=== PATIENT | female | born 1965 | race Two or more races ===

== ENCOUNTER 2020-02-12 08:39 | Outpatient (REF) | payer MEDICAID, SELFPAY ==
[2020-02-12 09:34] LABS: MANUAL DIFF FLAG NO
[2020-02-12 09:42] LABS: Basophils Percent Auto 0.5 % (0-2); Eosinophils Absolute Auto 0.1 X10*3/uL (0.0-0.4); Eosinophils Percent Auto 0.9 % (0-4); Hematocrit 39.1 % (37-47); Hemoglobin 12.6 g/dl (12.0-16.0); Imm Gran Abs Auto 0.02 X10*3/uL (0.00-0.03); Imm Gran Pct Auto 0.3 % (0.0-0.4); Lymphocytes Absolute Auto 0.9 X10*3/uL (1.2-4.9); Lymphocytes Percent Auto 13.5 % (20-40); Mean Corpuscular HGB Conc 32.2 g/dl (31.0-35.0); Mean Corpuscular Volume 86.9 fL (80-98); Mean Platelet Volume 11.1 fL (9.4-12.3); Monocytes Absolute Auto 0.5 X10*3/uL (0.1-1.2); Monocytes Percent Auto 7.1 % (2-11); Neutrophils Absolute Auto 4.9 X10*3/uL (2.0-8.3); Neutrophils Percent Auto 77.7 % (45-73); Platelet Count 311 X10*3/uL (160-400); Red Cell Distribution Width 14.4 % (11.0-16.0); White Blood Count 6.4 X10*3/uL (4.8-10.8)
[2020-02-12 10:43] LABS: Estimated Average Glucose 111 mg/dL; Hemoglobin A1C 122.4538 umol/L; Hemoglobin A1c % 5.5 %
[2020-02-12 11:01] LABS: Alanine Aminotransferase 18 U/L (0-31); Albumin Level 4.2 g/dL (3.5-5.0); Alkaline Phosphatase 139 U/L (39-117); Anion Gap 11 (12-20); Aspartate Amino Transferase 23 U/L (5-31); Bilirubin Total 0.6 mg/dL (0.0-1.0); Blood Urea Nitrogen 24 mg/dL (9-16); C Reactive Protein 1.72 mg/dL (< or = 0.50); Calcium 9.9 mg/dL (8.4-10.2); Carbon Dioxide 29 mmol/L (22-29); Chloride 103 mmol/L (96-108); Cholesterol 189 mg/dL; Estimated Glomerular Filt Rate > 60; Glucose Random 93 mg/dL (60-115); HDL Cholesterol 77 mg/dL; Iron 101 mcg/dL (30-160); LDL Cholesterol Calculated 99 mg/dl; Percent Iron Saturation 24 % (15-50); Potassium 4.3 mmol/l (3.3-5.1); Sodium 139 mmol/L (135-145); Total Iron Binding Capacity 413 mcg/dL (228-428); Total Protein 7.2 g/dL (6.5-8.0); Triglycerides 65 mg/dL; Unsaturated Iron Binding 312 ug/dL
[2020-02-12 11:25] LABS: Ferritin 12 ng/mL (10-250); TSH reflex Free T4 0.93 mIU/mL (0.32-4.0); Vitamin D 25-OH Total 41.1 ng/mL (>30)
[2020-02-12 11:33] LABS: Folate > 20.0 ng/mL (> or = 4.0); Vitamin B12 1078 pg/mL (200-900)
[2020-02-15 14:37] LABS: Insulin Level Total 5.9 uIU/mL
[2020-02-17 00:12] LABS: Zinc 79 mcg/dL (60-130)
[2020-02-18 12:36] LABS: Vitamin B1 14 nmol/L (8-30)
[2020-02-18 17:17] LABS: Vitamin A 46 mcg/dL (38-98)
== END 2020-02-12 08:40 | disposition home or self-care (01) ==
LOC: HO.LAB 08:39
PROVIDERS: Visit Provider Surgery
DX: K91.2 Postsurgical malabsorption, not elsewhere classified (principal)
CPT/HCPCS: 36415; 80053; 80061; 82306; 82607; 82728; 82746; 83036; 83525; 83540; 84425; 84443; 84590; 84630; 85025; 86140

== ENCOUNTER 2020-02-12 17:29 | Emergency (ER) | payer MEDICAID, SELFPAY ==
[2020-02-12 20:15] VITALS: BP 133/70; PULSE 73; RESP 16; TEMP 36.9; O2SAT 98; BMI 32.8
--- NOTE | 2020-02-12 20:17 | PC.NURSE ---
PATIENT CALLED FOR ROOM ASSISGNMENT NO RESPONSE
--- NOTE | 2020-02-12 20:56 | ED_ITS ---
HPI - Extremity Problem General Chief complaint: Extremity Injury, Upper <Patricia Nielsen NP - Last Filed: 02/12/20 22:06> Stated complaint: ?infection <Patricia Nielsen NP - Last Filed: 02/12/20 22:06> Time Seen by Provider: 02/12/20 20:56 <Patricia Nielsen NP - Last Filed: 02/12/20 22:06> Source: patient <Patricia Nielsen NP - Last Filed: 02/12/20 22:06> Mode of arrival: ambulatory <Patricia Nielsen NP - Last Filed: 02/12/20 22:06> Limitations: no limitations <Patricia Nielsen NP - Last Filed: 02/12/20 22:06> History of Present Illness HPI Narrative: 54-year-old female presents with pain, swelling, itching and tenderness to an injection site to the left deltoid. She received the shingles vaccine 2 days ago. She has been taking Tylenol for pain management, but is concerned that the site may be infected. She also reports muscle aches and headache. She does not describe fever, chills, nausea, vomiting, diarrhea, chest pain or pressure, palpitations, or shortness of breath. <Patricia Nielsen NP - Last Filed: 02/12/20 22:06> MD Complaint: extremity pain and extremity swelling <Patricia Nielsen NP - Last Filed: 02/12/20 22:06> Onset (ago): day(s) (1) <Patricia Nielsen NP - Last Filed: 02/12/20 22:06> Pain Consistency: constant <Patricia Nielsen NP - Last Filed: 02/12/20 22:06> Location: left and upper extremity ( deltoid) <Patricia Nielsen NP - Last Filed: 02/12/20 22:06> Severity scale (1-10): 8 <Patricia Nielsen NP - Last Filed: 02/12/20 22:06> Quality: burning and constant <Patricia Nielsen NP - Last Filed: 02/12/20 22:06> Radiation: none <Patricia Nielsen NP - Last Filed: 02/12/20 22:06> Relieving factors: nothing <Patricia Nielsen NP - Last Filed: 02/12/20 22:06> Associated symptoms: denies other symptoms <Patricia Nielsen PAYROLL ADMINISTRATIVE ASSISTANT - Last Filed: 02/12/20 22:06> Related Data Allergies/Adverse reactions: Allergies Allergy/AdvReac Type Severity Reaction Status Date / Time pineapple [PINEAPPLE] Allergy Severe ANAPHYLAXIS Unverified 01/28/20 14:49 shellfish derived Allergy Severe ANAPHYLAXIS Unverified 01/28/20 14:49 [SHELLFISH DERIVED] pineapple Allergy Unknown Unverified 04/07/19 00:00 metronidazole [From Flagyl] AdvReac Mild YEAST Unverified 01/28/20 14:49 INFECTION shellfish Allergy Unknown Uncoded 04/07/19 00:00 <Patricia Nielsen PAYROLL ADMINISTRATIVE ASSISTANT - Last Filed: 02/12/20 22:06> Review of Systems Review of Systems: Yes all other systems are reviewed and are negative <Patricia Nielsen PAYROLL ADMINISTRATIVE ASSISTANT - Last Filed: 02/12/20 22:06> Constitutional: Constitutional: Reports body ache(s) and Reports headache(s) <Patricia Nielsen PAYROLL ADMINISTRATIVE ASSISTANT - Last Filed: 02/12/20 22:06> Eyes: Eyes: Reports no additional eye complaints <Patricia Nielsen PAYROLL ADMINISTRATIVE ASSISTANT - Last Filed: 02/12/20 22:06> ENT: Reports system reviewed and no additional complaints, except as documented and Reports headache(s) <Patricia Nielsen PAYROLL ADMINISTRATIVE ASSISTANT - Last Filed: 02/12/20 22:06> Cardiovascular: Cardiovascular: Reports no additional cardiovascular complaints <Patricia Nielsen PAYROLL ADMINISTRATIVE ASSISTANT - Last Filed: 02/12/20 22:06> Respiratory: Respiratory: Reports no additional respiratory complaints <Patricia Nielsen PAYROLL ADMINISTRATIVE ASSISTANT - Last Filed: 02/12/20 22:06> Gastrointestinal: Gastrointestinal: Reports no additional gastrointestinal complaints <Patricia Nielsen PAYROLL ADMINISTRATIVE ASSISTANT - Last Filed: 02/12/20 22:06> Genitourinary: Genitourinary: Reports no additional female genitourinary complaints <Patricia Nielsen PAYROLL ADMINISTRATIVE ASSISTANT - Last Filed: 02/12/20 22:06> Musculoskeletal: Musculoskeletal: Reports myalgias <Patricia Nielsen PAYROLL ADMINISTRATIVE ASSISTANT - Last Filed: 02/12/20 22:06> Integumentary/Breasts: Skin/Breast: Reports erythema and Reports skin swelling ( left deltoid) <Patricia MoralesFELY ayers - Last Filed: 02/12/20 22:06> Neurologic: Reports system reviewed and no additional complaints, except as documented and Reports headache(s) <Patricia MoralesFELY ayers - Last Filed: 02/12/20 22:06> Endocrine: Endocrine: Reports no additional endocrine complaints <Patricia Nielsen NP - Last Filed: 02/12/20 22:06> Hematologic/Lymphatic: Hematologic/Lymphatic: Reports no additional hematologic/lymphatic complaints <Patricia Nielsen NP - Last Filed: 02/12/20 22:06> Allergic/Immunologic: Allergic/Immunologic: Reports no additional allergic/immunologic complaints <Patricia Nielsen NP - Last Filed: 02/12/20 2 2:06> [facility] Past Medical History Attestation statement: The following information was validated with the patient. <Patricia Nielsen NP - Last Filed: 02/12/20 22:06> Medical History: Medical History (Updated 02/13/20 @ 00:01 by Nik Dupont) Hypertension <Patricia Nielsen NP - Last Filed: 02/12/20 22:06> Social History Social History: Social History Advance Directives: No Advance Directives Information Provided: Yes <Patricia Nielsen NP - Last Filed: 02/12/20 22:06> Physical Exam Vital Signs and I&O and Narrative: Vital Signs and I&O: Vital Signs Temp 98.6 F 02/12/20 21:02 Pulse 71 02/12/20 21:02 Resp 18 02/12/20 21:02 BP 106/60 02/12/20 21:02 Pulse Ox 98 02/12/20 21:02 Intake & Output 02/12/20 02/12/20 02/13/20 06:59 18:59 06:59 Weight 78.925 kg Body Mass Index 32.8 <Patricia Nielsen NP - Last Filed: 02/12/20 22:06> Vital Signs and I&O: Vital Signs Temp 98.6 F 02/12/20 21:02 Pulse 71 02/12/20 21:02 Resp 18 02/12/20 21:02 BP 106/60 02/12/20 21:02 Pulse Ox 98 02/12/20 21:02 Intake & Output 02/12/20 02/12/20 02/13/20 06:59 18:59 06:59 Weight 78.925 kg Body Mass Index 32.8 <Van Mcgill DO - Last Filed: 02/13/20 02:25> Const: General: cooperative, healthy appearing, comfortable and well developed <Patricia Nielsen NP - Last Filed: 02/12/20 22:06> Nutritional Appearance: average body habitus <Patricia Nielsen NP - Last Filed: 02/12/20 22:06> Orientation/consciousness: patient oriented x3 <Patricia Nielsen NP - Last Filed: 02/12/20 22:06> Limitations: no limitations <Patricia Nielsen NP - Last Filed: 02/12/20 22:06> HENMT: Head: Yes normal to inspection <Patricia Nielsen NP - Last Filed: 02/12/20 22:06> Neck: Neck: Yes normal visual inspection, Yes full ROM and Yes no lymphadenopathy <Patricia Nielsen NP - Last Filed: 02/12/20 22:06> Chest: Chest palpation & inspection: normal inspection of the chest <Patricia Nielsen NP - Last Filed: 02/12/20 22:06> Resp: Effort & Inspection: normal respiratory effort and able to speak in complete sentences <Patricia Nielsen NP - Last Filed: 02/12/20 22:06> Auscultation: clear to auscultation bilaterally <Patricia Nielsen NP - Last Filed: 02/12/20 22:06> Cardio: Rate: regular rate <Patricia Nielsen NP - Last Filed: 02/12/20 22:06> Rhythm: regular rhythm <Patricia Nielsen NP - Last Filed: 02/12/20 22:06> Skin: General skin exam: erythema ( left deltoid) and induration ( left deltoid) <Patricia Nielsen NP - Last Filed: 02/12/20 22:06> Neuro: General: patient oriented x3 <Patricia Nielsen NP - Last Filed: 02/12/20 22:06> Cranial nerves: Yes CN's II-XII intact bilaterally, Yes Equal, round and reactive pupils present and Yes Bilaterally intact EOM present <Patricia Nielsen NP - Last Filed: 02/12/20 22:06> Cognition (Neuro): normal cognition <Patricia Nielsen NP - Last Filed: 02/12/20 22:06> Motor exam (neuro): 5/5 motor strength present throughout <Patricia Nielsen NP - Last Filed: 02/12/20 22:06> Psych: Appearance: grossly normal <Patricia Nielsen NP - Last Filed: 02/12/20 22:06> Course Course Hospital Course: patient has a 3 cm tender, erythematous area lateral on the left deltoid consistent with patient's report of vaccine injection. She does have full range of motion, strength 5/5 to all extremities, and is having normal symptoms status post vaccine administration. We will give Motrin for pain and Benadryl for the itching. [facility] not have adverse reactions to shingles vaccine. Patient will follow-up with primary care provider as needed. She does understand that if symptoms persist or get worse that she should return sooner for evaluation. Patient verbalized understanding of and agrees to plan of care discharge home <Patricia Nielsen NP - Last Filed: 02/12/20 22:06> MDM - Extremity (Nontraumatic) MDM Narrative Medical decision making narrative: normal injection site reaction verses adverse reaction to vaccine injection <Patricia Nielsen NP - Last Filed: 02/12/20 22:06> Discharge Plan Discharge Clinical Impression: Injection site reaction <Patricia Nielsen NP - Last Filed: 02/12/20 22:06> Patient Disposition: Home, Self-Care <Patricia Nielsen NP - Last Filed: 02/12/20 22:06> Instructions: Zoster Vaccine, Live (By injection) <Patricia Nielsen NP - Last Filed: 02/12/20 22:06> Additional Instructions: please follow the instructions that were printed out for injection site reactions for shingles vaccine. Please use ice and elevation to help reduce swelling. Alternate Tylenol and Motrin to help with body aches and pain. You may use Benadryl as needed for itching. Follow-up with primary care physician in 3 days. Return to the emergency department for any new, concerning, worsening symptoms. <Patricia Nielsen NP - Last Filed: 02/12/20 22:06> Stand Alone Forms: Work/School Release <Patricia Nielsen NP - Last Filed: 02/12/20 22:06> Interventions: ED Discharge Assessment Last Done: 02/12/20 21:19 <Patricia Nielsen NP - Last Filed: 02/12/20 22:06> Discharge Date/Time: 02/12/20 21:20 <Patricia Nielsen NP - Last Filed: 02/12/20 22:06>
[2020-02-12 21:02] VITALS: BP 106/60; PULSE 71; RESP 18; TEMP 37; O2SAT 98
--- NOTE | 2020-02-12 21:04 | PC.NURSE ---
PT PRESENTS WITH LARGE RED CIRCULAR LUMP TO LEFT DELTOID WHERE SHE RECEIVED SHINGLES VACCINE 2 DAYS PRIOR. REPORTS 6/10 PAIN. EVAL BY CHRISTOPHER GEIGER. AWAITING BAGGING SALVAGER AND DC HOME. AWARE OF PLAN OF CARE.
[2020-02-12] MEDS: diphenhydrAMINE HCL 25 MG TABLET PO (21:07)
[2020-02-12] MEDS: Ibuprofen 600 MG TABLET PO (21:07)
--- NOTE | 2020-02-12 21:10 | PC.NURSE ---
PT MEDICATED PER MD ORDER, AWAITING DC HOME.
== END 2020-02-12 21:20 | disposition home or self-care (01) ==
PROVIDERS: Emergency Provider Emergency Medicine; PCP Internal Medicine
DX: M79.622 Pain in left upper arm (principal); T50.Z95A Adverse effect of other vaccines and biological substances, initial encounter; Y92.9 Unspecified place or not applicable; I10 Essential (primary) hypertension
CPT/HCPCS: 99283; Q0163

== ENCOUNTER → 2020-02-26 08:16 | Outpatient (BNVA) | payer MEDICAID, SELFPAY | PROVIDERS: PCP Internal Medicine; Referring Provider Internal Medicine; Visit Provider Dietitian, Registered | DX: Z76.89 Persons encountering health services in other specified circumstances (principal) ==

== ENCOUNTER 2020-05-11 17:26 | Outpatient (REF) | payer MEDICAID, SELFPAY ==
--- NOTE | 2020-05-11 | XR_ITS ---
EXAMINATION: XR LUMBOSACRAL SPINE WITH OBLIQUES CLINICAL INFORMATION: Lumbar radiculopathy. COMPARISON: None TECHNIQUE: AP, both oblique, and lateral views of the lumbar spine. Lateral view of the lumbosacral junction. FINDINGS: There is normal lumbar lordosis. The vertebral heights and alignment is normal. There is loss of L5-S1 disc height. Rest of the disc heights are normal. No visible acute fracture, dislocation or subluxation seen. No lytic or sclerotic process. XR/XR lumbar spine 4V min IMPRESSION: Mild degenerative disc changes at L5-S1 disc level. Otherwise unremarkable lumbar spine exam.
== END 2020-05-11 17:27 | disposition home or self-care (01) ==
LOC: HO.XRAY 17:26
PROVIDERS: Visit Provider Emergency Medicine
DX: M54.18 Radiculopathy, sacral and sacrococcygeal region (principal); M54.41 Lumbago with sciatica, right side
CPT/HCPCS: 72110

== ENCOUNTER 2020-05-19 16:56 | Outpatient (REF) | payer MEDICAID, SELFPAY ==
[2020-05-19 18:21] LABS: Glucose Urine UA NEG (NEG); Leukocyte Esterase Urine TRACE (NEG); Nitrite Urine NEG (NEG); Specific Gravity - Urine 1.015 (1.005-1.025); Urine Blood NEG (NEG); Urine Ketones NEG (NEG); Urine Protein NEG (NEG-TRACE)
[2020-05-19 18:22] LABS: Appearance Urine CLEAR; Color Urine YELLOW
[2020-05-19 18:34] LABS: RBC Urine 0 /HPF (0); Squamous Epithelial Cell Urine 2+ /LPF
== END 2020-05-19 16:57 | disposition home or self-care (01) ==
LOC: HO.LAB 16:56
PROVIDERS: PCP Internal Medicine; Visit Provider Registered Nurse
DX: N89.8 Other specified noninflammatory disorders of vagina (principal); R82.90 Unspecified abnormal findings in urine
CPT/HCPCS: 81001; 87086

== ENCOUNTER 2020-06-16 07:00 | Outpatient (RCR) | payer MEDICAID, SELFPAY | END 2020-07-11 11:00 | disposition home or self-care (01) | LOC: HO.PT 07:00 | PROVIDERS: PCP Internal Medicine; Visit Provider Emergency Medicine | DX: M54.18 Radiculopathy, sacral and sacrococcygeal region (principal) | CPT/HCPCS: 97110; 97112; 97140; 97162 ==

== ENCOUNTER 2020-06-17 16:57 | Outpatient (REF) | payer MEDICAID, SELFPAY ==
--- NOTE | ~2020-06-17 | XR_ITS ---
EXAMINATION: XR KNEE, LEFT CLINICAL INFORMATION: Medial left knee pain for one week. COMPARISON: None. TECHNIQUE: 4 views of the left knee. FINDINGS: Bones and soft tissues are normal. No fracture or joint effusion. Alignment is anatomic. Joint spaces are well maintained. There is a small superior patellar spur. No abnormal soft tissue calcification. XR/XR knee LT 4V IMPRESSION: No visible acute fracture, dislocation or subluxation seen. Small superior patellar spur.
== END 2020-06-17 16:58 | disposition home or self-care (01) ==
LOC: HO.XRAY 16:57
PROVIDERS: PCP Internal Medicine; Visit Provider Emergency Medicine
DX: M23.92 Unspecified internal derangement of left knee (principal)
CPT/HCPCS: 73564

== ENCOUNTER → 2020-07-04 12:58 | Outpatient (BNVA) | payer MEDICAID, SELFPAY | PROVIDERS: Visit Provider Orthopaedic Surgery | DX: M23.92 Unspecified internal derangement of left knee (principal) | CPT/HCPCS: 20610; 99202; J1100 ==

== ENCOUNTER 2020-07-07 07:32 | Outpatient (REF) | payer MEDICAID, SELFPAY ==
[2020-07-08 08:57] LABS: BV Int Neg Control Negative (Negative)
[2020-07-08 08:58] LABS: BV Int Pos Control Positive (Positive)
== END 2020-07-07 07:33 | disposition home or self-care (01) ==
LOC: HO.LAB 07:32
PROVIDERS: Visit Provider Advanced Practice Midwife
DX: Z01.419 Encounter for gynecological examination (general) (routine) without abnormal findings (principal); N89.8 Other specified noninflammatory disorders of vagina; R23.2 Flushing; M54.9 Dorsalgia, unspecified; M25.569 Pain in unspecified knee
CPT/HCPCS: 87480; 87510; 87660

== ENCOUNTER 2020-10-22 09:18 | Outpatient (REF) | payer MEDICAID, SELFPAY ==
--- NOTE | ~2020-10-22 | MM_ITS ---
EXAMINATION: MM SCREENING DIGITAL BREAST TOMOSYNTHESIS, BILATERAL CLINICAL INFORMATION: Screening. Asymptomatic. The lifetime risk of breast cancer based on the Tyrer-Cuzick Model is 11%. COMPARISON: Mammography: 12/11/2017, 12/26/2015, 02/16/2014 TECHNIQUE: Digital breast tomosynthesis is performed in both the craniocaudal and mediolateral oblique views along with computer-aided detection (CAD). Synthesized 2D images are generated from the tomosynthesis. FINDINGS: There are scattered areas of fibroglandular density (ACR BI-RADS breast composition Category b). There are no significant masses, abnormal calcifications, or other abnormalities. Parenchymal pattern is similar to prior studies. No significant changes. No developing density. MM/MM tomosynthesis screening BI IMPRESSION: No mammographic evidence of malignancy. ASSESSMENT: BI-RADS 1: Negative RECOMMENDATION: Routine annual mammography screening. This patient's information was entered into a reminder system with a target due date for their next mammogram.
== END 2020-10-22 09:19 | disposition home or self-care (01) ==
LOC: HO.MAMMO 09:18
PROVIDERS: Visit Provider Advanced Practice Midwife
DX: Z12.31 Encounter for screening mammogram for malignant neoplasm of breast (principal)
CPT/HCPCS: 77063; 77067

== ENCOUNTER 2020-12-01 12:18 | Emergency (ER) | payer MEDICAID, SELFPAY ==
--- NOTE | ~2020-12-01 | XR_ITS ---
EXAMINATION: XR HIP, RIGHT CLINICAL INFORMATION: Right hip pain COMPARISON: None TECHNIQUE: AP pelvis and 2 views of the right hip. of the right hip. FINDINGS: There is no evidence of acute fracture or diastases of the pelvis. Hip joint spaces appear maintained. There appears be osteitis pubis. There is some sclerosis about the iliac sides of the sacroiliac joints bilaterally without evidence of widening or fusion of the sacroiliac joints. There is degenerative disc disease present at the L5-S1 level. 2 views of the right hip do not demonstrate any evidence of acute fracture or dislocation. Hip joint spaces maintained. No abnormal lytic or sclerotic lesions identified. No evidence of femoral head collapse. XR/XR hip RT w PEL1V IMPRESSION: No significant abnormality of the right hip identified. No evidence of acute fracture or diastases the pelvis. Degenerative disc disease L5-S1. Sacroiliac joint sclerosis.
[2020-12-01 13:03] VITALS: BP 123/80; PULSE 92; RESP 17; TEMP 36.6; O2SAT 96; BMI 35.3
--- NOTE | 2020-12-01 13:10 | PC.NURSE ---
verbal order for xray from [facility] provider
--- NOTE | 2020-12-01 13:55 | ED.GENADULT ---
HPI - General Adult General Chief complaint: General Medical Stated complaint: hip pain Time Seen by Provider: 12/01/20 13:55 Source: patient Mode of arrival: ambulatory Limitations: no limitations History of Present Illness HPI narrative: 55-year-old female with nonsignificant past medical history presents to the emergency department today with reports of right-sided atraumatic hip pain. Patient states last evening while walking she developed pain that radiated from the right low back to the right hip and into the right groin. Denies recent injury or trauma. States she had similar discomfort in the past for which she was seen by Physical therapy. States she know she has degenerative discs in the lumbar spine. Denies fevers or chills. Denies abdominal pain nausea vomiting or changes in bowel or bladder habits. Denies dysuria. Denies numbness or tingling in the legs or genitals. Took Tylenol today with minimal relief. Related Data Home Medications Medication Instructions Recorded Confirmed acetaminophen 325 mg-codeine 15 mg tab PO 07/04/20 tablet albuterol sulfate 90 mcg/actuation 1 inh INHALATION QID 07/04/20 aerosol inhaler capsaicin 0.025 % topical cream 1 appl TOPICAL BID 07/04/20 cholecalciferol (vitamin D3) 25 25 mcg PO DAILY 07/04/20 mcg (1,000 unit) capsule epinephrine 0.3 mg/0.3 mL 0.3 mg IM Q10M PRN 07/04/20 injection syringe lisinopril 10 mg tablet 10 mg PO DAILY 07/04/20 loratadine 10 mg tablet 10 mg PO DAILY 07/04/20 metronidazole 500 mg tablet 500 mg PO BID 07/04/20 valacyclovir 500 mg tablet 500 mg PO BID 07/04/20 Previous Rx's Medication Instructions Recorded metronidazole 500 mg tablet 500 mg PO BID 7 Days #14 tab 07/19/20 acetaminophen-codeine 1 tab PO Q8H PRN #6 tab 12/01/20 cyclobenzaprine 10 mg PO TID PRN #15 tab 12/01/20 Allergies Allergy/AdvReac Type Severity Reaction Status Date / Time pineapple [PINEAPPLE] Allergy Severe ANAPHYLAXIS Verified 12/01/20 13:02 shellfish derived Allergy Severe ANAPHYLAXIS Verified 12/01/20 13:02 [SHELLFISH DERIVED] pineapple Allergy Unknown Unknown Verified 12/01/20 13:02 tramadol Allergy Itching Verified 12/01/20 13:02 metronidazole [From Flagyl] AdvReac Mild YEAST Verified 12/01/20 13:02 INFECTION shellfish Allergy Unknown Unknown Uncoded 07/04/20 13:07 Review of Systems Review of Systems: Constitutional : No Weight loss, No Fever, No Chills, No Night Sweats, No Fatigue, No Malaise ENT/Mouth : No Hearing loss, No Ear Pain, No Nasal Congestion, No Sinus Pain, No Hoarseness, No sore throat, No Rhinorrhea, No Swallowing Difficulty Eyes: No Eye Pain, No Swelling, No Redness, No Foreign Body, No Discharge, No Vision Changes Cardiovascular : No Chest Pain, No SOB, No Dyspnea on Exertion, No Orthopnea, No Edema, No Palpitations Respiratory : No Cough, No Sputum, No Wheezing, No Smoke Exposure, No Dyspnea Gastrointestinal : No Nausea, No Vomiting, No Diarrhea, No Constipation, No abdominal Pain, No Hematochezia, No Melena Genitourinary : no irregular bleeding, No Dysuria, No Urinary Frequency, No Hematuria, No Urinary Incontinence, No Urgency, No Flank Pain, No Urinary Flow Changes, No Hesitancy Musculoskeletal : + joint pain, No Myalgias, No Joint Swelling Skin : No Skin Lesions, No rash Neuro : No Weakness, No Numbness, No Paresthesias, No Loss of Consciousness, No Dizziness, No Headache Psych : No Anxiety/Panic, No Depression, No SI/HI/AH/VH, No Social Issues, Heme/Lymph: No Bruising, No Bleeding,No Lymphadenopathy Endocrine : No Polyuria, No Polydipsia, No Temperature Intolerance [facility] Past Medical History Attestation statement: The following information was validated with the patient. Source: old records reviewed and obtained from family Medical History Asthma HSV-1 infection Hypertension Kidney stone Vitamin D deficiency Surgical History H/O abdominoplasty H/O lithotripsy Family History Family History Mother No problems noted. Father No problems noted. Sister Breast cancer Social History Social History Alcohol intake: never Advance Directives: Yes Advance Directives Information Provided: Yes Advance Directives on File: No Patient : No Gender identity: female Physical Exam Vital Signs: Vital Signs: Last Vital Signs Temp 97.8 F 12/01/20 13:03 Pulse 92 12/01/20 13:03 Resp 17 12/01/20 13:03 BP 123/80 12/01/20 13:03 Pulse Ox 96 12/01/20 13:03 Body Mass Index 35.3 vital signs have been reviewed as normal and appeared to be correct. Blood pressure normal. Heart rate normal. Respiration rate normal. Temperature normal. Oxygen saturation normal. Appearance: Alert. Oriented X3. No acute distress. Head: Normal external exam. Normocephalic. Atraumatic. No [place] signs noted. No raccoon eyes noted Eyes: Conjunctiva and sclera normal. ENT: EAC normal. Moist mucous membranes. No drooling noted. No muffled voice noted. Neck: Normal inspection. Neck supple. FROM. No meningeal signs. CVS: Pulses normal throughout. Respiratory: No respiratory distress. Painless inspiration. No accessory muscle usage noted Abdomen: No visible injury noted. Soft nondistended nontender Back: Full range of motion noted. No midline cervical thoracic or lumbar tenderness no CVA tenderness. Patient does have tenderness to the right-sided paraspinal lumbar region with radiation into the right hip Skin: Skin warm and dry. Normal skin color. Normal skin turgor. Extremities: No lower extremity edema. Extremities exhibit normal range of motion. Pain to palpation of the right hip and inguinal region good distal pulses Neuro: Oriented X 3. No motor deficit. No sensory deficit. Course Course Course Narrative: Patient's x-rays returned without evidence of fracture dislocation degenerative changes in the lower L-spine seen likely causing some sciatic discomfort will prescribe pain medication and muscle relaxer for home and advise close outpatient PT and PCP follow-up patient is comfortable with this plan and asking for a work note Medical Decision Making MDM Narrative Medical decision making narrative: Patient's vital signs are stable and she is afebrile. Patient presenting to the ED with atraumatic right hip pain given the absence of trauma low suspicion for fracture however will obtain an x-ray of the right hip and pelvis. Description of symptoms with radiation may be secondary to sciatica patient with known degenerative lumbar disc disease. No urinary symptoms no CVA tenderness no acute concern for UTI pyelonephritis or renal stone. No evidence inguinal hernia on exam patient without abdominal pain no acute concern for intra-abdominal pathology such as appendicitis or ovarian pathology. Patient does have full range of motion of the right hip no acute concern for septic arthritis. Patient drove here will continue to monitor pending the above Discharge Plan Discharge Clinical Impression: Acute hip pain Qualifiers: Laterality: right Qualified Code(s): M25.551 - Pain in right hip Sciatica Qualifiers: Laterality: right Qualified Code(s): M54.31 - Sciatica, right side Patient Disposition: Home, Self-Care Instructions: Sciatica (ED), Lumbar Radiculopathy (ED), Lower Back Exercises (ED) Prescriptions: New acetaminophen-codeine 300-15 mg tablet 1 tab PO Q8H PRN (Reason: pain) Qty: 6 RF: 0 cyclobenzaprine 10 mg tablet 10 mg PO TID PRN (Reason: muscle spasm) Qty: 15 RF: 0 No Action metronidazole [Flagyl] 500 mg tablet 500 mg PO BID 7 Days Qty: 14 RF: 0 loratadine [Allergy Relief (loratadine)] 10 mg tablet 10 mg PO DAILY RF: 0 albuterol sulfate [Proventil HFA] 90 mcg/actuation HFA aerosol inhaler 1 inh inhalation QID RF: 0 cholecalciferol (vitamin D3) 25 mcg (1,000 unit) capsule 25 mcg PO DAILY RF: 0 valacyclovir [Valtrex] 500 mg tablet 500 mg PO BID RF: 0 lisinopril 10 mg tablet 10 mg PO DAILY RF: 0 metronidazole 500 mg tablet 500 mg PO BID RF: 0 capsaicin 0.025 % cream 1 appl topical BID RF: 0 acetaminophen-codeine 325-15 mg tablet PO RF: 0 epinephrine 0.3 mg/0.3 mL syringe 0.3 mg IM Q10M PRNRF: 0 Stand Alone Forms: Work/School Release Interventions: ED Discharge Assessment Last Done: 12/01/20 14:12 Discharge Date/Time: 12/01/20 14:12 Print Language: [place]
== END 2020-12-01 14:12 | disposition home or self-care (01) ==
PROVIDERS: Emergency Provider Emergency Medicine Emergency Medical Services; PCP Internal Medicine
DX: M25.551 Pain in right hip (principal); M54.41 Lumbago with sciatica, right side; I10 Essential (primary) hypertension
CPT/HCPCS: 73502; 99283

== ENCOUNTER 2020-12-13 08:16 | Emergency (ER) | payer MEDICAID, SELFPAY ==
[2020-12-13 08:40] VITALS: BP 116/81; PULSE 88; RESP 16; TEMP 36.1; O2SAT 97; BMI 35.9
--- NOTE | 2020-12-13 09:25 | ED.BACK ---
HPI - Back Pain/Injury General Chief Complaint: Back Pain/Injury Stated Complaint: low back pain Time Seen by Provider: 12/13/20 09:15 Source: patient Mode of arrival: ambulatory Limitations: no limitations History of Present Illness HPI Narrative: 55-year-old female with a past medical history of degenerative disc disease L5-S1 level, kidney stones, hypertension, obesity status post gastric sleeve presenting to the ED with complaints of right lower back pain/hip pain for the past month worse in the past 2 weeks. She reports it is worse when she looks down she gets a sharp pain on the right lower back. She reports she has had this pain in the past approximately 4 months ago and had physical therapy and her symptoms resolved although returned in the past month. She denies any injuries or falls. She denies any fevers, chills, neck pain/stiffness, paresthesias, chest pain, shortness of breath, abdominal pain, dysuria, hematuria, IV drug usage, history of cancer, incontinence or retention of urine or bowels or any other symptoms complaints or concerns at this time. MD elicited complaint: back pain Pertinent past history: prior back pain Onset (ago): week(s) Timing: intermittent and progressively worsening Severity: moderate Similar Symptoms Previously: Yes Quality: sharp Location: right lower back Radiation: other (Right hip/buttocks) Exacerbating factors: movement and walking Relieving factors: immobilization Associated symptoms: denies other symptoms Work related injury: No Related Data Home Medications Medication Instructions Recorded Confirmed acetaminophen 325 mg-codeine 15 mg tab PO 07/04/20 tablet albuterol sulfate 90 mcg/actuation 1 inh INHALATION QID 07/04/20 aerosol inhaler (Proventil HFA) capsaicin 0.025 % topical cream 1 appl TOPICAL BID 07/04/20 cholecalciferol (vitamin D3) 25 25 mcg PO DAILY 07/04/20 mcg (1,000 unit) capsule epinephrine 0.3 mg/0.3 mL 0.3 mg IM Q10M PRN 07/04/20 injection syringe lisinopril 10 mg tablet 10 mg PO DAILY 07/04/20 loratadine 10 mg tablet (Allergy 10 mg PO DAILY 07/04/20 Relief (loratadine)) metronidazole 500 mg tablet 500 mg PO BID 07/04/20 valacyclovir 500 mg tablet 500 mg PO BID 07/04/20 (Valtrex) Previous Rx's Medication Instructions Recorded metronidazole 500 mg tablet 500 mg PO BID 7 Days #14 tab 07/19/20 (Flagyl) acetaminophen 300 mg-codeine 15 mg 1 tab PO Q8H PRN #6 tab 12/01/20 tablet cyclobenzaprine 10 mg tablet 10 mg PO TID PRN #15 tab 12/01/20 acetaminophen 500 mg tablet 1,000 mg PO QID PRN #14 tab 12/13/20 (Tylenol Extra Strength) cyclobenzaprine 10 mg tablet 10 mg PO Q8H #10 tab 12/13/20 lidocaine HCl 4 % topical cream 1 appl TOPICAL BID PRN #120 g 12/13/20 (Aspercreme (lidocaine HCl)) oxycodone 5 mg tablet 5 mg PO BID PRN #10 tab 12/13/20 prednisone 20 mg tablet 40 mg PO DAILY 5 Days #10 tab 12/13/20 Allergies Allergy/AdvReac Type Severity Reaction Status Date / Time pineapple [PINEAPPLE] Allergy Severe ANAPHYLAXIS Verified 12/01/20 13:02 shellfish derived Allergy Severe ANAPHYLAXIS Verified 12/01/20 13:02 [SHELLFISH DERIVED] pineapple Allergy Unknown Unknown Verified 12/01/20 13:02 tramadol Allergy Itching Verified 12/01/20 13:02 metronidazole [From Flagyl] AdvReac Mild YEAST Verified 12/01/20 13:02 INFECTION shellfish Allergy Unknown Unknown Uncoded 07/04/20 13:07 Review of Systems Review of Systems: Constitutional : No trauma, No Weight loss, No Fever, No Chills, ENT/Mouth : No Hearing loss, No Ear Pain, No Nasal Congestion, No Sinus Pain, No Hoarseness, No sore throat, No Rhinorrhea, No Swallowing Difficulty Cardiovascular : No Chest Pain, No SOB Respiratory : No Cough, No Dyspnea Gastrointestinal : No Nausea, No Vomiting, No Diarrhea, No abdominal Pain, No Hematochezia, No Melena Genitourinary : No Dysuria, No Urinary Frequency, No Hematuria, No Urinary or Bowel Incontinence/retention Musculoskeletal : + Back pain, No neck pain, No joint stiffness, No joint swelling Skin : No Skin Lesions, No rash or signs of infection Neuro : No Weakness, No radiation, No Numbness, No Paresthesias, No headache, no loss of bowel or bladder incontinence, no saddle anesthesia, Focal weakness, No radiation Denies history of IV drug usage. Yes all other systems are reviewed and are negative [facility] Past Medical History Attestation statement: The following information was validated with the patient. Medical History Asthma HSV-1 infection Hypertension Kidney stone Vitamin D deficiency Surgical History H/O abdominoplasty H/O lithotripsy Family History Family History Mother No problems noted. Father No problems noted. Sister Breast cancer Social History Social History Alcohol intake: never Advance Directives: No Advance Directives Information Provided: No Gender identity: female Physical Exam Vital Signs: Vital Signs: Last Vital Signs Temp 96.9 F 12/13/20 08:40 Pulse 88 12/13/20 08:40 Resp 16 12/13/20 08:40 BP 116/81 12/13/20 08:40 Pulse Ox 97 12/13/20 08:40 Body Mass Index 35.9 vital signs have been reviewed as normal and appeared to be correct. Blood pressure normal. Heart rate normal. Respiration rate normal. Temperature normal. Oxygen saturation normal. Appearance: Alert. Oriented X3. No acute distress. Head: Normal external exam. Normocephalic. Atraumatic. No [place] signs noted. No raccoon eyes noted Eyes: PERRLA. EOMI. Conjunctiva and sclera normal. Eyelids normal. ENT: EAC normal. TM's Normal. Pharynx normal. Uvula midline. Moist mucous membranes. No trismus noted. No drooling noted. No muffled voice noted. Neck: Normal inspection. Neck supple. FROM. No adenopathy. Thyroid Normal. No meningeal signs. No neck mass noted. CVS: Normal heart rate and rhythm. Heart sound normal. No murmurs noted. Pulses normal throughout. Respiratory: No respiratory distress. Painless inspiration. Breath sounds normal. No wheezes/rales/rhonchi noted. Chest nontender. No accessory muscle usage noted or decreased air movement noted. Abdomen: Soft and nontender. Bowel sounds normal in all 4 quadrants. No distention noted. No organomegaly noted. No visible injury noted. Back: No CVA tenderness. Full range of motion noted. No obvious deformities, or edema. Mild para-spinal muscular tenderness from lumbar region to coccyx. Full ROM in back and lower extremities. 5/5 strength hip extension/flexion, abduction, adduction. Mild Lumbar pain with hip flexion against resistance. Straight leg raise test negative on right; Straight leg raise test negative on left; Reflexes normal ankle and knee bilaterally; EHL motor strength normal bilaterally. No rashes/lesion/induration/fluctuance or signs infection noted. Skin: Skin warm and dry. Normal skin color. Normal skin turgor. No rashes/lesions/lacerations noted. Extremities: No lower extremity edema. Extremities exhibit normal range of motion. Extremities nontender. Neuro: Oriented X 3. No motor deficit. No sensory deficit. Reflexes normal. Patient has a normal steady gait. Course Course Course Narrative: Pt c likely muscular pain, but could be herniated disc. Neuro exam shows no deficits. Not c/w AAA/epidural abscess/dissection.No high risk Hx (Incont, fever, immunosupp, recent surgery/LP, coag, signif trauma, wt loss, puls mass, hx/o Ca, TB, or IVDU) to warrant MRI/CT today. Not c/w Pyelo/UTI/kidney stone/spinal fx. Not cauda equina syndrome. Imaging not currently indicated. DC c meds and f/u. MDM - Back Pain/Injury Medical Records Attestation: I reviewed the patient's medical records. Imaging Data Lumbar spine x-ray and hip/pelvis x-ray done outpatient: Attestation: I personally reviewed and interpreted this imaging study as follows: Radiologist's impression: FINDINGS: There is no evidence of acute fracture or diastases of the pelvis. Hip joint spaces appear maintained. There appears be osteitis pubis. There is some sclerosis about the iliac sides of the sacroiliac joints bilaterally without evidence of widening or fusion of the sacroiliac joints. There is degenerative disc disease present at the L5-S1 level. 2 views of the right hip do not demonstrate any evidence of acute fracture or dislocation. Hip joint spaces maintained. No abnormal lytic or sclerotic lesions identified. No evidence of femoral head collapse. XR/XR hip RT w PEL1V IMPRESSION: No significant abnormality of the right hip identified. ? No evidence of acute fracture or diastases the pelvis. ? Degenerative disc disease L5-S1. Sacroiliac joint sclerosis. FINDINGS: There is normal lumbar lordosis. The vertebral heights and alignment is normal. There is loss of L5-S1 disc height. Rest of the disc heights are normal. No visible acute fracture, dislocation or subluxation seen. No lytic or sclerotic process.? XR/XR lumbar spine 4V min IMPRESSION: Mild degenerative disc changes at L5-S1 disc level. Otherwise unremarkable lumbar spine exam. Discharge Plan Discharge Clinical Impression: Lumbar radiculopathy, Strain of lumbar region, Degenerative disc disease at L5-S1 level Patient Disposition: Home, Self-Care Instructions: Lumbar Radiculopathy (ED), Back Pain (ED), Lower Back Exercises (ED) Additional Instructions: [email or web address] [address] [place] [phone] Prescriptions: New cyclobenzaprine 10 mg tablet 10 mg PO Q8H Qty: 10 RF: 0 prednisone 20 mg tablet 40 mg PO DAILY 5 Days Qty: 10 RF: 0 acetaminophen [Tylenol Extra Strength] 500 mg tablet 1,000 mg PO QID PRN (Reason: fever or pain) Qty: 14 RF: 0 oxycodone 5 mg tablet 5 mg PO BID PRN (Reason: pain) Qty: 10 RF: 0 lidocaine HCl [Aspercreme (lidocaine HCl)] 4 % cream 1 appl topical BID PRN (Reason: pain) Qty: 120 RF: 0 No Action metronidazole [Flagyl] 500 mg tablet 500 mg PO BID 7 Days Qty: 14 RF: 0 acetaminophen-codeine 300-15 mg tablet 1 tab PO Q8H PRN (Reason: pain) Qty: 6 RF: 0 cyclobenzaprine 10 mg tablet 10 mg PO TID PRN (Reason: muscle spasm) Qty: 15 RF: 0 loratadine [Allergy Relief (loratadine)] 10 mg tablet 10 mg PO DAILY RF: 0 albuterol sulfate [Proventil HFA] 90 mcg/actuation HFA aerosol inhaler 1 inh inhalation QID RF: 0 cholecalciferol (vitamin D3) 25 mcg (1,000 unit) capsule 25 mcg PO DAILY RF: 0 valacyclovir [Valtrex] 500 mg tablet 500 mg PO BID RF: 0 lisinopril 10 mg tablet 10 mg PO DAILY RF: 0 metronidazole 500 mg tablet 500 mg PO BID RF: 0 capsaicin 0.025 % cream 1 appl topical BID RF: 0 acetaminophen-codeine 325-15 mg tablet PO RF: 0 epinephrine 0.3 mg/0.3 mL syringe 0.3 mg IM Q10M PRNRF: 0 Referrals: Inderjit Lozano MD [Primary Care Provider] - 2 days Print Language: Macedonian
== END 2020-12-13 09:46 | disposition home or self-care (01) ==
PROVIDERS: Emergency Provider Emergency Medicine; PCP Internal Medicine
DX: M54.16 Radiculopathy, lumbar region (principal); M51.37 Other intervertebral disc degeneration, lumbosacral region; M54.5 Low back pain; I10 Essential (primary) hypertension; Z79.899 Other long term (current) drug therapy
CPT/HCPCS: 99284

== ENCOUNTER 2021-02-10 07:00 | Outpatient (RCR) | payer MEDICAID, SELFPAY | END 2021-02-24 10:49 | disposition home or self-care (01) | LOC: HO.PT 07:00 | PROVIDERS: PCP Internal Medicine; Visit Provider Internal Medicine | DX: M54.41 Lumbago with sciatica, right side (principal) | CPT/HCPCS: 97110; 97140; 97150; 97162 ==

== ENCOUNTER 2021-02-14 14:12 | Emergency (ER) | payer MEDICAID, SELFPAY ==
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
[2021-02-14 14:40] VITALS: BP 145/77; BP 158/98; PULSE 74; PULSE 88; RESP 20; TEMP 36.8; O2SAT 100; O2SAT 97; BMI 35.6
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
[2021-02-14] MEDS: oxyCODONE HCl Immed Release 5 MG TABLET PO (15:25)
== END 2021-02-14 17:03 | disposition home or self-care (01) ==
PROVIDERS: Emergency Provider Emergency Medicine
DX: M25.551 Pain in right hip (principal); M62.838 Other muscle spasm; Z79.899 Other long term (current) drug therapy
CPT/HCPCS: 73502; 99283; 99284

== ENCOUNTER → 2021-03-15 15:11 | Outpatient (BNVA) | payer MEDICAID, SELFPAY | PROVIDERS: PCP Internal Medicine; Visit Provider Nurse Practitioner Family | DX: M51.36 Other intervertebral disc degeneration, lumbar region (principal); M53.3 Sacrococcygeal disorders, not elsewhere classified; M47.816 Spondylosis without myelopathy or radiculopathy, lumbar region | CPT/HCPCS: 99202 ==

== ENCOUNTER → 2021-04-03 07:51 | Outpatient (BNVA) | payer MEDICAID, SELFPAY | PROVIDERS: Visit Provider Physician Assistant Surgical | DX: E66.9 Obesity, unspecified (principal); Z68.34 Body mass index [BMI] 34.0-34.9, adult | CPT/HCPCS: 99212 ==

== ENCOUNTER → 2021-04-26 08:54 | Outpatient (BNVA) | payer MEDICAID, SELFPAY | PROVIDERS: PCP Internal Medicine; Referring Provider Internal Medicine; Visit Provider Dietitian, Registered | DX: E66.9 Obesity, unspecified (principal); Z68.33 Body mass index [BMI] 33.0-33.9, adult | CPT/HCPCS: 97803 ==

== ENCOUNTER → 2021-05-08 08:20 | Outpatient (BNVA) | payer MEDICAID, SELFPAY | PROVIDERS: PCP Internal Medicine; Visit Provider Physician Assistant Surgical | DX: E66.9 Obesity, unspecified (principal) ==

== ENCOUNTER → 2021-05-26 08:16 | Outpatient (BNVA) | payer MEDICAID, SELFPAY | PROVIDERS: PCP Internal Medicine; Visit Provider Nurse Practitioner Family | DX: M53.3 Sacrococcygeal disorders, not elsewhere classified (principal); M47.816 Spondylosis without myelopathy or radiculopathy, lumbar region; M51.36 Other intervertebral disc degeneration, lumbar region | CPT/HCPCS: 99212 ==

== ENCOUNTER → 2021-05-31 15:11 | Outpatient (BNVA) | payer MEDICAID, SELFPAY | PROVIDERS: PCP Internal Medicine; Referring Provider Surgery; Visit Provider Dietitian, Registered | DX: E66.9 Obesity, unspecified (principal); Z68.33 Body mass index [BMI] 33.0-33.9, adult | CPT/HCPCS: 97803 ==

== ENCOUNTER 2021-07-06 07:00 | Outpatient (RCR) | payer MEDICAID, SELFPAY ==
--- NOTE | 2021-06-13 18:21 | MHC.PT.EP ---
[facility] [place] Office [place] Office [place] Office [address] [phone] F: [phone] F: [phone] F: [phone] F: [phone] Physical Therapy Plan of Care Date of Evaluation: Date of Surgery: N/A Diagnosis: Sacrococcygeal disorders Assessment: Pt is a 56yo F who presents to PT with R low back and sacral pain that occasional radiates into her R posterior thigh. She presents today with current impairments in pain, increased lumbar lordosis, decreased core stab, decreased hip strength, soft tissue restrictions, impaired posture, and impaired body mechanics. She is limited functionally by prolonged sitting, standing, sleeping, and transitional movements. She is a good candidate for skilled PT services in order to address current impairments to facilitate return to PLOF. Frequency and Duration: The patient will be seen 2x/week for 4 weeks Short Term Goals: Pt will be I with HEP to promote self management of symptoms Pt will demonstrate improvements in postural awareness and body mechanics throughout the day Long-Term Goals: Pt will tolerate standing > 45 min with pain to assist with ADLs and functional tasks Pt will demonstrate improvements in function as evidenced by statistically significant improvement in Modified Oswestry Low Back Pain Questionnaire Treatment Plan: Modalities to reduce pain, spasms and effusion. Manual therapy to restore motion and function. Therapeutic exercise to improve strength and flexibility. Neuromuscular re-education for posture and balance. Therapeutic activities to return to functional activities of daily living. Electronically signed by: Екатерина Laneg, PT, DPT Please sign and return to therapist. Thank you for your referral.
--- NOTE | 2021-07-17 14:23 | MHC.PT.DC ---
[facility] [place] Office [place] Office [place] Office [address] Wei Holloway [address] [phone] F: [phone] F: [phone] F: [phone] F: [phone] Physical Therapy Discharge Report Diagnosis: Sacrococcygeal disorders Date of Surgery: N/A Date of Evaluation: 06/13/21 Date of Discharge: 07/17/21 Treatments to Date: 5 Cancellations to Date: 1 No Shows to Date: 3 Discharge Status: Visit Non-compliance Discharge Summary: Pt was seen for PT from 06/13/21-07/06/21. Her last attended appointment was 07/06/21. She has had 3 no-show appointments including 2 no-shows for her last 2 scheduled visits. Pt is being D/C from skilled PT per [facility] attendance policy and visit non-compliance. Pt current level of function unknown at this time. Electronically signed by: Екатерина Lange, PT, DPT Please sign and return to therapist. Thank you for your referral.
== END 2021-08-04 11:47 | disposition home or self-care (01) ==
LOC: HO.PT 07:00
PROVIDERS: PCP Internal Medicine; Visit Provider Nurse Practitioner Family
DX: M53.3 Sacrococcygeal disorders, not elsewhere classified (principal)
CPT/HCPCS: 97110; 97140; 97162

== ENCOUNTER 2021-07-28 08:09 | Outpatient (REF) | payer MEDICAID, SELFPAY ==
[2021-07-28 16:36] LABS: CT PCR NOT DETECTED (Not Detect.); NG PCR NOT DETECTED (Not Detect.)
[2021-08-02 16:42] LABS: HPV mRNA E6/E7 rflx Not Detected (Not Detected)
== END 2021-07-28 08:10 | disposition home or self-care (01) ==
LOC: HO.LAB 08:09
PROVIDERS: PCP Internal Medicine; Visit Provider Advanced Practice Midwife
DX: Z01.419 Encounter for gynecological examination (general) (routine) without abnormal findings (principal); Z20.2 Contact with and (suspected) exposure to infections with a predominantly sexual mode of transmission
CPT/HCPCS: 87491; 87591; 87624; 88142

== ENCOUNTER → 2021-07-31 08:16 | Outpatient (BNVA) | payer MEDICAID, SELFPAY | PROVIDERS: PCP Internal Medicine; Referring Provider Surgery; Visit Provider Dietitian, Registered | DX: E66.9 Obesity, unspecified (principal); Z68.33 Body mass index [BMI] 33.0-33.9, adult | CPT/HCPCS: 97803 ==

== ENCOUNTER 2021-08-07 08:09 | Outpatient (REF) | payer MEDICAID, SELFPAY ==
[2021-08-07 09:50] LABS: MANUAL DIFF FLAG NO
[2021-08-07 10:48] LABS: Basophils Percent Auto 0.6 % (0-2); Eosinophils Absolute Auto 0.1 X10*3/uL (0.0-0.4); Eosinophils Percent Auto 1.6 % (0-4); Hematocrit 38.6 % (37.0-47.0); Hemoglobin 12.1 g/dl (12.0-16.0); Imm Gran Abs Auto 0.02 X10*3/uL (0.00-0.03); Imm Gran Pct Auto 0.3 % (0.0-0.4); Lymphocytes Absolute Auto 1.9 X10*3/uL (1.2-4.9); Lymphocytes Percent Auto 30.9 % (20-40); Mean Corpuscular HGB Conc 31.3 g/dl (31.0-35.0); Mean Corpuscular Hemoglobin 28.6 pg (27.0-33.0); Mean Corpuscular Volume 91.3 fL (80.0-98.0); Monocytes Absolute Auto 0.4 X10*3/uL (0.1-1.2); Neutrophils Absolute Auto 3.7 x10*3/uL (2.0-8.3); Neutrophils Percent Auto 59.6 % (45-73); Platelet Count 315 X10*3/uL (160-400); Red Blood Count 4.23 X10*6/uL (4.20-5.50); Red Cell Distribution Width 13.5 % (11.0-16.0); White Blood Count 6.3 X10*3/uL (4.8-10.8)
[2021-08-07 10:53] LABS: Estimated Average Glucose 111 mg/dL; Hemoglobin A1c % 5.5 %
[2021-08-07 11:23] LABS: Anion Gap 12 (12-20); Blood Urea Nitrogen 19 mg/dL (9-16); C Reactive Protein 0.73 mg/dL (< or = 0.50); Calcium 10.2 mg/dL (8.4-10.2); Carbon Dioxide 29 mmol/L (22-29); Chloride 107 mmol/L (96-108); Cholesterol 187 mg/dL; Estimated Glomerular Filt Rate > 60; Glucose Random 99 mg/dL (60-115); HDL Cholesterol 64 mg/dL; Iron 84 mcg/dL (30-160); LDL Cholesterol Calculated 106 mg/dl; Percent Iron Saturation 23 % (15-50); Potassium 4.7 mmol/L (3.3-5.1); Sodium 143 mmol/L (135-145); Total Iron Binding Capacity 368 mcg/dL (228-428); Triglycerides 85 mg/dL; Unsaturated Iron Binding 284 ug/dL
[2021-08-07 11:34] LABS: Ferritin 28 ng/mL (10-250); TSH reflex Free T4 2.04 uIU/mL (0.32-4.0); Vitamin D 25-OH Total 44.2 ng/mL (>30)
[2021-08-07 11:49] LABS: Folate 15.6 ng/mL (> or = 4.0); Vitamin B12 716 pg/mL (200-900)
[2021-08-10 06:27] LABS: Zinc 91 mcg/dL (60-130)
[2021-08-12 17:10] LABS: Vitamin A 49 mcg/dL (38-98); Vitamin B1 19 nmol/L (8-30)
== END 2021-08-07 08:10 | disposition home or self-care (01) ==
LOC: HO.LAB 08:09
PROVIDERS: PCP Internal Medicine; Visit Provider Physician Assistant Surgical
DX: E66.9 Obesity, unspecified (principal); Z79.899 Other long term (current) drug therapy; Z71.3 Dietary counseling and surveillance
CPT/HCPCS: 36415; 80048; 80061; 82306; 82607; 82728; 82746; 83036; 83540; 84425; 84443; 84590; 84630; 85025; 86140

== ENCOUNTER 2021-08-31 08:24 | Outpatient (REF) | payer MEDICAID, SELFPAY ==
--- NOTE | ~2021-08-31 | XR_ITS ---
EXAMINATION: XR CHEST CLINICAL INFORMATION: Essential hypertension. Family history of malignancy, neoplasm of trachea COMPARISON: Chest radiographs 05/02/2015, CT abdomen 12/30/2017 TECHNIQUE: 2 views of the chest were obtained. FINDINGS: The lungs are clear. The vascularity is normal. There is no vascular congestion, airspace consolidation, or effusion. The costophrenic sulci are clear. Heart size normal. Hilar and mediastinal contours normal. No acute bony abnormality. XR/XR chest 2V IMPRESSION: Unremarkable examination.
== END 2021-08-31 08:25 | disposition home or self-care (01) ==
LOC: HO.XRAY 08:24
PROVIDERS: Absent Provider Internal Medicine; PCP Internal Medicine; Visit Provider Dietitian, Registered
DX: I10 Essential (primary) hypertension (principal); E66.9 Obesity, unspecified; Z68.33 Body mass index [BMI] 33.0-33.9, adult; Z71.3 Dietary counseling and surveillance; Z80.1 Family history of malignant neoplasm of trachea, bronchus and lung
CPT/HCPCS: 71046; 97803

== ENCOUNTER → 2021-09-13 08:15 | Outpatient (BNVA) | payer MEDICAID, SELFPAY | PROVIDERS: PCP Internal Medicine; Referring Provider Internal Medicine; Visit Provider Physician Assistant Surgical | DX: E66.9 Obesity, unspecified (principal); Z68.33 Body mass index [BMI] 33.0-33.9, adult | CPT/HCPCS: 99212 ==

== ENCOUNTER 2021-09-13 09:04 | Outpatient (REF) | payer MEDICAID, SELFPAY ==
--- NOTE | 2021-09-13 10:30 | MHC.AU.MED ---
Medical Clearance for Hearing Instrumentation Date: 09/13/21 Patient Name: Mary Young Date of : 1965 Referring Provider: Inderjit Lozano MD We have seen your patient on 09/13/21 and have determined that they are a candidate for amplification (See accompanying report). Specifically, they would benefit from: Hearing aid use in both ears There is a statute that addresses Medical Evaluation Requirements prior to fitting a patient with a hearing aid. According to [place] statute [facility] CMR:6.03(1), (a) General. Except as provided in 265 CMR 6.03(1)(b), a registrar nurses' registry shall not sell a hearing aid unless the prospective user has presented to the registrar nurses' registry a written statement signed by a licensed physician that states that the patient's hearing loss has been medically evaluated and the patient may be considered a candidate for a hearing aid. The medical evaluation must have taken place within the preceding six months. Please note: Due to the [place] Statute referenced above, we cannot accept a signature other than that of a licensed physician. NEEDLE GRADER and PA signatures cannot be accepted. I am in agreement with the above recommendation. There is no medical contraindication for hearing instrumentation. Physician Signature Date Physician Name (Printed)
--- NOTE | 2021-09-13 10:31 | MHC.AU.AEV ---
Adult Audiological Evaluation Date of Visit: 09/13/21 Reason for Appointment: Patient has been experiencing increasing hearing difficulty at work and home. She feels her right ear is worse. She has been told that she has scarring in her right ear after a trauma to the right side of her head. She had a sinus infection several weeks ago which further decreased hearing in the right ear, and was prescribed decongestants and Flonase. She does not feel that the medication has improved her hearing. Does patient feel they have a hearing loss?: Yes If Yes, Which Ear?: Right Ear Hearing Handicap Inventory Does a hearing problem cause you to feel embarrassed when meeting new people?: Sometimes Does a hearing problem cause you to feel frustrated when talking to members of your family?: Yes Do you have difficulty when someone speaks in a whisper?: Yes Do you feel handicapped by a hearing problem?: No Does a hearing problem cause you difficulty when visiting friends, relatives, or neighbors?: Sometimes Does a hearing problem cause you to attend judaism service services less often than you would like?: No Does a hearing problem cause you to have arguments with family members?: No Does a hearing problem cause you difficulty when listening to TV or radio?: Sometimes Do you feel that any difficult with your hearing limits or hampers your personal or social life?: No Does a hearing problem cause you difficulty when in a restaurants with relatives or friends?: Sometimes HHIE SCORE: 16 Based on HHIE score, patient has: Mild to moderate perceived hearing handicap Ear History: Ear Deformity: None Reported Recent Ear Drainage: None Reported Recent Ear Pain: None Reported Recent Ear Infections: None Reported Ear Infections in Childhood: None Reported History of Ear Wax Buildup: None Reported Previous Ear Surgery: None Reported Bothersome Tinnitus/Ringing/Noises in Ears: None Reported Ear used on the phone: Left Ear Blocked/Full Sensation in Ear(s): None Reported History of occupational noise exposure?: No History: No Medical History: Medical History: High Blood Pressure Allergies: Pineapple Medication List: Lisinopril, Flonase, Sudafed, Loratadine, Pain Medication Cream Otoscopy: Right Ear: Bubble noted behind tympanic membrane Left Ear: Unremarkable Tympanometry: Tympanometry performed due to: To assess integrity of the middle ear system Right Ear: Negative Middle Ear Pressure (Type C) Left Ear: Normal Middle Ear System (Type A) Hearing Evaluation: Transducer(s) Used: Insert Earphones Method: Conventional Audiometry Stimuli Used: Pure Tones Right Ear: Description of Hearing: Moderate to moderately-severe mixed hearing loss Left Ear: Description of Hearing: Normal sloping to moderate sensorineural hearing loss and rising to normal Speech Recognition Threshold (SRT): Method Used: Recorded Lists Stimuli Used: Spondee Words Right Ear: 45 dBHL Left Ear: 25 dBHL Word Discrimination: Method: Recorded Lists Word Lists Used:: W-22 Right Ear: 92% at 80 dBHL Left Ear: 92% at 65 dBHL Most Comfortable Level (MCL): Right Ear: 80 dBHL Left Ear: 65 dBHL Recommendations: Audiological re-evaluation in one year. Trial with amplification is recommended. See Hearing Aid Evaluation report for more information. Referral to Ear, Nose, and Throat is highly recommended to address asymmetrical mixed hearing loss Diagnosis: Primary Diagnosis: H90.A31 Mixed HL, Unilateral Right Ear, W/Restricted Contralateral Signature: Provider: Hermes Baeza, CCC-A
--- NOTE | 2021-09-13 10:32 | MHC.AU.HAS ---
Hearing Aid Evaluation Date of Visit: 09/13/21 Historical Information: Description of Hearing: Right: Moderate to moderately-severe mixed hearing loss Left: Normal sloping to moderate sensorineural hearing loss rising back to normal Summary: Patient was seen for audiological evaluation (see separate report for details). She has been experiencing increasing hearing difficulty at work and home. Hearing aid options were discussed. Hearing Aid Prescription: Based on the individual?s shared listening needs, communication environments, dexterity, desire for connectivity, and personal preferences, the following prescription for amplification has been made: Right ear: Newspaper Press Operator Apprentice: Phonak Model: Audeo P70-R Battery Size: Rechargeable Color: [employer] Reading Teacher: 1M Left ear: Newspaper Press Operator Apprentice: Phonak Model: Audeo P70-R Battery Size: Rechargeable Color: [employer] Reading Teacher: 1M Action Taken/Action Needed: Medical Clearance to be requested from PCP/ENT Hearing Instrument Fitting to be scheduled when materials arrive Primary Diagnosis: H90.A31 Mixed HL, Unilateral Right Ear, W/Restricted Contralateral Signature: Provider: Hermes Baeza, EYAD-A
== END 2021-09-13 09:05 | disposition home or self-care (01) ==
LOC: HO.SH 09:04
PROVIDERS: Visit Provider Internal Medicine
DX: H90.A31 Mixed conductive and sensorineural hearing loss, unilateral, right ear with restricted hearing on the contralateral side (principal)
CPT/HCPCS: 92557; 92567; 92591

== ENCOUNTER 2021-09-28 12:33 | Outpatient (REF) | payer MEDICAID, SELFPAY ==
--- NOTE | 2021-09-29 12:37 | MHC.AU.HFA ---
Hearing Instrument Fitting- Adult- Binaural Date of Visit: 09/28/21 Hearing Instruments Dispensed: Right Ear: Server Assistant: Phonak Model: Audeo P70-R Serial Number: [id number] Repair Warranty: 12/16/2024 Loss and Damage Warranty: 12/16/2024 Battery Size: Rechargeable Color: Silver-Olsen Global Director Air And Climate Change: 1M Type of Dome: Small Power Type of Wax Guard: CeruShield Left Ear: Server Assistant: Phonak Model: Audeo P70-R Serial Number: [id number] Repair Warranty: 12/16/2024 Loss and Damage Warranty: 12/16/2024 Battery Size: Rechargeable Color: Silver-Olsen Global Director Air And Climate Change: 1M Type of Dome: Small Open Type of Wax Guard: CeruShield Summary of Fitting: Feedback health and wellness manager run. Patient intially felt the instruments were too loud and her voice was echoing. Lowered target gain to 85%, which patient felt was comfortable. Gain raised by 2 steps in the right instrument at patient's request. Patient was pleased with the sound of the instruments. The hearing aids were paired to her phone and to the tg. Though the tg was downloaded successfully on her phone, the icon was not displaying on her screen. The tg could still be accessed and used from the tg store. Could not find a reason why the icon was not displaying- suggested she go to the [employer] for further assistance. Hearing aid care and maintenance were discussed and practiced. Recommendations: Patient was unsure of her work schedule for the next few weeks. She will call to schedule a follow-up once she has received her work schedule. Diagnosis Code(s): Primary Diagnosis: H90.A31 Mixed HL, Unilateral Right Ear, W/Restricted Contralateral Signature: Provider: Hermes Baeza, [facility]
== END 2021-09-28 12:34 | disposition home or self-care (01) ==
LOC: HO.HAP 12:33
PROVIDERS: Visit Provider Internal Medicine
DX: Z46.1 Encounter for fitting and adjustment of hearing aid (principal); H90.A31 Mixed conductive and sensorineural hearing loss, unilateral, right ear with restricted hearing on the contralateral side
CPT/HCPCS: V5011; V5020; V5160; V5261

== ENCOUNTER 2021-10-06 13:20 | Outpatient (REF) | payer MEDICAID, SELFPAY ==
--- NOTE | ~2021-10-06 | MM_ITS ---
EXAMINATION: MM DIAGNOSTIC DIGITAL BREAST TOMOSYNTHESIS, BILATERAL US TARGETED RIGHT BREAST ULTRASOUND CLINICAL INFORMATION: Right breast pain. The lifetime risk of breast cancer based on the Tyrer-Cuzick Model is 14.0%. COMPARISON: Mammography: 10/22/2020 and studies dating back to 08/11/2011. TECHNIQUE: Digital breast tomosynthesis is performed in both the craniocaudal and mediolateral oblique views along with computer-aided detection (CAD). Synthesized 2D images are generated from the tomosynthesis. Spot magnification view in craniocaudal projection right breast. Targeted right breast ultrasound. FINDINGS: There are scattered areas of fibroglandular density (ACR BI-RADS breast composition Category b). There is a stable parenchymal pattern of the left breast without new abnormal mass or suspicious calcifications. There is question of an irregular density retroareolar region of the right breast with possible calcifications for which a spot magnification view was performed which efface this density and without calcifications identified. Targeted right breast ultrasound did not demonstrate any abnormal cystic or solid mass. No region of abnormal distal-sound shadowing identified. Results are discussed with the patient at time of visit. MM/MM tomosynthesis diagnostic BI IMPRESSION: There are no significant changes from prior study. ASSESSMENT: BI-RADS 1: Negative. RECOMMENDATION: Routine annual screening. Clinical follow-up. This patient's information was entered into a reminder system with a target due date for their next mammogram.
--- NOTE | ~2021-10-06 | US_ITS ---
EXAMINATION: US DIAGNOSTIC ULTRASOUND BREAST, RIGHT CLINICAL INFORMATION: Right breast pain. COMPARISON: Mammography of same day and studies dating back to August 11, 2011. TECHNIQUE: Ultrasound of the breast is performed with real-time shook scale imaging and color Doppler. FINDINGS: There is no focal suspicious finding. There is no solid mass, architectural abnormality, duct ectasia, or edema in the soft tissue planes. Results are discussed with the patient at time of visit. US/US breast RT limited IMPRESSION: No right breast ultrasound abnormality appreciated. ASSESSMENT: BI-RADS 1: Negative RECOMMENDATION: Routine annual screening. Clinical follow-up. This patient's information was entered into a reminder system with a target due date for their next mammogram.
== END 2021-10-06 13:21 | disposition home or self-care (01) ==
LOC: HO.MAMMO 13:20
PROVIDERS: PCP Internal Medicine; Visit Provider Internal Medicine
DX: N64.4 Mastodynia (principal)
CPT/HCPCS: 76642; 77062; 77066

== ENCOUNTER → 2021-10-11 14:05 | Outpatient (BNVA) | payer MEDICAID, SELFPAY | PROVIDERS: PCP Internal Medicine; Referring Provider Physician Assistant Surgical; Visit Provider Dietitian, Registered | DX: E66.9 Obesity, unspecified (principal); Z68.34 Body mass index [BMI] 34.0-34.9, adult; Z98.84 Bariatric surgery status; Z71.3 Dietary counseling and surveillance | CPT/HCPCS: 97803 ==

== ENCOUNTER → 2022-01-25 13:37 | Outpatient (BNVA) | payer MEDICAID, SELFPAY | PROVIDERS: PCP Internal Medicine; Visit Provider Nurse Practitioner | DX: Z01.818 Encounter for other preprocedural examination (principal); K57.92 Diverticulitis of intestine, part unspecified, without perforation or abscess without bleeding; K59.04 Chronic idiopathic constipation; K21.9 Gastro-esophageal reflux disease without esophagitis | CPT/HCPCS: 99202; 99212 ==

== ENCOUNTER → 2022-01-26 08:42 | Outpatient (BNVA) | payer MEDICAID, SELFPAY | PROVIDERS: PCP Internal Medicine; Referring Provider Physician Assistant Surgical; Visit Provider Dietitian, Registered | DX: E66.9 Obesity, unspecified (principal); Z68.34 Body mass index [BMI] 34.0-34.9, adult; Z98.84 Bariatric surgery status; Z71.3 Dietary counseling and surveillance | CPT/HCPCS: 97803 ==

== ENCOUNTER 2022-01-27 07:28 | Emergency (ER) | payer MEDICAID, SELFPAY ==
--- NOTE | ~2022-01-27 | CT_ITS ---
EXAMINATION: CT ABDOMEN AND PELVIS WITH CONTRAST CLINICAL INFORMATION: Left lower quadrant and right flank pain COMPARISON: 12/30/2017 TECHNIQUE: Multidetector volumetric images were obtained from the superior aspect of the liver through the pubic symphysis following administration 85 mL of Omnipaque 350 intravenous contrast. Sagittal and coronal reformatted images were obtained on the technologist's workstation. Oral contrast: No This CT examination was performed using dose optimization techniques as appropriate, variously including the following: *Automated exposure control *Adjustment of mA and/or kV according to patient size (this includes techniques or standardized protocols for targeted exams where dose is matched to indication/reason for exam; i.e. extremities or head) *Use of iterative reconstruction technique DLP: 700 mGy-cm FINDINGS: LUNG BASES: Mild bibasilar atelectasis. Normal heart size. LIVER, GALLBLADDER, AND BILIARY TREE: No suspicious or concerning focal liver lesion seen. The liver is diffusely hypoenhancing; some degree of hepatic steatosis may be present. 8mm likely cyst at the dome of the liver; no imaging follow-up recommended. Status post cholecystectomy. No biliary ductal dilatation. PANCREAS: Unremarkable. SPLEEN: Unremarkable. ADRENAL GLANDS: Unremarkable. KIDNEYS AND URETERS: Left greater than right bilateral renal parapelvic cysts requiring no imaging follow-up. No hydronephrosis or hydroureter. No solid renal mass or calculi. BLADDER: Unremarkable. GASTROINTESTINAL TRACT: Previously seen laparoscopic gastric band is been removed. There are findings consistent with the sleeve gastrectomy. Small hiatal hernia present. Small bowel nondilated. The appendix is well-seen and normal. There is diffuse diverticulosis. No evidence of colitis or diverticulitis. ABDOMINAL WALL: No significant hernia is appreciated. LYMPH NODES: Tiny fat-containing umbilical hernia. VASCULAR: Unremarkable. PELVIC VISCERA: Normal CT appearance of the uterus and adnexa. OSSEOUS STRUCTURES: Degenerative disc disease at L5-S1 with adjacent sclerotic discogenic endplate changes. No acute or suspicious osseous abnormality. CT/CT abdomen pelvis w IV con IMPRESSION: No acute CT findings. Diverticulosis without evidence of diverticulitis. No evidence of obstructive uropathy or pyelonephritis. Fleischner guidelines were followed.
[2022-01-27 07:42] VITALS: BP 136/68; PULSE 67; RESP 18; TEMP 36; O2SAT 97; BMI 35.9
[2022-01-27 08:01] LABS: Appearance Urine Clear; Color Urine Yellow; Glucose Urine UA Negative (Negative); Leukocyte Esterase Urine Moderate (2+) (Negative); Nitrite Urine Negative (Negative); PH 5.5 (5.0-9.0); UMIC TRIGGER UACC YES; Urine Blood Negative (Negative); Urine Ketones Negative (Negative); Urine Protein Negative (Neg-Trace)
[2022-01-27 08:09] LABS: Bacteria Urine None Seen (None Seen); Hyaline Casts Urine 0-2 /LPF (0-2); RBC Urine 0-2 /HPF (0-2); Squamous Epithelial Cell Urine 0-2 /HPF (0-2); UACC Culture Trigger YES
--- NOTE | 2022-01-27 08:47 | ED_ITS ---
HPI - Abdominal Pain General Chief Complaint: Abdominal Pain Stated Complaint: kidney stone Time Seen by Provider: 01/27/22 08:46 Source: patient Mode of arrival: ambulatory Limitations: no limitations History of Present Illness HPI narrative: This is a 56-year-old female past medical history significant for GERD, diverticulitis, sacroiliac joint pain, chronic constipation, asthma, kidney stones presenting to the emergency department complaints of right-sided flank pain and left lower quadrant pain for the past 2 days. Patient reports that right flank pain is constant in nature and precipitated by movement and palpation. Describes her left lower quadrant pain is constant, intermittent, stabbing and severe in nature. Patient also has vague complaints of urinary frequency, tells me about a month ago she was treated with Bactrim for UTI. She tells me she feels better however she is still having the urinary frequency. Tells me it feels like her past diverticulitis flares. Patient denies chest pain, shortness of breath, fevers, chills,, urgency, dysuria, recent sick contacts, changes in bowel habits, midline back pain, pelvic pain, pain with intercourse, vaginal bleeding or vaginal discharge, history of back surgeries. MD elicited complaint: abdominal pain (LLQ) and flank pain (R.) Related Data Home Medications Medication Instructions Recorded Confirmed albuterol sulfate 90 mcg/actuation 1 inh inhalation QID 07/04/20 09/13/21 aerosol inhaler (Proventil HFA) cholecalciferol (vitamin D3) 25 25 mcg PO DAILY 07/04/20 09/13/21 mcg (1,000 unit) capsule epinephrine 0.3 mg/0.3 mL 0.3 mg IM Q10M PRN 07/04/20 09/13/21 injection syringe loratadine 10 mg tablet (Allergy 10 mg PO DAILY 07/04/20 09/13/21 Relief (loratadine)) valacyclovir 500 mg tablet 500 mg PO BID PRN 03/15/21 09/13/21 (Valtrex) cyclobenzaprine 5 mg tablet 5 mg PO TID PRN 05/26/21 09/13/21 celebrate MVI PO DAILY 08/07/21 09/13/21 fluticasone propionate 50 0 mcg intranasal DAILY PRN 09/13/21 09/13/21 mcg/actuation nasal spray,suspension azelastine-fluticasone 137 mcg-50 1 spray intranasal BID 01/25/22 mcg/spray nasal spray (Dymista) lisinopril 10 mg tablet 10 mg PO DAILY 01/25/22 paroxetine HCl 10 mg tablet 10 mg PO BEDTIME 01/25/22 psyllium husk 3.4 gram/5.4 gram 1 tbsp PO DAILY 01/25/22 oral powder (Metamucil) trazodone 50 mg tablet 50 mg PO BEDTIME 01/25/22 triamcinolone acetonide 0.025 % appl topical BID 01/25/22 topical cream Previous Rx's Medication Instructions Recorded lidocaine HCl 4 % topical cream 1 appl topical BID PRN pain #120 12/13/20 (Aspercreme (lidocaine HCl)) grams famotidine 40 mg tablet (Pepcid) 40 mg PO BEDTIME #30 tabs 01/25/22 ondansetron HCl 4 mg tablet 4 mg PO BID-TID nausea and 01/25/22 vomiting 1 day #3 tabs sennosides 8.6 mg capsule (senna) 17.2 mg PO BEDTIME constipation 30 01/25/22 days #60 caps sodium,potassium,mag sulfates 17.5 480 ml PO .COMPLEX #354 mL 01/25/22 gram-3.13 gram-1.6 gram oral soln (Suprep Bowel Prep Kit) cyclobenzaprine 10 mg tablet 10 mg PO BEDTIME PRN muscle spasm 01/27/22 #7 tabs lidocaine 5 % topical patch 1 patch topical DAILY PRN pain #15 01/27/22 ea Allergies Allergy/AdvReac Type Severity Reaction Status Date / Time pineapple [PINEAPPLE] Allergy Severe ANAPHYLAXIS Verified 01/25/22 13:45 shellfish derived Allergy Severe ANAPHYLAXIS Verified 01/25/22 13:45 [SHELLFISH DERIVED] tramadol Allergy Itching Verified 01/25/22 13:45 metronidazole [From Flagyl] AdvReac Mild YEAST Verified 01/25/22 13:45 INFECTION Review of Systems Review of Systems Constitutional : No Weight loss, No Fever, No Chills, No Fatigue, No Malaise ENT/Mouth : No sore throat, No Rhinorrhea Eyes: No Eye Pain, No Swelling, No Redness Cardiovascular : No Chest Pain, No SOB, No Dyspnea on Exertion, No Orthopnea, No Edema, No Palpitations Respiratory : No Cough, No Sputum, No Wheezing Gastrointestinal : No Nausea, No Vomiting, No Diarrhea, No Constipation, + abdominal Pain, No Hematochezia, No Melena Genitourinary : No Dysuria, No Urinary Frequency, No Hematuria, Musculoskeletal : No joint pain, No Myalgias, No Joint Swelling,+ flank pain Skin : No Skin Lesions, No rash Neuro : No Weakness, No Numbness, No Dizziness, No Headache Psych : No Anxiety/Panic, No Depression All other systems reviewed and are negative Yes all other systems are reviewed and are negative [facility] Past Medical History Attestation statement: The following information was validated with the patient. Source: old records reviewed and nursing notes reviewed Medical History Asthma HSV-1 infection Hypertension Kidney stone Vitamin D deficiency Surgical History H/O abdominoplasty H/O bariatric surgery H/O colonoscopy H/O esophagogastroduodenoscopy H/O lithotripsy Family History Family History Mother No problems noted. Father No problems noted. Sister Breast cancer Lung cancer Social History Social History Alcohol intake: never Patient Tobacco Use Status: Never used Tobacco Use of substances other than those prescribed or required for medical reasons: No Advance Directives: No Advance Directives Information Provided: No Gender identity: Female Physical Exam ED Vital Signs: Vital Signs - 24 hr 01/27/22 07:42 01/27/22 09:38 Temperature 96.8 F 97.6 F Pulse Rate 67 66 Respiratory Rate 18 18 Blood Pressure 136/68 132/86 Pulse Oximetry 97 98 Oxygen Delivery Method Room Air Room Air BMI result Body Mass Index 35.9 Vital signs stable Appearance: Alert.? Oriented X3.? No acute distress.? Head: Normocephalic, atraumatic, no step-offs or deformities Eyes: Pupils equal, round and reactive to light.? ENT: Pharynx normal.? Neck: Normal inspection.? Neck supple.? CVS: Normal heart rate and rhythm.? Pulses normal.? Respiratory: No respiratory distress.? Breath sounds normal.? Abdomen: Soft and + left lower quadrant tenderness.? Skin: Skin warm and dry.? Normal skin color.? Normal skin turgor.? Extremities: No lower extremity edema.? No calf ttp. 5/5 strength to bilateral upper and lower extremities Back: No midline tenderness, no C-spine tenderness, full range of motion, mild right-sided CVA tenderness, negative on the right Neuro: Oriented X 3.? No motor deficit.? No sensory deficit. CN 2-12 intact . Patient ambulating with steady gait normal coordination. No saddle paresthesias. Course Reevaluation(s) Reevaluation #1: Laboratory studies unremarkable. UA without infection. Time: 09:54 Reevaluation #2: CT of the abdomen and pelvis with no acute findings. It does show diverticulosis however no signs of acute diverticulitis. This is all likely musculoskeletal pain in origin. There is a possibility that patient has cystitis. Advised her to follow-up with her PCP and with Urology if necessary. Educated on worrisome signs and symptoms and when to return. At this time I feel comfortable discharge Patient feeling better, tollerating PO, no longer tending and no CVA tenderness. Time: 11:08 MDM - Abdominal Pain MDM Narrative Medical decision making narrative: [id number] 56-year-old female presents with right-sided flank pain and left lower quadrant pain x2 days. Physical examination with mild CVA tenderness on the right and some tenderness to palpation to left lower quadrant. Regular rate and rhythm, lungs clear. Abdomen is soft, nondistended. With normoactive bowel sounds. Patient appears comfortable, ambulating with steady gait and no acute distress. Concerns for UTI versus cystitis. Also will rule out diverticulitis as patient is having left lower quadrant pain. Low suspicion for pyelonephritis, obstruction, obstructive uropathy, pancreatitis, cholecystitis, appendicitis. No signs of acute abdomen on my examination. Low suspicion for kidney stones, right flank pain likely musculoskeletal in nature. History and physical exam not consistent with cauda equina or epidural abscess. A Plan at this time is urine, basic labs, hCG, CT of the abdomen pelvis. Medical Records Attestation: I reviewed the patient's medical records. Lab Data Attestation: I reviewed the patient's lab results. Result diagrams: 01/27/22 09:04 01/27/22 09:04 Labs: Lab Results 01/27/22 01/27/22 01/27/22 Range/Units 07:48 09:04 09:04 WBC 5.8 (4.8-10.8) X10*3/uL RBC 4.31 (4.20-5.50) X10*6/uL Hgb 12.5 (12.0-16.0) g/dl Hct 38.6 (37.0-47.0) % MCV 89.6 (80.0-98.0) fL MCH 29.0 (27.0-33.0) pg MCHC 32.4 (31.0-35.0) g/dl RDW 13.6 (11.0-16.0) % Plt Count 323 (160-400) X10*3/uL MPV 10.8 (9.4-12.3) fL Immature Gran % (Auto) 0.3 (0.0-0.4) % Neut % (Auto) 60.8 (45-73) % Lymph % (Auto) 27.4 (20-40) % Rolette % (Auto) 8.5 (2-11) % Eos % (Auto) 2.1 (0-4) % Baso % (Auto) 0.9 (0-2) % Lymph # (Auto) 1.6 (1.2-4.9) X10*3/uL Rolette # (Auto) 0.5 (0.1-1.2) X10*3/uL Eos # (Auto) 0.1 (0.0-0.4) X10*3/uL Baso # (Auto) 0.1 (0.0-0.2) X10*3/uL Abs Immat Gran (auto) 0.02 (0.00-0.03) X10*3/uL Absolute Neuts (auto) 3.5 (2.0-8.3) x10*3/uL Absolute Nucleated RBC 0.000 (0.0-0.012) X10*3/uL Nucleated RBC % (auto) 0.0 (0.0-0.2) /100WBC Sodium 142 (135-145) mmol/L Potassium 3.7 D (3.3-5.1) mmol/L Chloride 104 (96-108) mmol/L Carbon Dioxide 26 (22-29) mmol/L Anion Gap 16 (12-20) BUN 16 (9-16) mg/dL Creatinine 0.82 (0.5-1.4) mg/dL Estim Creat Clear Calc 77.3 Estimated GFR > 60 Random Glucose 92 (60-115) mg/dL Calcium 9.7 (8.4-10.2) mg/dL Magnesium 1.6 (1.6-2.6) mg/dL Total Bilirubin 0.4 (0.0-1.0) mg/dL AST 21 (5-31) U/L ALT 21 (0-31) U/L Alkaline Phosphatase 112 (39-117) U/L Total Protein 7.2 (6.5-8.0) g/dL Albumin 4.2 (3.5-5.0) g/dL Beta HCG, Quant < 2 mIU/mL Urine Color Yellow Urine Appearance Clear Urine pH 5.5 (5.0-9.0) Ur Specific [place] 1.020 (1.005-1.025) Urine Protein Negative (Neg-Trace) mg/dL Urine Glucose (UA) Negative (Negative) mg/dL Urine Ketones Negative (Negative) mg/dL Urine Blood Negative (Negative) Urine Nitrite Negative (Negative) Ur Leukocyte Esterase Moderate (2+) H (Negative) Urine RBC 0-2 (0-2) /HPF Urine WBC 6-10 H (0-5) /HPF Ur Squamous Epith Cells 0-2 (0-2) /HPF Urine Bacteria None Seen (None Seen) Hyaline Casts 0-2 (0-2) /LPF Critical Care Time Critical Care Time Critical Care Time: No Discharge Plan Discharge Clinical Impression: Flank pain, Abdominal pain, LLQ, Cystitis Patient Disposition: Home, Self-Care Instructions: Acute Abdominal Pain (ED), Flank Pain (ED) Additional Instructions: Take your medications as prescribed. If you were prescribed antibiotics today, it is important that you take your medication to their entirety, do not skip any doses, do not finish them early. Follow-up with your primary care provider this week. Follow up with urology as you continue to have urinary frequency. Return to the emergency department with new or worsening symptoms. Such as fevers, chills, chest pain, shortness of breath, nausea, vomiting, dizziness, headache, vision changes, lethargy In case of emergency call 911 Your laboratory studies, imaging and urine were reassuring. Likely musculoskeletal pain. CT/CT abdomen pelvis w IV con IMPRESSION: No acute CT findings. Diverticulosis without evidence of diverticulitis. No evidence of obstructive uropathy or pyelonephritis. ? ? Fleischner guidelines were followed. Prescriptions: New cyclobenzaprine 10 mg tablet 10 mg PO BEDTIME PRN (Reason: muscle spasm) Qty: 7 0RF lidocaine 5 % adhesive patch,medicated 1 patch topical DAILY PRN (Reason: pain) Qty: 15 0RF Rx Instructions: leave on most painful area for up to 12 hrs No Action lidocaine HCl [Aspercreme (lidocaine HCl)] 4 % cream 1 appl topical BID PRN (Reason: pain) Qty: 120 0RF loratadine [Allergy Relief (loratadine)] 10 mg tablet 10 mg PO DAILY albuterol sulfate [Proventil HFA] 90 mcg/actuation HFA aerosol inhaler 1 inh inhalation QID cholecalciferol (vitamin D3) 25 mcg (1,000 unit) capsule 25 mcg PO DAILY epinephrine 0.3 mg/0.3 mL syringe 0.3 mg IM Q10M PRN Rx Instructions: for 2 doses valacyclovir [Valtrex] 500 mg tablet 500 mg PO BID PRN celebrate MVI PO DAILY cyclobenzaprine 5 mg tablet 5 mg PO TID PRN fluticasone propionate 50 mcg/actuation spray,suspension 0 mcg intranasal DAILY PRN lisinopril 10 mg tablet 10 mg PO DAILY trazodone 50 mg tablet 50 mg PO BEDTIME paroxetine HCl 10 mg tablet 10 mg PO BEDTIME azelastine-fluticasone [Dymista] 137-50 mcg/spray spray,non-aerosol 1 spray intranasal BID triamcinolone acetonide 0.025 % cream topical BID Metamucil 3.4 gram/5.4 gram powder 1 tbsp PO DAILY Rx Instructions: mix into at least 8 oz of water or juice before administering senna 8.6 mg capsule 17.2 mg PO BEDTIME 30 Days Qty: 60 3RF famotidine [Pepcid] 40 mg tablet 40 mg PO BEDTIME Qty: 30 6RF sodium,potassium,mag sulfates [Suprep Bowel Prep Kit] 17.5-3.13-1.6 gram recon soln 480 ml PO .COMPLEX Qty: 354 0RF Rx Instructions: 480 mL orally; ondansetron HCl 4 mg tablet 4 mg PO BID-TID 1 Days Qty: 3 0RF Referrals: Inderjit Lozano MD [Primary Care Provider] - 2 days Yobani Machado MD [Physician] - 2 weeks Stand Alone Forms: Work/School Release
[2022-01-27 09:08] LABS: MANUAL DIFF FLAG NO
[2022-01-27 09:11] LABS: Basophils Absolute Auto 0.1 X10*3/uL (0.0-0.2); Basophils Percent Auto 0.9 % (0-2); Eosinophils Absolute Auto 0.1 X10*3/uL (0.0-0.4); Eosinophils Percent Auto 2.1 % (0-4); Hematocrit 38.6 % (37.0-47.0); Hemoglobin 12.5 g/dl (12.0-16.0); Imm Gran Abs Auto 0.02 X10*3/uL (0.00-0.03); Imm Gran Pct Auto 0.3 % (0.0-0.4); Lymphocytes Absolute Auto 1.6 X10*3/uL (1.2-4.9); Lymphocytes Percent Auto 27.4 % (20-40); Mean Corpuscular HGB Conc 32.4 g/dl (31.0-35.0); Mean Corpuscular Volume 89.6 fL (80.0-98.0); Mean Platelet Volume 10.8 fL (9.4-12.3); Monocytes Absolute Auto 0.5 X10*3/uL (0.1-1.2); Monocytes Percent Auto 8.5 % (2-11); Neutrophils Absolute Auto 3.5 x10*3/uL (2.0-8.3); Neutrophils Percent Auto 60.8 % (45-73); Platelet Count 323 X10*3/uL (160-400); Red Blood Count 4.31 X10*6/uL (4.20-5.50); Red Cell Distribution Width 13.6 % (11.0-16.0); White Blood Count 5.8 X10*3/uL (4.8-10.8)
[2022-01-27 09:31] LABS: Alanine Aminotransferase 21 U/L (0-31); Albumin Level 4.2 g/dL (3.5-5.0); Alkaline Phosphatase 112 U/L (39-117); Anion Gap 16 (12-20); Aspartate Amino Transferase 21 U/L (5-31); Bilirubin Total 0.4 mg/dL (0.0-1.0); Blood Urea Nitrogen 16 mg/dL (9-16); Calcium 9.7 mg/dL (8.4-10.2); Carbon Dioxide 26 mmol/L (22-29); Chloride 104 mmol/L (96-108); Creatinine Clr Calc Pharmacy 77.3; Estimated Glomerular Filt Rate > 60; Glucose Random 92 mg/dL (60-115); Magnesium 1.6 mg/dL (1.6-2.6); Potassium 3.7 mmol/L (3.3-5.1); Sodium 142 mmol/L (135-145); Total Protein 7.2 g/dL (6.5-8.0)
[2022-01-27] MEDS: Lidocaine 4 % Patch ADH..PATCH 1 PATCH TRANSDERMA (09:35)
[2022-01-27] MEDS: Acetaminophen 325 MG TABLET 650 MG PO (09:35)
[2022-01-27 09:38] VITALS: BP 132/86; PULSE 66; RESP 18; TEMP 36.4; O2SAT 98
[2022-01-27 09:57] LABS: HCG Quantitative < 2 mIU/mL
[2022-01-27] MEDS: iohexoL 350 MG/ML 75 ML INFUS..BTL 85 ML IV (10:23)
== END 2022-01-27 11:18 | disposition home or self-care (01) ==
PROVIDERS: Physician Assistant; Emergency Provider Internal Medicine; PCP Internal Medicine
DX: N30.90 Cystitis, unspecified without hematuria (principal); R10.9 Unspecified abdominal pain; R10.32 Left lower quadrant pain; I10 Essential (primary) hypertension; Z87.442 Personal history of urinary calculi
CPT/HCPCS: 36415; 74177; 80053; 81001; 81003; 83735; 84702; 85025; 87086; 99284; Q9967

== ENCOUNTER → 2022-02-06 14:00 | Outpatient (BNVA) | payer OTHER, MEDICAID, SELFPAY | PROVIDERS: PCP Internal Medicine; Visit Provider Counselor Mental Health | DX: F32.A Depression, unspecified (principal); E66.9 Obesity, unspecified | CPT/HCPCS: 90791 ==

== ENCOUNTER → 2022-02-14 17:00 | Outpatient (BNVA) | payer OTHER, MEDICAID, SELFPAY | PROVIDERS: PCP Internal Medicine; Visit Provider Counselor Mental Health | DX: F32.A Depression, unspecified (principal); E66.9 Obesity, unspecified | CPT/HCPCS: 90853 ==

== ENCOUNTER → 2022-02-16 09:34 | Outpatient (BNVA) | payer MEDICAID, SELFPAY | PROVIDERS: PCP Internal Medicine; Visit Provider Physician Assistant Surgical | DX: E66.9 Obesity, unspecified (principal); Z90.3 Acquired absence of stomach [part of] | CPT/HCPCS: 99212 ==

== ENCOUNTER → 2022-02-21 17:00 | Outpatient (BNVA) | payer OTHER, SELFPAY | PROVIDERS: PCP Internal Medicine; Visit Provider Counselor Mental Health | DX: F32.A Depression, unspecified (principal); E66.9 Obesity, unspecified | CPT/HCPCS: 90853 ==

== ENCOUNTER → 2022-03-07 17:00 | Outpatient (BNVA) | payer OTHER, MEDICAID, SELFPAY | PROVIDERS: PCP Internal Medicine; Visit Provider Counselor Mental Health | DX: F32.A Depression, unspecified (principal); E66.9 Obesity, unspecified | CPT/HCPCS: 90853 ==

== ENCOUNTER → 2022-04-16 08:40 | Outpatient (BNVA) | payer MEDICAID, SELFPAY | PROVIDERS: PCP Internal Medicine; Visit Provider Dietitian, Registered | DX: E66.9 Obesity, unspecified (principal); Z68.33 Body mass index [BMI] 33.0-33.9, adult | CPT/HCPCS: 97803 ==

== ENCOUNTER → 2022-04-18 17:00 | Outpatient (BNVA) | payer OTHER, MEDICAID, SELFPAY | PROVIDERS: PCP Internal Medicine; Visit Provider Counselor Mental Health | DX: F32.A Depression, unspecified (principal); E66.9 Obesity, unspecified | CPT/HCPCS: 90853 ==

== ENCOUNTER → 2022-05-30 17:00 | Outpatient (BNVA) | payer OTHER, MEDICAID, SELFPAY | PROVIDERS: PCP Internal Medicine; Visit Provider Counselor Mental Health | DX: F32.A Depression, unspecified (principal); E66.9 Obesity, unspecified | CPT/HCPCS: 90853 ==

== ENCOUNTER → 2022-06-12 08:39 | Outpatient (BNVA) | payer MEDICAID, SELFPAY | PROVIDERS: PCP Internal Medicine; Visit Provider Dietitian, Registered | DX: E66.9 Obesity, unspecified (principal) | CPT/HCPCS: 97803 ==

== ENCOUNTER → 2022-06-20 16:52 | Outpatient (BNVA) | payer MEDICAID, SELFPAY | PROVIDERS: PCP Internal Medicine; Visit Provider Counselor Mental Health | DX: F32.A Depression, unspecified (principal); E66.9 Obesity, unspecified | CPT/HCPCS: 90853 ==

== ENCOUNTER 2022-07-08 15:52 | Emergency (ER) | payer MEDICAID, SELFPAY ==
[2022-07-08 15:57] VITALS: BP 128/69; PULSE 72; RESP 18; TEMP 36.5; O2SAT 97; BMI 35.9
--- NOTE | 2022-07-08 17:14 | ED.DENTAL ---
HPI - Dental/Oral General Chief complaint: Dental/Oral Stated complaint: Dental pain Time Seen by Provider: 07/08/22 17:00 Source: patient Limitations: no limitations History of Present Illness HPI Narrative: 57-year-old female who presents emergency department for evaluation of pain in her right lower jaw. The patient states that the pain started on Saturday and she saw her PCP who told her that she had inflammation of her tooth and advised to take ibuprofen. Patient states she has been taking these medications with no relief for pain. She states that on Saturday (3 days prior to evaluation) the pain became worse. She states the pain is a constant, throbbing sensation which is 10 of 10. She states that her face feels swollen and hot. The patient that she was taking ibuprofen and also take Tylenol with no relief for discomfort. She denied systemic symptoms such as fever, chills, fatigue. She denied headache, nausea or vomiting. Related Data Home Medications Medication Instructions Recorded Confirmed albuterol sulfate 90 mcg/actuation 1 inh inhalation QID 07/04/20 02/16/22 aerosol inhaler (Proventil HFA) cholecalciferol (vitamin D3) 25 25 mcg PO DAILY 07/04/20 02/16/22 mcg (1,000 unit) capsule epinephrine 0.3 mg/0.3 mL 0.3 mg IM Q10M PRN 07/04/20 02/16/22 injection syringe loratadine 10 mg tablet (Allergy 10 mg PO DAILY 07/04/20 02/16/22 Relief (loratadine)) valacyclovir 500 mg tablet 500 mg PO BID PRN 03/15/21 02/16/22 (Valtrex) cyclobenzaprine 5 mg tablet 5 mg PO TID PRN 05/26/21 02/16/22 celebrate MVI PO DAILY 08/07/21 02/16/22 fluticasone propionate 50 0 mcg intranasal DAILY PRN 09/13/21 02/16/22 mcg/actuation nasal spray,suspension azelastine-fluticasone 137 mcg-50 1 spray intranasal BID 01/25/22 02/16/22 mcg/spray nasal spray (Dymista) lisinopril 10 mg tablet 10 mg PO DAILY 01/25/22 02/16/22 paroxetine HCl 10 mg tablet 10 mg PO BEDTIME 01/25/22 02/16/22 psyllium husk 3.4 gram/5.4 gram 1 tbsp PO DAILY 01/25/22 02/16/22 oral powder (Metamucil) trazodone 50 mg tablet 50 mg PO BEDTIME 01/25/22 02/16/22 triamcinolone acetonide 0.025 % appl topical BID 01/25/22 02/16/22 topical cream Previous Rx's Medication Instructions Recorded lidocaine HCl 4 % topical cream 1 appl topical BID PRN pain #120 12/13/20 (Aspercreme (lidocaine HCl)) grams famotidine 40 mg tablet (Pepcid) 40 mg PO BEDTIME #30 tabs 01/25/22 ondansetron HCl 4 mg tablet 4 mg PO BID-TID nausea and 01/25/22 vomiting 1 day #3 tabs sennosides 8.6 mg capsule (senna) 17.2 mg PO BEDTIME constipation 30 01/25/22 days #60 caps cyclobenzaprine 10 mg tablet 10 mg PO BEDTIME PRN muscle spasm 01/27/22 #7 tabs lidocaine 5 % topical patch 1 patch topical DAILY PRN pain #15 01/27/22 ea sodium,potassium,mag sulfates 17.5 480 ml PO .COMPLEX #354 mL 06/20/22 gram-3.13 gram-1.6 gram oral soln (Suprep Bowel Prep Kit) amoxicillin 500 mg capsule 1,000 mg PO BID 5 days #20 caps 07/08/22 oxycodone 5 mg tablet 5 mg PO Q4H PRN pain #10 tabs 07/08/22 Allergies Allergy/AdvReac Type Severity Reaction Status Date / Time pineapple [PINEAPPLE] Allergy Severe ANAPHYLAXIS Verified 02/16/22 10:08 shellfish derived Allergy Severe ANAPHYLAXIS Verified 02/16/22 10:08 [SHELLFISH DERIVED] tramadol Allergy Itching Verified 02/16/22 10:08 metronidazole [From Flagyl] AdvReac Mild YEAST Verified 02/16/22 10:08 INFECTION Review of Systems Review of Systems: Yes all other systems are reviewed and are negative [facility] Past Medical History [facility] Narrative: Social history: She denies tobacco, alcohol and drug use. Medical History Asthma HSV-1 infection Hypertension Kidney stone Vitamin D deficiency Surgical History H/O abdominoplasty H/O bariatric surgery H/O colonoscopy H/O esophagogastroduodenoscopy H/O lithotripsy Family History Family History Mother No problems noted. Father No problems noted. Sister Breast cancer Lung cancer Social History Social History Alcohol intake: never Patient Tobacco Use Status: Never used Tobacco Advance Directives: No Advance Directives Information Provided: Yes Gender identity: Female Physical Exam Vital Signs: Vital Signs: Last Vital Signs Temp 97.7 F 07/08/22 15:57 Pulse 72 07/08/22 15:57 Resp 18 07/08/22 15:57 BP 128/69 07/08/22 15:57 Pulse Ox 97 07/08/22 15:57 O2 Del Method 07/08/22 15:57 BMI result Body Mass Index 35.9 Vital signs were normal General: Awake, alert, female patient, very pleasant and cooperative in no distress HEENT: Head is normocephalic atraumatic, pupils were equal round reactive light, sclera contact however normal, nares normal, mouth moist membranes with no erythema, dental exam tooth number 30 extracted, tooth number 29 very tender with minimal palpation, she also has tenderness with palpation of the gingivae surrounding tooth 29 with no obvious abscess or lesions. Neck: Supple, no adenopathy Medical Decision Making Medical Decision Making MDM Narrative: 57-year-old female who presents emergency department for evaluation right lower jaw pain times 5 days, worse the past 3 days. Examination did reveal significant tenderness palpation of tooth number 29 as well as palpation of the gingiva surrounding tooth 29. Patient's presentation is consistent with either inflammation secondary to dental caries or infection. I did discuss this with her. Patient was started on amoxicillin 1000 mg twice a day for 5 days. She was advised to take Tylenol and ibuprofen for pain and for pain not relieved by these medications she was prescribed oxycodone. She was given printed and verbal instructions and discharged home. Differential Diagnosis The differential diagnosis includes was not limited to dental caries, dental infection, dental inflammation, dental abscess Discharge Plan Discharge Clinical Impression: Dental infection, Pain, dental Patient Disposition: Home, Self-Care Instructions: Dental Abscess (ED) Additional Instructions: Tooth number 29 is very tender when I push on it. Also, the gum around tooth 29 is very tender as well. Your symptoms are consistent with either dental decay for a dental infection. I am starting you on amoxicillin 1000 mg twice a day for 5 days. Take ibuprofen 200 mg pills, 2 pills every 6 hours as needed for pain. Take Tylenol (acetaminophen) 500 mg pills, 2 pills every 4-6 hours as needed for pain. For pain not relieved by ibuprofen or Tylenol take oxycodone 5 mg pills, 1 pill every 4 hours as needed for pain. Do not drive or work while taking this medication since they can cause sleepiness. Oxycodone is a narcotic medication that can be addicting. If you are concerned about addiction you can ask the pharmacist for less pills or do not get this prescription filled. Follow-up with your dentist in 2-5 days. Please return to the emergency department if your symptoms get worse or if you develop any symptoms that are concerning to you. Prescriptions: New amoxicillin 500 mg capsule 1,000 mg PO BID 5 Days Qty: 20 0RF oxycodone 5 mg tablet 5 mg PO Q4H PRN (Reason: pain) Qty: 10 0RF Rx Instructions: Patient may request partial fill; Partial Fill upon patient request. No Action sodium,potassium,mag sulfates [Suprep Bowel Prep Kit] 17.5-3.13-1.6 gram recon soln 480 ml PO .COMPLEX Qty: 354 0RF Rx Instructions: 480 mL orally; lidocaine HCl [Aspercreme (lidocaine HCl)] 4 % cream 1 appl topical BID PRN (Reason: pain) Qty: 120 0RF cyclobenzaprine 10 mg tablet 10 mg PO BEDTIME PRN (Reason: muscle spasm) Qty: 7 0RF lidocaine 5 % adhesive patch,medicated 1 patch topical DAILY PRN (Reason: pain) Qty: 15 0RF Rx Instructions: leave on most painful area for up to 12 hrs loratadine [Allergy Relief (loratadine)] 10 mg tablet 10 mg PO DAILY albuterol sulfate [Proventil HFA] 90 mcg/actuation HFA aerosol inhaler 1 inh inhalation QID cholecalciferol (vitamin D3) 25 mcg (1,000 unit) capsule 25 mcg PO DAILY epinephrine 0.3 mg/0.3 mL syringe 0.3 mg IM Q10M PRN Rx Instructions: for 2 doses valacyclovir [Valtrex] 500 mg tablet 500 mg PO BID PRN celebrate MVI PO DAILY cyclobenzaprine 5 mg tablet 5 mg PO TID PRN fluticasone propionate 50 mcg/actuation spray,suspension 0 mcg intranasal DAILY PRN lisinopril 10 mg tablet 10 mg PO DAILY trazodone 50 mg tablet 50 mg PO BEDTIME paroxetine HCl 10 mg tablet 10 mg PO BEDTIME azelastine-fluticasone [Dymista] 137-50 mcg/spray spray,non-aerosol 1 spray intranasal BID triamcinolone acetonide 0.025 % cream topical BID Metamucil 3.4 gram/5.4 gram powder 1 tbsp PO DAILY Rx Instructions: mix into at least 8 oz of water or juice before administering senna 8.6 mg capsule 17.2 mg PO BEDTIME 30 Days Qty: 60 3RF famotidine [Pepcid] 40 mg tablet 40 mg PO BEDTIME Qty: 30 6RF ondansetron HCl 4 mg tablet 4 mg PO BID-TID 1 Days Qty: 3 0RF
== END 2022-07-08 17:40 | disposition home or self-care (01) ==
PROVIDERS: Emergency Provider Emergency Medicine Emergency Medical Services; PCP Internal Medicine
DX: K04.7 Periapical abscess without sinus (principal)
CPT/HCPCS: 99283

== ENCOUNTER 2022-07-20 07:17 | Day surgery (SDC) | payer MEDICAID, SELFPAY ==
--- NOTE | 2022-07-19 13:30 | HO.ANESPROP2 ---
HPI - Anesthesia Eval Consult details Narrative: 57yo F for Colonoscopy PMF Active Problems Active Problems: All Active Problems (Updated 07/09/22 @ 00:00 by Nik Daricky) Status post sleeve gastrectomy (Acute) Depressive disorder (Acute) Diverticulitis (Acute) Pre-op examination (Acute) GERD (gastroesophageal reflux disease) (Acute) Chronic idiopathic constipation (Acute) Sacroiliac joint pain (Acute) Spondylosis of lumbar region without myelopathy or radiculopathy (Acute) Degenerative disc disease at L5-S1 level (Acute) Hiatal hernia (Acute) Obesity (Acute) Vitamin D deficiency (Acute) Kidney stone (Acute) Hypertension (Acute) HSV-1 infection (Acute) Asthma (Acute) Hot flashes (Acute) Vaginal discharge (Acute) Well woman exam with routine gynecological exam (Acute) Past Medical History Medical History Asthma HSV-1 infection Hypertension Kidney stone Vitamin D deficiency Family History Family History Mother No problems noted. Father No problems noted. Sister Breast cancer Lung cancer Surgical History Surgical History H/O abdominoplasty H/O bariatric surgery H/O colonoscopy H/O esophagogastroduodenoscopy H/O lithotripsy Social History Social History Alcohol intake: never Patient Tobacco Use Status: Never used Tobacco Gender identity: Female Meds Allergies Allergy/AdvReac Type Severity Reaction Status Date / Time pineapple [PINEAPPLE] Allergy Severe ANAPHYLAXIS Verified 07/17/22 14:45 shellfish derived Allergy Severe ANAPHYLAXIS Verified 07/17/22 14:45 [SHELLFISH DERIVED] tramadol Allergy Itching Verified 07/17/22 14:45 metronidazole [From Flagyl] AdvReac Mild YEAST Verified 07/17/22 14:45 INFECTION Home Medications Medication Instructions Recorded Confirmed Last Taken Type albuterol sulfate 90 mcg/actuation 1 inh inhalation QID 07/04/20 07/17/22 Unknown History aerosol inhaler (Proventil HFA) cholecalciferol (vitamin D3) 25 25 mcg PO DAILY 07/04/20 07/17/22 Unknown History mcg (1,000 unit) capsule epinephrine 0.3 mg/0.3 mL 0.3 mg IM Q10M PRN Anaphylaxis 07/04/20 02/16/22 Unknown History injection syringe loratadine 10 mg tablet (Allergy 10 mg PO DAILY 07/04/20 07/17/22 Unknown History Relief (loratadine)) valacyclovir 500 mg tablet 500 mg PO BID PRN Cold Sores 03/15/21 02/16/22 Unknown History (Valtrex) cyclobenzaprine 5 mg tablet 5 mg PO TID PRN Muscle Pain 05/26/21 07/17/22 Unknown History celebrate MVI PO DAILY 08/07/21 02/16/22 Unknown History fluticasone propionate 50 0 mcg intranasal DAILY 09/13/21 07/17/22 Unknown History mcg/actuation nasal spray,suspension azelastine-fluticasone 137 mcg-50 1 spray intranasal BID 01/25/22 07/17/22 Unknown History mcg/spray nasal spray (Dymista) lisinopril 10 mg tablet 10 mg PO DAILY 01/25/22 07/17/22 Unknown History paroxetine HCl 10 mg tablet 10 mg PO BEDTIME 01/25/22 07/17/22 Unknown History psyllium husk 3.4 gram/5.4 gram 1 tbsp PO DAILY 01/25/22 07/17/22 Unknown History oral powder (Metamucil) trazodone 50 mg tablet 50 mg PO BEDTIME 01/25/22 07/17/22 Unknown History triamcinolone acetonide 0.025 % appl topical BID 01/25/22 02/16/22 Unknown History topical cream Exam Exam Date and Time: July 19, 2022 1330 Pertinent Lab Results Pertinent Lab Results: Laboratory Tests 01/27/22 01/27/22 09:04 09:04 WBC 5.8 Hgb 12.5 Hct 38.6 Plt Count 323 Sodium 142 Potassium 3.7 D Chloride 104 Carbon Dioxide 26 BUN 16 Creatinine 0.82 Assessment and Plan Assessment Anesthesia Assessment: Chart Reviewed
[2022-07-20 08:41] VITALS: BMI 33.8
[2022-07-20 08:45] VITALS: BP 116/77; PULSE 74; RESP 16; TEMP 36.4; O2SAT 98
[2022-07-20] MEDS: Lactated Ringers 1,000 ML 100 ML IVCONT (08:51)
--- NOTE | 2022-07-20 09:37 | MHC.SHP ---
Pre-Procedural Eval Section A Date of Service: 07/20/22 The patient is an INPATIENT: No The History & Physical has been completed within 30 days and I have reviewed it.: No Section B Chief Complaint: Colon cancer screening, chronic constipation Relevant Family History (Specify if Yes): No Relevant Social History: None Present Medications: see Short Stay Collaborative assessment Medical History: Significant History (Asthma HSV-1 infection Hypertension Kidney stone Vitamin D deficiency) History of Previous Operations: Relevant previous surgery/procedure and date(s) (H/O abdominoplasty H/O bariatric surgery H/O colonoscopy H/O esophagogastroduodenoscopy H/O lithotripsy) Allergies: Allergies Allergy/AdvReac Type Severity Reaction Status Date / Time pineapple [PINEAPPLE] Allergy Severe ANAPHYLAXIS Verified 07/17/22 14:45 shellfish derived Allergy Severe ANAPHYLAXIS Verified 07/17/22 14:45 [SHELLFISH DERIVED] tramadol Allergy Itching Verified 07/17/22 14:45 metronidazole [From Flagyl] AdvReac Mild YEAST Verified 07/17/22 14:45 INFECTION Review of Systems Sugical H&P ROS: Negative: Constitution, Cardiovascular and Respiratory and Yes, Specify: Gastrointestinal (constipation) Exam Surgical H&P Exam: Normal: Heart, Normal: Lungs, Normal: Extremities and Normal: Abdomen Plan Diagnosis/Plan: Unchanged I have reviewed the history and physical and performed a pertinent physical examination on my patient. No changes have occurred unless specified. Time Spent With Patient Time: Total time managing care of this patient today ____ minutes.
--- NOTE | 2022-07-20 09:46 | P.BOP_ITS ---
Brief Operative Note Date of Service: 07/20/22 Pre-op diagnosis: Colon cancer screening chronic constipation Post-op diagnosis: other (Colon polyps, diverticulosis, hemorrhoids) Procedure: COLONOSCOPY TILL CECUM WITH BIOPSIES, SNARE POLYPECTOMY, SUBMUCOSAL INJECTION AND HEMOCLIP PLACEMENT Surgeon: Patrick Sam MD Anesthesia: MAC Was an Bilingual Patient Support Caseworker used for this Procedure?: Yes Bilingual Patient Support Caseworker: Gretchen Deleon Estimated blood loss (mL): 0 Pathology: other (a. ascending colon polyp @ 85 cm b. cecal polyp) Condition: stable Disposition: PACU
--- NOTE | 2022-07-20 09:47 | W.PM.OPN ---
Operative Note Operative Note Date of Service: 07/20/22 Narrative: COLONOSCOPY TILL CECUM WITH BIOPSIES, SNARE POLYPECTOMY, SUBMUCOSAL INJECTION AND HEMOCLIP PLACEMENT Indication:? Colon cancer screening, chronic constipation Endoscopist:? Patrick Sam MD Anesthesia Provider:?Dr Khan Anesthesia type:?MAC Consent: Indications for the procedure and potential complications of bleeding, perforation, reaction to medications and missed diagnosis were discussed with the patient and informed consent was obtained. Instrument: Olympus CF H 190 L variable stiffness adult colonoscope Monitoring: Vital signs and clinical assessment, intermittent blood pressure monitoring, continuous EKG monitoring, Pulse oximetry and Carbon Dioxide monitoring were done throughout the procedure. Please see anesthesia flowsheet. Colon withdrawl time was 15 minutes. Procedure: The patient was placed in the left lateral decubitis position and pre-procedure medications were administered. After a digital rectal examination of the ano-rectum, the video colonoscope was inserted into the rectum and advanced through the colon to the cecum. The colonoscope was slowly withdrawn in a retrograde panoramic fashion and the colon mucosa was carefully examined including a retroflexed view of the rectum. Findings and interventions are described below. Procedure Difficulty: Without difficulty Findings: Terminal Ileum: Not evaluated Cecum: A 2-3 mm sessile polyp - removed with a cold biopsy Ascending Colon: A 1.8 to 2 cms flat polyp at 85 cms - just proximal to the ICV. Polyp was raised with 5 cc of normal saline and removed with a stiff snare. Polypectomy site was closed with 1 hemoclip and marked with Татьяна ink Transverse Colon: Normal Descending Colon: Moderate diverticulosis Sigmoid Colon: Moderate diverticulosis Rectum: Normal Ano-rectum: Small internal hemorrhoids Colon preparation: Good after some irrigation Impression and Post Procedure Diagnosis: Colonoscopy Findings: One small and one medium sized polyps removed Moderate diverticulosis seen in the left colon Small hemorrhoids on retroflexed exam. Plan: Await pathology results Patient to schedule a FU appointment in the GI Clinic with Humaira Ferrer NP. Repeat Colonoscopy interval based on path results - in 2-3 years if polyps are adenomatous (to check polypectomy site in the AC) and 10 years if polyps are hyperplastic. Above findings were reviewed with the patient and colon polyps and diverticulosis handouts were given in the discharge area
[2022-07-20 10:28] VITALS: BP 123/78; PULSE 89; RESP 16; TEMP 35.7; O2SAT 97
[2022-07-20 10:43] VITALS: BP 129/88; PULSE 89; RESP 17; TEMP 36.2; O2SAT 97
[2022-07-20 10:58] VITALS: BP 120/86; PULSE 58; RESP 16; TEMP 36.4; O2SAT 98
== END 2022-07-20 11:25 | disposition home or self-care (01) ==
PROVIDERS: PCP General Practice; Visit Provider Internal Medicine Gastroenterology
PROC: 0DJD8ZZ Inspection of Lower Intestinal Tract, Via Natural or Artificial Opening Endoscopic (ICD-10-PCS; CPT 45378; principal; 2022-07-20 09:20)
DX: Z12.11 Encounter for screening for malignant neoplasm of colon (principal); D12.0 Benign neoplasm of cecum; D12.2 Benign neoplasm of ascending colon; K59.09 Other constipation; K57.30 Diverticulosis of large intestine without perforation or abscess without bleeding; K64.8 Other hemorrhoids; I10 Essential (primary) hypertension; N20.0 Calculus of kidney; E55.9 Vitamin D deficiency, unspecified; J45.909 Unspecified asthma, uncomplicated; B00.9 Herpesviral infection, unspecified; Z79.51 Long term (current) use of inhaled steroids; Z79.899 Other long term (current) drug therapy; Z88.8 Allergy status to other drugs, medicaments and biological substances; Z98.84 Bariatric surgery status
CPT/HCPCS: 45385; 45380; 45381; 88305

== ENCOUNTER → 2022-08-03 15:41 | Outpatient (BNVA) | payer MEDICAID, SELFPAY | PROVIDERS: PCP General Practice; Visit Provider Physician Assistant Surgical | DX: E66.9 Obesity, unspecified (principal); Z90.3 Acquired absence of stomach [part of]; Z68.33 Body mass index [BMI] 33.0-33.9, adult | CPT/HCPCS: 99212 ==

== ENCOUNTER → 2022-08-10 08:32 | Outpatient (BNVA) | payer MEDICAID, SELFPAY | PROVIDERS: PCP General Practice; Referring Provider General Practice; Visit Provider Dietitian, Registered | DX: E66.9 Obesity, unspecified (principal) | CPT/HCPCS: 97803 ==

== ENCOUNTER → 2022-08-16 12:12 | Outpatient (BNVA) | payer MEDICAID, SELFPAY | PROVIDERS: PCP General Practice; Visit Provider Nurse Practitioner | DX: D12.6 Benign neoplasm of colon, unspecified (principal); K21.9 Gastro-esophageal reflux disease without esophagitis; K59.04 Chronic idiopathic constipation | CPT/HCPCS: 99212 ==

== ENCOUNTER 2022-09-02 08:32 | Emergency (ER) | payer MEDICAID, SELFPAY ==
[2022-09-02 08:37] VITALS: BP 143/73; PULSE 60; RESP 19; TEMP 36.6; O2SAT 98; BMI 37.5
--- NOTE | 2022-09-02 09:37 | ED_ITS ---
HPI - Dental/Oral General Chief complaint: Dental/Oral Stated complaint: Facial swelling/dental pain Time Seen by Provider: 09/02/22 08:54 History of Present Illness HPI Narrative: Patient complains of dental pain and swelling around a right lower molar which is been bothering her for 2-3 days, she has no difficulty breathing or swallowing she has no swelling under the tongue no drooling no fever no other facial swelling Related Data Home Medications Medication Instructions Recorded Confirmed albuterol sulfate 90 mcg/actuation 1 inh inhalation QID 07/04/20 08/03/22 aerosol inhaler (Proventil HFA) cholecalciferol (vitamin D3) 25 25 mcg PO DAILY 07/04/20 08/03/22 mcg (1,000 unit) capsule epinephrine 0.3 mg/0.3 mL 0.3 mg IM Q10M PRN Anaphylaxis 07/04/20 02/16/22 injection syringe loratadine 10 mg tablet (Allergy 10 mg PO DAILY 07/04/20 08/03/22 Relief (loratadine)) valacyclovir 500 mg tablet 500 mg PO BID PRN Cold Sores 03/15/21 08/03/22 (Valtrex) celebrate MVI PO DAILY 08/07/21 08/03/22 fluticasone propionate 50 0 mcg intranasal DAILY 09/13/21 08/03/22 mcg/actuation nasal spray,suspension azelastine-fluticasone 137 mcg-50 1 spray intranasal BID 01/25/22 08/03/22 mcg/spray nasal spray (Dymista) lisinopril 10 mg tablet 10 mg PO DAILY 01/25/22 08/03/22 trazodone 50 mg tablet 50 mg PO BEDTIME 01/25/22 08/03/22 triamcinolone acetonide 0.025 % appl topical BID 01/25/22 02/16/22 topical cream celecoxib 100 mg capsule 100 mg PO 08/03/22 08/03/22 paroxetine HCl 10 mg tablet 10 mg PO BEDTIME PRN 08/03/22 08/03/22 Previous Rx's Medication Instructions Recorded sennosides 8.6 mg capsule (senna) 17.2 mg PO BEDTIME constipation 30 01/25/22 days #60 caps cyclobenzaprine 10 mg tablet 10 mg PO BEDTIME PRN muscle spasm 01/27/22 #7 tabs famotidine 40 mg tablet (Pepcid) 40 mg PO BEDTIME #30 tabs 07/30/22 acetaminophen 300 mg-codeine 30 mg 1 tab PO Q4-6H PRN pain #14 tabs 09/02/22 tablet amoxicillin 875 mg-potassium 1 tab PO BID 7 days #14 tabs 09/02/22 clavulanate 125 mg tablet Allergies Allergy/AdvReac Type Severity Reaction Status Date / Time pineapple [PINEAPPLE] Allergy Severe ANAPHYLAXIS Verified 09/02/22 08:37 shellfish derived Allergy Severe ANAPHYLAXIS Verified 09/02/22 08:37 [SHELLFISH DERIVED] tramadol Allergy Itching Verified 09/02/22 08:37 metronidazole [From Flagyl] AdvReac Mild YEAST Verified 09/02/22 08:37 INFECTION [facility] Past Medical History Source: nursing notes reviewed Medical History Asthma HSV-1 infection Hypertension Kidney stone Vitamin D deficiency Surgical History H/O abdominoplasty H/O bariatric surgery H/O colonoscopy H/O esophagogastroduodenoscopy H/O lithotripsy Family History Family History Mother No problems noted. Father No problems noted. Sister Breast cancer Lung cancer Social History Social History Alcohol intake: never Patient Tobacco Use Status: Never used Tobacco Advance Directives: No Advance Directives Information Provided: No Gender identity: Female Physical Exam Vital Signs: Vital Signs: Last Vital Signs Temp 98 F 09/02/22 08:37 Pulse 60 09/02/22 08:37 Resp 19 09/02/22 08:37 BP 143/73 H 09/02/22 08:37 Pulse Ox 98 09/02/22 08:37 O2 Del Method Room Air 09/02/22 08:37 BMI result Body Mass Index 37.5 General appearance comfortable no distress The sinuses are not tender The pharynx is clear without redness swelling or exudate Dental exam there is a right lower molar that is tender to the touch and there is some redness and mild swelling to the gum but no fluctuant abscess on the gum there is no swelling under the tongue no trismus no impairment of breathing or swallowing, there is no facial swelling or redness Skin no rash Neck is supple Respiratory no distress Course Course Course Narrative: Patient with likely dental infection is treated with Augmentin and is well- appearing and is discharged Discharge Plan Discharge Clinical Impression: Dental caries Patient Disposition: Home, Self-Care Additional Instructions: Follow with dentist Return any time if worse Use antibiotic as prescribed Prescriptions: New acetaminophen-codeine 300-30 mg tablet 1 tab PO Q4-6H PRN (Reason: pain) Qty: 14 0RF amoxicillin-pot clavulanate 875-125 mg tablet 1 tab PO BID 7 Days Qty: 14 0RF No Action famotidine [Pepcid] 40 mg tablet 40 mg PO BEDTIME Qty: 30 6RF cyclobenzaprine 10 mg tablet 10 mg PO BEDTIME PRN (Reason: muscle spasm) Qty: 7 0RF loratadine [Allergy Relief (loratadine)] 10 mg tablet 10 mg PO DAILY albuterol sulfate [Proventil HFA] 90 mcg/actuation HFA aerosol inhaler 1 inh inhalation QID cholecalciferol (vitamin D3) 25 mcg (1,000 unit) capsule 25 mcg PO DAILY epinephrine 0.3 mg/0.3 mL syringe 0.3 mg IM Q10M PRN (Reason: Anaphylaxis) Rx Instructions: for 2 doses valacyclovir [Valtrex] 500 mg tablet 500 mg PO BID PRN (Reason: Cold Sores) celebrate MVI PO DAILY fluticasone propionate 50 mcg/actuation spray,suspension 0 mcg intranasal DAILY celecoxib 100 mg capsule 100 mg PO lisinopril 10 mg tablet 10 mg PO DAILY trazodone 50 mg tablet 50 mg PO BEDTIME azelastine-fluticasone [Dymista] 137-50 mcg/spray spray,non-aerosol 1 spray intranasal BID triamcinolone acetonide 0.025 % cream topical BID senna 8.6 mg capsule 17.2 mg PO BEDTIME 30 Days Qty: 60 3RF paroxetine HCl 10 mg tablet 10 mg PO BEDTIME PRN
[2022-09-02] MEDS: Amoxicillin/Potassium Clav 875 MG TABLET PO (09:55)
== END 2022-09-02 10:00 | disposition home or self-care (01) ==
PROVIDERS: Emergency Provider Emergency Medicine Emergency Medical Services; PCP General Practice
DX: K02.9 Dental caries, unspecified (principal)
CPT/HCPCS: 99283

== ENCOUNTER 2022-09-24 08:04 | Outpatient (REF) | payer MEDICAID, SELFPAY ==
--- NOTE | ~2022-09-24 | FL_ITS ---
PROCEDURE: XR FLUOROSCOPY UPPER GI WITH AIR CLINICAL INFORMATION: Increased appetite after gastric sleeve surgery. Gaining weight. COMPARISON: None available. TECHNIQUE: Routine upper GI air-contrast study was performed. FINDINGS: Following oral administration of thick barium and effervescent granules there is normal propagation of bolus from the oral cavity through the pharynx, esophagus into stomach without any evidence of obstruction, narrowing or stricture. On placing patient supine and prone lying the stomach is small status post gastric sleeve surgery. The mucosal pattern of the visualized stomach, duodenal bulb and the sweep is normal. The course of the stomach and the duodenum is normal. There is moderate gastroesophageal reflux without hiatal hernia. No mucosal erosions or ulceration seen. Incidental finding of cholecystectomy. FLUOROSCOPY TIME: 1.4 minutes DOSE AREA PRODUCT: 25.415 uGy-m2 (microgray-meter squared) FL/FL upper GI w air IMPRESSION: Gastric sleeve surgical changes with moderate gastroesophageal reflux but no hiatal hernia. Otherwise unremarkable upper GI exam.
== END 2022-09-24 08:05 | disposition home or self-care (01) ==
LOC: HO.XRAY 08:04
PROVIDERS: PCP General Practice; Visit Provider Physician Assistant Surgical
DX: Z90.3 Acquired absence of stomach [part of] (principal)
CPT/HCPCS: 74246

== ENCOUNTER 2023-01-15 10:16 | Outpatient (REF) | payer MEDICAID, SELFPAY ==
[2023-01-15 11:26] LABS: MANUAL DIFF FLAG NO
[2023-01-15 11:34] LABS: Basophils Absolute Auto 0.1 X10*3/uL (0.0-0.2); Eosinophils Absolute Auto 0.1 X10*3/uL (0.0-0.4); Eosinophils Percent Auto 1.4 % (0-4); Hemoglobin 13.5 g/dl (12.0-16.0); Imm Gran Abs Auto 0.01 X10*3/uL (0.00-0.03); Imm Gran Pct Auto 0.2 % (0.0-0.4); Lymphocytes Absolute Auto 1.3 X10*3/uL (1.2-4.9); Lymphocytes Percent Auto 21.1 % (20-40); Mean Corpuscular HGB Conc 32.9 g/dl (31.0-35.0); Mean Corpuscular Volume 88.2 fL (80.0-98.0); Mean Platelet Volume 11.1 fL (9.4-12.3); Monocytes Absolute Auto 0.5 X10*3/uL (0.1-1.2); Monocytes Percent Auto 7.5 % (2-11); Neutrophils Absolute Auto 4.3 x10*3/uL (2.0-8.3); Neutrophils Percent Auto 68.8 % (45-73); Platelet Count 330 X10*3/uL (160-400); Red Blood Count 4.65 X10*6/uL (4.20-5.50); Red Cell Distribution Width 13.3 % (11.0-16.0); White Blood Count 6.3 X10*3/uL (4.8-10.8)
[2023-01-15 12:50] LABS: Alanine Aminotransferase 20 U/L (0-31); Albumin Level 4.1 g/dL (3.5-5.0); Alkaline Phosphatase 85 U/L (39-117); Aspartate Amino Transferase 24 U/L (5-31); Bilirubin Direct 0.2 mg/dL (0.0-0.5); Bilirubin Total 0.5 mg/dL (0.0-1.0); Total Protein 7.2 g/dL (6.5-8.0)
== END 2023-01-15 10:17 | disposition home or self-care (01) ==
LOC: HO.HHCL 10:16
PROVIDERS: Visit Provider Nurse Practitioner Family
DX: R10.30 Lower abdominal pain, unspecified (principal)
CPT/HCPCS: 36415; 80076; 85025; 87086

== ENCOUNTER 2023-03-01 07:41 | Outpatient (AMB) | payer OTHER, SELFPAY ==
--- NOTE | 2023-03-01 07:58 | A.OFFVIS_ITS ---
Intake Vital Signs 03/01/23 08:10 Height 5 ft 1 in Weight 165 lb BMI 31.2 BP 88/62 L Blood Pressure Location Lt brachial Position Sitting Pulse 66 Intake Visit Reasons: 6 month f/u GERD, CIC Intake Note: Patient follow up for GERD,CIC. Patient cc: constipation, abdominal bloating, diverticulitis pain on her left side of abdomen, nauseas on and off, and some GERD come ond go. 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 Accompanied by: Self / Same As Patient Allergies pineapple [PINEAPPLE] Allergy (Severe, Verified 03/01/23 07:58) ANAPHYLAXIS shellfish derived [SHELLFISH DERIVED] Allergy (Severe, Verified 03/01/23 07:58) ANAPHYLAXIS tramadol Allergy (Verified 03/01/23 07:58) Itching metronidazole [From Flagyl] Adverse Reaction (Mild, Verified 03/01/23 07:58) YEAST INFECTION HPI 6 month f/u GERD, CIC HPI Details Assessment & Plan (1) Tubular adenoma of colon: Comment: 2022= 2 large TA is repeat in 2 years Code(s): D12.6 - Benign neoplasm of colon, unspecified Plan: The procedure needs to be repeated in 2 years r/t the size of polyps. She had a very sore butt with the prep, so we will remind her of using a barrier cream prior to prepping. SHe also used zofran for n/v for prep. The procedure was well tolerated. The results were explained and the patient is agreeable to the follow-up interval as stated. The bowel pattern has returned to normal. Education was provided to tell any 1st degree relatives about their findings to be sure that they are screened by age 45. Educated that they will be put on a recall list when it is time for their repeat scope but should they move out of state or away from the hospital they will need to remember along with their primary to repeat the procedure in a timely fashion to avoid any adverse complications. She continues to do well on her famotidine for her GERD and the senna was very helpful for her CIC - but she does not need to take it every day. This is fine. She will be having an EGD soon with her bariatric surgeon, because she is s/p gastric bypass and is not losing weight despite eating correctly and exercising. ROV 6 mos. (2) GERD (gastroesophageal reflux diseas e): Code(s): K21.9 - Gastro-esophageal reflux disease without esophagitis (3) Chronic idiopathic constipation: Code(s): K59.04 - Chronic idiopathic constipation TODAY'S VISIT She has changed her bariatric provider because they never called me back but she says she had an EGD with them...but I can not find the procedure report. She is having LLQ pain and she feels her diverticulitis is returning. She also ran out of her senna and is constipated. She continues on her famotidine for GERD. I will treat her for presumed diverticulitis with Augmentin and hopefully will get her bowels moving to prevent any future attacks. ROV 4 weeks. PFSH Medical History Asthma HSV-1 infection Hypertension Kidney stone Vitamin D deficiency Surgical History H/O esophagogastroduodenoscopy H/O colonoscopy H/O bariatric surgery H/O abdominoplasty H/O lithotripsy Family History Mother No problems noted. Father No problems noted. Sister Breast cancer Lung cancer Social History Alcohol intake: never Patient Tobacco Use Status: Never used Tobacco Gender identity: Female Female Reproductive History Menstrual Age of Menarche: 11 Review of Systems Const Denies fatigue, Denies fever(s), Denies night sweats, Denies poor appetite and Denies weight loss Eyes Details: glasses Reports requires corrective lenses ENT Reports Normal hearing present, Denies dental pain, Denies dysphagia, Denies hearing loss, Denies mouth pain, Denies odynophagia, Denies throat swelling, Denies tongue swelling and Reports other (Dentition adequate) Card Reports no additional complaints Resp Reports no additional complaints GI Reports abdominal pain, Denies melena, Denies bloating, Denies hematochezia, Reports constipation, Denies GI cramping, Denies dysphagia, Denies excessive flatus, Denies early satiety, Reports heartburn, Denies diarrhea, Denies nausea, Denies odynophagia, Denies vomiting and Denies hematemesis Skin/Breast Denies pruritus, Denies lesions, Denies rash and Denies jaundice Neuro Reports Normal hearing present and Denies Abnormal speech present Endo Denies fatigue Aller/Immun Denies throat swelling and Denies tongue swelling Physical Exam Vital Signs: Last Vital Signs Pulse 66 03/01/23 08:10 BP 88/62 L 03/01/23 08:10 BMI result Body Mass Index 31.2 Const General: cooperative, no acute distress, well developed and well groomed Nutritional Appearance: well nourished and obese Orientation/consciousness: oriented to person, oriented to place and oriented to time Limitations: No language barrier HEENT Head: Yes normocephalic and Yes atraumatic Eyes General: appearance normal, both eyes and all related structures Pupils: Equal, round and reactive pupils present Neck Neck: Yes normal visual inspection and Yes no lymphadenopathy Thyroid: Thyroid normal Resp Effort & Inspection: normal respiratory effort and able to speak in complete sentences Auscultation: clear to auscultation bilaterally Cardio Rate: regular rate Rhythm: regular rhythm Heart sounds: Normal, physiologic split S2 sound present Peripheral pulses: radial pulses present and posterior tibial pulses present GI Inspection: No distended, No Abdominal panniculus present and Yes obesity Palpation (GI): Soft to palpation, Tenderness to palpation present (GI) in the LLQ, no guarding, not rigid and No hepatosplenomegaly present Percussion: Yes normal to percussion Auscultation: normal bowel sounds Rectal Exam - Female: deferred Skin General skin exam: no rashes or lesions noted, turgor normal, skin not dry, no jaundice, No spider nevi and no striae Rashes: no rashes Nails: normal Neuro General: oriented to person, oriented to place and oriented to time Cranial nerves: Yes Equal, round and reactive pupils present and Yes Normal hearing present Speech: No Abnormal speech present Extrem General: Yes normal to inspection, No clubbing, No cyanosis and No edema Psych Appearance: grossly normal and well kempt Mental Status: mental status grossly normal Speech and movement: Normal speech and movement present Affect: normal affect Attitude: cooperative Thought process: Normal thought process present and not confabulating Thought content: Normal thought content present Insight: Limited insight present (Psych) Judgement: Limited judgement present (Psych) Assessment & Plan Assessment & Plan (1) Diverticulitis: Code(s): K57.92 - Diverticulitis of intestine, part unspecified, without perforation or abscess without bleeding Plan: She has changed her bariatric provider because they never called me back but she says she had an EGD with them...but I can not find the procedure report. She is having LLQ pain and she feels her diverticulitis is returning. She also ran out of her senna and is constipated. She continues on her famotidine for GERD. I will treat her for presumed diverticulitis with Augmentin and hopefully will get her bowels moving to prevent any future attacks. ROV 4 weeks. Medications: New amoxicillin-pot clavulanate 875-125 mg 1 tab PO BID 20 tabs 0RF 10 days K57.92 - Diverticulitis of intestine, part unspecified, without perforation or abscess without bleeding Refilled sennosides (senna) 17.2 mg (2 x 8.6 mg) PO BEDTIME 60 caps 6RF constipation 30 days K59.04 - Chronic idiopathic constipation famotidine (Pepcid) 40 mg PO BEDTIME 30 tabs 6RF K21.9 - Gastro-esophageal reflux disease without esophagitis Coding Level of Care Code Est Pt Level 3 (06307) Diagnoses Diverticulitis K57.92
[2023-03-01 08:10] VITALS: BP 88/62; PULSE 66; BMI 31.2
== END 2023-03-01 08:32 | disposition home or self-care (01) ==
PROVIDERS: Visit Provider Nurse Practitioner
DX: K57.92 Diverticulitis of intestine, part unspecified, without perforation or abscess without bleeding (principal)
CPT/HCPCS: 99213

== ENCOUNTER → 2023-03-01 07:41 | Outpatient (BNVA) | payer MEDICAID, SELFPAY | PROVIDERS: Visit Provider Nurse Practitioner ==

== ENCOUNTER 2023-03-28 09:44 | Outpatient (REF) | payer OTHER, SELFPAY ==
--- NOTE | ~2023-03-28 | XR_ITS ---
EXAMINATION: XR ANKLE, RIGHT CLINICAL INFORMATION: Right ankle COMPARISON: None available. TECHNIQUE: AP, lateral, and mortise views of the right ankle. FINDINGS: There is mild medial soft tissue swelling but no fracture, dislocation or destructive process. No joint effusion. XR/XR ankle RT min 3V IMPRESSION: No underlying osseous abnormality.
== END 2023-03-28 09:45 | disposition home or self-care (01) ==
LOC: HO.HHCX 09:44
PROVIDERS: Visit Provider Family Medicine
DX: M25.571 Pain in right ankle and joints of right foot (principal)
CPT/HCPCS: 73610

== ENCOUNTER 2023-05-21 | Outpatient (REF) | payer OTHER, SELFPAY ==
[2023-05-23 09:21] LABS: BV Int Neg Control Negative (Negative); BV Int Pos Control Positive (Positive)
== END 2023-05-21 00:01 | disposition home or self-care (01) ==
LOC: HO.HHCL
PROVIDERS: Visit Provider Nurse Practitioner Family
DX: N89.8 Other specified noninflammatory disorders of vagina (principal)
CPT/HCPCS: 87480; 87510; 87660

== ENCOUNTER 2023-07-01 07:58 | Outpatient (REF) | payer OTHER, SELFPAY ==
[2023-07-01 08:07] LABS: MANUAL DIFF FLAG NO
[2023-07-01 08:22] LABS: Basophils Percent Auto 0.8 % (0-2); Eosinophils Absolute Auto 0.1 X10*3/uL (0.0-0.4); Eosinophils Percent Auto 1.9 % (0-4); Hematocrit 38.9 % (37.0-47.0); Hemoglobin 12.9 g/dl (12.0-16.0); Imm Gran Abs Auto 0.02 X10*3/uL (0.00-0.03); Imm Gran Pct Auto 0.4 % (0.0-0.4); Lymphocytes Absolute Auto 1.4 X10*3/uL (1.2-4.9); Lymphocytes Percent Auto 26.7 % (20-40); Mean Corpuscular HGB Conc 33.2 g/dl (31.0-35.0); Mean Corpuscular Hemoglobin 28.9 pg (27.0-33.0); Mean Platelet Volume 10.4 fL (9.4-12.3); Monocytes Absolute Auto 0.4 X10*3/uL (0.1-1.2); Neutrophils Absolute Auto 3.3 x10*3/uL (2.0-8.3); Neutrophils Percent Auto 63.2 % (45-73); Platelet Count 322 X10*3/uL (160-400); Red Blood Count 4.47 X10*6/uL (4.20-5.50); Red Cell Distribution Width 12.9 % (11.0-16.0); White Blood Count 5.3 X10*3/uL (4.8-10.8)
[2023-07-01 08:58] LABS: Alanine Aminotransferase 14 U/L (0-31); Alkaline Phosphatase 87 U/L (39-117); Anion Gap 13 (12-20); Aspartate Amino Transferase 19 U/L (5-31); Bilirubin Total 0.4 mg/dL (0.0-1.0); Blood Urea Nitrogen 16 mg/dL (9-16); Calcium 10.2 mg/dL (8.4-10.2); Carbon Dioxide 27 mmol/L (22-29); Chloride 105 mmol/L (96-108); Cholesterol 175 mg/dL (<200); Estimated Glomerular Filt Rate > 60; Glucose Random 94 mg/dL (60-115); HDL Cholesterol 63 mg/dL (>40); LDL Cholesterol Calculated 97 mg/dL (<100); Potassium 3.9 mmol/L (3.3-5.1); Sodium 141 mmol/L (135-145); Total Protein 7.1 g/dL (6.5-8.0); Triglycerides 78 mg/dL (<150)
== END 2023-07-01 07:59 | disposition home or self-care (01) ==
LOC: HO.LAB 07:58
PROVIDERS: PCP General Practice; Visit Provider Physician Assistant
DX: Z00.00 Encounter for general adult medical examination without abnormal findings (principal); E78.5 Hyperlipidemia, unspecified
CPT/HCPCS: 36415; 80053; 80061; 85025

== ENCOUNTER 2023-11-19 08:29 | Outpatient (REF) | payer BC, SELFPAY ==
--- NOTE | ~2023-11-19 | XR_ITS ---
EXAMINATION: XR CHEST CLINICAL INFORMATION: Cough COMPARISON: Chest radiograph from 08/31/2021 TECHNIQUE: 2 views of the chest were obtained. FINDINGS: No focal consolidation. No pneumothorax. Trachea is midline. Cardiac mediastinal silhouette is not enlarged. No large pleural effusion. Osseous structures are intact. Surgical anchors right humeral head. Soft tissues are unremarkable. XR/XR chest 2V IMPRESSION: No acute cardiopulmonary process.
[2023-11-19 12:29] LABS: Carcinoembryonic Antigen < 1.73 ng/mL
[2023-11-21 10:14] LABS: CA-125 11 U/mL (<35)
== END 2023-11-19 08:30 | disposition home or self-care (01) ==
LOC: HO.HHCL 08:29
PROVIDERS: Visit Provider General Practice
DX: R05.1 Acute cough (principal); Z80.1 Family history of malignant neoplasm of trachea, bronchus and lung
CPT/HCPCS: 36415; 71046; 82378; 86304

== ENCOUNTER 2023-11-22 13:40 | Outpatient (REF) | payer SELFPAY | END 2023-11-22 13:41 | disposition home or self-care (01) | LOC: HO.HAP 13:40 | PROVIDERS: Visit Provider General Practice | DX: Z13.89 Encounter for screening for other disorder (principal) ==

== ENCOUNTER 2023-12-04 07:05 | Outpatient (REF) | payer BC, SELFPAY ==
--- NOTE | ~2023-12-04 | MM_ITS ---
EXAMINATION: MM SCREENING DIGITAL BREAST TOMOSYNTHESIS, BILATERAL CLINICAL INFORMATION: Screening. Asymptomatic. COMPARISON: Mammography: This study is compared with prior exams dating back to 2016. TECHNIQUE: Digital breast tomosynthesis is performed in both the craniocaudal and mediolateral oblique views along with computer-aided detection (CAD). Synthesized 2D images are generated from the tomosynthesis. FINDINGS: There are scattered areas of fibroglandular density (ACR BI-RADS breast composition Category b). There are no significant masses, abnormal calcifications, or other abnormalities. MM/MM tomosynthesis screening BI IMPRESSION: No mammographic evidence of malignancy. ASSESSMENT: BI-RADS BI-RADS 1 - Negative RECOMMENDATION: Routine annual mammography screening. 1 year F/U This examination should not preclude the clinical evaluation of a suspicious palpable abnormality. This patient's information was entered into a reminder system with a target due date for their next mammogram.
== END 2023-12-04 07:06 | disposition home or self-care (01) ==
LOC: HO.MAMMO 07:05
PROVIDERS: PCP General Practice; Visit Provider General Practice
DX: Z12.31 Encounter for screening mammogram for malignant neoplasm of breast (principal)
CPT/HCPCS: 77063; 77067

== ENCOUNTER → 2023-12-04 07:30 | Outpatient (BNV) | payer BC, SELFPAY | PROVIDERS: PCP General Practice; Visit Provider Radiology Diagnostic Radiology | DX: Z12.31 Encounter for screening mammogram for malignant neoplasm of breast (principal) | CPT/HCPCS: 77063; 77067 ==

== ENCOUNTER 2023-12-18 18:22 | Outpatient (REF) | payer BC, SELFPAY ==
[2023-12-19 02:25] LABS: CT PCR NOT DETECTED (Not Detect.); NG PCR NOT DETECTED (Not Detect.)
[2023-12-19 08:50] LABS: Bacterial Vaginosis PCR NEGATIVE (Negative); Candida Group PCR NOT DETECTED (Not Detect); Candida glab krusei PCR NOT DETECTED (Not Detect); Trichomonas vaginalis PCR NOT DETECTED (Not Detect)
== END 2023-12-18 18:23 | disposition home or self-care (01) ==
LOC: HO.HHCLNP 18:22
PROVIDERS: Visit Provider Emergency Medicine
DX: N89.8 Other specified noninflammatory disorders of vagina (principal)
CPT/HCPCS: 0352U; 87491; 87591

== ENCOUNTER 2024-02-05 07:32 | Outpatient (AMB) | payer BC, SELFPAY ==
--- NOTE | 2024-02-05 07:42 | MHC.OFFVIS ---
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 She is doing well with no concerns. Attempting to eat a healthy diet with calcium and vitamin D and stays active with exercise. Currently not sexually active, partner has medical conditions. Denies any vaginal dryness or irritation. Last pap smear; 2021. Last mammogram; 2023. Colonoscopy is UTD. Denies any family history of breast, ovarian or colon cancer. [facility] Medical History Kidney stone Asthma HSV-1 infection Vitamin D deficiency Hypertension Surgical History H/O esophagogastroduodenoscopy H/O colonoscopy H/O bariatric surgery H/O abdominoplasty H/O lithotripsy Family History (Updated 02/05/24 @ 07:52 by HOLLY Yusuf) Mother No problems noted. Father No problems noted. Sister Breast cancer Lung cancer Brother Lung cancer Colon cancer Social History Alcohol intake: never Patient Tobacco Use Status: Never used Tobacco Gender identity: Female Female Reproductive History Menstrual Age of Menarche: 11 control method: permanent sterilization Permanent Sterilization: BTL Menopause type: natural Total pregnancies: 3 Full term: 3 Number of Living Children: 3 Date of last pap smear: 07/28/21 (neg pap and hpv) History of abnormal pap smear: Yes (see intake note) History of STI: Yes (hx HSV, Trich) Date of Mammogram: 12/04/23 (Birad 1) Other: Colonoscopy 07/20/2022 Review of Systems Const All systems reviewed & are unremarkable except as noted in HPI and below Reports as per HPI Eyes Reports no additional complaints ENT Reports no additional complaints Card Reports no additional complaints Resp Reports no additional complaints GI Reports as per HPI and Reports no additional complaints Reports as per HPI Musc Reports no additional complaints Skin/Breast Reports as per HPI Neuro Reports no additional complaints Psych Reports no additional complaints Endo Reports no additional complaints Xu/Lymph Reports no additional complaints Aller/Immun Reports no additional complaints Physical Exam Vital Signs: Last Vital Signs BP 96/60 02/05/24 07:44 BMI result Body Mass Index 27.2 Const General: cooperative, healthy appearing, no acute distress, well developed and alert Orientation/consciousness: patient oriented x3 HEENT Head: Yes normal to inspection Eyes General: appearance normal, both eyes and all related structures Neck Neck: Yes normal visual inspection Thyroid: Thyroid normal Chest Chest palpation & inspection: normal inspection of the chest and other (no puckering, dimpling, peau de orange, retraction, discharge, masses) Breast/axilla inspection: normal inspection of the breasts Breast/axilla palpation: normal palpation of the breasts Resp Effort & Inspection: normal respiratory effort GI Inspection: Yes normal to inspection Palpation (GI): Soft to palpation Rectal Exam - Female: deferred General: Yes bladder normal to palpation External Female Exam: normal external appearance and normal appearance of the urethra Speculum Exam - Vagina: normal appearance of the vagina, normal palpation, normal vaginal discharge and vagina atrophic Speculum Exam - Cervix: normal appearance of the cervix and normal palpation Bimanual exam- vagina & uterus: normal bimanual exam, normal palpation, uterine size normal, bladder normal to palpation, normal palpation and non-tender Bimanual Exam- Adnexa, other: no masses Skin General skin exam: no rashes or lesions noted Rashes: no rashes Neuro General: patient oriented x3 Cognition (Neuro): normal cognition Extrem General: Yes normal to inspection Psych Attitude: cooperative Thought process: Normal thought process present Assessment & Plan Assessment & Plan (1) Well woman exam with routine gynecological exam: Code(s): Z01.419 - Encounter for gynecological examination (general) (routine) without abnormal findings Category: Medical Plan Discussed: Current recommendations for pap smears per ASCCP guidelines. Breast awareness, periodic self breast exams and yearly mammogram. Maintain a healthy lifestyle, well balanced diet including Calcium 1,200 mg and Vitamin D 600 IU daily, and routine exercise. Contact the office with any postmenopausal bleeding. Patient verbalizes understanding and agrees to the plan of care. She was given opportunity to ask questions and all questions were answered to the best of my ability. 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 This note is constructed using voice recognition software. While every effort has been made to ensure accuracy, neurourologist errors may have been included. Coding Level of Care Code Est Pt Prev Care 40-64y(77603) Diagnoses Well woman exam with routine gynecological exam Z01.419
[2024-02-05 07:44] VITALS: BP 96/60; BMI 27.2
== END 2024-02-05 08:13 | disposition home or self-care (01) ==
PROVIDERS: PCP General Practice; Visit Provider Advanced Practice Midwife
DX: Z01.419 Encounter for gynecological examination (general) (routine) without abnormal findings (principal)
CPT/HCPCS: 99396

== ENCOUNTER → 2024-02-05 07:32 | Outpatient (BNVA) | payer BC, SELFPAY | PROVIDERS: PCP General Practice; Visit Provider Advanced Practice Midwife ==

== ENCOUNTER 2024-03-20 10:34 | Outpatient (REF) | payer BC, SELFPAY ==
--- NOTE | ~2024-03-20 | XR_ITS ---
EXAMINATION: XR KNEE, RIGHT CLINICAL INFORMATION: Pain, known osteoarthritis COMPARISON: None available. TECHNIQUE: Three views of the right knee. FINDINGS: Marginal osteoarthritis of the lateral patellofemoral compartment. No acute fractures or dislocations. No joint effusion. Soft tissue structures within normal limits. XR/XR knee RT 3V IMPRESSION: Marginal osteoarthritis. No acute fractures or dislocations. Electronically signed by: Jamie Croft DO 03/20/2024 02:35 PM [facility]
--- NOTE | ~2024-03-20 | XR_ITS ---
EXAMINATION: XR KNEE, LEFT CLINICAL INFORMATION: Known osteoarthritis COMPARISON: Left knee radiograph June 17, 2020 TECHNIQUE: Four views of the left knee. FINDINGS: Mild tricompartmental osteoarthritis. No acute fractures or dislocations. No joint effusion. Vascular calcifications of the superficial femoral and popliteal arteries. XR/XR knee LT 3V IMPRESSION: Mild tricompartmental osteoarthritis. This has progressed since prior study in 2020. Electronically signed by: Jamie Croft DO 03/20/2024 02:37 PM EST
--- NOTE | ~2024-03-20 | XR_ITS ---
EXAMINATION: XR HIP, RIGHT CLINICAL INFORMATION: Right greater trochanteric pain. COMPARISON: Right hip radiographs dated 02/14/2021. TECHNIQUE: Two views of the right hip. FINDINGS: No acute fracture or dislocation. Mild lateral acetabular subchondral cystic change and tiny marginal osteophytes, slightly progressed. No concerning lytic or blastic osseous lesion. No evidence of femoral head avascular necrosis. Pelvic phleboliths. XR/XR hip RT min 2V IMPRESSION: Mild right hip osteoarthritis, slightly progressed. Electronically signed by: Rosas Alexander MD 03/20/2024 12:55 PM [facility]
== END 2024-03-20 10:35 | disposition home or self-care (01) ==
LOC: HO.HHCX 10:34
PROVIDERS: Visit Provider General Practice
DX: M25.551 Pain in right hip (principal); M17.0 Bilateral primary osteoarthritis of knee
CPT/HCPCS: 73502; 73562

== ENCOUNTER 2024-06-01 08:22 | Emergency (ER) | payer BC, SELFPAY ==
--- NOTE | ~2024-06-01 | CT_ITS ---
EXAMINATION: CT ABDOMEN AND PELVIS WITH CONTRAST CLINICAL INFORMATION: Left lower quadrant pain COMPARISON: None available. TECHNIQUE: Multidetector volumetric images were obtained from the superior aspect of the liver through the pubic symphysis following administration 85 mL of Omnipaque 350 intravenous contrast. Sagittal and coronal reformatted images were obtained on the technologist's workstation. Oral contrast: No DLP: 492. This CT examination was performed using dose optimization techniques as appropriate, variously including the following: *Automated exposure control *Adjustment of mA and/or kV according to patient size (this includes techniques or standardized protocols for targeted exams where dose is matched to indication/reason for exam; i.e. extremities or head) *Use of iterative reconstruction technique FINDINGS: LUNG BASES: The visualized lung bases are unremarkable. LIVER, GALLBLADDER, AND BILIARY TREE: The liver is normal in size, shape, and attenuation. There is an 8 mm hypodensity right hepatic lobe probable cyst. No additional lesions seen. No intrahepatic ductal dilatation seen. All bladder has been surgically removed. PANCREAS: Unremarkable. SPLEEN: Unremarkable. ADRENAL GLANDS: Unremarkable. KIDNEYS AND URETERS: The kidneys are normal in size, shape, and attenuation. Suspect tiny radiopaque calculi lower pole right kidney. It is visualized on coronal image 40/7. No additional radiopaque calculi seen. There are bilateral extrarenal kidney pelvises . There is no perinephric stranding. BLADDER: Unremarkable. GASTROINTESTINAL TRACT: There is diffuse mural thickening sigmoid colon with diverticuli and pericolic fat stranding consistent with diverticulitis. No extraluminal gas or air-fluid levels seen to suspect perforation or abscess. The proximal colon is normal caliber without distention. Scattered stool is seen in the right colon. The small bowel loops are normal caliber. There is evidence of previous gastric sleeve surgery. Appendix is normal caliber. ABDOMINAL WALL: No significant hernia is appreciated. LYMPH NODES: Normal. VASCULAR: Unremarkable. PELVIC VISCERA: There is minimal free fluid in the pelvis. No abnormal size pelvic or inguinal lymph nodes. OSSEOUS STRUCTURES: There is loss of disc height at L5-S1 disc level with ventral and posterior spondylosis. No aggressive lytic or sclerotic process seen. CT/CT abdomen pelvis w IV con IMPRESSION: Sigmoid diverticulosis without diverticulitis. No proximal bowel obstruction, abscess or free air. Minimal free fluid in the pelvis. Suspect punctate calculi lower pole right kidney. Fleischner guidelines were followed. Electronically signed by: Maxwell Deleon MD 06/01/2024 12:51 PM KRISTAL RP
[2024-06-01 08:55] VITALS: BP 139/68; PULSE 79; RESP 20; TEMP 36.6; O2SAT 100; BMI 26.9
[2024-06-01] MEDS: Ondansetron ODT 4 MG TAB.RAPDIS TRANSLINGU (09:02)
[2024-06-01] MEDS: Acetaminophen 325 MG TABLET 650 MG PO (09:03)
[2024-06-01 09:13] LABS: MANUAL DIFF FLAG NO
[2024-06-01 09:18] LABS: Basophils Absolute Auto 0.1 X10*3/uL (0.0-0.2); Basophils Percent Auto 0.6 % (0-2); Eosinophils Absolute Auto 0.1 X10*3/uL (0.0-0.4); Eosinophils Percent Auto 0.7 % (0-4); Hematocrit 37.8 % (37.0-47.0); Hemoglobin 12.7 g/dl (12.0-16.0); Imm Gran Abs Auto 0.03 X10*3/uL (0.00-0.03); Imm Gran Pct Auto 0.3 % (0.0-0.4); Lymphocytes Absolute Auto 1.5 X10*3/uL (1.2-4.9); Lymphocytes Percent Auto 15.3 % (20-40); Mean Corpuscular HGB Conc 33.6 g/dl (31.0-35.0); Mean Corpuscular Hemoglobin 29.7 pg (27.0-33.0); Mean Corpuscular Volume 88.3 fL (80.0-98.0); Mean Platelet Volume 10.2 fL (9.4-12.3); Monocytes Absolute Auto 0.6 X10*3/uL (0.1-1.2); Monocytes Percent Auto 6.4 % (2-11); Neutrophils Absolute Auto 7.5 x10*3/uL (2.0-8.3); Neutrophils Percent Auto 76.7 % (45-73); Platelet Count 303 X10*3/uL (160-400); Red Blood Count 4.28 X10*6/uL (4.20-5.50); Red Cell Distribution Width 12.8 % (11.0-16.0); White Blood Count 9.7 X10*3/uL (4.8-10.8)
[2024-06-01 09:32] LABS: Alanine Aminotransferase 16 U/L (0-31); Alkaline Phosphatase 91 U/L (39-117); Anion Gap 10 (12-20); Aspartate Amino Transferase 27 U/L (5-31); Bilirubin Direct 0.2 mg/dL (0.0-0.5); Bilirubin Total 0.6 mg/dL (0.0-1.0); Blood Urea Nitrogen 10 mg/dL (9-16); Carbon Dioxide 27 mmol/L (22-29); Chloride 108 mmol/L (96-108); Creatinine Clr Calc Pharmacy 71.1; Estimated Glomerular Filt Rate > 60; Glucose Random 84 mg/dL (60-115); Lipase 37 U/L (8-78); Potassium 4.1 mmol/L (3.3-5.1); Sodium 141 mmol/L (135-145); Total Protein 7.3 g/dL (6.5-8.0)
[2024-06-01 09:57] LABS: Appearance Urine Clear; Color Urine Yellow; Glucose Urine UA Negative (Negative); Leukocyte Esterase Urine Negative (Negative); Nitrite Urine Negative (Negative); Urine Blood Negative (Negative); Urine Ketones Negative (Negative); Urine Protein Negative (Neg-Trace)
[2024-06-01 10:37] LABS: Influenza A PCR NEGATIVE (Negative); Influenza B PCR NEGATIVE (Negative); Resp Syncy Virus RNA Qual PCR NEGATIVE (Negative); SARS COV2 PCR INHOUSE NEGATIVE (Negative)
--- NOTE | 2024-06-01 10:47 | ECG_ITS ---
Test Reason : chest pain Blood Pressure : */* mmHG Vent. Rate : 58 BPM Atrial Rate : 58 BPM P-R Int : 138 ms QRS Dur : 82 ms QT Int : 406 ms P-R-T Axes : 0 40 30 degrees QTcB Int : 398 ms Sinus bradycardia Otherwise normal ECG When compared with ECG of 29-Jan-2019 16:08, No significant change was found Referred By: Generic ED Physician Electronically Signed By: AMY COBB MD
--- NOTE | 2024-06-01 11:49 | ED.ABDPAIN ---
HPI - Abdominal Pain General Chief Complaint: Abdominal Pain Stated Complaint: Abd pain, nausea, diarrhea Time Seen by Provider: 06/01/24 11:12 Source: patient Mode of arrival: ambulatory Limitations: no limitations History of Present Illness ED Provider: Shyann Dee APRN HPI narrative: 58-year-old female past medical history significant for GERD, diverticulitis, sacroiliac joint pain, chronic constipation, asthma, kidney stones here with complaints of left lower quadrant abdominal pain which began Saturday. Patient reports pain became worse in the last 24 hours and is now radiating to the right abdomen. She has had nausea and vomiting. She had 1 episode of diarrhea. No fevers, chills, urinary symptoms. Related Data Home Medications ?Medication ?Instructions ?Recorded ?Confirmed albuterol sulfate 90 mcg/actuation 1 inh inhalation QID 07/04/20 08/03/22 aerosol inhaler (Proventil HFA) cholecalciferol (vitamin D3) 25 25 mcg PO DAILY 07/04/20 08/03/22 mcg (1,000 unit) capsule epinephrine 0.3 mg/0.3 mL 0.3 mg IM Q10M PRN Anaphylaxis 07/04/20 02/16/22 injection syringe loratadine 10 mg tablet (Allergy 10 mg PO DAILY 07/04/20 08/03/22 Relief (loratadine)) valacyclovir 500 mg tablet 500 mg PO BID PRN Cold Sores 03/15/21 08/03/22 (Valtrex) celebrate MVI PO DAILY 08/07/21 08/03/22 fluticasone propionate 50 0 mcg intranasal DAILY 09/13/21 08/03/22 mcg/actuation nasal spray,suspension azelastine 137 mcg-fluticasone 50 1 spray intranasal BID 01/25/22 08/03/22 mcg/spray nasal spray (Dymista) lisinopril 10 mg tablet 10 mg PO DAILY 01/25/22 08/03/22 trazodone 50 mg tablet 50 mg PO BEDTIME 01/25/22 08/03/22 triamcinolone acetonide 0.025 % appl topical BID 01/25/22 02/16/22 topical cream celecoxib 100 mg capsule 100 mg PO 08/03/22 08/03/22 paroxetine HCl 10 mg tablet 10 mg PO BEDTIME PRN 08/03/22 08/03/22 Previous Rx's ?Medication ?Instructions ?Recorded cyclobenzaprine 10 mg tablet 10 mg PO BEDTIME PRN muscle spasm 01/27/22 #7 tabs famotidine 40 mg tablet (Pepcid) 40 mg PO BEDTIME #30 tabs 03/01/23 sennosides 8.6 mg capsule (senna) 17.2 mg (2 x 8.6 mg) PO BEDTIME 03/01/23 constipation 30 days #60 caps acetaminophen 300 mg-codeine 30 mg 1 tab PO TID PRN pain #9 tabs 06/01/24 tablet amoxicillin 875 mg-potassium 1 tab PO BID #14 tabs 06/01/24 clavulanate 125 mg tablet fluconazole 150 mg tablet 150 mg PO Q3D 2 doses #2 tabs 06/01/24 ondansetron 4 mg disintegrating 4 mg PO Q8H PRN nausea and 06/01/24 tablet vomiting #9 tabs Allergies Allergy/AdvReac Type Severity Reaction Status Date / Time pineapple [PINEAPPLE] Allergy Severe ANAPHYLAXIS Verified 06/01/24 08:56 shellfish derived Allergy Severe ANAPHYLAXIS Verified 06/01/24 08:56 [SHELLFISH DERIVED] tramadol Allergy Itching Verified 06/01/24 08:56 metronidazole [From Flagyl] AdvReac Mild YEAST Verified 06/01/24 08:56 INFECTION Review of Systems Review of Systems Yes all other systems are reviewed and are negative Constitutional: Reports no additional constitutional complaints, Denies body ache(s), Denies chills, Denies fever(s), Denies headache(s) and Denies weakness Eyes: Reports no additional eye complaints and Denies change in vision Reports system reviewed and no additional complaints, except as documented, Denies dizziness, Denies headache(s), Denies nasal congestion, Denies nasal discharge and Denies neck pain Cardiovascular: Reports no additional cardiovascular complaints, Denies chest pain, Denies leg edema and Denies dyspnea Respiratory: Reports no additional respiratory complaints, Denies cough and Denies dyspnea Gastrointestinal: Reports no additional gastrointestinal complaints, Reports abdominal pain, Denies melena, Denies hematochezia, Reports diarrhea, Reports nausea and Reports vomiting Genitourinary: Reports no additional female genitourinary complaints, Denies dysuria, Denies pelvic pain, Denies flank pain, Denies urinary incontinence, Denies urinary hesitancy, Denies urinary urgency and Denies vaginal discharge Musculoskeletal: Reports no additional musculoskeletal complaints, Denies back pain, Denies arthralgias, Denies joint swelling, Denies neck pain, Denies numbness and Denies tingling Skin/Breast: Reports system reviewed and no additional complaints, except as docu and Denies rash Reports system reviewed and no additional complaints, except as documented, Denies Abnormal speech present, Denies dizziness, Denies headache(s), Denies numbness, Denies tingling and Denies weakness PENDING SALE TO [facility] Past Medical History Attestation statement: The following information was validated with the patient. Source: old records reviewed and nursing notes reviewed Medical History Kidney stone Asthma HSV-1 infection Vitamin D deficiency Hypertension Surgical History H/O esophagogastroduodenoscopy H/O colonoscopy H/O bariatric surgery H/O abdominoplasty H/O lithotripsy Family History Family History Mother No problems noted. Father No problems noted. Sister Breast cancer Lung cancer Brother Lung cancer Colon cancer Social History Social History Alcohol intake: never Patient Tobacco Use Status: Never used Tobacco Advance Directives: No Advance Directives Information Provided: Yes Do you have a plan to hurt others: No Plan Gender identity: Female Physical Exam ED Vital Signs: Vital Signs - 24 hr 06/01/24 08:55 06/01/24 12:45 06/01/24 13:40 Temperature 97.8 F 0 F L Pulse Rate 79 66 66 Respiratory Rate 20 16 Blood Pressure 139/68 123/66 123/66 Pulse Oximetry 100 99 99 Oxygen Delivery Method Room Air Room Air Room Air BMI result Body Mass Index 26.9 Const General: cooperative, healthy appearing, comfortable and no acute distress Orientation/consciousness: patient oriented x3 Limitations: no limitations HENMT Head: Yes normal to inspection Ears: hearing grossly normal bilaterally General nose exam: Normal external nose present Face and sinus: Yes normal facial exam Mouth: Normal oral and palatal mucosa present Throat: Yes posterior oropharynx normal Eyes General: appearance normal, both eyes and all related structures Pupils: Equal, round and reactive pupils present Neck Neck: Yes normal visual inspection Chest Chest palpation & inspection: normal inspection of the chest Resp Effort & Inspection: normal respiratory effort Auscultation: clear to auscultation bilaterally Cardio Rate: regular rate Rhythm: regular rhythm Peripheral pulses: Peripheral pulses 2+ throughout GI Inspection: Yes normal to inspection Palpation (GI): Soft to palpation, Tenderness to palpation present (GI) in the LLQ; with no rebound tenderness and no guarding Auscultation: normal bowel sounds Back/Spine/Pelvis Thoracic/Lumbar Spine: thoracic and lumbar spine normal to inspection Skin General skin exam: no rashes or lesions noted Neuro General: patient oriented x3, no focal motor deficits and normal sensation to monofilament Cranial nerves: Yes Equal, round and reactive pupils present Cognition (Neuro): normal cognition Speech: No Abnormal speech present Gait exam (Neuro): Normal gait present Motor exam (neuro): 5/5 motor strength present throughout Extrem General: Yes normal to inspection Medical Decision Making Medical Decision Making [facility] Narrative: 58-year-old female past medical history significant for GERD, diverticulitis, sacroiliac joint pain, chronic constipation, asthma, kidney stones here with complaints of left lower quadrant abdominal pain which began Saturday. Patient reports pain became worse in the last 24 hours and is now radiating to the right abdomen. She has had nausea and vomiting. She had 1 episode of diarrhea. No fevers, chills, urinary symptoms. On exam patient's left lower quadrant tenderness to palpation. No rebound or guarding Will obtain labs, UA, CT abdomen and pelvis Will give IV fluids, antiemetic and analgesia Differential Diagnosis Differential Diagnoses: The differential diagnosis associated with the presentation includes pyelonephritis, renal colic, diverticulitis, appendicitis Admission/Observation Consideration of admission/observation: Escalation of care including admission/observation considered CT shows diverticulitis. There is mild. There is no abscess or perforation noted. Patient has normal labs. She is nontoxic appearing afebrile. She is tolerating p.o.. Pain is well controlled. I will discharge her home with a antibiotic and analgesia. Lab Data [facility] Lab Attestation statement: I reviewed the patient's lab results. 06/01/24 09:09 06/01/24 09:08 Labs: Lab Results 06/01/24 06/01/24 06/01/24 Range/Units 09:08 09:09 09:47 WBC 9.7 (4.8-10.8) X10*3/uL RBC 4.28 (4.20-5.50) X10*6/uL Hgb 12.7 (12.0-16.0) g/dl Hct 37.8 (37.0-47.0) % MCV 88.3 (80.0-98.0) fL MCH 29.7 (27.0-33.0) pg MCHC 33.6 (31.0-35.0) g/dl RDW 12.8 (11.0-16.0) % Plt Count 303 (160-400) X10*3/uL MPV 10.2 (9.4-12.3) fL Immature Gran % (Auto) 0.3 (0.0-0.4) % Neut % (Auto) 76.7 H (45-73) % Lymph % (Auto) 15.3 L (20-40) % [place] % (Auto) 6.4 (2-11) % Eos % (Auto) 0.7 (0-4) % Baso % (Auto) 0.6 (0-2) % Lymph # (Auto) 1.5 (1.2-4.9) X10*3/uL [place] # (Auto) 0.6 (0.1-1.2) X10*3/uL Eos # (Auto) 0.1 (0.0-0.4) X10*3/uL Baso # (Auto) 0.1 (0.0-0.2) X10*3/uL Abs Immat Gran (auto) 0.03 (0.00-0.03) X10*3/uL Absolute Neuts (auto) 7.5 (2.0-8.3) x10*3/uL Absolute Nucleated RBC 0.000 (0.0-0.012) X10*3/uL Nucleated RBC % (auto) 0.0 (0.0-0.2) /100WBC Sodium 141 (135-145) mmol/L Potassium 4.1 (3.3-5.1) mmol/L Chloride 108 (96-108) mmol/L Carbon Dioxide 27 (22-29) mmol/L Anion Gap 10 L (12-20) BUN 10 (9-16) mg/dL Creatinine 0.75 (0.5-1.4) mg/dL Estim Creat Clear Calc 71.1 Estimated GFR > 60 Random Glucose 84 (60-115) mg/dL Calcium 10.0 (8.4-10.2) mg/dL Total Bilirubin 0.6 (0.0-1.0) mg/dL Direct Bilirubin 0.2 (0.0-0.5) mg/dL AST 27 (5-31) U/L ALT 16 (0-31) U/L Alkaline Phosphatase 91 (39-117) U/L Total Protein 7.3 (6.5-8.0) g/dL Albumin 4.0 (3.5-5.0) g/dL Lipase 37 (8-78) U/L Urine Color Urine Appearance Urine pH (5.0-9.0) Ur Specific [place] (1.005-1.025) Urine Protein (Neg-Trace) mg/dL Urine Glucose (UA) (Negative) mg/dL Urine Ketones (Negative) mg/dL Urine Blood (Negative) Urine Nitrite (Negative) Ur Leukocyte Esterase (Negative) Influenza Type A (PCR) NEGATIVE (Negative) Influenza Type B (PCR) NEGATIVE (Negative) RSV RNA Qual (PCR) NEGATIVE (Negative) SARS-CoV-2 RNA (RT-PCR) NEGATIVE (Negative) 06/01/24 Range/Units 09:48 WBC (4.8-10.8) X10*3/uL RBC (4.20-5.50) X10*6/uL Hgb (12.0-16.0) g/dl Hct (37.0-47.0) % MCV (80.0-98.0) fL MCH (27.0-33.0) pg MCHC (31.0-35.0) g/dl RDW (11.0-16.0) % Plt Count (160-400) X10*3/uL MPV (9.4-12.3) fL Immature Gran % (Auto) (0.0-0.4) % Neut % (Auto) (45-73) % Lymph % (Auto) (20-40) % [place] % (Auto) (2-11) % Eos % (Auto) (0-4) % Baso % (Auto) (0-2) % Lymph # (Auto) (1.2-4.9) X10*3/uL [place] # (Auto) (0.1-1.2) X10*3/uL Eos # (Auto) (0.0-0.4) X10*3/uL Baso # (Auto) (0.0-0.2) X10*3/uL Abs Immat Gran (auto) (0.00-0.03) X10*3/uL Absolute Neuts (auto) (2.0-8.3) x10*3/uL Absolute Nucleated RBC (0.0-0.012) X10*3/uL Nucleated RBC % (auto) (0.0-0.2) /100WBC Sodium (135-145) mmol/L Potassium (3.3-5.1) mmol/L Chloride (96-108) mmol/L Carbon Dioxide (22-29) mmol/L Anion Gap (12-20) BUN (9-16) mg/dL Creatinine (0.5-1.4) mg/dL Estim Creat Clear Calc Estimated GFR Random Glucose (60-115) mg/dL Calcium (8.4-10.2) mg/dL Total Bilirubin (0.0-1.0) mg/dL Direct Bilirubin (0.0-0.5) mg/dL AST (5-31) U/L ALT (0-31) U/L Alkaline Phosphatase (39-117) U/L Total Protein (6.5-8.0) g/dL Albumin (3.5-5.0) g/dL Lipase (8-78) U/L Urine Color Yellow Urine Appearance Clear Urine pH 7.0 (5.0-9.0) Ur Specific [place] 1.020 (1.005-1.025) Urine Protein Negative (Neg-Trace) mg/dL Urine Glucose (UA) Negative (Negative) mg/dL Urine Ketones Negative (Negative) mg/dL Urine Blood Negative (Negative) Urine Nitrite Negative (Negative) Ur Leukocyte Esterase Negative (Negative) Influenza Type A (PCR) (Negative) Influenza Type B (PCR) (Negative) RSV RNA Qual (PCR) (Negative) SARS-CoV-2 RNA (RT-PCR) (Negative) Independent Interpretation I performed an independent interpretation of an: EKG and CT Scan Interpretation: I independently viewed the CT scan agree with the radiology report Radiology Impression Discussion of test interpretation with radiology: I have reviewed the radiologist's reading. Radiologist Impression: [id number] [place] [address] CT Scan Report Signed Patient: Mary Edomnds MR#: [id number] : 1965 Acct:[id number] Age/Sex: 58 / F ADM Date: 06/01/24 Loc: HO.ED Attending Dr: Ordering Physician: Shyann Dee NP Date of Service: 06/01/24 Procedure(s): CT abdomen pelvis w IV con Accession Number(s): [id number] cc: Yaritza Chapman; Shyann Dee NP~ Report Number: [id number]: Total DLP = 492.00 mGy-cm EXAMINATION: CT ABDOMEN AND PELVIS WITH CONTRAST CLINICAL INFORMATION: Left lower quadrant pain COMPARISON: None available. TECHNIQUE: Multidetector volumetric images were obtained from the superior aspect of the liver through the pubic symphysis following administration 85 mL of Omnipaque 350 intravenous contrast. Sagittal and coronal reformatted images were obtained on the technologist's workstation. Oral contrast: No DLP: 492. This CT examination was performed using dose optimization techniques as appropriate, variously including the following: *Automated exposure control *Adjustment of mA and/or kV according to patient size (this includes techniques or standardized protocols for targeted exams where dose is matched to indication/reason for exam; i.e. extremities or head) *Use of iterative reconstruction technique FINDINGS: LUNG BASES: The visualized lung bases are unremarkable. LIVER, GALLBLADDER, AND BILIARY TREE: The liver is normal in size, shape, and attenuation. There is an 8 mm hypodensity right hepatic lobe probable cyst. No additional lesions seen. No intrahepatic ductal dilatation seen. All bladder has been surgically removed. PANCREAS: Unremarkable. SPLEEN: Unremarkable. ADRENAL GLANDS: Unremarkable. KIDNEYS AND URETERS: The kidneys are normal in size, shape, and attenuation. Suspect tiny radiopaque calculi lower pole right kidney. It is visualized on coronal image 40/7. No additional radiopaque calculi seen. There are bilateral extrarenal kidney pelvises . There is no perinephric stranding. BLADDER: Unremarkable. GASTROINTESTINAL TRACT: There is diffuse mural thickening sigmoid colon with diverticuli and pericolic fat stranding consistent with diverticulitis. No extraluminal gas or air-fluid levels seen to suspect perforation or abscess. The proximal colon is normal caliber without distention. Scattered stool is seen in the right colon. The small bowel loops are normal caliber. There is evidence of previous gastric sleeve surgery. Appendix is normal caliber. ABDOMINAL WALL: No significant hernia is appreciated. LYMPH NODES: Normal. VASCULAR: Unremarkable. PELVIC VISCERA: There is minimal free fluid in the pelvis. No abnormal size pelvic or inguinal lymph nodes. OSSEOUS STRUCTURES: There is loss of disc height at L5-S1 disc level with ventral and posterior spondylosis. No aggressive lytic or sclerotic process seen. CT/CT abdomen pelvis w IV con IMPRESSION: Sigmoid diverticulosis without diverticulitis. No proximal bowel obstruction, abscess or free air. Minimal free fluid in the pelvis. Suspect punctate calculi lower pole right kidney. Fleischner guidelines were followed. External Record Review External record reviewed: Outside ED record Prescription Management I considered prescription management with: Antibiotic Medications Administered Discontinued Medications Generic Name Dose Route Start Last Admin Trade Name Freq PRN Reason Stop Dose Admin Acetaminophen 650 mg 06/01/24 08:59 06/01/24 09:03 Acetaminophen 325 Mg Tablet PO 06/01/24 09:00 650 mg ONCE ONE Administration Sodium Chloride 1,000 mls @ 999 mls/hr 06/01/24 11:20 06/01/24 13:16 Ns IV 06/01/24 12:20 Infused .Q1H1M STA Infusion Iohexol 85 ml 06/01/24 12:36 06/01/24 12:36 Iohexol 350 Mg/Ml 75 Ml Infus..Btl IV 06/01/24 12:37 85 ml ONCE ONE Administration Morphine Sulfate 2 mg 06/01/24 11:23 06/01/24 12:42 Morphine Sulfate 2 Mg/Ml Cartridge IVPUSH 06/01/24 11:24 2 mg ONCE ONE Administration Protocol Ondansetron HCl 4 mg 06/01/24 09:00 06/01/24 09:02 Ondansetron Odt 4 Mg Tab.Rapdis TRANSLINGU 06/01/24 09:01 4 mg ONCE ONE Administration Discharge Plan Discharge Clinical Impression: Diverticulitis Patient Disposition: Home, Self-Care Instructions: Diverticulitis (ED) Additional Instructions: Return for fever, vomiting, worsening pain Prescriptions: New amoxicillin-pot clavulanate 875-125 mg tablet 1 tab PO BID Qty: 14 0RF ondansetron 4 mg tablet,disintegrating 4 mg PO Q8H PRN (Reason: nausea and vomiting) Qty: 9 0RF fluconazole 150 mg tablet 150 mg PO Q3D Qty: 2 0RF acetaminophen-codeine 300-30 mg tablet 1 tab PO TID PRN (Reason: pain) Qty: 9 0RF No Action cyclobenzaprine 10 mg tablet 10 mg PO BEDTIME PRN (Reason: muscle spasm) Qty: 7 0RF loratadine [Allergy Relief (loratadine)] 10 mg tablet 10 mg PO DAILY albuterol sulfate [Proventil HFA] 90 mcg/actuation HFA aerosol inhaler 1 inh inhalation QID cholecalciferol (vitamin D3) 25 mcg (1,000 unit) capsule 25 mcg PO DAILY epinephrine 0.3 mg/0.3 mL syringe 0.3 mg IM Q10M PRN (Reason: Anaphylaxis) Rx Instructions: for 2 doses valacyclovir [Valtrex] 500 mg tablet 500 mg PO BID PRN (Reason: Cold Sores) celebrate MVI PO DAILY fluticasone propionate 50 mcg/actuation spray,suspension 0 mcg intranasal DAILY celecoxib 100 mg capsule 100 mg PO lisinopril 10 mg tablet 10 mg PO DAILY trazodone 50 mg tablet 50 mg PO BEDTIME azelastine-fluticasone [Dymista] 137-50 mcg/spray spray,non-aerosol 1 spray intranasal BID triamcinolone acetonide 0.025 % cream topical BID paroxetine HCl 10 mg tablet 10 mg PO BEDTIME PRN senna 8.6 mg capsule 17.2 mg PO BEDTIME 30 Days Qty: 60 6RF famotidine [Pepcid] 40 mg tablet 40 mg PO BEDTIME Qty: 30 6RF Referrals: Yaritza Chapman MD [Primary Care Provider] - 1 week Stand Alone Forms: Work/School Release Interventions: ED Discharge Assessment Last Done: 06/01/24 13:40 Discharge Date/Time: 06/01/24 13:40 Print Language: Slovenian
[2024-06-01] MEDS: 0.9 % Sodium Chloride 1,000 ML 999 ML IV (11:58)
[2024-06-01] MEDS: iohexoL 350 MG/ML 75 ML INFUS..BTL 85 ML IV (12:36)
[2024-06-01] MEDS: Morphine Sulfate 2 MG/ML CARTRIDGE IVPUSH (12:42)
[2024-06-01 12:45] VITALS: BP 123/66; PULSE 66; O2SAT 99
[2024-06-01 13:40] VITALS: BP 123/66; PULSE 66; RESP 16; TEMP -17.7; TEMP 0; O2SAT 99
== END 2024-06-01 13:40 | disposition home or self-care (01) ==
PROVIDERS: Nurse Practitioner Family; Emergency Provider Emergency Medicine; PCP General Practice
DX: K57.92 Diverticulitis of intestine, part unspecified, without perforation or abscess without bleeding (principal); R10.32 Left lower quadrant pain; R11.2 Nausea with vomiting, unspecified; R19.7 Diarrhea, unspecified; I10 Essential (primary) hypertension; J45.909 Unspecified asthma, uncomplicated; Z79.899 Other long term (current) drug therapy; Z03.818 Encounter for observation for suspected exposure to other biological agents ruled out
CPT/HCPCS: 0241U; 36415; 74177; 80053; 81003; 82248; 83690; 85025; 93005; 96361; 96374; 99284; J2270; Q9967

== ENCOUNTER → 2024-06-01 10:47 | Outpatient (BNV) | payer BC, SELFPAY | PROVIDERS: Emergency Provider Emergency Medicine; PCP General Practice; Visit Provider Internal Medicine Cardiovascular Disease | DX: R07.9 Chest pain, unspecified (principal) | CPT/HCPCS: 93010 ==

== ENCOUNTER → 2024-06-01 11:20 | Outpatient (BNV) | payer BC, SELFPAY | PROVIDERS: Emergency Provider Emergency Medicine; PCP General Practice; Visit Provider Radiology Diagnostic Radiology | DX: N20.0 Calculus of kidney (principal); K57.30 Diverticulosis of large intestine without perforation or abscess without bleeding | CPT/HCPCS: 74177 ==

== ENCOUNTER 2024-08-12 | Outpatient (REF) | payer BC, SELFPAY ==
--- OUTSIDE RECORDS SUMMARY | 2024-08-13 12:40 | XMS_ITS | Patient Health Record ---
Author Organization [facility] Address [address] [place] [address] Care Team Providers Care Aquarist Name Role Phone TRACIJE PIEDRA Unavailable [phone] KATHY LINDSEY Unavailable [phone] ALLERGIES Allergen (clinical drug ingredient) Drug/Non Drug Allergy documented on EMR Reaction Allergy Type Onset Date Status pineapple allergenic extract Pineapple (Diagnostic) hives Drug Allergy Activ e REASON FOR REFERRAL Reason Dr Rae Diagnosis 1 Overweight (E66.3) Referral Organization [facility] 119 Referring Provider First Name JE Referring Provider Last Name [facility] Referring Provider Speciality Internal M edicine Referred Provider Specialty Surgery General Notes LEONORA DENISE 11/17 10:10:47 AM > faxed referral to Dr Rae p: [phone] f: [phone] Referral Priority Routine Reason Complaining of exces sive skin in the bilateral arm tricep region as well as inguinal folds and lower abdomen folds Causing frequent intertriginous infections and fungal infections Diagnosis 1 Excess skin of abdom en (L98.7) Referral Organization [facility] Referring Provider First Name JE Referring Provider Last Name WENDIE Referring Provider Speciality Internal M edicine Referred Provider Specialty Surgery General Notes faxed [facility] speci alty form to , , [phone], with attached office notes and demographics. Clinical Notes Pauline Mcmillan 12/30 11:26:14 AM >, Zuleyma Wu 01/06/2024 04:24:53 PM > refaxed to [phone], Zuleyma Wu 02/17/2024 04:02:11 PM > The office confirmed receipt of referral. I called the patient and provided [facility]'s phone number for scheduling ([phone]). Patient said she will call them Referral Priority Routine Reason from [facility] Diagnosis 1 Overweight (E66.3) Referred Organization [facility] Referred Provider JE PRESSLEY Referred Address [address] [facility] ,[place], [place],[address], Referred Provider Specialty Weight Manag ement Referral Priority Routine MEDICATIONS Medication SIG (Take, Route, Frequency, Duration) Notes Start Date End Date Status Clotrimazole-Betamethas one 1-0.05 % 1 application Externally Twice a day for 30 days Active Wegovy 1.7 MG/0.75ML 0.75 mL Subcutaneou s once weekly for 30 days Not-Taking Lisinopril 10 MG TAKE 1 TABLET BY ADITHYA TH EVERY DAY Oral for 90 Days Active Celecoxib 100 MG PLEASE SEE ATTACHED FOR DETAILED DIRECTIONS Oral for 45 Days Active Loratadine 10 MG TAKE 1 TABLET BY ADITHYA TH EVERY DAY IN THE MORNING Oral for 90 Days Active Wegovy 2.4 MG/0.75ML 2.4mg Subcutaneous weekly for 30 days Active SOCIAL HISTORY Tobacco Use: Social History Observation Description Date Details (start date - stop date) Never Smoker NA - NA Sex Assigned At : Social History Observation Description Sex Assigned At Unknown Tobacco Use/Smoking Question Answer Notes Are you a nonsmoker PROBLEMS Problem Type ICD Code Onset Dates Problem Status W/U Status Risk SNOMED Code Notes Problem Other obesity due to excess calories (E66.09) Active confirmed 393219983 Problem Overweight (E66.3) Active confirmed 156431565 Problem Encounter for screening for lipoid disorders (Z13.220) Active confirmed Lipid screening (468313909) Problem Essential hypertension (I10) Active confirmed 42746816 Problem Adult general medical exam (Z00.00) Active confirmed Adult health examination (235338697) Problem Kidney stone (N20.0) Active confirmed 53824807 Problem Diabetes mellitus screening (Z13.1) Active confirmed Diabetes mellitus screening (195553049) Problem Body mass index [BMI] 32.0-32.9, adult (Z68.32) Active confirmed 224717760 Problem BMI 25.0-25.9,adult (Z68.25) Active confirmed 382825431 Problem BMI 30.0-30.9,adult (Z68.30) Active confirmed 444153712 Problem Overweight (BMI 25.0-29.9) (E66.3) Active confirmed 213832130 Problem Avitaminosis D (E55.9) Active confirmed Avitaminosis D (48179674) Problem Encounter for screening for endocrine disorder (Z13.29) Active confirmed Endocrine/metab o lic screening (330446461) Problem Hx of laparoscopic gastric banding (Z98.84) Active confirmed 259724985 Problem Nutritional counseling (Z71.3) Active confirmed 731576993 Problem Excess skin of abdomen (L98.7) Active confirmed 023816083 VITAL SIGNS Heart Rate 92 /min 05/26/2024 Blood pressure diastolic 84 mm Hg 05/26/2024 Oximetry 99 % 05/26/2024 Height 62 in 05/26/2024 Blood pressure systolic 122 mm Hg 05/26/2024 Weight 142 lbs 05/26/2024 BMI 25.97 kg/m2 05/26/2024 Encounters Encounter Location Date Provider Diagnosis [place] [address] 07/21/2024 JE PRESSLEY Overweight E66.3 ; BMI 26.0-26.9,adult Z68.26 ; Dietary counseling and surveillance Z71.3 ; Hx of laparoscopic gastric banding Z98.84 and Excess skin of abdomen L98.7 [place] [address] 07/28/2024 JEAJ SMALLST Overweight E66.3 ; BMI 26.0-26.9,adult Z68.26 ; Dietary counseling and surveillance Z71.3 ; Hx of laparoscopic gastric banding Z98.84 and Excess skin of abdomen L98.7 [place] [address] 09/19/2023 JEAJ SMALLST Overweight E66.3 ; H x of laparoscopic gastric banding Z98.84 ; BMI 27.0-27.9,adult Z68.27 and Dietary counseling and surveillance Z71.3 [place] [address] 10/29/2023 JE BORHOT Overweight E66.3 ; BMI 27.0-27.9,adult Z68.27 ; Dietary counseling and surveillance Z71.3 ; Hx of laparoscopic gastric banding Z98.84 and Excess skin of abdomen L98.7 [facility] [address] [place] [address] 11/30/2023 JE BORHOT Overweight E66.3 ; BMI 26.0-26.9,adult Z68.26 ; Dietary counseling and surveillance Z71.3 ; Hx of laparoscopic gastric banding Z98.84 and Excess skin of abdomen L98.7 [facility] [address] [address] 01/16/2024 JE BORHOT Overweight E66.3 ; BMI 26.0-26.9,adult Z68.26 ; Dietary counseling and surveillance Z71.3 ; Hx of laparoscopic gastric banding Z98.84 and Excess skin of abdomen L98.7 [place] [address] [address] 02/27/2024 JE BORHOT Overweight E66.3 ; BMI 26.0-26.9,adult Z68.26 ; Dietary counseling and surveillance Z71.3 ; Hx of laparoscopic gastric banding Z98.84 and Excess skin of abdomen L98.7 [address] [address] 04/07/2024 KATHY LINDSEY Overweight (BMI 25.0-29.9) E66.3 ; BMI 25.0-25.9,adult Z68.25 ; Essential hypertension I10 ; Hx of laparoscopic gastric banding Z98.84 and Nutritional counseling Z71.3 [facility] [address] [address] 05/26/2024 JE BORHOT Overweight E66.3 ; BMI 26.0-26.9,adult Z68.26 ; Dietary counseling and surveillance Z71.3 ; Hx of laparoscopic gastric banding Z98.84 and Excess skin of abdomen L98.7 [address] [address] 12/30/2023 JE BORHOT [place] [address] [address] 01/27/2024 JE BORHOT [address] [place] [address] 01/29/[address] [facility] [address] [place] [address] 01/29/2024 JE BORHOT [address] [place] [address] 02/03/2024 JE BORHOT [address] [place] [address] 02/03/2024 JE SMALLST Overweight E66.[address] [facility] [address] [place] [address] 04/07/[address] [facility] [address] [place] [address] 05/21/2024 JE BORHOT [address] [place] [address] 07/29/2024 JE PRESSLEY ASSESSMENTS Encounter Date Diagnosis Assessment Notes Treatment Notes Treatment Clinical Notes Section Notes 09/19/2023 Overweight (ICD-10 - E66.3) #Weight Management 09/19/2023 Request labs from [facility] supposedly done in June 2023 Continue Wegovy 2.4 mg Discussed protein and strength and resistance training and muscle composition Overall patient is doing good and is happy with the results so far. Wanted to change goal weight to about 140lbs. 6-week follow-up Total time spent today was 30 minutes of which greater than 50% was spent on coordinating and counseling Patient has been found to be overweight with a BMI of (27). Patient has overweight class per BMI standards We are a board certified obesity and weight management practice Patient has trialed behavioral modification, dietary restrictions and exercise for a minimum of 6 months The most recent [place] [employer] of clinical endocrinologists and [place] [employer] guidelines recommend patients who have overweight BMI or obesity BMI, who also have metabolic syndrome, prediabetes, HLD, and other comorbidities or at risk of developing type 2 diabetes should aim for a weight loss goal of at least 10% of the baseline body weight Patient counseled regarding effects of GLP/GIP-1 agonists, and other FDA approved wgt loss meds with regards to a multifactorial approach of weight loss as mentioned above and not solely appetite suppression. We have discussed the mechanism of GLP-1's/GIP, dual incretins, appetitite suppressants I think this would be fantastic option for her given her metabolic workup and body composition We have discussed the risks and benefits and side effects including/and not limited to Sarcopenia, intestinal obstruction, constipation, nausea, lethargy, headache Discussed importance of protein consumption for muscle maintenance as well as strength and resistance training ,probiotics, B12 complex biotin , iron and other nutrients, To help avoid telogen effluvium We have discussed the lifelong requirement of nutritional supplementation And adherence to an exercise regimen as well as importance of follow-up We did discuss the neurohormonal changes that are occurring with these medications and Need for long-term Continued usage The patient understands and agrees There is no history of medullary thyroid cancer or multiple endocrine neoplasia There is also no history of cardiovascular disease, hypertension, palpitations, or arrhythmias In the setting of potential stimulant/amphetamine use such as phentermine We have also discussed risks and benefits, and the use of compounded medications to help offset the national shortages as well as financial implications vs trade name drugs Patient was reassured and welcomed to the practice. We discussed that we stress a hollistic medical approach with emphasis on lifestyle modification. Patient was informed that a healthy lifestyle with exercise and good eating habits can help reduce his risk of medical complications. He is explained that obesity increases his risk of diabetes, cardiovascular disease, or organ damage. We spent a lot of time discussing the relationship between food, exercise, sleep, mental health and obesity. Patient was counseled on the importance EATING local, organic food when possible. Patient was educated on clean 15 and dirty dozen. I provided information about reading books called The Food Rules by [employer] and Eat Fat Get Lean by Dr Randall Panchal. Self education is important in the journey for weight management. Patient was offered diagnostic testing. We want to measure visceral adiposity, advanced body composition, adverse lipids, fatty acid balance, risk for heart disease and atherosclerosis, markers of inflammation and genetic susceptibility. Patient was counseled on weight management and was advised to lose weight using A. Meal Replacement Products We discussed the lifelong requirement of nutritional supplementation and adherence to an exercise regimen as well as importance of dietary follow-up Patient was educated on the replacement products called optifast. This is a good way of taking fixed amount of calories. It has been shown in studies to be ineffective weight management tool. We also recommend maintaining adequate protein intake and muscle composition, 1.5mg/kg This however has to be coupled with lifestyle intervention as well as laboratory data and EKG monitoring. It is impossible to know how a person will tolerate complete meal replacement. The side effects of meal replacement and weight loss could include syncopal attacks, dizziness, gallstones, potential cholecystectomy, possible heart attack and even . The benefits of meal replacement would be potential weight loss but no guarantees can be made. Meal replacement products are not covered by insurance. Once the patient has bought these products we cannot return them B. Lifestyle management which includes several strategies as below 1. Eat a low carbohydrate good fat good protein diet. Eliminate refined carbohydrates from the diet. Continue blood sugar and sugared beverages. Eat local organic when possible. Cook your own meals. Read food labels. None about healthy snacks. Portion control and food with low glycemic index 2. Exercise regularly. Try to get at least 6000 steps a day. Use a predominant to track activity level. Consider using apps like [employer], [employer], lose it, stick as needed for self-monitoring and weight management. Consider group exercises. Consider hiring a personal finance instructor. Regular exercise is preston to sustainable health and prevents as a buffer against weight regain 3. Sleep is most important for healing. Tried to sleep at least 8 hours a night. A good quality sleep needs a sleep ritual with ideal room temperature of around 68. It might help to take a shower and have no electronics in the room and sleep in a very dark room without artificial light. Start her sleep routine and get up early in the morning and go to bed on time 4. Make a social connection. Surround yourself with positive people with positive energy. Connect with friends and family. 5. Get into the habit of meditating and mindfulness while doing everything. 6. Go outside and connect with nature. C. Prescription medications Patient was educated on the use of prescription medications for medical weight loss. This is a growing list and includes phentermine, Topamax,Qsymia, contrave, belviq and saxenda. All prescription medications could have side effects including but not limited to kidney stones, seizure disorder cardiac arrhythmias heart attack pancreatitis etc. etc.. Patient was encouraged to read the prescription insert and have coaching with their pharmacist and make an informed decision about taking medication and know that these medications are being prescribed with good intentions and we do not know how a patient would react to her medication. Sudden medications are FDA approved for weight loss and there is also off label use depending on patient's inability to afford medications in an attempt to lose weight D. Behavioral counseling was done to establish a relationship between food and an mood. Patient was provided information about local counseling and psychiatry and Dr Harrison at [facility]. We would like to cover regular topics and build on low glycemic eating exercise mindful eating, using yoga and meditation along with deep breathing and connecting with friends and family. E. MASS PAT reviewed, Patient's current medications were reviewed and opinion was given on medication that can cause weight gain and can be substituted F. Patient was assessed for risk with obesity including and not limiting to atherosclerosis heart disease stroke kidney disease, restrictive lung disease, irritable bowel syndrome and overall mortality. Risk of developing prediabetes diabetes and metabolic syndrome was discussed G. Therapeutic plan: We have decided to make therapeutic plan which would include choosing wisely on calories restricting portion getting active, tracking weight, getting good quality sleep and working on time management H. Patient will follow up in (4) weeks for weight management Of note, some information is being carried forward from prior records for informational purposes only and is being cited so that efficiency, safety and quality of the patient's care is not compromised This note was prepared using voice recognition software and direct typing Please excuse inadvertent electronic resources librarian or typing errors, or uncorrected word substitutions Although every attempt has been made by the provider to proofread this document, occasional misspellings and typographical errors may still be present Due to the previous pandemic, and the use of personal protective equipment (PPE) This may decrease voice recognition accuracy Inadvertent electronic resources librarian errors may occur 09/19/2023 Hx of laparoscopic gastric banding (ICD-10 - Z98.84) #Weight Management 09/19/2023 Request labs from [facility] supposedly done in June 2023 Continue Wegovy 2.4 mg Discussed protein and strength and resistance training and muscle composition Overall patient is doing good and is happy with the results so far. Wanted to change goal weight to about 140lbs. 6-week follow-up Total time spent today was 30 minutes of which greater than 50% was spent on coordinating and counseling Patient has been found to be overweight with a BMI of (27). Patient has overweight class per BMI standards We are a board certified obesity and weight management practice Patient has trialed behavioral modification, dietary restrictions and exercise for a minimum of 6 months The most recent [place] [employer] of clinical endocrinologists and [place] [employer]in[employer] guidelines recommend patients who have overweight BMI or obesity BMI, who also have metabolic syndrome, prediabetes, HLD, and other comorbidities or at risk of developing type 2 diabetes should aim for a weight loss goal of at least 10% of the baseline body weight Patient counseled regarding effects of GLP/GIP-1 agonists, and other FDA approved wgt loss meds with regards to a multifactorial approach of weight loss as mentioned above and not solely appetite suppression. We have discussed the mechanism of GLP-1's/GIP, dual incretins, appetitite suppressants I think this would be fantastic option for her given her metabolic workup and body composition We have discussed the risks and benefits and side effects including/and not limited to Sarcopenia, intestinal obstruction, constipation, nausea, lethargy, headache Discussed importance of protein consumption for muscle maintenance as well as strength and resistance training ,probiotics, B12 complex biotin , iron and other nutrients, To help avoid telogen effluvium We have discussed the lifelong requirement of nutritional supplementation And adherence to an exercise regimen as well as importance of follow-up We did discuss the neurohormonal changes that are occurring with these medications and Need for long-term Continued usage The patient understands and agrees There is no history of medullary thyroid cancer or multiple endocrine neoplasia There is also no history of cardiovascular disease, hypertension, palpitations, or arrhythmias In the setting of potential stimulant/amphetamine use such as phentermine We have also discussed risks and benefits, and the use of compounded medications to help offset the national shortages as well as financial implications vs trade name drugs Patient was reassured and welcomed to the practice. We discussed that we stress a hollistic medical approach with emphasis on lifestyle modification. Patient was informed that a healthy lifestyle with exercise and good eating habits can help reduce his risk of medical complications. He is explained that obesity increases his risk of diabetes, cardiovascular disease, or organ damage. We spent a lot of time discussing the relationship between food, exercise, sleep, mental health and obesity. Patient was counseled on the importance EATING local, organic food when possible. Patient was educated on clean 15 and dirty dozen. I provided information about reading books called The Food Rules by [employer] and Eat Fat Get Lean by Dr Randall Panchal. Self education is important in the journey for weight management. Patient was offered diagnostic testing. We want to measure visceral adiposity, advanced body composition, adverse lipids, fatty acid balance, risk for heart disease and atherosclerosis, markers of inflammation and genetic susceptibility. Patient was counseled on weight management and was advised to lose weight using A. Meal Replacement Products We discussed the lifelong requirement of nutritional supplementation and adherence to an exercise regimen as well as importance of dietary follow-up Patient was educated on the replacement products called optifast. This is a good way of taking fixed amount of calories. It has been shown in studies to be ineffective weight management tool. We also recommend maintaining adequate protein intake and muscle composition, 1.5mg/kg This however has to be coupled with lifestyle intervention as well as laboratory data and EKG monitoring. It is impossible to know how a person will tolerate complete meal replacement. The side effects of meal replacement and weight loss could include syncopal attacks, dizziness, gallstones, potential cholecystectomy, possible heart attack and even . The benefits of meal replacement would be potential weight loss but no guarantees can be made. Meal replacement products are not covered by insurance. Once the patient has bought these products we cannot return them B. Lifestyle management which includes several strategies as below 1. Eat a low carbohydrate good fat good protein diet. Eliminate refined carbohydrates from the diet. Continue blood sugar and sugared beverages. Eat local organic when possible. Cook your own meals. Read food labels. None about healthy snacks. Portion control and food with low glycemic index 2. Exercise regularly. Try to get at least 6000 steps a day. Use a predominant to track activity level. Consider using apps like [employer], [employer], lose it, stick as needed for self-monitoring and weight management. Consider group exercises. Consider hiring a personal finance instructor. Regular exercise is preston to sustainable health and prevents as a buffer against weight regain 3. Sleep is most important for healing. Tried to sleep at least 8 hours a night. A good quality sleep needs a sleep ritual with ideal room temperature of around 68. It might help to take a shower and have no electronics in the room and sleep in a very dark room without artificial light. Start her sleep routine and get up early in the morning and go to bed on time 4. Make a social connection. Surround yourself with positive people with positive energy. Connect with friends and family. 5. Get into the habit of meditating and mindfulness while doing everything. 6. Go outside and connect with nature. C. Prescription medications Patient was educated on the use of prescription medications for medical weight loss. This is a growing list and includes phentermine, Topamax,Qsymia, contrave, belviq and saxenda. All prescription medications could have side effects including but not limited to kidney stones, seizure disorder cardiac arrhythmias heart attack pancreatitis etc. etc.. Patient was encouraged to read the prescription insert and have coaching with their pharmacist and make an informed decision about taking medication and know that these medications are being prescribed with good intentions and we do not know how a patient would react to her medication. Sudden medications are FDA approved for weight loss and there is also off label use depending on patient's inability to afford medications in an attempt to lose weight D. Behavioral counseling was done to establish a relationship between food and an mood. Patient was provided information about local counseling and psychiatry and Dr Harrison at [facility]. We would like to cover regular topics and build on low glycemic eating exercise mindful eating, using yoga and meditation along with deep breathing and connecting with friends and family. E. MASS PAT reviewed, Patient's current medications were reviewed and opinion was given on medication that can cause weight gain and can be substituted F. Patient was assessed for risk with obesity including and not limiting to atherosclerosis heart disease stroke kidney disease, restrictive lung disease, irritable bowel syndrome and overall mortality. Risk of developing prediabetes diabetes and metabolic syndrome was discussed G. Therapeutic plan: We have decided to make therapeutic plan which would include choosing wisely on calories restricting portion getting active, tracking weight, getting good quality sleep and working on time management H. Patient will follow up in (4) weeks for weight management Of note, some information is being carried forward from prior records for informational purposes only and is being cited so that efficiency, safety and quality of the patient's care is not compromised This note was prepared using voice recognition software and direct typing Please excuse inadvertent electronic resources librarian or typing errors, or uncorrected word substitutions Although every attempt has been made by the provider to proofread this document, occasional misspellings and typographical errors may still be present Due to the previous pandemic, and the use of personal protective equipment (PPE) This may decrease voice recognition accuracy Inadvertent electronic resources librarian errors may occur 10/29/2023 Overweight (ICD-10 - E66.3) #Weight Management 10/29/2023 She will be prescribed antifungal cream Plastics referral for skin excision potentially after weight loss has been completed Request labs from [facility] supposedly done in June 2023 Continue Wegovy 2.4 mg Discussed protein and strength and resistance training and muscle composition Overall patient is doing good and is happy with the results so far. Wanted to change goal weight to about 140lbs. 6-week follow-up Total time spent today was 30 minutes of which greater than 50% was spent on coordinating and counseling Patient has been found to be overweight with a BMI of (28). Patient has overweight class per BMI standards We are a board certified obesity and weight management practice Patient has trialed behavioral modification, dietary restrictions and exercise for a minimum of 6 months The most recent [place] [employer] endocrinologists and [place] [employer] guidelines recommend patients who have overweight BMI or obesity BMI, who also have metabolic syndrome, prediabetes, HLD, and other comorbidities or at risk of developing type 2 diabetes should aim for a weight loss goal of at least 10% of the baseline body weight Patient counseled regarding effects of GLP/GIP-1 agonists, and other FDA approved wgt loss meds with regards to a multifactorial approach of weight loss as mentioned above and not solely appetite suppression. We have discussed the mechanism of GLP-1's/GIP, dual incretins, appetitite suppressants I think this would be fantastic option for her given her metabolic workup and body composition We have discussed the risks and benefits and side effects including/and not limited to Sarcopenia, intestinal obstruction, constipation, nausea, lethargy, headache Discussed importance of protein consumption for muscle maintenance as well as strength and resistance training ,probiotics, B12 complex biotin , iron and other nutrients, To help avoid telogen effluvium We have discussed the lifelong requirement of nutritional supplementation And adherence to an exercise regimen as well as importance of follow-up We did discuss the neurohormonal changes that are occurring with these medications and Need for long-term Continued usage The patient understands and agrees There is no history of medullary thyroid cancer or multiple endocrine neoplasia There is also no history of cardiovascular disease, hypertension, palpitations, or arrhythmias In the setting of potential stimulant/amphetamine use such as phentermine We have also discussed risks and benefits, and the use of compounded medications to help offset the national shortages as well as financial implications vs trade name drugs Patient was reassured and welcomed to the practice. We discussed that we stress a hollistic medical approach with emphasis on lifestyle modification. Patient was informed that a healthy lifestyle with exercise and good eating habits can help reduce his risk of medical complications. He is explained that obesity increases his risk of diabetes, cardiovascular disease, or organ damage. We spent a lot of time discussing the relationship between food, exercise, sleep, mental health and obesity. Patient was counseled on the importance EATING local, organic food when possible. Patient was educated on clean 15 and dirty dozen. I provided information about reading books called The Food Rules by [employer] and Eat Fat Get Lean by Dr Randall Panchal. Self education is important in the journey for weight management. Patient was offered diagnostic testing. We want to measure visceral adiposity, advanced body composition, adverse lipids, fatty acid balance, risk for heart disease and atherosclerosis, markers of inflammation and genetic susceptibility. Patient was counseled on weight management and was advised to lose weight using A. Meal Replacement Products We discussed the lifelong requirement of nutritional supplementation and adherence to an exercise regimen as well as importance of dietary follow-up Patient was educated on the replacement products called optifast. This is a good way of taking fixed amount of calories. It has been shown in studies to be ineffective weight management tool. We also recommend maintaining adequate protein intake and muscle composition, 1.5mg/kg This however has to be coupled with lifestyle intervention as well as laboratory data and EKG monitoring. It is impossible to know how a person will tolerate complete meal replacement. The side effects of meal replacement and weight loss could include syncopal attacks, dizziness, gallstones, potential cholecystectomy, possible heart attack and even . The benefits of meal replacement would be potential weight loss but no guarantees can be made. Meal replacement products are not covered by insurance. Once the patient has bought these products we cannot return them B. Lifestyle management which includes several strategies as below 1. Eat a low carbohydrate good fat good protein diet. Eliminate refined carbohydrates from the diet. Continue blood sugar and sugared beverages. Eat local organic when possible. Cook your own meals. Read food labels. None about healthy snacks. Portion control and food with low glycemic index 2. Exercise regularly. Try to get at least 6000 steps a day. Use a predominant to track activity level. Consider using apps like [employer]Home, myfitnesspal, lose it, stick as needed for self-monitoring and weight management. Consider group exercises. Consider hiring a personal finance instructor. Regular exercise is preston to sustainable health and prevents as a buffer against weight regain 3. Sleep is most important for healing. Tried to sleep at least 8 hours a night. A good quality sleep needs a sleep ritual with ideal room temperature of around 68. It might help to take a shower and have no electronics in the room and sleep in a very dark room without artificial light. Start her sleep routine and get up early in the morning and go to bed on time 4. Make a social connection. Surround yourself with positive people with positive energy. Connect with friends and family. 5. Get into the habit of meditating and mindfulness while doing everything. 6. Go outside and connect with nature. C. Prescription medications Patient was educated on the use of prescription medications for medical weight loss. This is a growing list and includes phentermine, Topamax,Qsymia, contrave, belviq and saxenda. All prescription medications could have side effects including but not limited to kidney stones, seizure disorder cardiac arrhythmias heart attack pancreatitis etc. etc.. Patient was encouraged to read the prescription insert and have coaching with their pharmacist and make an informed decision about taking medication and know that these medications are being prescribed with good intentions and we do not know how a patient would react to her medication. Sudden medications are FDA approved for weight loss and there is also off label use depending on patient's inability to afford medications in an attempt to lose weight D. Behavioral counseling was done to establish a relationship between food and an mood. Patient was provided information about local counseling and psychiatry and Dr Harrison at [facility]. We would like to cover regular topics and build on low glycemic eating exercise mindful eating, using yoga and meditation along with deep breathing and connecting with friends and family. E. MASS PAT reviewed, Patient's current medications were reviewed and opinion was given on medication that can cause weight gain and can be substituted F. Patient was assessed for risk with obesity including and not limiting to atherosclerosis heart disease stroke kidney disease, restrictive lung disease, irritable bowel syndrome and overall mortality. Risk of developing prediabetes diabetes and metabolic syndrome was discussed G. Therapeutic plan: We have decided to make therapeutic plan which would include choosing wisely on calories restricting portion getting active, tracking weight, getting good quality sleep and working on time management H. Patient will follow up in (4) weeks for weight management Of note, some information is being carried forward from prior records for informational purposes only and is being cited so that efficiency, safety and quality of the patient's care is not compromised This note was prepared using voice recognition software and direct typing Please excuse inadvertent electronic resources librarian or typing errors, or uncorrected word substitutions Although every attempt has been made by the provider to proofread this document, occasional misspellings and typographical errors may still be present Due to the previous pandemic, and the use of personal protective equipment (PPE) This may decrease voice recognition accuracy Inadvertent electronic resources librarian errors may occur 10/29/2023 BMI 27.0-27.9,adult (ICD-10 - Z68.27) #Weight Management 10/29/2023 She will be prescribed antifungal cream Plastics referral for skin excision potentially after weight loss has been completed Request labs from [facility] supposedly done in June 2023 Continue Wegovy 2.4 mg Discussed protein and strength and resistance training and muscle composition Overall patient is doing good and is happy with the results so far. Wanted to change goal weight to about 140lbs. 6-week follow-up Total time spent today was 30 minutes of which greater than 50% was spent on coordinating and counseling Patient has been found to be overweight with a BMI of (28). Patient has overweight class per BMI standards We are a board certified obesity and weight management practice Patient has trialed behavioral modification, dietary restrictions and exercise for a minimum of 6 months The most recent [place] [employer] of clinical endocrinologists and [place] [employer] guidelines recommend patients who have overweight BMI or obesity BMI, who also have metabolic syndrome, prediabetes, HLD, and other comorbidities or at risk of developing type 2 diabetes should aim for a weight loss goal of at least 10% of the baseline body weight Patient counseled regarding effects of GLP/GIP-1 agonists, and other FDA approved wgt loss meds with regards to a multifactorial approach of weight loss as mentioned above and not solely appetite suppression. We have discussed the mechanism of GLP-1's/GIP, dual incretins, appetitite suppressants I think this would be fantastic option for her given her metabolic workup and body composition We have discussed the risks and benefits and side effects including/and not limited to Sarcopenia, intestinal obstruction, constipation, nausea, lethargy, headache Discussed importance of protein consumption for muscle maintenance as well as strength and resistance training ,probiotics, B12 complex biotin , iron and other nutrients, To help avoid telogen effluvium We have discussed the lifelong requirement of nutritional supplementation And adherence to an exercise regimen as well as importance of follow-up We did discuss the neurohormonal changes that are occurring with these medications and Need for long-term Continued usage The patient understands and agrees There is no history of medullary thyroid cancer or multiple endocrine neoplasia There is also no history of cardiovascular disease, hypertension, palpitations, or arrhythmias In the setting of potential stimulant/amphetamine use such as phentermine We have also discussed risks and benefits, and the use of compounded medications to help offset the national shortages as well as financial implications vs trade name drugs Patient was reassured and welcomed to the practice. We discussed that we stress a hollistic medical approach with emphasis on lifestyle modification. Patient was informed that a healthy lifestyle with exercise and good eating habits can help reduce his risk of medical complications. He is explained that obesity increases his risk of diabetes, cardiovascular disease, or organ damage. We spent a lot of time discussing the relationship between food, exercise, sleep, mental health and obesity. Patient was counseled on the importance EATING local, organic food when possible. Patient was educated on clean 15 and dirty dozen. I provided information about reading books called The Food Rules by [employer] and Eat Fat Get Lean by Dr Randall Panchal. Self education is important in the journey for weight management. Patient was offered diagnostic testing. We want to measure visceral adiposity, advanced body composition, adverse lipids, fatty acid balance, risk for heart disease and atherosclerosis, markers of inflammation and genetic susceptibility. Patient was counseled on weight management and was advised to lose weight using A. Meal Replacement Products We discussed the lifelong requirement of nutritional supplementation and adherence to an exercise regimen as well as importance of dietary follow-up Patient was educated on the replacement products called optifast. This is a good way of taking fixed amount of calories. It has been shown in studies to be ineffective weight management tool. We also recommend maintaining adequate protein intake and muscle composition, 1.5mg/kg This however has to be coupled with lifestyle intervention as well as laboratory data and EKG monitoring. It is impossible to know how a person will tolerate complete meal replacement. The side effects of meal replacement and weight loss could include syncopal attacks, dizziness, gallstones, potential cholecystectomy, possible heart attack and even . The benefits of meal replacement would be potential weight loss but no guarantees can be made. Meal replacement products are not covered by insurance. Once the patient has bought these products we cannot return them B. Lifestyle management which includes several strategies as below 1. Eat a low carbohydrate good fat good protein diet. Eliminate refined carbohydrates from the diet. Continue blood sugar and sugared beverages. Eat local organic when possible. Cook your own meals. Read food labels. None about healthy snacks. Portion control and food with low glycemic index 2. Exercise regularly. Try to get at least 6000 steps a day. Use a predominant to track activity level. Consider using apps like [employer]Home, [employer], lose it, stick as needed for self-monitoring and weight management. Consider group exercises. Consider hiring a personal finance instructor. Regular exercise is preston to sustainable health and prevents as a buffer against weight regain 3. Sleep is most important for healing. Tried to sleep at least 8 hours a night. A good quality sleep needs a sleep ritual with ideal room temperature of around 68. It might help to take a shower and have no electronics in the room and sleep in a very dark room without artificial light. Start her sleep routine and get up early in the morning and go to bed on time 4. Make a social connection. Surround yourself with positive people with positive energy. Connect with friends and family. 5. Get into the habit of meditating and mindfulness while doing everything. 6. Go outside and connect with nature. C. Prescription medications Patient was educated on the use of prescription medications for medical weight loss. This is a growing list and includes phentermine, Topamax,Qsymia, contrave, belviq and saxenda. All prescription medications could have side effects including but not limited to kidney stones, seizure disorder cardiac arrhythmias heart attack pancreatitis etc. etc.. Patient was encouraged to read the prescription insert and have coaching with their pharmacist and make an informed decision about taking medication and know that these medications are being prescribed with good intentions and we do not know how a patient would react to her medication. Sudden medications are FDA approved for weight loss and there is also off label use depending on patient's inability to afford medications in an attempt to lose weight D. Behavioral counseling was done to establish a relationship between food and an mood. Patient was provided information about local counseling and psychiatry and Dr Harrison at [facility]. We would like to cover regular topics and build on low glycemic eating exercise mindful eating, using yoga and meditation along with deep breathing and connecting with friends and family. E. MASS PAT reviewed, Patient's current medications were reviewed and opinion was given on medication that can cause weight gain and can be substituted F. Patient was assessed for risk with obesity including and not limiting to atherosclerosis heart disease stroke kidney disease, restrictive lung disease, irritable bowel syndrome and overall mortality. Risk of developing prediabetes diabetes and metabolic syndrome was discussed G. Therapeutic plan: We have decided to make therapeutic plan which would include choosing wisely on calories restricting portion getting active, tracking weight, getting good quality sleep and working on time management H. Patient will follow up in (4) weeks for weight management Of note, some information is being carried forward from prior records for informational purposes only and is being cited so that efficiency, safety and quality of the patient's care is not compromised This note was prepared using voice recognition software and direct typing Please excuse inadvertent electronic resources librarian or typing errors, or uncorrected word substitutions Although every attempt has been made by the provider to proofread this document, occasional misspellings and typographical errors may still be present Due to the previous pandemic, and the use of personal protective equipment (PPE) This may decrease voice recognition accuracy Inadvertent electronic resources librarian errors may occur 11/30/2023 Overweight (ICD-10 - E66.3) #Weight Management 11/29/2023 Otherwise thriving Continue Wegovy 2.4 mg She will be prescribed antifungal cream Plastics referral for skin excision potentially after weight loss has been completed Request labs from [facility] supposedly done in June 2023 Discussed protein and strength and resistance training and muscle composition Overall patient is doing good and is happy with the results so far. Wanted to change goal weight to about 140lbs. 6-week follow-up Total time spent today was 30 minutes of which greater than 50% was spent on coordinating and counseling Patient has been found to be overweight with a BMI of (26). Patient has overweight class per BMI standards We are a board certified obesity and weight management practice Patient has trialed behavioral modification, dietary restrictions and exercise for a minimum of 6 months The most recent [place] [employer] of clinical endocrinologists and [place] [employer] guidelines recommend patients who have overweight BMI or obesity BMI, who also have metabolic syndrome, prediabetes, HLD, and other comorbidities or at risk of developing type 2 diabetes should aim for a weight loss goal of at least 10% of the baseline body weight Patient counseled regarding effects of GLP/GIP-1 agonists, and other FDA approved wgt loss meds with regards to a multifactorial approach of weight loss as mentioned above and not solely appetite suppression. We have discussed the mechanism of GLP-1's/GIP, dual incretins, appetitite suppressants I think this would be fantastic option for her given her metabolic workup and body composition We have discussed the risks and benefits and side effects including/and not limited to Sarcopenia, intestinal obstruction, constipation, nausea, lethargy, headache Discussed importance of protein consumption for muscle maintenance as well as strength and resistance training ,probiotics, B12 complex biotin , iron and other nutrients, To help avoid telogen effluvium We have discussed the lifelong requirement of nutritional supplementation And adherence to an exercise regimen as well as importance of follow-up We did discuss the neurohormonal changes that are occurring with these medications and Need for long-term Continued usage The patient understands and agrees There is no history of medullary thyroid cancer or multiple endocrine neoplasia There is also no history of cardiovascular disease, hypertension, palpitations, or arrhythmias In the setting of potential stimulant/amphetamine use such as phentermine We have also discussed risks and benefits, and the use of compounded medications to help offset the national shortages as well as financial implications vs trade name drugs Patient was reassured and welcomed to the practice. We discussed that we stress a hollistic medical approach with emphasis on lifestyle modification. Patient was informed that a healthy lifestyle with exercise and good eating habits can help reduce his risk of medical complications. He is explained that obesity increases his risk of diabetes, cardiovascular disease, or organ damage. We spent a lot of time discussing the relationship between food, exercise, sleep, mental health and obesity. Patient was counseled on the importance EATING local, organic food when possible. Patient was educated on clean 15 and dirty dozen. I provided information about reading books called The Food Rules by [employer] and Eat Fat Get Lean by Dr Randall Panchal. Self education is important in the journey for weight management. Patient was offered diagnostic testing. We want to measure visceral adiposity, advanced body composition, adverse lipids, fatty acid balance, risk for heart disease and atherosclerosis, markers of inflammation and genetic susceptibility. Patient was counseled on weight management and was advised to lose weight using A. Meal Replacement Products We discussed the lifelong requirement of nutritional supplementation and adherence to an exercise regimen as well as importance of dietary follow-up Patient was educated on the replacement products called optifast. This is a good way of taking fixed amount of calories. It has been shown in studies to be ineffective weight management tool. We also recommend maintaining adequate protein intake and muscle composition, 1.5mg/kg This however has to be coupled with lifestyle intervention as well as laboratory data and EKG monitoring. It is impossible to know how a person will tolerate complete meal replacement. The side effects of meal replacement and weight loss could include syncopal attacks, dizziness, gallstones, potential cholecystectomy, possible heart attack and even . The benefits of meal replacement would be potential weight loss but no guarantees can be made. Meal replacement products are not covered by insurance. Once the patient has bought these products we cannot return them B. Lifestyle management which includes several strategies as below 1. Eat a low carbohydrate good fat good protein diet. Eliminate refined carbohydrates from the diet. Continue blood sugar and sugared beverages. Eat local organic when possible. Cook your own meals. Read food labels. None about healthy snacks. Portion control and food with low glycemic index 2. Exercise regularly. Try to get at least 6000 steps a day. Use a predominant to track activity level. Consider using apps like Sh[employer]Home, myfitnesspal, lose it, stick as needed for self-monitoring and weight management. Consider group exercises. Consider hiring a personal finance instructor. Regular exercise is preston to sustainable health and prevents as a buffer against weight regain 3. Sleep is most important for healing. Tried to sleep at least 8 hours a night. A good quality sleep needs a sleep ritual with ideal room temperature of around 68. It might help to take a shower and have no electronics in the room and sleep in a very dark room without artificial light. Start her sleep routine and get up early in the morning and go to bed on time 4. Make a social connection. Surround yourself with positive people with positive energy. Connect with friends and family. 5. Get into the habit of meditating and mindfulness while doing everything. 6. Go outside and connect with nature. C. Prescription medications Patient was educated on the use of prescription medications for medical weight loss. This is a growing list and includes phentermine, Topamax,Qsymia, contrave, belviq and saxenda. All prescription medications could have side effects including but not limited to kidney stones, seizure disorder cardiac arrhythmias heart attack pancreatitis etc. etc.. Patient was encouraged to read the prescription insert and have coaching with their pharmacist and make an informed decision about taking medication and know that these medications are being prescribed with good intentions and we do not know how a patient would react to her medication. Sudden medications are FDA approved for weight loss and there is also off label use depending on patient's inability to afford medications in an attempt to lose weight D. Behavioral counseling was done to establish a relationship between food and an mood. Patient was provided information about local counseling and psychiatry and Dr Harrison at [facility]. We would like to cover regular topics and build on low glycemic eating exercise mindful eating, using yoga and meditation along with deep breathing and connecting with friends and family. E. MASS PAT reviewed, Patient's current medications were reviewed and opinion was given on medication that can cause weight gain and can be substituted F. Patient was assessed for risk with obesity including and not limiting to atherosclerosis heart disease stroke kidney disease, restrictive lung disease, irritable bowel syndrome and overall mortality. Risk of developing prediabetes diabetes and metabolic syndrome was discussed G. Therapeutic plan: We have decided to make therapeutic plan which would include choosing wisely on calories restricting portion getting active, tracking weight, getting good quality sleep and working on time management H. Patient will follow up in (4) weeks for weight management Of note, some information is being carried forward from prior records for informational purposes only and is being cited so that efficiency, safety and quality of the patient's care is not compromised This note was prepared using voice recognition software and direct typing Please excuse inadvertent electronic resources librarian or typing errors, or uncorrected word substitutions Although every attempt has been made by the provider to proofread this document, occasional misspellings and typographical errors may still be present Due to the previous pandemic, and the use of personal protective equipment (PPE) This may decrease voice recognition accuracy Inadvertent electronic resources librarian errors may occur 11/30/2023 BMI 26.0-26.9,adult (ICD-10 - Z68.26) #Weight Management 11/29/2023 Otherwise thriving Continue Wegovy 2.4 mg She will be prescribed antifungal cream Plastics referral for skin excision potentially after weight loss has been completed Request labs from [facility] supposedly done in June 2023 Discussed protein and strength and resistance training and muscle composition Overall patient is doing good and is happy with the results so far. Wanted to change goal weight to about 140lbs. 6-week follow-up Total time spent today was 30 minutes of which greater than 50% was spent on coordinating and counseling Patient has been found to be overweight with a BMI of (26). Patient has overweight class per BMI standards We are a board certified obesity and weight management practice Patient has trialed behavioral modification, dietary restrictions and exercise for a minimum of 6 months The most recent [place] [employer] clinical endocrinologists and [place] [employer] guidelines recommend patients who have overweight BMI or obesity BMI, who also have metabolic syndrome, prediabetes, HLD, and other comorbidities or at risk of developing type 2 diabetes should aim for a weight loss goal of at least 10% of the baseline body weight Patient counseled regarding effects of GLP/GIP-1 agonists, and other FDA approved wgt loss meds with regards to a multifactorial approach of weight loss as mentioned above and not solely appetite suppression. We have discussed the mechanism of GLP-1's/GIP, dual incretins, appetitite suppressants I think this would be fantastic option for her given her metabolic workup and body composition We have discussed the risks and benefits and side effects including/and not limited to Sarcopenia, intestinal obstruction, constipation, nausea, lethargy, headache Discussed importance of protein consumption for muscle maintenance as well as strength and resistance training ,probiotics, B12 complex biotin , iron and other nutrients, To help avoid telogen effluvium We have discussed the lifelong requirement of nutritional supplementation And adherence to an exercise regimen as well as importance of follow-up We did discuss the neurohormonal changes that are occurring with these medications and Need for long-term Continued usage The patient understands and agrees There is no history of medullary thyroid cancer or multiple endocrine neoplasia There is also no history of cardiovascular disease, hypertension, palpitations, or arrhythmias In the setting of potential stimulant/amphetamine use such as phentermine We have also discussed risks and benefits, and the use of compounded medications to help offset the national shortages as well as financial implications vs trade name drugs Patient was reassured and welcomed to the practice. We discussed that we stress a hollistic medical approach with emphasis on lifestyle modification. Patient was informed that a healthy lifestyle with exercise and good eating habits can help reduce his risk of medical complications. He is explained that obesity increases his risk of diabetes, cardiovascular disease, or organ damage. We spent a lot of time discussing the relationship between food, exercise, sleep, mental health and obesity. Patient was counseled on the importance EATING local, organic food when possible. Patient was educated on clean 15 and dirty dozen. I provided information about reading books called The Food Rules by [employer] and Eat Fat Get Lean by Dr Randall Panchal. Self education is important in the journey for weight management. Patient was offered diagnostic testing. We want to measure visceral adiposity, advanced body composition, adverse lipids, fatty acid balance, risk for heart disease and atherosclerosis, markers of inflammation and genetic susceptibility. Patient was counseled on weight management and was advised to lose weight using A. Meal Replacement Products We discussed the lifelong requirement of nutritional supplementation and adherence to an exercise regimen as well as importance of dietary follow-up Patient was educated on the replacement products called optifast. This is a good way of taking fixed amount of calories. It has been shown in studies to be ineffective weight management tool. We also recommend maintaining adequate protein intake and muscle composition, 1.5mg/kg This however has to be coupled with lifestyle intervention as well as laboratory data and EKG monitoring. It is impossible to know how a person will tolerate complete meal replacement. The side effects of meal replacement and weight loss could include syncopal attacks, dizziness, gallstones, potential cholecystectomy, possible heart attack and even . The benefits of meal replacement would be potential weight loss but no guarantees can be made. Meal replacement products are not covered by insurance. Once the patient has bought these products we cannot return them B. Lifestyle management which includes several strategies as below 1. Eat a low carbohydrate good fat good protein diet. Eliminate refined carbohydrates from the diet. Continue blood sugar and sugared beverages. Eat local organic when possible. Cook your own meals. Read food labels. None about healthy snacks. Portion control and food with low glycemic index 2. Exercise regularly. Try to get at least 6000 steps a day. Use a predominant to track activity level. Consider using apps like [employer]Home, [employer], lose it, stick as needed for self-monitoring and weight management. Consider group exercises. Consider hiring a personal finance instructor. Regular exercise is preston to sustainable health and prevents as a buffer against weight regain 3. Sleep is most important for healing. Tried to sleep at least 8 hours a night. A good quality sleep needs a sleep ritual with ideal room temperature of around 68. It might help to take a shower and have no electronics in the room and sleep in a very dark room without artificial light. Start her sleep routine and get up early in the morning and go to bed on time 4. Make a social connection. Surround yourself with positive people with positive energy. Connect with friends and family. 5. Get into the habit of meditating and mindfulness while doing everything. 6. Go outside and connect with nature. C. Prescription medications Patient was educated on the use of prescription medications for medical weight loss. This is a growing list and includes phentermine, Topamax,Qsymia, contrave, belviq and saxenda. All prescription medications could have side effects including but not limited to kidney stones, seizure disorder cardiac arrhythmias heart attack pancreatitis etc. etc.. Patient was encouraged to read the prescription insert and have coaching with their pharmacist and make an informed decision about taking medication and know that these medications are being prescribed with good intentions and we do not know how a patient would react to her medication. Sudden medications are FDA approved for weight loss and there is also off label use depending on patient's inability to afford medications in an attempt to lose weight D. Behavioral counseling was done to establish a relationship between food and an mood. Patient was provided information about local counseling and psychiatry and Dr Harrison at [facility]. We would like to cover regular topics and build on low glycemic eating exercise mindful eating, using yoga and meditation along with deep breathing and connecting with friends and family. E. MASS PAT reviewed, Patient's current medications were reviewed and opinion was given on medication that can cause weight gain and can be substituted F. Patient was assessed for risk with obesity including and not limiting to atherosclerosis heart disease stroke kidney disease, restrictive lung disease, irritable bowel syndrome and overall mortality. Risk of developing prediabetes diabetes and metabolic syndrome was discussed G. Therapeutic plan: We have decided to make therapeutic plan which would include choosing wisely on calories restricting portion getting active, tracking weight, getting good quality sleep and working on time management H. Patient will follow up in (4) weeks for weight management Of note, some information is being carried forward from prior records for informational purposes only and is being cited so that efficiency, safety and quality of the patient's care is not compromised This note was prepared using voice recognition software and direct typing Please excuse inadvertent electronic resources librarian or typing errors, or uncorrected word substitutions Although every attempt has been made by the provider to proofread this document, occasional misspellings and typographical errors may still be present Due to the previous pandemic, and the use of personal protective equipment (PPE) This may decrease voice recognition accuracy Inadvertent electronic resources librarian errors may occur 01/16/2024 Overweight (ICD-10 - E66.3) #Weight Management 01/16/2024 Patient to have updated labs from [facility] faxed to us later today Otherwise thriving Feels as if she is plateauing We discussed possibly switching to dual incretin Continue Wegovy 2.4 mg She will be prescribed antifungal cream Plastics referral for skin excision potentially after weight loss has been completed *Discussed protein and strength and resistance training and muscle composition Overall patient is doing good and is happy with the results so far. Wanted to change goal weight to about 140lbs. Total time spent today was 30 minutes of which greater than 50% was spent on coordinating and counseling Patient has been found to be overweight with a BMI of (26). Patient has overweight class per BMI standards We are a board certified obesity and weight management practice Patient has trialed behavioral modification, dietary restrictions and exercise for a minimum of 6 months The most recent [place] [employer] of clinical endocrinologists and [place] [employer] guidelines recommend patients who have overweight BMI or obesity BMI, who also have metabolic syndrome, prediabetes, HLD, and other comorbidities or at risk of developing type 2 diabetes should aim for a weight loss goal of at least 10% of the baseline body weight Patient counseled regarding effects of GLP/GIP-1 agonists, and other FDA approved wgt loss meds with regards to a multifactorial approach of weight loss as mentioned above and not solely appetite suppression. We have discussed the mechanism of GLP-1's/GIP, dual incretins, appetitite suppressants I think this would be fantastic option for her given her metabolic workup and body composition We have discussed the risks and benefits and side effects including/and not limited to Sarcopenia, intestinal obstruction, constipation, nausea, lethargy, headache Discussed importance of protein consumption for muscle maintenance as well as strength and resistance training ,probiotics, B12 complex biotin , iron and other nutrients, To help avoid telogen effluvium We have discussed the lifelong requirement of nutritional supplementation And adherence to an exercise regimen as well as importance of follow-up We did discuss the neurohormonal changes that are occurring with these medications and Need for long-term Continued usage The patient understands and agrees There is no history of medullary thyroid cancer or multiple endocrine neoplasia There is also no history of cardiovascular disease, hypertension, palpitations, or arrhythmias In the setting of potential stimulant/amphetamine use such as phentermine We have also discussed risks and benefits, and the use of compounded medications to help offset the national shortages as well as financial implications vs trade name drugs Patient was reassured and welcomed to the practice. We discussed that we stress a hollistic medical approach with emphasis on lifestyle modification. Patient was informed that a healthy lifestyle with exercise and good eating habits can help reduce his risk of medical complications. He is explained that obesity increases his risk of diabetes, cardiovascular disease, or organ damage. We spent a lot of time discussing the relationship between food, exercise, sleep, mental health and obesity. Patient was counseled on the importance EATING local, organic food when possible. Patient was educated on clean 15 and dirty dozen. I provided information about reading books called The Food Rules by [employer] and Eat Fat Get Lean by Dr Randall Panchal. Self education is important in the journey for weight management. Patient was offered diagnostic testing. We want to measure visceral adiposity, advanced body composition, adverse lipids, fatty acid balance, risk for heart disease and atherosclerosis, markers of inflammation and genetic susceptibility. Patient was counseled on weight management and was advised to lose weight using A. Meal Replacement Products We discussed the lifelong requirement of nutritional supplementation and adherence to an exercise regimen as well as importance of dietary follow-up Patient was educated on the replacement products called optifast. This is a good way of taking fixed amount of calories. It has been shown in studies to be ineffective weight management tool. We also recommend maintaining adequate protein intake and muscle composition, 1.5mg/kg This however has to be coupled with lifestyle intervention as well as laboratory data and EKG monitoring. It is impossible to know how a person will tolerate complete meal replacement. The side effects of meal replacement and weight loss could include syncopal attacks, dizziness, gallstones, potential cholecystectomy, possible heart attack and even . The benefits of meal replacement would be potential weight loss but no guarantees can be made. Meal replacement products are not covered by insurance. Once the patient has bought these products we cannot return them B. Lifestyle management which includes several strategies as below 1. Eat a low carbohydrate good fat good protein diet. Eliminate refined carbohydrates from the diet. Continue blood sugar and sugared beverages. Eat local organic when possible. Cook your own meals. Read food labels. None about healthy snacks. Portion control and food with low glycemic index 2. Exercise regularly. Try to get at least 6000 steps a day. Use a predominant to track activity level. Consider using apps like [employer], [employer], lose it, stick as needed for self-monitoring and weight management. Consider group exercises. Consider hiring a personal finance instructor. Regular exercise is preston to sustainable health and prevents as a buffer against weight regain 3. Sleep is most important for healing. Tried to sleep at least 8 hours a night. A good quality sleep needs a sleep ritual with ideal room temperature of around 68. It might help to take a shower and have no electronics in the room and sleep in a very dark room without artificial light. Start her sleep routine and get up early in the morning and go to bed on time 4. Make a social connection. Surround yourself with positive people with positive energy. Connect with friends and family. 5. Get into the habit of meditating and mindfulness while doing everything. 6. Go outside and connect with nature. C. Prescription medications Patient was educated on the use of prescription medications for medical weight loss. This is a growing list and includes phentermine, Topamax,Qsymia, contrave, belviq and saxenda. All prescription medications could have side effects including but not limited to kidney stones, seizure disorder cardiac arrhythmias heart attack pancreatitis etc. etc.. Patient was encouraged to read the prescription insert and have coaching with their pharmacist and make an informed decision about taking medication and know that these medications are being prescribed with good intentions and we do not know how a patient would react to her medication. Sudden medications are FDA approved for weight loss and there is also off label use depending on patient's inability to afford medications in an attempt to lose weight D. Behavioral counseling was done to establish a relationship between food and an mood. Patient was provided information about local counseling and psychiatry and Dr Harrison at [facility]. We would like to cover regular topics and build on low glycemic eating exercise mindful eating, using yoga and meditation along with deep breathing and connecting with friends and family. E. MASS PAT reviewed, Patient's current medications were reviewed and opinion was given on medication that can cause weight gain and can be substituted F. Patient was assessed for risk with obesity including and not limiting to atherosclerosis heart disease stroke kidney disease, restrictive lung disease, irritable bowel syndrome and overall mortality. Risk of developing prediabetes diabetes and metabolic syndrome was discussed G. Therapeutic plan: We have decided to make therapeutic plan which would include choosing wisely on calories restricting portion getting active, tracking weight, getting good quality sleep and working on time management H. Patient will follow up in (4) weeks for weight management Of note, some information is being carried forward from prior records for informational purposes only and is being cited so that efficiency, safety and quality of the patient's care is not compromised This note was prepared using voice recognition software and direct typing Please excuse inadvertent electronic resources librarian or typing errors, or uncorrected word substitutions Although every attempt has been made by the provider to proofread this document, occasional misspellings and typographical errors may still be present Due to the previous pandemic, and the use of personal protective equipment (PPE) This may decrease voice recognition accuracy Inadvertent electronic resources librarian errors may occur 02/03/2024 Overweight (ICD-10 - E66.3) 02/27/2024 Overweight (ICD-10 - E66.3) #Weight Management 02/26/2024 Patient to have updated labs from [facility] faxed to us later today She is still very stressed due to her brother's cancer diagnosis, and makes frequent visits that interfere with her diet and exercise routine. She has decided to take more time for herself and will make less frequent visits. Discussed importance of creatine, protein, and resistance training for muscle building. She has signed up for a gym membership. She will stay on the Wegovy 2.4 weekly until she reaches her goal weight Otherwise thriving She will continue to use antifungal cream Total time spent today was 30 minutes of which greater than 50% was spent on coordinating and counseling Patient has been found to be overweight with a BMI of (26). Patient has overweight class per BMI standards We are a board certified obesity and weight management practice Patient has trialed behavioral modification, dietary restrictions and exercise for a minimum of 6 months The most recent [place] [employer] endocrinologists and [place] [employer] guidelines recommend patients who have overweight BMI or obesity BMI, who also have metabolic syndrome, prediabetes, HLD, and other comorbidities or at risk of developing type 2 diabetes should aim for a weight loss goal of at least 10% of the baseline body weight Patient counseled regarding effects of GLP/GIP-1 agonists, and other FDA approved wgt loss meds with regards to a multifactorial approach of weight loss as mentioned above and not solely appetite suppression. Of note, some information is being carried forward from prior records for informational purposes only and is being cited so that efficiency, safety and quality of the patient's care is not compromised This note was prepared using voice recognition software and direct typing Please excuse inadvertent electronic resources librarian or typing errors, or uncorrected word substitutions Although every attempt has been made by the provider to proofread this document, occasional misspellings and typographical errors may still be present Due to the previous pandemic, and the use of personal protective equipment (PPE) This may decrease voice recognition accuracy Inadvertent electronic resources librarian errors may occur 04/07/2024 BMI 25.0-25.9,adult (ICD-10 - Z68.25) Mary is a 58-year-old female with a PMH of HTN and prvious bariatric surgery that presents for a weight management follow-up. Reviewed [facility] holistic and medical approach to weight loss with emphasis on lifestyle modification. 04/07/2024: Weight: 141, BMI: 25.7 (-3lbs)Reviewed SECA/goals for implementing sustainable lifestyle changes. Patient is encouraged continue walking and going to the gym twice weekly. Discussed the importance of continued strength training with proper safety/body mechanics for maintenance of muscle mass/bone health. Reviewed the importance of adequate nutrition in terms of calorie/protein intake in the setting of GLP-1 induced appetite suppression. Goal 80 g protein/day. Plan to continue Wegovy 2.4 mg SC weekly and follow-up in 1 month. 02/27/2024, Weight 144 lbs, BMI 27 (-1 lbs) 01/16/2024, Weight 145lb, BMI (+1lb) 11/29/2023, Weight 144lbs , BMI 26 (-4lbs) 10/29/2023, Weight 148lbs , BMI 28 09/19/2023, Weight 149, BMI 28.1 (-1lbs) 08/07/2023, Weight 150lbs, BMI 27.6 (-2lbs) 06/26/23 weight 152, BMI 27.9 (-4lbs) 05/03/2023: Weight 156lbs, BMI 28, (-9lbs) 02/19/2023: Weight 165lbs , BMI 30 ( -18lbs) 12/21/2022: Weight 183lbs, BMI: 33 All questions answered to the patients satisfaction. Patient demonstrates understanding of diagnosis and treatments discussed. Follow-up in 4 weeks, sooner should any questions/concerns arise. Case discussed with collaborating physician Dale Cantu who has reviewed the assessment/plan. Chart, medications, labs, and vital signs reviewed. Dictation completed with the use of [employer] voice recognition software, prone to medical misidentifications and grammatical errors. All errors are unintentional. Although the practitioner does try to identify and correct errors, some may be present. Please do not hesitate to contact the practitioner for clarification. Total time spent was 30 minutes with >50% on coordination of care and patient education. 04/07/2024 Overweight (BMI 25.0-29.9) (ICD-10 - E66.3) Mary is a 58-year-old female with a PMH of HTN and prvious bariatric surgery that presents for a weight management follow-up. Reviewed [facility] holistic and medical approach to weight loss with emphasis on lifestyle modification. 04/07/2024: Weight: 141, BMI: 25.7 (-3lbs)Reviewed SECA/goals for implementing sustainable lifestyle changes. Patient is encouraged continue walking and going to the gym twice weekly. Discussed the importance of continued strength training with proper safety/body mechanics for maintenance of muscle mass/bone health. Reviewed the importance of adequate nutrition in terms of calorie/protein intake in the setting of GLP-1 induced appetite suppression. Goal 80 g protein/day. Plan to continue Wegovy 2.4 mg SC weekly and follow-up in 1 month. 02/27/2024, Weight 144 lbs, BMI 27 (-1 lbs) 01/16/2024, Weight 145lb, BMI (+1lb) 11/29/2023, Weight 144lbs , BMI 26 (-4lbs) 10/29/2023, Weight 148lbs , BMI 28 09/19/2023, Weight 149, BMI 28.1 (-1lbs) 08/07/2023, Weight 150lbs, BMI 27.6 (-2lbs) 06/26/23 weight 152, BMI 27.9 (-4lbs) 05/03/2023: Weight 156lbs, BMI 28, (-9lbs) 02/19/2023: Weight 165lbs , BMI 30 ( -18lbs) 12/21/2022: Weight 183lbs, BMI: 33 All questions answered to the patients satisfaction. Patient demonstrates understanding of diagnosis and treatments discussed. Follow-up in 4 weeks, sooner should any questions/concerns arise. Case discussed with collaborating physician Dale Cantu who has reviewed the assessment/plan. Chart, medications, labs, and vital signs reviewed. Dictation completed with the use of [employer] voice recognition software, prone to medical misidentifications and grammatical errors. All errors are unintentional. Although the practitioner does try to identify and correct errors, some may be present. Please do not hesitate to contact the practitioner for clarification. Total time spent was 30 minutes with >50% on coordination of care and patient education. 05/26/2024 Overweight (ICD-10 - E66.3) #Weight Management 05/26/2024 Lets update labs Discussed importance of creatine, [...] board certified obesity and weight management practice Patient has trialed behavioral modification, dietary restrictions and exercise for a minimum of 6 months The most recent [place] [employer] clinical endocrinologists and [place] [employer] guidelines recommend patients who have overweight BMI or obesity BMI, who also have metabolic syndrome, prediabetes, HLD, and other comorbidities or at risk of developing type 2 diabetes should aim for a weight loss goal of at least 10% of the baseline body weight Patient counseled regarding effects of GLP/GIP-1 agonists, and other FDA approved wgt loss meds with regards to a multifactorial approach of weight loss as mentioned above and not solely appetite suppression. Of note, some information is being carried forward from prior records for informational purposes only and is being cited so that efficiency, safety and quality of the patient's care is not compromised This note was prepared using voice recognition software and direct typing Please excuse inadvertent electronic resources librarian or typing errors, or uncorrected word substitutions Although every attempt has been made by the provider to proofread this document, occasional misspellings and typographical errors may still be present Due to the previous pandemic, and the use of personal protective equipment (PPE) This may decrease voice recognition accuracy Inadvertent electronic resources librarian errors may occur 05/26/2024 BMI 26.0-26.9,adult (ICD-10 - Z68.26) #Weight Management 05/26/2024 Lets update labs Discussed importance of creatine, [...] board certified obesity and weight management practice Patient has trialed behavioral modification, dietary restrictions and exercise for a minimum of 6 months The most recent [place] [employer] endocrinologists and [place] [employer] guidelines recommend patients who have overweight BMI or obesity BMI, who also have metabolic syndrome, prediabetes, HLD, and other comorbidities or at risk of developing type 2 diabetes should aim for a weight loss goal of at least 10% of the baseline body weight Patient counseled regarding effects of GLP/GIP-1 agonists, and other FDA approved wgt loss meds with regards to a multifactorial approach of weight loss as mentioned above and not solely appetite suppression. Of note, some information is being carried forward from prior records for informational purposes only and is being cited so that efficiency, safety and quality of the patient's care is not compromised This note was prepared using voice recognition software and direct typing Please excuse inadvertent electronic resources librarian or typing errors, or uncorrected word substitutions Although every attempt has been made by the provider to proofread this document, occasional misspellings and typographical errors may still be present Due to the previous pandemic, and the use of personal protective equipment (PPE) This may decrease voice recognition accuracy Inadvertent electronic resources librarian errors may occur 07/21/2024 Overweight (ICD-10 - E66.3) #Weight Management 07/21/2024 Lets update labs Discussed importance of creatine, [...] software and direct typing Please excuse inadvertent electronic resources librarian or typing errors, or uncorrected word substitutions Although every attempt has been made by the provider to proofread this document, occasional misspellings and typographical errors may still be present Due to the previous pandemic, and the use of personal protective equipment (PPE) This may decrease voice recognition accuracy Inadvertent electronic resources librarian errors may occur 07/28/2024 Overweight (ICD-10 - E66.3) #Weight Management [...] software and direct typing Please excuse inadvertent electronic resources librarian or typing errors, or uncorrected word substitutions Although every attempt has been made by the provider to proofread this document, occasional misspellings and typographical errors may still be present Due to the previous pandemic, and the use of personal protective equipment (PPE) This may decrease voice recognition accuracy Inadvertent electronic resources librarian errors may occur 07/21/2024 BMI 26.0-26.9,adult (ICD-10 - Z68.26) #Weight Management 07/21/2024 Lets update labs Discussed importance of creatine, [...] software and direct typing Please excuse inadvertent electronic resources librarian or typing errors, or uncorrected word substitutions Although every attempt has been made by the provider to proofread this document, occasional misspellings and typographical errors may still be present Due to the previous pandemic, and the use of personal protective equipment (PPE) This may decrease voice recognition accuracy Inadvertent electronic resources librarian errors may occur 05/26/2024 Dietary counseling and surveillance (ICD-10 - Z71.3) #Weight Management 05/26/2024 Lets update labs Discussed importance of creatine, [...] board certified obesity and weight management practice Patient has trialed behavioral modification, dietary restrictions and exercise for a minimum of 6 months The most recent [place] [employer] of clinical endocrinologists and [place] [employer] guidelines recommend patients who have overweight BMI or obesity BMI, who also have metabolic syndrome, prediabetes, HLD, and other comorbidities or at risk of developing type 2 diabetes should aim for a weight loss goal of at least 10% of the baseline body weight Patient counseled regarding effects of GLP/GIP-1 agonists, and other FDA approved wgt loss meds with regards to a multifactorial approach of weight loss as mentioned above and not solely appetite suppression. Of note, some information is being carried forward from prior records for informational purposes only and is being cited so that efficiency, safety and quality of the patient's care is not compromised This note was prepared using voice recognition software and direct typing Please excuse inadvertent electronic resources librarian or typing errors, or uncorrected word substitutions Although every attempt has been made by the provider to proofread this document, occasional misspellings and typographical errors may still be present Due to the previous pandemic, and the use of personal protective equipment (PPE) This may decrease voice recognition accuracy Inadvertent electronic resources librarian errors may occur 09/19/2023 BMI 27.0-27.9,adult (ICD-10 - Z68.27) #Weight Management 09/19/2023 Request labs from [facility] supposedly done in June 2023 Continue Wegovy 2.4 mg Discussed protein and strength and resistance training and muscle composition Overall patient is doing good and is happy with the results so far. Wanted to change goal weight to about 140lbs. 6-week follow-up Total time spent today was 30 minutes of which greater than 50% was spent on coordinating and counseling Patient has been found to be overweight with a BMI of (27). Patient has overweight class per BMI standards We are a board certified obesity and weight management practice Patient has trialed behavioral modification, dietary restrictions and exercise for a minimum of 6 months The most recent [place] [employer] of clinical endocrinologists and [place] [employer] guidelines recommend patients who have overweight BMI or obesity BMI, who also have metabolic syndrome, prediabetes, HLD, and other comorbidities or at risk of developing type 2 diabetes should aim for a weight loss goal of at least 10% of the baseline body weight Patient counseled regarding effects of GLP/GIP-1 agonists, and other FDA approved wgt loss meds with regards to a multifactorial approach of weight loss as mentioned above and not solely appetite suppression. We have discussed the mechanism of GLP-1's/GIP, dual incretins, appetitite suppressants I think this would be fantastic option for her given her metabolic workup and body composition We have discussed the risks and benefits and side effects including/and not limited to Sarcopenia, intestinal obstruction, constipation, nausea, lethargy, headache Discussed importance of protein consumption for muscle maintenance as well as strength and resistance training ,probiotics, B12 complex biotin , iron and other nutrients, To help avoid telogen effluvium We have discussed the lifelong requirement of nutritional supplementation And adherence to an exercise regimen as well as importance of follow-up We did discuss the neurohormonal changes that are occurring with these medications and Need for long-term Continued usage The patient understands and agrees There is no history of medullary thyroid cancer or multiple endocrine neoplasia There is also no history of cardiovascular disease, hypertension, palpitations, or arrhythmias In the setting of potential stimulant/amphetamine use such as phentermine We have also discussed risks and benefits, and the use of compounded medications to help offset the national shortages as well as financial implications vs trade name drugs Patient was reassured and welcomed to the practice. We discussed that we stress a hollistic medical approach with emphasis on lifestyle modification. Patient was informed that a healthy lifestyle with exercise and good eating habits can help reduce his risk of medical complications. He is explained that obesity increases his risk of diabetes, cardiovascular disease, or organ damage. We spent a lot of time discussing the relationship between food, exercise, sleep, mental health and obesity. Patient was counseled on the importance EATING local, organic food when possible. Patient was educated on clean 15 and dirty dozen. I provided information about reading books called The Food Rules by [employer] and Eat Fat Get Lean by Dr Randall Panchal. Self education is important in the journey for weight management. Patient was offered diagnostic testing. We want to measure visceral adiposity, advanced body composition, adverse lipids, fatty acid balance, risk for heart disease and atherosclerosis, markers of inflammation and genetic susceptibility. Patient was counseled on weight management and was advised to lose weight using A. Meal Replacement Products We discussed the lifelong requirement of nutritional supplementation and adherence to an exercise regimen as well as importance of dietary follow-up Patient was educated on the replacement products called optifast. This is a good way of taking fixed amount of calories. It has been shown in studies to be ineffective weight management tool. We also recommend maintaining adequate protein intake and muscle composition, 1.5mg/kg This however has to be coupled with lifestyle intervention as well as laboratory data and EKG monitoring. It is impossible to know how a person will tolerate complete meal replacement. The side effects of meal replacement and weight loss could include syncopal attacks, dizziness, gallstones, potential cholecystectomy, possible heart attack and even . The benefits of meal replacement would be potential weight loss but no guarantees can be made. Meal replacement products are not covered by insurance. Once the patient has bought these products we cannot return them B. Lifestyle management which includes several strategies as below 1. Eat a low carbohydrate good fat good protein diet. Eliminate refined carbohydrates from the diet. Continue blood sugar and sugared beverages. Eat local organic when possible. Cook your own meals. Read food labels. None about healthy snacks. Portion control and food with low glycemic index 2. Exercise regularly. Try to get at least 6000 steps a day. Use a predominant to track activity level. Consider using apps like [employer], [employer], lose it, stick as needed for self-monitoring and weight management. Consider group exercises. Consider hiring a personal finance instructor. Regular exercise is preston to sustainable health and prevents as a buffer against weight regain 3. Sleep is most important for healing. Tried to sleep at least 8 hours a night. A good quality sleep needs a sleep ritual with ideal room temperature of around 68. It might help to take a shower and have no electronics in the room and sleep in a very dark room without artificial light. Start her sleep routine and get up early in the morning and go to bed on time 4. Make a social connection. Surround yourself with positive people with positive energy. Connect with friends and family. 5. Get into the habit of meditating and mindfulness while doing everything. 6. Go outside and connect with nature. C. Prescription medications Patient was educated on the use of prescription medications for medical weight loss. This is a growing list and includes phentermine, Topamax,Qsymia, contrave, belviq and saxenda. All prescription medications could have side effects including but not limited to kidney stones, seizure disorder cardiac arrhythmias heart attack pancreatitis etc. etc.. Patient was encouraged to read the prescription insert and have coaching with their pharmacist and make an informed decision about taking medication and know that these medications are being prescribed with good intentions and we do not know how a patient would react to her medication. Sudden medications are FDA approved for weight loss and there is also off label use depending on patient's inability to afford medications in an attempt to lose weight D. Behavioral counseling was done to establish a relationship between food and an mood. Patient was provided information about local counseling and psychiatry and Dr Harrison at [facility]. We would like to cover regular topics and build on low glycemic eating exercise mindful eating, using yoga and meditation along with deep breathing and connecting with friends and family. E. MASS PAT reviewed, Patient's current medications were reviewed and opinion was given on medication that can cause weight gain and can be substituted F. Patient was assessed for risk with obesity including and not limiting to atherosclerosis heart disease stroke kidney disease, restrictive lung disease, irritable bowel syndrome and overall mortality. Risk of developing prediabetes diabetes and metabolic syndrome was discussed G. Therapeutic plan: We have decided to make therapeutic plan which would include choosing wisely on calories restricting portion getting active, tracking weight, getting good quality sleep and working on time management H. Patient will follow up in (4) weeks for weight management Of note, some information is being carried forward from prior records for informational purposes only and is being cited so that efficiency, safety and quality of the patient's care is not compromised This note was prepared using voice recognition software and direct typing Please excuse inadvertent electronic resources librarian or typing errors, or uncorrected word substitutions Although every attempt has been made by the provider to proofread this document, occasional misspellings and typographical errors may still be present Due to the previous pandemic, and the use of personal protective equipment (PPE) This may decrease voice recognition accuracy Inadvertent electronic resources librarian errors may occur 04/07/2024 Essential hypertension (ICD-10 - I10) Mary is a 58-year-old female with a PMH of HTN and prvious bariatric surgery that presents for a weight management follow-up. Reviewed [facility] holistic and medical approach to weight loss with emphasis on lifestyle modification. 04/07/2024: Weight: 141, BMI: 25.7 (-3lbs)Reviewed SECA/goals for implementing sustainable lifestyle changes. Patient is encouraged continue walking and going to the gym twice weekly. Discussed the importance of continued strength training with proper safety/body mechanics for maintenance of muscle mass/bone health. Reviewed the importance of adequate nutrition in terms of calorie/protein intake in the setting of GLP-1 induced appetite suppression. Goal 80 g protein/day. Plan to continue Wegovy 2.4 mg SC weekly and follow-up in 1 month. 02/27/2024, Weight 144 lbs, BMI 27 (-1 lbs) 01/16/2024, Weight 145lb, BMI (+1lb) 11/29/2023, Weight 144lbs , BMI 26 (-4lbs) 10/29/2023, Weight 148lbs , BMI 28 09/19/2023, Weight 149, BMI 28.1 (-1lbs) 08/07/2023, Weight 150lbs, BMI 27.6 (-2lbs) 06/26/23 weight 152, BMI 27.9 (-4lbs) 05/03/2023: Weight 156lbs, BMI 28, (-9lbs) 02/19/2023: Weight 165lbs , BMI 30 ( -18lbs) 12/21/2022: Weight 183lbs, BMI: 33 All questions answered to the patients satisfaction. Patient demonstrates understanding of diagnosis and treatments discussed. Follow-up in 4 weeks, sooner should any questions/concerns arise. Case discussed with collaborating physician Dale Cantu who has reviewed the assessment/plan. Chart, medications, labs, and vital signs reviewed. Dictation completed with the use of [employer] voice recognition software, prone to medical misidentifications and grammatical errors. All errors are unintentional. Although the practitioner does try to identify and correct errors, some may be present. Please do not hesitate to contact the practitioner for clarification. Total time spent was 30 minutes with >50% on coordination of care and patient education. 07/28/2024 BMI 26.0-26.9,adult (ICD-10 - Z68.26) #Weight [...] software and direct typing Please excuse inadvertent electronic resources librarian or typing errors, or uncorrected word substitutions Although every attempt has been made by the provider to proofread this document, occasional misspellings and typographical errors may still be present Due to the previous pandemic, and the use of personal protective equipment (PPE) This may decrease voice recognition accuracy Inadvertent electronic resources librarian errors may occur 02/27/2024 BMI 26.0-26.9,adult (ICD-10 - Z68.26) #Weight Management 02/26/2024 Patient to have updated labs from [facility] faxed to us later today She is still very stressed due to her brother's cancer diagnosis, and makes frequent visits that interfere with her diet and exercise routine. She has decided to take more time for herself and will make less frequent visits. Discussed importance of creatine, protein, and resistance training for muscle building. She has signed up for a gym membership. She will stay on the Wegovy 2.4 weekly until she reaches her goal weight Otherwise thriving She will continue to use antifungal cream Total time spent today was 30 minutes of which greater than 50% was spent on coordinating and counseling Patient has been found to be overweight with a BMI of (26). Patient has overweight class per BMI standards We are a board certified obesity and weight management practice Patient has trialed behavioral modification, dietary restrictions and exercise for a minimum of 6 months The most recent [place] [employer] of clinical endocrinologists and [place] [employer] guidelines recommend patients who have overweight BMI or obesity BMI, who also have metabolic syndrome, prediabetes, HLD, and other comorbidities or at risk of developing type 2 diabetes should aim for a weight loss goal of at least 10% of the baseline body weight Patient counseled regarding effects of GLP/GIP-1 agonists, and other FDA approved wgt loss meds with regards to a multifactorial approach of weight loss as mentioned above and not solely appetite suppression. Of note, some information is being carried forward from prior records for informational purposes only and is being cited so that efficiency, safety and quality of the patient's care is not compromised This note was prepared using voice recognition software and direct typing Please excuse inadvertent electronic resources librarian or typing errors, or uncorrected word substitutions Although every attempt has been made by the provider to proofread this document, occasional misspellings and typographical errors may still be present Due to the previous pandemic, and the use of personal protective equipment (PPE) This may decrease voice recognition accuracy Inadvertent electronic resources librarian errors may occur 01/16/2024 BMI 26.0-26.9,adult (ICD-10 - Z68.26) #Weight Management 01/16/2024 Patient to have updated labs from [facility] faxed to us later today Otherwise thriving Feels as if she is plateauing We discussed possibly switching to dual incretin Continue Wegovy 2.4 mg She will be prescribed antifungal cream Plastics referral for skin excision potentially after weight loss has been completed *Discussed protein and strength and resistance training and muscle composition Overall patient is doing good and is happy with the results so far. Wanted to change goal weight to about 140lbs. Total time spent today was 30 minutes of which greater than 50% was spent on coordinating and counseling Patient has been found to be overweight with a BMI of (26). Patient has overweight class per BMI standards We are a board certified obesity and weight management practice Patient has trialed behavioral modification, dietary restrictions and exercise for a minimum of 6 months The most recent [place] [employer]ocrin[employer] and [place] [employer] guidelines recommend patients who have overweight BMI or obesity BMI, who also have metabolic syndrome, prediabetes, HLD, and other comorbidities or at risk of developing type 2 diabetes should aim for a weight loss goal of at least 10% of the baseline body weight Patient counseled regarding effects of GLP/GIP-1 agonists, and other FDA approved wgt loss meds with regards to a multifactorial approach of weight loss as mentioned above and not solely appetite suppression. We have discussed the mechanism of GLP-1's/GIP, dual incretins, appetitite suppressants I think this would be fantastic option for her given her metabolic workup and body composition We have discussed the risks and benefits and side effects including/and not limited to Sarcopenia, intestinal obstruction, constipation, nausea, lethargy, headache Discussed importance of protein consumption for muscle maintenance as well as strength and resistance training ,probiotics, B12 complex biotin , iron and other nutrients, To help avoid telogen effluvium We have discussed the lifelong requirement of nutritional supplementation And adherence to an exercise regimen as well as importance of follow-up We did discuss the neurohormonal changes that are occurring with these medications and Need for long-term Continued usage The patient understands and agrees There is no history of medullary thyroid cancer or multiple endocrine neoplasia There is also no history of cardiovascular disease, hypertension, palpitations, or arrhythmias In the setting of potential stimulant/amphetamine use such as phentermine We have also discussed risks and benefits, and the use of compounded medications to help offset the national shortages as well as financial implications vs trade name drugs Patient was reassured and welcomed to the practice. We discussed that we stress a hollistic medical approach with emphasis on lifestyle modification. Patient was informed that a healthy lifestyle with exercise and good eating habits can help reduce his risk of medical complications. He is explained that obesity increases his risk of diabetes, cardiovascular disease, or organ damage. We spent a lot of time discussing the relationship between food, exercise, sleep, mental health and obesity. Patient was counseled on the importance EATING local, organic food when possible. Patient was educated on clean 15 and dirty dozen. I provided information about reading books called The Food Rules by [employer] and Eat Fat Get Lean by Dr Randall Panchal. Self education is important in the journey for weight management. Patient was offered diagnostic testing. We want to measure visceral adiposity, advanced body composition, adverse lipids, fatty acid balance, risk for heart disease and atherosclerosis, markers of inflammation and genetic susceptibility. Patient was counseled on weight management and was advised to lose weight using A. Meal Replacement Products We discussed the lifelong requirement of nutritional supplementation and adherence to an exercise regimen as well as importance of dietary follow-up Patient was educated on the replacement products called optifast. This is a good way of taking fixed amount of calories. It has been shown in studies to be ineffective weight management tool. We also recommend maintaining adequate protein intake and muscle composition, 1.5mg/kg This however has to be coupled with lifestyle intervention as well as laboratory data and EKG monitoring. It is impossible to know how a person will tolerate complete meal replacement. The side effects of meal replacement and weight loss could include syncopal attacks, dizziness, gallstones, potential cholecystectomy, possible heart attack and even . The benefits of meal replacement would be potential weight loss but no guarantees can be made. Meal replacement products are not covered by insurance. Once the patient has bought these products we cannot return them B. Lifestyle management which includes several strategies as below 1. Eat a low carbohydrate good fat good protein diet. Eliminate refined carbohydrates from the diet. Continue blood sugar and sugared beverages. Eat local organic when possible. Cook your own meals. Read food labels. None about healthy snacks. Portion control and food with low glycemic index 2. Exercise regularly. Try to get at least 6000 steps a day. Use a predominant to track activity level. Consider using apps like [employer], [employer], lose it, stick as needed for self-monitoring and weight management. Consider group exercises. Consider hiring a personal finance instructor. Regular exercise is preston to sustainable health and prevents as a buffer against weight regain 3. Sleep is most important for healing. Tried to sleep at least 8 hours a night. A good quality sleep needs a sleep ritual with ideal room temperature of around 68. It might help to take a shower and have no electronics in the room and sleep in a very dark room without artificial light. Start her sleep routine and get up early in the morning and go to bed on time 4. Make a social connection. Surround yourself with positive people with positive energy. Connect with friends and family. 5. Get into the habit of meditating and mindfulness while doing everything. 6. Go outside and connect with nature. C. Prescription medications Patient was educated on the use of prescription medications for medical weight loss. This is a growing list and includes phentermine, Topamax,Qsymia, contrave, belviq and saxenda. All prescription medications could have side effects including but not limited to kidney stones, seizure disorder cardiac arrhythmias heart attack pancreatitis etc. etc.. Patient was encouraged to read the prescription insert and have coaching with their pharmacist and make an informed decision about taking medication and know that these medications are being prescribed with good intentions and we do not know how a patient would react to her medication. Sudden medications are FDA approved for weight loss and there is also off label use depending on patient's inability to afford medications in an attempt to lose weight D. Behavioral counseling was done to establish a relationship between food and an mood. Patient was provided information about local counseling and psychiatry and Dr Harrison at [facility]. We would like to cover regular topics and build on low glycemic eating exercise mindful eating, using yoga and meditation along with deep breathing and connecting with friends and family. E. MASS PAT reviewed, Patient's current medications were reviewed and opinion was given on medication that can cause weight gain and can be substituted F. Patient was assessed for risk with obesity including and not limiting to atherosclerosis heart disease stroke kidney disease, restrictive lung disease, irritable bowel syndrome and overall mortality. Risk of developing prediabetes diabetes and metabolic syndrome was discussed G. Therapeutic plan: We have decided to make therapeutic plan which would include choosing wisely on calories restricting portion getting active, tracking weight, getting good quality sleep and working on time management H. Patient will follow up in (4) weeks for weight management Of note, some information is being carried forward from prior records for informational purposes only and is being cited so that efficiency, safety and quality of the patient's care is not compromised This note was prepared using voice recognition software and direct typing Please excuse inadvertent electronic resources librarian or typing errors, or uncorrected word substitutions Although every attempt has been made by the provider to proofread this document, occasional misspellings and typographical errors may still be present Due to the previous pandemic, and the use of personal protective equipment (PPE) This may decrease voice recognition accuracy Inadvertent electronic resources librarian errors may occur 11/30/2023 Dietary counseling and surveillance (ICD-10 - Z71.3) #Weight Management 11/29/2023 Otherwise thriving Continue Wegovy 2.4 mg She will be prescribed antifungal cream Plastics referral for skin excision potentially after weight loss has been completed Request labs from [facility] supposedly done in June 2023 Discussed protein and strength and resistance training and muscle composition Overall patient is doing good and is happy with the results so far. Wanted to change goal weight to about 140lbs. 6-week follow-up Total time spent today was 30 minutes of which greater than 50% was spent on coordinating and counseling Patient has been found to be overweight with a BMI of (26). Patient has overweight class per BMI standards We are a board certified obesity and weight management practice Patient has trialed behavioral modification, dietary restrictions and exercise for a minimum of 6 months The most recent [place] [employer] endocrinologists and [place] [employer] guidelines recommend patients who have overweight BMI or obesity BMI, who also have metabolic syndrome, prediabetes, HLD, and other comorbidities or at risk of developing type 2 diabetes should aim for a weight loss goal of at least 10% of the baseline body weight Patient counseled regarding effects of GLP/GIP-1 agonists, and other FDA approved wgt loss meds with regards to a multifactorial approach of weight loss as mentioned above and not solely appetite suppression. We have discussed the mechanism of GLP-1's/GIP, dual incretins, appetitite suppressants I think this would be fantastic option for her given her metabolic workup and body composition We have discussed the risks and benefits and side effects including/and not limited to Sarcopenia, intestinal obstruction, constipation, nausea, lethargy, headache Discussed importance of protein consumption for muscle maintenance as well as strength and resistance training ,probiotics, B12 complex biotin , iron and other nutrients, To help avoid telogen effluvium We have discussed the lifelong requirement of nutritional supplementation And adherence to an exercise regimen as well as importance of follow-up We did discuss the neurohormonal changes that are occurring with these medications and Need for long-term Continued usage The patient understands and agrees There is no history of medullary thyroid cancer or multiple endocrine neoplasia There is also no history of cardiovascular disease, hypertension, palpitations, or arrhythmias In the setting of potential stimulant/amphetamine use such as phentermine We have also discussed risks and benefits, and the use of compounded medications to help offset the national shortages as well as financial implications vs trade name drugs Patient was reassured and welcomed to the practice. We discussed that we stress a hollistic medical approach with emphasis on lifestyle modification. Patient was informed that a healthy lifestyle with exercise and good eating habits can help reduce his risk of medical complications. He is explained that obesity increases his risk of diabetes, cardiovascular disease, or organ damage. We spent a lot of time discussing the relationship between food, exercise, sleep, mental health and obesity. Patient was counseled on the importance EATING local, organic food when possible. Patient was educated on clean 15 and dirty dozen. I provided information about reading books called The Food Rules by [employer] and Eat Fat Get Lean by Dr Randall Panchal. Self education is important in the journey for weight management. Patient was offered diagnostic testing. We want to measure visceral adiposity, advanced body composition, adverse lipids, fatty acid balance, risk for heart disease and atherosclerosis, markers of inflammation and genetic susceptibility. Patient was counseled on weight management and was advised to lose weight using A. Meal Replacement Products We discussed the lifelong requirement of nutritional supplementation and adherence to an exercise regimen as well as importance of dietary follow-up Patient was educated on the replacement products called optifast. This is a good way of taking fixed amount of calories. It has been shown in studies to be ineffective weight management tool. We also recommend maintaining adequate protein intake and muscle composition, 1.5mg/kg This however has to be coupled with lifestyle intervention as well as laboratory data and EKG monitoring. It is impossible to know how a person will tolerate complete meal replacement. The side effects of meal replacement and weight loss could include syncopal attacks, dizziness, gallstones, potential cholecystectomy, possible heart attack and even . The benefits of meal replacement would be potential weight loss but no guarantees can be made. Meal replacement products are not covered by insurance. Once the patient has bought these products we cannot return them B. Lifestyle management which includes several strategies as below 1. Eat a low carbohydrate good fat good protein diet. Eliminate refined carbohydrates from the diet. Continue blood sugar and sugared beverages. Eat local organic when possible. Cook your own meals. Read food labels. None about healthy snacks. Portion control and food with low glycemic index 2. Exercise regularly. Try to get at least 6000 steps a day. Use a predominant to track activity level. Consider using apps like [employer], [employer], lose it, stick as needed for self-monitoring and weight management. Consider group exercises. Consider hiring a personal finance instructor. Regular exercise is preston to sustainable health and prevents as a buffer against weight regain 3. Sleep is most important for healing. Tried to sleep at least 8 hours a night. A good quality sleep needs a sleep ritual with ideal room temperature of around 68. It might help to take a shower and have no electronics in the room and sleep in a very dark room without artificial light. Start her sleep routine and get up early in the morning and go to bed on time 4. Make a social connection. Surround yourself with positive people with positive energy. Connect with friends and family. 5. Get into the habit of meditating and mindfulness while doing everything. 6. Go outside and connect with nature. C. Prescription medications Patient was educated on the use of prescription medications for medical weight loss. This is a growing list and includes phentermine, Topamax,Qsymia, contrave, belviq and saxenda. All prescription medications could have side effects including but not limited to kidney stones, seizure disorder cardiac arrhythmias heart attack pancreatitis etc. etc.. Patient was encouraged to read the prescription insert and have coaching with their pharmacist and make an informed decision about taking medication and know that these medications are being prescribed with good intentions and we do not know how a patient would react to her medication. Sudden medications are FDA approved for weight loss and there is also off label use depending on patient's inability to afford medications in an attempt to lose weight D. Behavioral counseling was done to establish a relationship between food and an mood. Patient was provided information about local counseling and psychiatry and Dr Harrison at [facility]. We would like to cover regular topics and build on low glycemic eating exercise mindful eating, using yoga and meditation along with deep breathing and connecting with friends and family. E. MASS PAT reviewed, Patient's current medications were reviewed and opinion was given on medication that can cause weight gain and can be substituted F. Patient was assessed for risk with obesity including and not limiting to atherosclerosis heart disease stroke kidney disease, restrictive lung disease, irritable bowel syndrome and overall mortality. Risk of developing prediabetes diabetes and metabolic syndrome was discussed G. Therapeutic plan: We have decided to make therapeutic plan which would include choosing wisely on calories restricting portion getting active, tracking weight, getting good quality sleep and working on time management H. Patient will follow up in (4) weeks for weight management Of note, some information is being carried forward from prior records for informational purposes only and is being cited so that efficiency, safety and quality of the patient's care is not compromised This note was prepared using voice recognition software and direct typing Please excuse inadvertent electronic resources librarian or typing errors, or uncorrected word substitutions Although every attempt has been made by the provider to proofread this document, occasional misspellings and typographical errors may still be present Due to the previous pandemic, and the use of personal protective equipment (PPE) This may decrease voice recognition accuracy Inadvertent electronic resources librarian errors may occur 10/29/2023 Dietary counseling and surveillance (ICD-10 - Z71.3) #Weight Management 10/29/2023 She will be prescribed antifungal cream Plastics referral for skin excision potentially after weight loss has been completed Request labs from [facility] supposedly done in June 2023 Continue Wegovy 2.4 mg Discussed protein and strength and resistance training and muscle composition Overall patient is doing good and is happy with the results so far. Wanted to change goal weight to about 140lbs. 6-week follow-up Total time spent today was 30 minutes of which greater than 50% was spent on coordinating and counseling Patient has been found to be overweight with a BMI of (28). Patient has overweight class per BMI standards We are a board certified obesity and weight management practice Patient has trialed behavioral modification, dietary restrictions and exercise for a minimum of 6 months The most recent [place] [employer] clinical endocrinologists and [place] [employer] guidelines recommend patients who have overweight BMI or obesity BMI, who also have metabolic syndrome, prediabetes, HLD, and other comorbidities or at risk of developing type 2 diabetes should aim for a weight loss goal of at least 10% of the baseline body weight Patient counseled regarding effects of GLP/GIP-1 agonists, and other FDA approved wgt loss meds with regards to a multifactorial approach of weight loss as mentioned above and not solely appetite suppression. We have discussed the mechanism of GLP-1's/GIP, dual incretins, appetitite suppressants I think this would be fantastic option for her given her metabolic workup and body composition We have discussed the risks and benefits and side effects including/and not limited to Sarcopenia, intestinal obstruction, constipation, nausea, lethargy, headache Discussed importance of protein consumption for muscle maintenance as well as strength and resistance training ,probiotics, B12 complex biotin , iron and other nutrients, To help avoid telogen effluvium We have discussed the lifelong requirement of nutritional supplementation And adherence to an exercise regimen as well as importance of follow-up We did discuss the neurohormonal changes that are occurring with these medications and Need for long-term Continued usage The patient understands and agrees There is no history of medullary thyroid cancer or multiple endocrine neoplasia There is also no history of cardiovascular disease, hypertension, palpitations, or arrhythmias In the setting of potential stimulant/amphetamine use such as phentermine We have also discussed risks and benefits, and the use of compounded medications to help offset the national shortages as well as financial implications vs trade name drugs Patient was reassured and welcomed to the practice. We discussed that we stress a hollistic medical approach with emphasis on lifestyle modification. Patient was informed that a healthy lifestyle with exercise and good eating habits can help reduce his risk of medical complications. He is explained that obesity increases his risk of diabetes, cardiovascular disease, or organ damage. We spent a lot of time discussing the relationship between food, exercise, sleep, mental health and obesity. Patient was counseled on the importance EATING local, organic food when possible. Patient was educated on clean 15 and dirty dozen. I provided information about reading books called The Food Rules by [employer] and Eat Fat Get Lean by Dr Randall Panchal. Self education is important in the journey for weight management. Patient was offered diagnostic testing. We want to measure visceral adiposity, advanced body composition, adverse lipids, fatty acid balance, risk for heart disease and atherosclerosis, markers of inflammation and genetic susceptibility. Patient was counseled on weight management and was advised to lose weight using A. Meal Replacement Products We discussed the lifelong requirement of nutritional supplementation and adherence to an exercise regimen as well as importance of dietary follow-up Patient was educated on the replacement products called optifast. This is a good way of taking fixed amount of calories. It has been shown in studies to be ineffective weight management tool. We also recommend maintaining adequate protein intake and muscle composition, 1.5mg/kg This however has to be coupled with lifestyle intervention as well as laboratory data and EKG monitoring. It is impossible to know how a person will tolerate complete meal replacement. The side effects of meal replacement and weight loss could include syncopal attacks, dizziness, gallstones, potential cholecystectomy, possible heart attack and even . The benefits of meal replacement would be potential weight loss but no guarantees can be made. Meal replacement products are not covered by insurance. Once the patient has bought these products we cannot return them B. Lifestyle management which includes several strategies as below 1. Eat a low carbohydrate good fat good protein diet. Eliminate refined carbohydrates from the diet. Continue blood sugar and sugared beverages. Eat local organic when possible. Cook your own meals. Read food labels. None about healthy snacks. Portion control and food with low glycemic index 2. Exercise regularly. Try to get at least 6000 steps a day. Use a predominant to track activity level. Consider using apps like [employer], myfitnesspal, lose it, stick as needed for self-monitoring and weight management. Consider group exercises. Consider hiring a personal finance instructor. Regular exercise is preston to sustainable health and prevents as a buffer against weight regain 3. Sleep is most important for healing. Tried to sleep at least 8 hours a night. A good quality sleep needs a sleep ritual with ideal room temperature of around 68. It might help to take a shower and have no electronics in the room and sleep in a very dark room without artificial light. Start her sleep routine and get up early in the morning and go to bed on time 4. Make a social connection. Surround yourself with positive people with positive energy. Connect with friends and family. 5. Get into the habit of meditating and mindfulness while doing everything. 6. Go outside and connect with nature. C. Prescription medications Patient was educated on the use of prescription medications for medical weight loss. This is a growing list and includes phentermine, Topamax,Qsymia, contrave, belviq and saxenda. All prescription medications could have side effects including but not limited to kidney stones, seizure disorder cardiac arrhythmias heart attack pancreatitis etc. etc.. Patient was encouraged to read the prescription insert and have coaching with their pharmacist and make an informed decision about taking medication and know that these medications are being prescribed with good intentions and we do not know how a patient would react to her medication. Sudden medications are FDA approved for weight loss and there is also off label use depending on patient's inability to afford medications in an attempt to lose weight D. Behavioral counseling was done to establish a relationship between food and an mood. Patient was provided information about local counseling and psychiatry and Dr Harrison at [facility]. We would like to cover regular topics and build on low glycemic eating exercise mindful eating, using yoga and meditation along with deep breathing and connecting with friends and family. E. MASS PAT reviewed, Patient's current medications were reviewed and opinion was given on medication that can cause weight gain and can be substituted F. Patient was assessed for risk with obesity including and not limiting to atherosclerosis heart disease stroke kidney disease, restrictive lung disease, irritable bowel syndrome and overall mortality. Risk of developing prediabetes diabetes and metabolic syndrome was discussed G. Therapeutic plan: We have decided to make therapeutic plan which would include choosing wisely on calories restricting portion getting active, tracking weight, getting good quality sleep and working on time management H. Patient will follow up in (4) weeks for weight management Of note, some information is being carried forward from prior records for informational purposes only and is being cited so that efficiency, safety and quality of the patient's care is not compromised This note was prepared using voice recognition software and direct typing Please excuse inadvertent electronic resources librarian or typing errors, or uncorrected word substitutions Although every attempt has been made by the provider to proofread this document, occasional misspellings and typographical errors may still be present Due to the previous pandemic, and the use of personal protective equipment (PPE) This may decrease voice recognition accuracy Inadvertent electronic resources librarian errors may occur 09/19/2023 Dietary counseling and surveillance (ICD-10 - Z71.3) #Weight Management 09/19/2023 Request labs from [facility] supposedly done in June 2023 Continue Wegovy 2.4 mg Discussed protein and strength and resistance training and muscle composition Overall patient is doing good and is happy with the results so far. Wanted to change goal weight to about 140lbs. 6-week follow-up Total time spent today was 30 minutes of which greater than 50% was spent on coordinating and counseling Patient has been found to be overweight with a BMI of (27). Patient has overweight class per BMI standards We are a board certified obesity and weight management practice Patient has trialed behavioral modification, dietary restrictions and exercise for a minimum of 6 months The most recent [place] [employer] endocrinologists and [place] [employer] guidelines recommend patients who have overweight BMI or obesity BMI, who also have metabolic syndrome, prediabetes, HLD, and other comorbidities or at risk of developing type 2 diabetes should aim for a weight loss goal of at least 10% of the baseline body weight Patient counseled regarding effects of GLP/GIP-1 agonists, and other FDA approved wgt loss meds with regards to a multifactorial approach of weight loss as mentioned above and not solely appetite suppression. We have discussed the mechanism of GLP-1's/GIP, dual incretins, appetitite suppressants I think this would be fantastic option for her given her metabolic workup and body composition We have discussed the risks and benefits and side effects including/and not limited to Sarcopenia, intestinal obstruction, constipation, nausea, lethargy, headache Discussed importance of protein consumption for muscle maintenance as well as strength and resistance training ,probiotics, B12 complex biotin , iron and other nutrients, To help avoid telogen effluvium We have discussed the lifelong requirement of nutritional supplementation And adherence to an exercise regimen as well as importance of follow-up We did discuss the neurohormonal changes that are occurring with these medications and Need for long-term Continued usage The patient understands and agrees There is no history of medullary thyroid cancer or multiple endocrine neoplasia There is also no history of cardiovascular disease, hypertension, palpitations, or arrhythmias In the setting of potential stimulant/amphetamine use such as phentermine We have also discussed risks and benefits, and the use of compounded medications to help offset the national shortages as well as financial implications vs trade name drugs Patient was reassured and welcomed to the practice. We discussed that we stress a hollistic medical approach with emphasis on lifestyle modification. Patient was informed that a healthy lifestyle with exercise and good eating habits can help reduce his risk of medical complications. He is explained that obesity increases his risk of diabetes, cardiovascular disease, or organ damage. We spent a lot of time discussing the relationship between food, exercise, sleep, mental health and obesity. Patient was counseled on the importance EATING local, organic food when possible. Patient was educated on clean 15 and dirty dozen. I provided information about reading books called The Food Rules by [employer] and Eat Fat Get Lean by Dr Randall Panchal. Self education is important in the journey for weight management. Patient was offered diagnostic testing. We want to measure visceral adiposity, advanced body composition, adverse lipids, fatty acid balance, risk for heart disease and atherosclerosis, markers of inflammation and genetic susceptibility. Patient was counseled on weight management and was advised to lose weight using A. Meal Replacement Products We discussed the lifelong requirement of nutritional supplementation and adherence to an exercise regimen as well as importance of dietary follow-up Patient was educated on the replacement products called optifast. This is a good way of taking fixed amount of calories. It has been shown in studies to be ineffective weight management tool. We also recommend maintaining adequate protein intake and muscle composition, 1.5mg/kg This however has to be coupled with lifestyle intervention as well as laboratory data and EKG monitoring. It is impossible to know how a person will tolerate complete meal replacement. The side effects of meal replacement and weight loss could include syncopal attacks, dizziness, gallstones, potential cholecystectomy, possible heart attack and even . The benefits of meal replacement would be potential weight loss but no guarantees can be made. Meal replacement products are not covered by insurance. Once the patient has bought these products we cannot return them B. Lifestyle management which includes several strategies as below 1. Eat a low carbohydrate good fat good protein diet. Eliminate refined carbohydrates from the diet. Continue blood sugar and sugared beverages. Eat local organic when possible. Cook your own meals. Read food labels. None about healthy snacks. Portion control and food with low glycemic index 2. Exercise regularly. Try to get at least 6000 steps a day. Use a predominant to track activity level. Consider using apps like [employer], myfitnesspal, lose it, stick as needed for self-monitoring and weight management. Consider group exercises. Consider hiring a personal finance instructor. Regular exercise is preston to sustainable health and prevents as a buffer against weight regain 3. Sleep is most important for healing. Tried to sleep at least 8 hours a night. A good quality sleep needs a sleep ritual with ideal room temperature of around 68. It might help to take a shower and have no electronics in the room and sleep in a very dark room without artificial light. Start her sleep routine and get up early in the morning and go to bed on time 4. Make a social connection. Surround yourself with positive people with positive energy. Connect with friends and family. 5. Get into the habit of meditating and mindfulness while doing everything. 6. Go outside and connect with nature. C. Prescription medications Patient was educated on the use of prescription medications for medical weight loss. This is a growing list and includes phentermine, Topamax,Qsymia, contrave, belviq and saxenda. All prescription medications could have side effects including but not limited to kidney stones, seizure disorder cardiac arrhythmias heart attack pancreatitis etc. etc.. Patient was encouraged to read the prescription insert and have coaching with their pharmacist and make an informed decision about taking medication and know that these medications are being prescribed with good intentions and we do not know how a patient would react to her medication. Sudden medications are FDA approved for weight loss and there is also off label use depending on patient's inability to afford medications in an attempt to lose weight D. Behavioral counseling was done to establish a relationship between food and an mood. Patient was provided information about local counseling and psychiatry and Dr Harrison at [facility]. We would like to cover regular topics and build on low glycemic eating exercise mindful eating, using yoga and meditation along with deep breathing and connecting with friends and family. E. MASS PAT reviewed, Patient's current medications were reviewed and opinion was given on medication that can cause weight gain and can be substituted F. Patient was assessed for risk with obesity including and not limiting to atherosclerosis heart disease stroke kidney disease, restrictive lung disease, irritable bowel syndrome and overall mortality. Risk of developing prediabetes diabetes and metabolic syndrome was discussed G. Therapeutic plan: We have decided to make therapeutic plan which would include choosing wisely on calories restricting portion getting active, tracking weight, getting good quality sleep and working on time management H. Patient will follow up in (4) weeks for weight management Of note, some information is being carried forward from prior records for informational purposes only and is being cited so that efficiency, safety and quality of the patient's care is not compromised This note was prepared using voice recognition software and direct typing Please excuse inadvertent electronic resources librarian or typing errors, or uncorrected word substitutions Although every attempt has been made by the provider to proofread this document, occasional misspellings and typographical errors may still be present Due to the previous pandemic, and the use of personal protective equipment (PPE) This may decrease voice recognition accuracy Inadvertent electronic resources librarian errors may occur 10/29/2023 Hx of laparoscopic gastric banding (ICD-10 - Z98.84) #Weight Management 10/29/2023 She will be prescribed antifungal cream Plastics referral for skin excision potentially after weight loss has been completed Request labs from [facility] supposedly done in June 2023 Continue Wegovy 2.4 mg Discussed protein and strength and resistance training and muscle composition Overall patient is doing good and is happy with the results so far. Wanted to change goal weight to about 140lbs. 6-week follow-up Total time spent today was 30 minutes of which greater than 50% was spent on coordinating and counseling Patient has been found to be overweight with a BMI of (28). Patient has overweight class per BMI standards We are a board certified obesity and weight management practice Patient has trialed behavioral modification, dietary restrictions and exercise for a minimum of 6 months The most recent [place] [employer] of clinical endocrinologists and [place] [employer] guidelines recommend patients who have overweight BMI or obesity BMI, who also have metabolic syndrome, prediabetes, HLD, and other comorbidities or at risk of developing type 2 diabetes should aim for a weight loss goal of at least 10% of the baseline body weight Patient counseled regarding effects of GLP/GIP-1 agonists, and other FDA approved wgt loss meds with regards to a multifactorial approach of weight loss as mentioned above and not solely appetite suppression. We have discussed the mechanism of GLP-1's/GIP, dual incretins, appetitite suppressants I think this would be fantastic option for her given her metabolic workup and body composition We have discussed the risks and benefits and side effects including/and not limited to Sarcopenia, intestinal obstruction, constipation, nausea, lethargy, headache Discussed importance of protein consumption for muscle maintenance as well as strength and resistance training ,probiotics, B12 complex biotin , iron and other nutrients, To help avoid telogen effluvium We have discussed the lifelong requirement of nutritional supplementation And adherence to an exercise regimen as well as importance of follow-up We did discuss the neurohormonal changes that are occurring with these medications and Need for long-term Continued usage The patient understands and agrees There is no history of medullary thyroid cancer or multiple endocrine neoplasia There is also no history of cardiovascular disease, hypertension, palpitations, or arrhythmias In the setting of potential stimulant/amphetamine use such as phentermine We have also discussed risks and benefits, and the use of compounded medications to help offset the national shortages as well as financial implications vs trade name drugs Patient was reassured and welcomed to the practice. We discussed that we stress a hollistic medical approach with emphasis on lifestyle modification. Patient was informed that a healthy lifestyle with exercise and good eating habits can help reduce his risk of medical complications. He is explained that obesity increases his risk of diabetes, cardiovascular disease, or organ damage. We spent a lot of time discussing the relationship between food, exercise, sleep, mental health and obesity. Patient was counseled on the importance EATING local, organic food when possible. Patient was educated on clean 15 and dirty dozen. I provided information about reading books called The Food Rules by [employer] and Eat Fat Get Lean by Dr Randall Panchal. Self education is important in the journey for weight management. Patient was offered diagnostic testing. We want to measure visceral adiposity, advanced body composition, adverse lipids, fatty acid balance, risk for heart disease and atherosclerosis, markers of inflammation and genetic susceptibility. Patient was counseled on weight management and was advised to lose weight using A. Meal Replacement Products We discussed the lifelong requirement of nutritional supplementation and adherence to an exercise regimen as well as importance of dietary follow-up Patient was educated on the replacement products called optifast. This is a good way of taking fixed amount of calories. It has been shown in studies to be ineffective weight management tool. We also recommend maintaining adequate protein intake and muscle composition, 1.5mg/kg This however has to be coupled with lifestyle intervention as well as laboratory data and EKG monitoring. It is impossible to know how a person will tolerate complete meal replacement. The side effects of meal replacement and weight loss could include syncopal attacks, dizziness, gallstones, potential cholecystectomy, possible heart attack and even . The benefits of meal replacement would be potential weight loss but no guarantees can be made. Meal replacement products are not covered by insurance. Once the patient has bought these products we cannot return them B. Lifestyle management which includes several strategies as below 1. Eat a low carbohydrate good fat good protein diet. Eliminate refined carbohydrates from the diet. Continue blood sugar and sugared beverages. Eat local organic when possible. Cook your own meals. Read food labels. None about healthy snacks. Portion control and food with low glycemic index 2. Exercise regularly. Try to get at least 6000 steps a day. Use a predominant to track activity level. Consider using apps like [employer], [employer], lose it, stick as needed for self-monitoring and weight management. Consider group exercises. Consider hiring a personal finance instructor. Regular exercise is preston to sustainable health and prevents as a buffer against weight regain 3. Sleep is most important for healing. Tried to sleep at least 8 hours a night. A good quality sleep needs a sleep ritual with ideal room temperature of around 68. It might help to take a shower and have no electronics in the room and sleep in a very dark room without artificial light. Start her sleep routine and get up early in the morning and go to bed on time 4. Make a social connection. Surround yourself with positive people with positive energy. Connect with friends and family. 5. Get into the habit of meditating and mindfulness while doing everything. 6. Go outside and connect with nature. C. Prescription medications Patient was educated on the use of prescription medications for medical weight loss. This is a growing list and includes phentermine, Topamax,Qsymia, contrave, belviq and saxenda. All prescription medications could have side effects including but not limited to kidney stones, seizure disorder cardiac arrhythmias heart attack pancreatitis etc. etc.. Patient was encouraged to read the prescription insert and have coaching with their pharmacist and make an informed decision about taking medication and know that these medications are being prescribed with good intentions and we do not know how a patient would react to her medication. Sudden medications are FDA approved for weight loss and there is also off label use depending on patient's inability to afford medications in an attempt to lose weight D. Behavioral counseling was done to establish a relationship between food and an mood. Patient was provided information about local counseling and psychiatry and Dr Harrison at [facility]. We would like to cover regular topics and build on low glycemic eating exercise mindful eating, using yoga and meditation along with deep breathing and connecting with friends and family. E. MASS PAT reviewed, Patient's current medications were reviewed and opinion was given on medication that can cause weight gain and can be substituted F. Patient was assessed for risk with obesity including and not limiting to atherosclerosis heart disease stroke kidney disease, restrictive lung disease, irritable bowel syndrome and overall mortality. Risk of developing prediabetes diabetes and metabolic syndrome was discussed G. Therapeutic plan: We have decided to make therapeutic plan which would include choosing wisely on calories restricting portion getting active, tracking weight, getting good quality sleep and working on time management H. Patient will follow up in (4) weeks for weight management Of note, some information is being carried forward from prior records for informational purposes only and is being cited so that efficiency, safety and quality of the patient's care is not compromised This note was prepared using voice recognition software and direct typing Please excuse inadvertent electronic resources librarian or typing errors, or uncorrected word substitutions Although every attempt has been made by the provider to proofread this document, occasional misspellings and typographical errors may still be present Due to the previous pandemic, and the use of personal protective equipment (PPE) This may decrease voice recognition accuracy Inadvertent electronic resources librarian errors may occur 11/30/2023 Hx of laparoscopic gastric banding (ICD-10 - Z98.84) #Weight Management 11/29/2023 Otherwise thriving Continue Wegovy 2.4 mg She will be prescribed antifungal cream Plastics referral for skin excision potentially after weight loss has been completed Request labs from [facility] supposedly done in June 2023 Discussed protein and strength and resistance training and muscle composition Overall patient is doing good and is happy with the results so far. Wanted to change goal weight to about 140lbs. 6-week follow-up Total time spent today was 30 minutes of which greater than 50% was spent on coordinating and counseling Patient has been found to be overweight with a BMI of (26). Patient has overweight class per BMI standards We are a board certified obesity and weight management practice Patient has trialed behavioral modification, dietary restrictions and exercise for a minimum of 6 months The most recent [place] [employer] of clinical endocrinologists and [place] [employer] guidelines recommend patients who have overweight BMI or obesity BMI, who also have metabolic syndrome, prediabetes, HLD, and other comorbidities or at risk of developing type 2 diabetes should aim for a weight loss goal of at least 10% of the baseline body weight Patient counseled regarding effects of GLP/GIP-1 agonists, and other FDA approved wgt loss meds with regards to a multifactorial approach of weight loss as mentioned above and not solely appetite suppression. We have discussed the mechanism of GLP-1's/GIP, dual incretins, appetitite suppressants I think this would be fantastic option for her given her metabolic workup and body composition We have discussed the risks and benefits and side effects including/and not limited to Sarcopenia, intestinal obstruction, constipation, nausea, lethargy, headache Discussed importance of protein consumption for muscle maintenance as well as strength and resistance training ,probiotics, B12 complex biotin , iron and other nutrients, To help avoid telogen effluvium We have discussed the lifelong requirement of nutritional supplementation And adherence to an exercise regimen as well as importance of follow-up We did discuss the neurohormonal changes that are occurring with these medications and Need for long-term Continued usage The patient understands and agrees There is no history of medullary thyroid cancer or multiple endocrine neoplasia There is also no history of cardiovascular disease, hypertension, palpitations, or arrhythmias In the setting of potential stimulant/amphetamine use such as phentermine We have also discussed risks and benefits, and the use of compounded medications to help offset the national shortages as well as financial implications vs trade name drugs Patient was reassured and welcomed to the practice. We discussed that we stress a hollistic medical approach with emphasis on lifestyle modification. Patient was informed that a healthy lifestyle with exercise and good eating habits can help reduce his risk of medical complications. He is explained that obesity increases his risk of diabetes, cardiovascular disease, or organ damage. We spent a lot of time discussing the relationship between food, exercise, sleep, mental health and obesity. Patient was counseled on the importance EATING local, organic food when possible. Patient was educated on clean 15 and dirty dozen. I provided information about reading books called The Food Rules by [employer] and Eat Fat Get Lean by Dr Randall Panchal. Self education is important in the journey for weight management. Patient was offered diagnostic testing. We want to measure visceral adiposity, advanced body composition, adverse lipids, fatty acid balance, risk for heart disease and atherosclerosis, markers of inflammation and genetic susceptibility. Patient was counseled on weight management and was advised to lose weight using A. Meal Replacement Products We discussed the lifelong requirement of nutritional supplementation and adherence to an exercise regimen as well as importance of dietary follow-up Patient was educated on the replacement products called optifast. This is a good way of taking fixed amount of calories. It has been shown in studies to be ineffective weight management tool. We also recommend maintaining adequate protein intake and muscle composition, 1.5mg/kg This however has to be coupled with lifestyle intervention as well as laboratory data and EKG monitoring. It is impossible to know how a person will tolerate complete meal replacement. The side effects of meal replacement and weight loss could include syncopal attacks, dizziness, gallstones, potential cholecystectomy, possible heart attack and even . The benefits of meal replacement would be potential weight loss but no guarantees can be made. Meal replacement products are not covered by insurance. Once the patient has bought these products we cannot return them B. Lifestyle management which includes several strategies as below 1. Eat a low carbohydrate good fat good protein diet. Eliminate refined carbohydrates from the diet. Continue blood sugar and sugared beverages. Eat local organic when possible. Cook your own meals. Read food labels. None about healthy snacks. Portion control and food with low glycemic index 2. Exercise regularly. Try to get at least 6000 steps a day. Use a predominant to track activity level. Consider using apps like [employer], [employer], lose it, stick as needed for self-monitoring and weight management. Consider group exercises. Consider hiring a personal finance instructor. Regular exercise is preston to sustainable health and prevents as a buffer against weight regain 3. Sleep is most important for healing. Tried to sleep at least 8 hours a night. A good quality sleep needs a sleep ritual with ideal room temperature of around 68. It might help to take a shower and have no electronics in the room and sleep in a very dark room without artificial light. Start her sleep routine and get up early in the morning and go to bed on time 4. Make a social connection. Surround yourself with positive people with positive energy. Connect with friends and family. 5. Get into the habit of meditating and mindfulness while doing everything. 6. Go outside and connect with nature. C. Prescription medications Patient was educated on the use of prescription medications for medical weight loss. This is a growing list and includes phentermine, Topamax,Qsymia, contrave, belviq and saxenda. All prescription medications could have side effects including but not limited to kidney stones, seizure disorder cardiac arrhythmias heart attack pancreatitis etc. etc.. Patient was encouraged to read the prescription insert and have coaching with their pharmacist and make an informed decision about taking medication and know that these medications are being prescribed with good intentions and we do not know how a patient would react to her medication. Sudden medications are FDA approved for weight loss and there is also off label use depending on patient's inability to afford medications in an attempt to lose weight D. Behavioral counseling was done to establish a relationship between food and an mood. Patient was provided information about local counseling and psychiatry and Dr Harrison at [facility]. We would like to cover regular topics and build on low glycemic eating exercise mindful eating, using yoga and meditation along with deep breathing and connecting with friends and family. E. MASS PAT reviewed, Patient's current medications were reviewed and opinion was given on medication that can cause weight gain and can be substituted F. Patient was assessed for risk with obesity including and not limiting to atherosclerosis heart disease stroke kidney disease, restrictive lung disease, irritable bowel syndrome and overall mortality. Risk of developing prediabetes diabetes and metabolic syndrome was discussed G. Therapeutic plan: We have decided to make therapeutic plan which would include choosing wisely on calories restricting portion getting active, tracking weight, getting good quality sleep and working on time management H. Patient will follow up in (4) weeks for weight management Of note, some information is being carried forward from prior records for informational purposes only and is being cited so that efficiency, safety and quality of the patient's care is not compromised This note was prepared using voice recognition software and direct typing Please excuse inadvertent electronic resources librarian or typing errors, or uncorrected word substitutions Although every attempt has been made by the provider to proofread this document, occasional misspellings and typographical errors may still be present Due to the previous pandemic, and the use of personal protective equipment (PPE) This may decrease voice recognition accuracy Inadvertent electronic resources librarian errors may occur 01/16/2024 Dietary counseling and surveillance (ICD-10 - Z71.3) #Weight Management 01/16/2024 Patient to have updated labs from [facility] faxed to us later today Otherwise thriving Feels as if she is plateauing We discussed possibly switching to dual incretin Continue Wegovy 2.4 mg She will be prescribed antifungal cream Plastics referral for skin excision potentially after weight loss has been completed *Discussed protein and strength and resistance training and muscle composition Overall patient is doing good and is happy with the results so far. Wanted to change goal weight to about 140lbs. Total time spent today was 30 minutes of which greater than 50% was spent on coordinating and counseling Patient has been found to be overweight with a BMI of (26). Patient has overweight class per BMI standards We are a board certified obesity and weight management practice Patient has trialed behavioral modification, dietary restrictions and exercise for a minimum of 6 months The most recent [place] [employer] of clinical endocrinologists and [place] [employer] endocrin[employer] guidelines recommend patients who have overweight BMI or obesity BMI, who also have metabolic syndrome, prediabetes, HLD, and other comorbidities or at risk of developing type 2 diabetes should aim for a weight loss goal of at least 10% of the baseline body weight Patient counseled regarding effects of GLP/GIP-1 agonists, and other FDA approved wgt loss meds with regards to a multifactorial approach of weight loss as mentioned above and not solely appetite suppression. We have discussed the mechanism of GLP-1's/GIP, dual incretins, appetitite suppressants I think this would be fantastic option for her given her metabolic workup and body composition We have discussed the risks and benefits and side effects including/and not limited to Sarcopenia, intestinal obstruction, constipation, nausea, lethargy, headache Discussed importance of protein consumption for muscle maintenance as well as strength and resistance training ,probiotics, B12 complex biotin , iron and other nutrients, To help avoid telogen effluvium We have discussed the lifelong requirement of nutritional supplementation And adherence to an exercise regimen as well as importance of follow-up We did discuss the neurohormonal changes that are occurring with these medications and Need for long-term Continued usage The patient understands and agrees There is no history of medullary thyroid cancer or multiple endocrine neoplasia There is also no history of cardiovascular disease, hypertension, palpitations, or arrhythmias In the setting of potential stimulant/amphetamine use such as phentermine We have also discussed risks and benefits, and the use of compounded medications to help offset the national shortages as well as financial implications vs trade name drugs Patient was reassured and welcomed to the practice. We discussed that we stress a hollistic medical approach with emphasis on lifestyle modification. Patient was informed that a healthy lifestyle with exercise and good eating habits can help reduce his risk of medical complications. He is explained that obesity increases his risk of diabetes, cardiovascular disease, or organ damage. We spent a lot of time discussing the relationship between food, exercise, sleep, mental health and obesity. Patient was counseled on the importance EATING local, organic food when possible. Patient was educated on clean 15 and dirty dozen. I provided information about reading books called The Food Rules by [employer] and Eat Fat Get Lean by Dr Randall Panchal. Self education is important in the journey for weight management. Patient was offered diagnostic testing. We want to measure visceral adiposity, advanced body composition, adverse lipids, fatty acid balance, risk for heart disease and atherosclerosis, markers of inflammation and genetic susceptibility. Patient was counseled on weight management and was advised to lose weight using A. Meal Replacement Products We discussed the lifelong requirement of nutritional supplementation and adherence to an exercise regimen as well as importance of dietary follow-up Patient was educated on the replacement products called optifast. This is a good way of taking fixed amount of calories. It has been shown in studies to be ineffective weight management tool. We also recommend maintaining adequate protein intake and muscle composition, 1.5mg/kg This however has to be coupled with lifestyle intervention as well as laboratory data and EKG monitoring. It is impossible to know how a person will tolerate complete meal replacement. The side effects of meal replacement and weight loss could include syncopal attacks, dizziness, gallstones, potential cholecystectomy, possible heart attack and even . The benefits of meal replacement would be potential weight loss but no guarantees can be made. Meal replacement products are not covered by insurance. Once the patient has bought these products we cannot return them B. Lifestyle management which includes several strategies as below 1. Eat a low carbohydrate good fat good protein diet. Eliminate refined carbohydrates from the diet. Continue blood sugar and sugared beverages. Eat local organic when possible. Cook your own meals. Read food labels. None about healthy snacks. Portion control and food with low glycemic index 2. Exercise regularly. Try to get at least 6000 steps a day. Use a predominant to track activity level. Consider using apps like [employer], [employer]fitnesspal, lose it, stick as needed for self-monitoring and weight management. Consider group exercises. Consider hiring a personal finance instructor. Regular exercise is preston to sustainable health and prevents as a buffer against weight regain 3. Sleep is most important for healing. Tried to sleep at least 8 hours a night. A good quality sleep needs a sleep ritual with ideal room temperature of around 68. It might help to take a shower and have no electronics in the room and sleep in a very dark room without artificial light. Start her sleep routine and get up early in the morning and go to bed on time 4. Make a social connection. Surround yourself with positive people with positive energy. Connect with friends and family. 5. Get into the habit of meditating and mindfulness while doing everything. 6. Go outside and connect with nature. C. Prescription medications Patient was educated on the use of prescription medications for medical weight loss. This is a growing list and includes phentermine, Topamax,Qsymia, contrave, belviq and saxenda. All prescription medications could have side effects including but not limited to kidney stones, seizure disorder cardiac arrhythmias heart attack pancreatitis etc. etc.. Patient was encouraged to read the prescription insert and have coaching with their pharmacist and make an informed decision about taking medication and know that these medications are being prescribed with good intentions and we do not know how a patient would react to her medication. Sudden medications are FDA approved for weight loss and there is also off label use depending on patient's inability to afford medications in an attempt to lose weight D. Behavioral counseling was done to establish a relationship between food and an mood. Patient was provided information about local counseling and psychiatry and Dr Harrison at [facility]. We would like to cover regular topics and build on low glycemic eating exercise mindful eating, using yoga and meditation along with deep breathing and connecting with friends and family. E. MASS PAT reviewed, Patient's current medications were reviewed and opinion was given on medication that can cause weight gain and can be substituted F. Patient was assessed for risk with obesity including and not limiting to atherosclerosis heart disease stroke kidney disease, restrictive lung disease, irritable bowel syndrome and overall mortality. Risk of developing prediabetes diabetes and metabolic syndrome was discussed G. Therapeutic plan: We have decided to make therapeutic plan which would include choosing wisely on calories restricting portion getting active, tracking weight, getting good quality sleep and working on time management H. Patient will follow up in (4) weeks for weight management Of note, some information is being carried forward from prior records for informational purposes only and is being cited so that efficiency, safety and quality of the patient's care is not compromised This note was prepared using voice recognition software and direct typing Please excuse inadvertent electronic resources librarian or typing errors, or uncorrected word substitutions Although every attempt has been made by the provider to proofread this document, occasional misspellings and typographical errors may still be present Due to the previous pandemic, and the use of personal protective equipment (PPE) This may decrease voice recognition accuracy Inadvertent electronic resources librarian errors may occur 02/27/2024 Dietary counseling and surveillance (ICD-10 - Z71.3) #Weight Management 02/26/2024 Patient to have updated labs from [facility] faxed to us later today She is still very stressed due to her brother's cancer diagnosis, and makes frequent visits that interfere with her diet and exercise routine. She has decided to take more time for herself and will make less frequent visits. Discussed importance of creatine, protein, and resistance training for muscle building. She has signed up for a gym membership. She will stay on the [employer] 2.4 weekly until she reaches her goal weight Otherwise thriving She will continue to use antifungal cream Total time spent today was 30 minutes of which greater than 50% was spent on coordinating and counseling Patient has been found to be overweight with a BMI of (26). Patient has overweight class per BMI standards We are a board certified obesity and weight management practice Patient has trialed behavioral modification, dietary restrictions and exercise for a minimum of 6 months The most recent [place] Association of clinical endocrinologists and [place] [employer] of endocrinology guidelines recommend patients who have overweight BMI or obesity BMI, who also have metabolic syndrome, prediabetes, HLD, and other comorbidities or at risk of developing type 2 diabetes should aim for a weight loss goal of at least 10% of the baseline body weight Patient counseled regarding effects of GLP/GIP-1 agonists, and other FDA approved wgt loss meds with regards to a multifactorial approach of weight loss as mentioned above and not solely appetite suppression. Of note, some information is being carried forward from prior records for informational purposes only and is being cited so that efficiency, safety and quality of the patient's care is not compromised This note was prepared using voice recognition software and direct typing Please excuse inadvertent electronic resources librarian or typing errors, or uncorrected word substitutions Although every attempt has been made by the provider to proofread this document, occasional misspellings and typographical errors may still be present Due to the previous pandemic, and the use of personal protective equipment (PPE) This may decrease voice recognition accuracy Inadvertent electronic resources librarian errors may occur 04/07/2024 Hx of laparoscopic gastric banding (ICD-10 - Z98.84) Mary is a 58-year-old female with a PMH of HTN and prvious bariatric surgery that presents for a weight management follow-up. Reviewed [facility] holistic and medical approach to weight loss with emphasis on lifestyle modification. 04/07/2024: Weight: 141, BMI: 25.7 (-3lbs)Reviewed SECA/goals for implementing sustainable lifestyle changes. Patient is encouraged continue walking and going to the gym twice weekly. Discussed the importance of continued strength training with proper safety/body mechanics for maintenance of muscle mass/bone health. Reviewed the importance of adequate nutrition in terms of calorie/protein intake in the setting of GLP-1 induced appetite suppression. Goal 80 g protein/day. Plan to continue Wegovy 2.4 mg SC weekly and follow-up in 1 month. 02/27/2024, Weight 144 lbs, BMI 27 (-1 lbs) 01/16/2024, Weight 145lb, BMI (+1lb) 11/29/2023, Weight 144lbs , BMI 26 (-4lbs) 10/29/2023, Weight 148lbs , BMI 28 09/19/2023, Weight 149, BMI 28.1 (-1lbs) 08/07/2023, Weight 150lbs, BMI 27.6 (-2lbs) 06/26/23 weight 152, BMI 27.9 (-4lbs) 05/03/2023: Weight 156lbs, BMI 28, (-9lbs) 02/19/2023: Weight 165lbs , BMI 30 ( -18lbs) 12/21/2022: Weight 183lbs, BMI: 33 All questions answered to the patients satisfaction. Patient demonstrates understanding of diagnosis and treatments discussed. Follow-up in 4 weeks, sooner should any questions/concerns arise. Case discussed with collaborating physician Dale Cantu who has reviewed the assessment/plan. Chart, medications, labs, and vital signs reviewed. Dictation completed with the use of [employer] voice recognition software, prone to medical misidentifications and grammatical errors. All errors are unintentional. Although the practitioner does try to identify and correct errors, some may be present. Please do not hesitate to contact the practitioner for clarification. Total time spent was 30 minutes with >50% on coordination of care and patient education. 07/28/2024 Dietary counseling and surveillance (ICD-10 - [...] software and direct typing Please excuse inadvertent electronic resources librarian or typing errors, or uncorrected word substitutions Although every attempt has been made by the provider to proofread this document, occasional misspellings and typographical errors may still be present Due to the previous pandemic, and the use of personal protective equipment (PPE) This may decrease voice recognition accuracy Inadvertent electronic resources librarian errors may occur 07/21/2024 Dietary counseling and surveillance (ICD-10 - Z71.3) #Weight Management 07/21/2024 Lets update labs Discussed importance of creatine, [...] software and direct typing Please excuse inadvertent electronic resources librarian or typing errors, or uncorrected word substitutions Although every attempt has been made by the provider to proofread this document, occasional misspellings and typographical errors may still be present Due to the previous pandemic, and the use of personal protective equipment (PPE) This may decrease voice recognition accuracy Inadvertent electronic resources librarian errors may occur 05/26/2024 Hx of laparoscopic gastric banding (ICD-10 - Z98.84) #Weight Management 05/26/2024 Lets update labs Discussed importance of creatine, [...] board certified obesity and weight management practice Patient has trialed behavioral modification, dietary restrictions and exercise for a minimum of 6 months The most recent [place] Association of clinical endocrinologists and [place] [employer] of endocrinology guidelines recommend patients who have overweight BMI or obesity BMI, who also have metabolic syndrome, prediabetes, HLD, and other comorbidities or at risk of developing type 2 diabetes should aim for a weight loss goal of at least 10% of the baseline body weight Patient counseled regarding effects of GLP/GIP-1 agonists, and other FDA approved wgt loss meds with regards to a multifactorial approach of weight loss as mentioned above and not solely appetite suppression. Of note, some information is being carried forward from prior records for informational purposes only and is being cited so that efficiency, safety and quality of the patient's care is not compromised This note was prepared using voice recognition software and direct typing Please excuse inadvertent electronic resources librarian or typing errors, or uncorrected word substitutions Although every attempt has been made by the provider to proofread this document, occasional misspellings and typographical errors may still be present Due to the previous pandemic, and the use of personal protective equipment (PPE) This may decrease voice recognition accuracy Inadvertent electronic resources librarian errors may occur 05/26/2024 Excess skin of abdomen (ICD-10 - L98.7) #Weight Management 05/26/2024 Lets update labs Discussed importance of creatine, [...] board certified obesity and weight management practice Patient has trialed behavioral modification, dietary restrictions and exercise for a minimum of 6 months The most recent [place] [employer] of clinical endocrinologists and [place] [employer] of endocrinology guidelines recommend patients who have overweight BMI or obesity BMI, who also have metabolic syndrome, prediabetes, HLD, and other comorbidities or at risk of developing type 2 diabetes should aim for a weight loss goal of at least 10% of the baseline body weight Patient counseled regarding effects of GLP/GIP-1 agonists, and other FDA approved wgt loss meds with regards to a multifactorial approach of weight loss as mentioned above and not solely appetite suppression. Of note, some information is being carried forward from prior records for informational purposes only and is being cited so that efficiency, safety and quality of the patient's care is not compromised This note was prepared using voice recognition software and direct typing Please excuse inadvertent electronic resources librarian or typing errors, or uncorrected word substitutions Although every attempt has been made by the provider to proofread this document, occasional misspellings and typographical errors may still be present Due to the previous pandemic, and the use of personal protective equipment (PPE) This may decrease voice recognition accuracy Inadvertent electronic resources librarian errors may occur 07/21/2024 Hx of laparoscopic gastric banding (ICD-10 - Z98.84) #Weight Management 07/21/2024 Lets update labs Discussed importance of creatine, [...] software and direct typing Please excuse inadvertent electronic resources librarian or typing errors, or uncorrected word substitutions Although every attempt has been made by the provider to proofread this document, occasional misspellings and typographical errors may still be present Due to the previous pandemic, and the use of personal protective equipment (PPE) This may decrease voice recognition accuracy Inadvertent electronic resources librarian errors may occur 04/07/2024 Nutritional counseling (ICD-10 - Z71.3) Mary is a 58-year-old female with a PMH of HTN and prvious bariatric surgery that presents for a weight management follow-up. Reviewed [facility] holistic and medical approach to weight loss with emphasis on lifestyle modification. 04/07/2024: Weight: 141, BMI: 25.7 (-3lbs)Reviewed SECA/goals for implementing sustainable lifestyle changes. Patient is encouraged continue walking and going to the gym twice weekly. Discussed the importance of continued strength training with proper safety/body mechanics for maintenance of muscle mass/bone health. Reviewed the importance of adequate nutrition in terms of calorie/protein intake in the setting of GLP-1 induced appetite suppression. Goal 80 g protein/day. Plan to continue Wegovy 2.4 mg SC weekly and follow-up in 1 month. 02/27/2024, Weight 144 lbs, BMI 27 (-1 lbs) 01/16/2024, Weight 145lb, BMI (+1lb) 11/29/2023, Weight 144lbs , BMI 26 (-4lbs) 10/29/2023, Weight 148lbs , BMI 28 09/19/2023, Weight 149, BMI 28.1 (-1lbs) 08/07/2023, Weight 150lbs, BMI 27.6 (-2lbs) 06/26/23 weight 152, BMI 27.9 (-4lbs) 05/03/2023: Weight 156lbs, BMI 28, (-9lbs) 02/19/2023: Weight 165lbs , BMI 30 ( -18lbs) 12/21/2022: Weight 183lbs, BMI: 33 All questions answered to the patients satisfaction. Patient demonstrates understanding of diagnosis and treatments discussed. Follow-up in 4 weeks, sooner should any questions/concerns arise. Case discussed with collaborating physician Dale Cantu who has reviewed the assessment/plan. Chart, medications, labs, and vital signs reviewed. Dictation completed with the use of [employer] voice recognition software, prone to medical misidentifications and grammatical errors. All errors are unintentional. Although the practitioner does try to identify and correct errors, some may be present. Please do not hesitate to contact the practitioner for clarification. Total time spent was 30 minutes with >50% on coordination of care and patient education. 07/28/2024 Hx of laparoscopic gastric banding (ICD-10 [...] software and direct typing Please excuse inadvertent electronic resources librarian or typing errors, or uncorrected word substitutions Although every attempt has been made by the provider to proofread this document, occasional misspellings and typographical errors may still be present Due to the previous pandemic, and the use of personal protective equipment (PPE) This may decrease voice recognition accuracy Inadvertent electronic resources librarian errors may occur 02/27/2024 Hx of laparoscopic gastric banding (ICD-10 - Z98.84) #Weight Management 02/26/2024 Patient to have updated labs from [facility] faxed to us later today She is still very stressed due to her brother's cancer diagnosis, and makes frequent visits that interfere with her diet and exercise routine. She has decided to take more time for herself and will make less frequent visits. Discussed importance of creatine, protein, and resistance training for muscle building. She has signed up for a gym membership. She will stay on the Wegovy 2.4 weekly until she reaches her goal weight Otherwise thriving She will continue to use antifungal cream Total time spent today was 30 minutes of which greater than 50% was spent on coordinating and counseling Patient has been found to be overweight with a BMI of (26). Patient has overweight class per BMI standards We are a board certified obesity and weight management practice Patient has trialed behavioral modification, dietary restrictions and exercise for a minimum of 6 months The most recent [place] [employer] clinical endocrinologists and [place] [employer] guidelines recommend patients who have overweight BMI or obesity BMI, who also have metabolic syndrome, prediabetes, HLD, and other comorbidities or at risk of developing type 2 diabetes should aim for a weight loss goal of at least 10% of the baseline body weight Patient counseled regarding effects of GLP/GIP-1 agonists, and other FDA approved wgt loss meds with regards to a multifactorial approach of weight loss as mentioned above and not solely appetite suppression. Of note, some information is being carried forward from prior records for informational purposes only and is being cited so that efficiency, safety and quality of the patient's care is not compromised This note was prepared using voice recognition software and direct typing Please excuse inadvertent electronic resources librarian or typing errors, or uncorrected word substitutions Although every attempt has been made by the provider to proofread this document, occasional misspellings and typographical errors may still be present Due to the previous pandemic, and the use of personal protective equipment (PPE) This may decrease voice recognition accuracy Inadvertent electronic resources librarian errors may occur 01/16/2024 Hx of laparoscopic gastric banding (ICD-10 - Z98.84) #Weight Management 01/16/2024 Patient to have updated labs from [facility] faxed to us later today Otherwise thriving Feels as if she is plateauing We discussed possibly switching to dual incretin Continue Wegovy 2.4 mg She will be prescribed antifungal cream Plastics referral for skin excision potentially after weight loss has been completed *Discussed protein and strength and resistance training and muscle composition Overall patient is doing good and is happy with the results so far. Wanted to change goal weight to about 140lbs. Total time spent today was 30 minutes of which greater than 50% was spent on coordinating and counseling Patient has been found to be overweight with a BMI of (26). Patient has overweight class per BMI standards We are a board certified obesity and weight management practice Patient has trialed behavioral modification, dietary restrictions and exercise for a minimum of 6 months The most recent [place] [employer] of clinical endocrinologists and [place] [employer] guidelines recommend patients who have overweight BMI or obesity BMI, who also have metabolic syndrome, prediabetes, HLD, and other comorbidities or at risk of developing type 2 diabetes should aim for a weight loss goal of at least 10% of the baseline body weight Patient counseled regarding effects of GLP/GIP-1 agonists, and other FDA approved wgt loss meds with regards to a multifactorial approach of weight loss as mentioned above and not solely appetite suppression. We have discussed the mechanism of GLP-1's/GIP, dual incretins, appetitite suppressants I think this would be fantastic option for her given her metabolic workup and body composition We have discussed the risks and benefits and side effects including/and not limited to Sarcopenia, intestinal obstruction, constipation, nausea, lethargy, headache Discussed importance of protein consumption for muscle maintenance as well as strength and resistance training ,probiotics, B12 complex biotin , iron and other nutrients, To help avoid telogen effluvium We have discussed the lifelong requirement of nutritional supplementation And adherence to an exercise regimen as well as importance of follow-up We did discuss the neurohormonal changes that are occurring with these medications and Need for long-term Continued usage The patient understands and agrees There is no history of medullary thyroid cancer or multiple endocrine neoplasia There is also no history of cardiovascular disease, hypertension, palpitations, or arrhythmias In the setting of potential stimulant/amphetamine use such as phentermine We have also discussed risks and benefits, and the use of compounded medications to help offset the national shortages as well as financial implications vs trade name drugs Patient was reassured and welcomed to the practice. We discussed that we stress a hollistic medical approach with emphasis on lifestyle modification. Patient was informed that a healthy lifestyle with exercise and good eating habits can help reduce his risk of medical complications. He is explained that obesity increases his risk of diabetes, cardiovascular disease, or organ damage. We spent a lot of time discussing the relationship between food, exercise, sleep, mental health and obesity. Patient was counseled on the importance EATING local, organic food when possible. Patient was educated on clean 15 and dirty dozen. I provided information about reading books called The Food Rules by [employer] and Eat Fat Get Lean by Dr Randall Panchal. Self education is important in the journey for weight management. Patient was offered diagnostic testing. We want to measure visceral adiposity, advanced body composition, adverse lipids, fatty acid balance, risk for heart disease and atherosclerosis, markers of inflammation and genetic susceptibility. Patient was counseled on weight management and was advised to lose weight using A. Meal Replacement Products We discussed the lifelong requirement of nutritional supplementation and adherence to an exercise regimen as well as importance of dietary follow-up Patient was educated on the replacement products called optifast. This is a good way of taking fixed amount of calories. It has been shown in studies to be ineffective weight management tool. We also recommend maintaining adequate protein intake and muscle composition, 1.5mg/kg This however has to be coupled with lifestyle intervention as well as laboratory data and EKG monitoring. It is impossible to know how a person will tolerate complete meal replacement. The side effects of meal replacement and weight loss could include syncopal attacks, dizziness, gallstones, potential cholecystectomy, possible heart attack and even . The benefits of meal replacement would be potential weight loss but no guarantees can be made. Meal replacement products are not covered by insurance. Once the patient has bought these products we cannot return them B. Lifestyle management which includes several strategies as below 1. Eat a low carbohydrate good fat good protein diet. Eliminate refined carbohydrates from the diet. Continue blood sugar and sugared beverages. Eat local organic when possible. Cook your own meals. Read food labels. None about healthy snacks. Portion control and food with low glycemic index 2. Exercise regularly. Try to get at least 6000 steps a day. Use a predominant to track activity level. Consider using apps like [employer], [employer], lose it, stick as needed for self-monitoring and weight management. Consider group exercises. Consider hiring a personal finance instructor. Regular exercise is preston to sustainable health and prevents as a buffer against weight regain 3. Sleep is most important for healing. Tried to sleep at least 8 hours a night. A good quality sleep needs a sleep ritual with ideal room temperature of around 68. It might help to take a shower and have no electronics in the room and sleep in a very dark room without artificial light. Start her sleep routine and get up early in the morning and go to bed on time 4. Make a social connection. Surround yourself with positive people with positive energy. Connect with friends and family. 5. Get into the habit of meditating and mindfulness while doing everything. 6. Go outside and connect with nature. C. Prescription medications Patient was educated on the use of prescription medications for medical weight loss. This is a growing list and includes phentermine, Topamax,Qsymia, contrave, belviq and saxenda. All prescription medications could have side effects including but not limited to kidney stones, seizure disorder cardiac arrhythmias heart attack pancreatitis etc. etc.. Patient was encouraged to read the prescription insert and have coaching with their pharmacist and make an informed decision about taking medication and know that these medications are being prescribed with good intentions and we do not know how a patient would react to her medication. Sudden medications are FDA approved for weight loss and there is also off label use depending on patient's inability to afford medications in an attempt to lose weight D. Behavioral counseling was done to establish a relationship between food and an mood. Patient was provided information about local counseling and psychiatry and Dr Harrison at [facility]. We would like to cover regular topics and build on low glycemic eating exercise mindful eating, using yoga and meditation along with deep breathing and connecting with friends and family. E. MASS PAT reviewed, Patient's current medications were reviewed and opinion was given on medication that can cause weight gain and can be substituted F. Patient was assessed for risk with obesity including and not limiting to atherosclerosis heart disease stroke kidney disease, restrictive lung disease, irritable bowel syndrome and overall mortality. Risk of developing prediabetes diabetes and metabolic syndrome was discussed G. Therapeutic plan: We have decided to make therapeutic plan which would include choosing wisely on calories restricting portion getting active, tracking weight, getting good quality sleep and working on time management H. Patient will follow up in (4) weeks for weight management Of note, some information is being carried forward from prior records for informational purposes only and is being cited so that efficiency, safety and quality of the patient's care is not compromised This note was prepared using voice recognition software and direct typing Please excuse inadvertent electronic resources librarian or typing errors, or uncorrected word substitutions Although every attempt has been made by the provider to proofread this document, occasional misspellings and typographical errors may still be present Due to the previous pandemic, and the use of personal protective equipment (PPE) This may decrease voice recognition accuracy Inadvertent electronic resources librarian errors may occur 11/30/2023 Excess skin of abdomen (ICD-10 - L98.7) #Weight Management 11/29/2023 Otherwise thriving Continue Wegovy 2.4 mg She will be prescribed antifungal cream Plastics referral for skin excision potentially after weight loss has been completed Request labs from [facility] supposedly done in June 2023 Discussed protein and strength and resistance training and muscle composition Overall patient is doing good and is happy with the results so far. Wanted to change goal weight to about 140lbs. 6-week follow-up Total time spent today was 30 minutes of which greater than 50% was spent on coordinating and counseling Patient has been found to be overweight with a BMI of (26). Patient has overweight class per BMI standards We are a board certified obesity and weight management practice Patient has trialed behavioral modification, dietary restrictions and exercise for a minimum of 6 months The most recent [place] [employer] of clinical endocrinologists and [place] [employer]in[employer] guidelines recommend patients who have overweight BMI or obesity BMI, who also have metabolic syndrome, prediabetes, HLD, and other comorbidities or at risk of developing type 2 diabetes should aim for a weight loss goal of at least 10% of the baseline body weight Patient counseled regarding effects of GLP/GIP-1 agonists, and other FDA approved wgt loss meds with regards to a multifactorial approach of weight loss as mentioned above and not solely appetite suppression. We have discussed the mechanism of GLP-1's/GIP, dual incretins, appetitite suppressants I think this would be fantastic option for her given her metabolic workup and body composition We have discussed the risks and benefits and side effects including/and not limited to Sarcopenia, intestinal obstruction, constipation, nausea, lethargy, headache Discussed importance of protein consumption for muscle maintenance as well as strength and resistance training ,probiotics, B12 complex biotin , iron and other nutrients, To help avoid telogen effluvium We have discussed the lifelong requirement of nutritional supplementation And adherence to an exercise regimen as well as importance of follow-up We did discuss the neurohormonal changes that are occurring with these medications and Need for long-term Continued usage The patient understands and agrees There is no history of medullary thyroid cancer or multiple endocrine neoplasia There is also no history of cardiovascular disease, hypertension, palpitations, or arrhythmias In the setting of potential stimulant/amphetamine use such as phentermine We have also discussed risks and benefits, and the use of compounded medications to help offset the national shortages as well as financial implications vs trade name drugs Patient was reassured and welcomed to the practice. We discussed that we stress a hollistic medical approach with emphasis on lifestyle modification. Patient was informed that a healthy lifestyle with exercise and good eating habits can help reduce his risk of medical complications. He is explained that obesity increases his risk of diabetes, cardiovascular disease, or organ damage. We spent a lot of time discussing the relationship between food, exercise, sleep, mental health and obesity. Patient was counseled on the importance EATING local, organic food when possible. Patient was educated on clean 15 and dirty dozen. I provided information about reading books called The Food Rules by [employer] and Eat Fat Get Lean by Dr Randall Panchal. Self education is important in the journey for weight management. Patient was offered diagnostic testing. We want to measure visceral adiposity, advanced body composition, adverse lipids, fatty acid balance, risk for heart disease and atherosclerosis, markers of inflammation and genetic susceptibility. Patient was counseled on weight management and was advised to lose weight using A. Meal Replacement Products We discussed the lifelong requirement of nutritional supplementation and adherence to an exercise regimen as well as importance of dietary follow-up Patient was educated on the replacement products called optifast. This is a good way of taking fixed amount of calories. It has been shown in studies to be ineffective weight management tool. We also recommend maintaining adequate protein intake and muscle composition, 1.5mg/kg This however has to be coupled with lifestyle intervention as well as laboratory data and EKG monitoring. It is impossible to know how a person will tolerate complete meal replacement. The side effects of meal replacement and weight loss could include syncopal attacks, dizziness, gallstones, potential cholecystectomy, possible heart attack and even . The benefits of meal replacement would be potential weight loss but no guarantees can be made. Meal replacement products are not covered by insurance. Once the patient has bought these products we cannot return them B. Lifestyle management which includes several strategies as below 1. Eat a low carbohydrate good fat good protein diet. Eliminate refined carbohydrates from the diet. Continue blood sugar and sugared beverages. Eat local organic when possible. Cook your own meals. Read food labels. None about healthy snacks. Portion control and food with low glycemic index 2. Exercise regularly. Try to get at least 6000 steps a day. Use a predominant to track activity level. Consider using apps like [employer], [employer], lose it, stick as needed for self-monitoring and weight management. Consider group exercises. Consider hiring a personal finance instructor. Regular exercise is preston to sustainable health and prevents as a buffer against weight regain 3. Sleep is most important for healing. Tried to sleep at least 8 hours a night. A good quality sleep needs a sleep ritual with ideal room temperature of around 68. It might help to take a shower and have no electronics in the room and sleep in a very dark room without artificial light. Start her sleep routine and get up early in the morning and go to bed on time 4. Make a social connection. Surround yourself with positive people with positive energy. Connect with friends and family. 5. Get into the habit of meditating and mindfulness while doing everything. 6. Go outside and connect with nature. C. Prescription medications Patient was educated on the use of prescription medications for medical weight loss. This is a growing list and includes phentermine, Topamax,Qsymia, contrave, belviq and saxenda. All prescription medications could have side effects including but not limited to kidney stones, seizure disorder cardiac arrhythmias heart attack pancreatitis etc. etc.. Patient was encouraged to read the prescription insert and have coaching with their pharmacist and make an informed decision about taking medication and know that these medications are being prescribed with good intentions and we do not know how a patient would react to her medication. Sudden medications are FDA approved for weight loss and there is also off label use depending on patient's inability to afford medications in an attempt to lose weight D. Behavioral counseling was done to establish a relationship between food and an mood. Patient was provided information about local counseling and psychiatry and Dr Harrison at [facility]. We would like to cover regular topics and build on low glycemic eating exercise mindful eating, using yoga and meditation along with deep breathing and connecting with friends and family. E. MASS PAT reviewed, Patient's current medications were reviewed and opinion was given on medication that can cause weight gain and can be substituted F. Patient was assessed for risk with obesity including and not limiting to atherosclerosis heart disease stroke kidney disease, restrictive lung disease, irritable bowel syndrome and overall mortality. Risk of developing prediabetes diabetes and metabolic syndrome was discussed G. Therapeutic plan: We have decided to make therapeutic plan which would include choosing wisely on calories restricting portion getting active, tracking weight, getting good quality sleep and working on time management H. Patient will follow up in (4) weeks for weight management Of note, some information is being carried forward from prior records for informational purposes only and is being cited so that efficiency, safety and quality of the patient's care is not compromised This note was prepared using voice recognition software and direct typing Please excuse inadvertent electronic resources librarian or typing errors, or uncorrected word substitutions Although every attempt has been made by the provider to proofread this document, occasional misspellings and typographical errors may still be present Due to the previous pandemic, and the use of personal protective equipment (PPE) This may decrease voice recognition accuracy Inadvertent electronic resources librarian errors may occur 10/29/2023 Excess skin of abdomen (ICD-10 - L98.7) #Weight Management 10/29/2023 She will be prescribed antifungal cream Plastics referral for skin excision potentially after weight loss has been completed Request labs from [facility] supposedly done in June 2023 Continue Wegovy 2.4 mg Discussed protein and strength and resistance training and muscle composition Overall patient is doing good and is happy with the results so far. Wanted to change goal weight to about 140lbs. 6-week follow-up Total time spent today was 30 minutes of which greater than 50% was spent on coordinating and counseling Patient has been found to be overweight with a BMI of (28). Patient has overweight class per BMI standards We are a board certified obesity and weight management practice Patient has trialed behavioral modification, dietary restrictions and exercise for a minimum of 6 months The most recent [place] [employer]ocrin[employer] and [place] [employer] guidelines recommend patients who have overweight BMI or obesity BMI, who also have metabolic syndrome, prediabetes, HLD, and other comorbidities or at risk of developing type 2 diabetes should aim for a weight loss goal of at least 10% of the baseline body weight Patient counseled regarding effects of GLP/GIP-1 agonists, and other FDA approved wgt loss meds with regards to a multifactorial approach of weight loss as mentioned above and not solely appetite suppression. We have discussed the mechanism of GLP-1's/GIP, dual incretins, appetitite suppressants I think this would be fantastic option for her given her metabolic workup and body composition We have discussed the risks and benefits and side effects including/and not limited to Sarcopenia, intestinal obstruction, constipation, nausea, lethargy, headache Discussed importance of protein consumption for muscle maintenance as well as strength and resistance training ,probiotics, B12 complex biotin , iron and other nutrients, To help avoid telogen effluvium We have discussed the lifelong requirement of nutritional supplementation And adherence to an exercise regimen as well as importance of follow-up We did discuss the neurohormonal changes that are occurring with these medications and Need for long-term Continued usage The patient understands and agrees There is no history of medullary thyroid cancer or multiple endocrine neoplasia There is also no history of cardiovascular disease, hypertension, palpitations, or arrhythmias In the setting of potential stimulant/amphetamine use such as phentermine We have also discussed risks and benefits, and the use of compounded medications to help offset the national shortages as well as financial implications vs trade name drugs Patient was reassured and welcomed to the practice. We discussed that we stress a hollistic medical approach with emphasis on lifestyle modification. Patient was informed that a healthy lifestyle with exercise and good eating habits can help reduce his risk of medical complications. He is explained that obesity increases his risk of diabetes, cardiovascular disease, or organ damage. We spent a lot of time discussing the relationship between food, exercise, sleep, mental health and obesity. Patient was counseled on the importance EATING local, organic food when possible. Patient was educated on clean 15 and dirty dozen. I provided information about reading books called The Food Rules by [employer] and Eat Fat Get Lean by Dr Randall Panchal. Self education is important in the journey for weight management. Patient was offered diagnostic testing. We want to measure visceral adiposity, advanced body composition, adverse lipids, fatty acid balance, risk for heart disease and atherosclerosis, markers of inflammation and genetic susceptibility. Patient was counseled on weight management and was advised to lose weight using A. Meal Replacement Products We discussed the lifelong requirement of nutritional supplementation and adherence to an exercise regimen as well as importance of dietary follow-up Patient was educated on the replacement products called optifast. This is a good way of taking fixed amount of calories. It has been shown in studies to be ineffective weight management tool. We also recommend maintaining adequate protein intake and muscle composition, 1.5mg/kg This however has to be coupled with lifestyle intervention as well as laboratory data and EKG monitoring. It is impossible to know how a person will tolerate complete meal replacement. The side effects of meal replacement and weight loss could include syncopal attacks, dizziness, gallstones, potential cholecystectomy, possible heart attack and even . The benefits of meal replacement would be potential weight loss but no guarantees can be made. Meal replacement products are not covered by insurance. Once the patient has bought these products we cannot return them B. Lifestyle management which includes several strategies as below 1. Eat a low carbohydrate good fat good protein diet. Eliminate refined carbohydrates from the diet. Continue blood sugar and sugared beverages. Eat local organic when possible. Cook your own meals. Read food labels. None about healthy snacks. Portion control and food with low glycemic index 2. Exercise regularly. Try to get at least 6000 steps a day. Use a predominant to track activity level. Consider using apps like [employer], [employer], lose it, stick as needed for self-monitoring and weight management. Consider group exercises. Consider hiring a personal finance instructor. Regular exercise is preston to sustainable health and prevents as a buffer against weight regain 3. Sleep is most important for healing. Tried to sleep at least 8 hours a night. A good quality sleep needs a sleep ritual with ideal room temperature of around 68. It might help to take a shower and have no electronics in the room and sleep in a very dark room without artificial light. Start her sleep routine and get up early in the morning and go to bed on time 4. Make a social connection. Surround yourself with positive people with positive energy. Connect with friends and family. 5. Get into the habit of meditating and mindfulness while doing everything. 6. Go outside and connect with nature. C. Prescription medications Patient was educated on the use of prescription medications for medical weight loss. This is a growing list and includes phentermine, Topamax,Qsymia, contrave, belviq and saxenda. All prescription medications could have side effects including but not limited to kidney stones, seizure disorder cardiac arrhythmias heart attack pancreatitis etc. etc.. Patient was encouraged to read the prescription insert and have coaching with their pharmacist and make an informed decision about taking medication and know that these medications are being prescribed with good intentions and we do not know how a patient would react to her medication. Sudden medications are FDA approved for weight loss and there is also off label use depending on patient's inability to afford medications in an attempt to lose weight D. Behavioral counseling was done to establish a relationship between food and an mood. Patient was provided information about local counseling and psychiatry and Dr Harrison at [facility]. We would like to cover regular topics and build on low glycemic eating exercise mindful eating, using yoga and meditation along with deep breathing and connecting with friends and family. E. MASS PAT reviewed, Patient's current medications were reviewed and opinion was given on medication that can cause weight gain and can be substituted F. Patient was assessed for risk with obesity including and not limiting to atherosclerosis heart disease stroke kidney disease, restrictive lung disease, irritable bowel syndrome and overall mortality. Risk of developing prediabetes diabetes and metabolic syndrome was discussed G. Therapeutic plan: We have decided to make therapeutic plan which would include choosing wisely on calories restricting portion getting active, tracking weight, getting good quality sleep and working on time management H. Patient will follow up in (4) weeks for weight management Of note, some information is being carried forward from prior records for informational purposes only and is being cited so that efficiency, safety and quality of the patient's care is not compromised This note was prepared using voice recognition software and direct typing Please excuse inadvertent electronic resources librarian or typing errors, or uncorrected word substitutions Although every attempt has been made by the provider to proofread this document, occasional misspellings and typographical errors may still be present Due to the previous pandemic, and the use of personal protective equipment (PPE) This may decrease voice recognition accuracy Inadvertent electronic resources librarian errors may occur 01/16/2024 Excess skin of abdomen (ICD-10 - L98.7) #Weight Management 01/16/2024 Patient to have updated labs from [facility] faxed to us later today Otherwise thriving Feels as if she is plateauing We discussed possibly switching to dual incretin Continue Wegovy 2.4 mg She will be prescribed antifungal cream Plastics referral for skin excision potentially after weight loss has been completed *Discussed protein and strength and resistance training and muscle composition Overall patient is doing good and is happy with the results so far. Wanted to change goal weight to about 140lbs. Total time spent today was 30 minutes of which greater than 50% was spent on coordinating and counseling Patient has been found to be overweight with a BMI of (26). Patient has overweight class per BMI standards We are a board certified obesity and weight management practice Patient has trialed behavioral modification, dietary restrictions and exercise for a minimum of 6 months The most recent [place] [employer] of clinical endocrinologists and [place] [employer] guidelines recommend patients who have overweight BMI or obesity BMI, who also have metabolic syndrome, prediabetes, HLD, and other comorbidities or at risk of developing type 2 diabetes should aim for a weight loss goal of at least 10% of the baseline body weight Patient counseled regarding effects of GLP/GIP-1 agonists, and other FDA approved wgt loss meds with regards to a multifactorial approach of weight loss as mentioned above and not solely appetite suppression. We have discussed the mechanism of GLP-1's/GIP, dual incretins, appetitite suppressants I think this would be fantastic option for her given her metabolic workup and body composition We have discussed the risks and benefits and side effects including/and not limited to Sarcopenia, intestinal obstruction, constipation, nausea, lethargy, headache Discussed importance of protein consumption for muscle maintenance as well as strength and resistance training ,probiotics, B12 complex biotin , iron and other nutrients, To help avoid telogen effluvium We have discussed the lifelong requirement of nutritional supplementation And adherence to an exercise regimen as well as importance of follow-up We did discuss the neurohormonal changes that are occurring with these medications and Need for long-term Continued usage The patient understands and agrees There is no history of medullary thyroid cancer or multiple endocrine neoplasia There is also no history of cardiovascular disease, hypertension, palpitations, or arrhythmias In the setting of potential stimulant/amphetamine use such as phentermine We have also discussed risks and benefits, and the use of compounded medications to help offset the national shortages as well as financial implications vs trade name drugs Patient was reassured and welcomed to the practice. We discussed that we stress a hollistic medical approach with emphasis on lifestyle modification. Patient was informed that a healthy lifestyle with exercise and good eating habits can help reduce his risk of medical complications. He is explained that obesity increases his risk of diabetes, cardiovascular disease, or organ damage. We spent a lot of time discussing the relationship between food, exercise, sleep, mental health and obesity. Patient was counseled on the importance EATING local, organic food when possible. Patient was educated on clean 15 and dirty dozen. I provided information about reading books called The Food Rules by [employer] and Eat Fat Get Lean by Dr Randall Panchal. Self education is important in the journey for weight management. Patient was offered diagnostic testing. We want to measure visceral adiposity, advanced body composition, adverse lipids, fatty acid balance, risk for heart disease and atherosclerosis, markers of inflammation and genetic susceptibility. Patient was counseled on weight management and was advised to lose weight using A. Meal Replacement Products We discussed the lifelong requirement of nutritional supplementation and adherence to an exercise regimen as well as importance of dietary follow-up Patient was educated on the replacement products called optifast. This is a good way of taking fixed amount of calories. It has been shown in studies to be ineffective weight management tool. We also recommend maintaining adequate protein intake and muscle composition, 1.5mg/kg This however has to be coupled with lifestyle intervention as well as laboratory data and EKG monitoring. It is impossible to know how a person will tolerate complete meal replacement. The side effects of meal replacement and weight loss could include syncopal attacks, dizziness, gallstones, potential cholecystectomy, possible heart attack and even . The benefits of meal replacement would be potential weight loss but no guarantees can be made. Meal replacement products are not covered by insurance. Once the patient has bought these products we cannot return them B. Lifestyle management which includes several strategies as below 1. Eat a low carbohydrate good fat good protein diet. Eliminate refined carbohydrates from the diet. Continue blood sugar and sugared beverages. Eat local organic when possible. Cook your own meals. Read food labels. None about healthy snacks. Portion control and food with low glycemic index 2. Exercise regularly. Try to get at least 6000 steps a day. Use a predominant to track activity level. Consider using apps like [employer], [employer], lose it, stick as needed for self-monitoring and weight management. Consider group exercises. Consider hiring a personal finance instructor. Regular exercise is preston to sustainable health and prevents as a buffer against weight regain 3. Sleep is most important for healing. Tried to sleep at least 8 hours a night. A good quality sleep needs a sleep ritual with ideal room temperature of around 68. It might help to take a shower and have no electronics in the room and sleep in a very dark room without artificial light. Start her sleep routine and get up early in the morning and go to bed on time 4. Make a social connection. Surround yourself with positive people with positive energy. Connect with friends and family. 5. Get into the habit of meditating and mindfulness while doing everything. 6. Go outside and connect with nature. C. Prescription medications Patient was educated on the use of prescription medications for medical weight loss. This is a growing list and includes phentermine, Topamax,Qsymia, contrave, belviq and saxenda. All prescription medications could have side effects including but not limited to kidney stones, seizure disorder cardiac arrhythmias heart attack pancreatitis etc. etc.. Patient was encouraged to read the prescription insert and have coaching with their pharmacist and make an informed decision about taking medication and know that these medications are being prescribed with good intentions and we do not know how a patient would react to her medication. Sudden medications are FDA approved for weight loss and there is also off label use depending on patient's inability to afford medications in an attempt to lose weight D. Behavioral counseling was done to establish a relationship between food and an mood. Patient was provided information about local counseling and psychiatry and Dr Harrison at [facility]. We would like to cover regular topics and build on low glycemic eating exercise mindful eating, using yoga and meditation along with deep breathing and connecting with friends and family. E. MASS PAT reviewed, Patient's current medications were reviewed and opinion was given on medication that can cause weight gain and can be substituted F. Patient was assessed for risk with obesity including and not limiting to atherosclerosis heart disease stroke kidney disease, restrictive lung disease, irritable bowel syndrome and overall mortality. Risk of developing prediabetes diabetes and metabolic syndrome was discussed G. Therapeutic plan: We have decided to make therapeutic plan which would include choosing wisely on calories restricting portion getting active, tracking weight, getting good quality sleep and working on time management H. Patient will follow up in (4) weeks for weight management Of note, some information is being carried forward from prior records for informational purposes only and is being cited so that efficiency, safety and quality of the patient's care is not compromised This note was prepared using voice recognition software and direct typing Please excuse inadvertent electronic resources librarian or typing errors, or uncorrected word substitutions Although every attempt has been made by the provider to proofread this document, occasional misspellings and typographical errors may still be present Due to the previous pandemic, and the use of personal protective equipment (PPE) This may decrease voice recognition accuracy Inadvertent electronic resources librarian errors may occur 02/27/2024 Excess skin of abdomen (ICD-10 - L98.7) #Weight Management 02/26/2024 Patient to have updated labs from [facility] faxed to us later today She is still very stressed due to her brother's cancer diagnosis, and makes frequent visits that interfere with her diet and exercise routine. She has decided to take more time for herself and will make less frequent visits. Discussed importance of creatine, protein, and resistance training for muscle building. She has signed up for a gym membership. She will stay on the Wegovy 2.4 weekly until she reaches her goal weight Otherwise thriving She will continue to use antifungal cream Total time spent today was 30 minutes of which greater than 50% was spent on coordinating and counseling Patient has been found to be overweight with a BMI of (26). Patient has overweight class per BMI standards We are a board certified obesity and weight management practice Patient has trialed behavioral modification, dietary restrictions and exercise for a minimum of 6 months The most recent [place] [employer] clinical endocrinologists and [place] [employer] guidelines recommend patients who have overweight BMI or obesity BMI, who also have metabolic syndrome, prediabetes, HLD, and other comorbidities or at risk of developing type 2 diabetes should aim for a weight loss goal of at least 10% of the baseline body weight Patient counseled regarding effects of GLP/GIP-1 agonists, and other FDA approved wgt loss meds with regards to a multifactorial approach of weight loss as mentioned above and not solely appetite suppression. Of note, some information is being carried forward from prior records for informational purposes only and is being cited so that efficiency, safety and quality of the patient's care is not compromised This note was prepared using voice recognition software and direct typing Please excuse inadvertent electronic resources librarian or typing errors, or uncorrected word substitutions Although every attempt has been made by the provider to proofread this document, occasional misspellings and typographical errors may still be present Due to the previous pandemic, and the use of personal protective equipment (PPE) This may decrease voice recognition accuracy Inadvertent electronic resources librarian errors may occur 07/28/2024 Excess skin of [...] software and direct typing Please excuse inadvertent electronic resources librarian or typing errors, or uncorrected word substitutions Although every attempt has been made by the provider to proofread this document, occasional misspellings and typographical errors may still be present Due to the previous pandemic, and the use of personal protective equipment (PPE) This may decrease voice recognition accuracy Inadvertent electronic resources librarian errors may occur 07/21/2024 Excess skin of abdomen (ICD-10 - L98.7) #Weight Management 07/21/2024 Lets update labs Discussed importance of creatine, [...] software and direct typing Please excuse inadvertent electronic resources librarian or typing errors, or uncorrected word substitutions Although every attempt has been made by the provider to proofread this document, occasional misspellings and typographical errors may still be present Due to the previous pandemic, and the use of personal protective equipment (PPE) This may decrease voice recognition accuracy Inadvertent electronic resources librarian errors may occur PLAN OF TREATMENT Pending Test Test Name Order Date LIPID PANEL, STANDARD 06/26/2023 LIPID PANEL, STANDARD 05/26/2024 COMPREHENSIVE METABOLIC PANEL 05/26/2024 COMPREHENSIVE METABOLIC PANEL 06/26/2023 CBC (INCLUDES DIFF/PLT) 06/26/2023 CBC (INCLUDES DIFF/PLT) 05/26/2024 URINALYSIS, COMPLETE 05/26/2024 HEMOGLOBIN A1c 05/26/2024 TSH 05/26/2024 VITAMIN D,25-OH,TOTAL,IA 05/26/2024 Next Appt Details Provider Name:JE PRESSLEY, 08/24/2024 10:30:00 AM, [address] [facility], [facility] [address], [place], [address], Insurance Providers Payer Name Payer Address Payer Phone Subscriber Number Group Number Insured Name Patient Relationship to Insured Coverage Start Date Coverage End Date [facility] [address] [place] [address] [phone] [id number] Mary Edmonds Self - patient is the insured MEDICATIONS ADMINISTERED Medication Instructions Date of Administration Dosage Notes MICC B12 INJECTION 12/21/2022 1 mg Semaglutide 12/21/2022 0.25 mg Semaglutide 12/28/2022 sema 0.25mg Semaglutide 01/04/2023 0.25 mg Lot #: [id number] Semaglutide 01/11/2023 0.25 mg sema 0.25mg Semaglutide 01/18/2023 0.50 mL Semaglutide 01/25/2023 Semaglutide 02/01/2023 0.5 mg Semaglutide 02/08/2023 Semaglutide 02/15/2023 1 mL Semaglutide 02/22/2023 1 mL MEDICAL (GENERAL) HISTORY Medical History History ICD Code hypertension asthma Arthritis cholelithiasis choledocholithiasis kidney stones Surgical History Surgery Date(Month/Year) cholecystectomy Gastric sleeve 02/2020 kidney stones 07/2020
--- OUTSIDE RECORDS SUMMARY | 2024-08-13 12:40 | XMS_ITS | Clinical Summary ---
Author Organization [facility] ity Address [address] [place] [address] Care Team Providers Care Organizational Development Consultant Name Role Phone Unavailable Primary Care Provider Unavailabl e Social History Tobacco Use Types Packs/Day Years Used Date Smoking Tobacco: Never Assessed Comments Unknown Sex and Gender Information Value Date Recorded Sex Assigned at Not on file Legal Sex Female 4:51 AM EST Gender Identity Not on file Sexual Orientation Not on file Plan of Treatment Health Maintenance Due Date Last Done Comments Breast Cancer Screening 1965 DTaP,Tdap,and Td Vaccines (1 - Tdap) 1985 Hepatitis B Vaccines (1 of 3 - 19+ 3-dose series) 1985 Cervical Cancer Screening: P ap Smear 1987 Pneumococcal Vaccine: 50+ Ye ars (1 of 1 - PCV) 2016 Zoster Vaccines (1 of 2) 2016 COVID-19 Vaccine ( - 2023-2 5 season) 2024 Influenza Vaccine (Season Ended) 2025 HIB Vaccines Aged Out No longer eligi ble based on patient's age to complete this topic HPV Vaccines Aged Out No longer eligi ble based on patient's age to complete this topic Hepatitis A Vaccines Aged Out No long er eligible based on patient's age to complete this topic IPV Vaccines Aged Out No longer eligi ble based on patient's age to complete this topic MMR Vaccines Aged Out No longer eligi ble based on patient's age to complete this topic Meningococcal ACWY Vaccine Aged Out N o longer eligible based on patient's age to complete this topic Meningococcal B Vacine Aged Out No lo nger eligible based on patient's age to complete this topic Pneumococcal Vaccine: Pediat rics (0 to 5 Years) and At-Risk Patients (6 to 64 Years) Aged Out No longer eligible b ased on patient's age to complete this topic RSV Immunization Patients Un max 20 months Aged Out No longer eligible b ased on patient's age to complete this topic Varicella Vaccines Aged Out No longer eligible based on patient's age to complete this topic
--- OUTSIDE RECORDS SUMMARY | 2024-08-13 12:40 | XMS_ITS ---
Author Organization [facility] Address [address] [place] [address] Care Team Providers Care Surveyor Rod Helper Name Role Phone JE PRESSLEY Unavailable [phone] REASON FOR VISIT r/s no show Encounters Encounter Location Date Provider Diagnosis [address] [place] [address] 07/29/2024 JE PRESSLEY PLAN OF TREATMENT Next Appt Details Provider Name:JE WENDIE, 08/24/2024 10:30:00 AM, [address], [address], [place], [address], Progress Notes * Mary ORTIZ NDOB :1965 (59 yo F)Acc No.[id number]:07/29/2024 Patient:??Bucky ORTIZ :1965?Age:59 Y?Sex:Fe male Address:[address], [place] [address] * true * Date:??
--- OUTSIDE RECORDS SUMMARY | 2024-08-13 12:40 | XMS_ITS ---
Author Organization [facility] Address [address] [place] [address] Care Team Providers Care Explosives Operator Name Role Phone JE PRESSLEY Unavailable [phone] MEDICATIONS Medication SIG (Take, Route, Frequency, Duration) [...] DETAILED DIRECTIONS Oral for 45 Days Active Wegovy 2.4 MG/0.75ML 2.4mg Subcutaneous weekly for 30 days Active Loratadine 10 MG TAKE 1 TABLET BY ADITHYA TH EVERY DAY IN THE MORNING Oral for 90 Days Active Encounters Encounter Location Date Provider Diagnosis [facility] [address] [address] 07/28/2024 JE PRESSLEY Overweight E66.3 ; B KS 26.0-26.9,adult Z68.26 ; Dietary counseling and surveillance Z71.3 ; Hx of laparoscopic gastric banding Z98.84 and Excess skin of abdomen L98.7 ASSESSMENTS Encounter Date Diagnosis Assessment Notes Treatment [...] software and direct typing Please excuse inadvertent grease buffer or typing errors, or uncorrected word substitutions Although every attempt has been made by the provider to proofread this document, occasional misspellings and typographical errors may still be present Due to the previous pandemic, and the use of personal protective equipment (PPE) This may decrease voice recognition accuracy Inadvertent grease buffer errors may occur 07/28/2024 BMI 26.0-26.9,adult (ICD-10 [...] software and direct typing Please excuse inadvertent grease buffer or typing errors, or uncorrected word substitutions Although every attempt has been made by the provider to proofread this document, occasional misspellings and typographical errors may still be present Due to the previous pandemic, and the use of personal protective equipment (PPE) This may decrease voice recognition accuracy Inadvertent grease buffer errors may occur 07/28/2024 Dietary counseling and [...] software and direct typing Please excuse inadvertent grease buffer or typing errors, or uncorrected word substitutions Although every attempt has been made by the provider to proofread this document, occasional misspellings and typographical errors may still be present Due to the previous pandemic, and the use of personal protective equipment (PPE) This may decrease voice recognition accuracy Inadvertent grease buffer errors may occur 07/28/2024 Hx of laparoscopic [...] software and direct typing Please excuse inadvertent grease buffer or typing errors, or uncorrected word substitutions Although every attempt has been made by the provider to proofread this document, occasional misspellings and typographical errors may still be present Due to the previous pandemic, and the use of personal protective equipment (PPE) This may decrease voice recognition accuracy Inadvertent grease buffer errors may occur 07/28/2024 Excess skin of [...] software and direct typing Please excuse inadvertent grease buffer or typing errors, or uncorrected word substitutions Although every attempt has been made by the provider to proofread this document, occasional misspellings and typographical errors may still be present Due to the previous pandemic, and the use of personal protective equipment (PPE) This may decrease voice recognition accuracy Inadvertent grease buffer errors may occur PLAN OF TREATMENT Medication Medication Name Sig Start Date Stop Date Notes Clotrimazole-Betamethasone 1-0.05 % 1 application Externally Twice a day for 30 days Wegovy 2.4 MG/0.75ML 2.4mg Subcutaneous weekly for 30 days Next Appt Details Provider Name:JE PRESSLEY, 08/24/2024 10:30:00 AM, [address] [place] [address], [facility], [place], [address], Progress Notes * Mary ORTIZ NDOB :1965 (59 yo F)Acc No.[id number]:07/28/2024 Patient:??Bucky ORTIZ Provider:??JE PRESSLEY NP :1965?Age:59 Y?Sex:Fe male Date:07/28/2024 Address:[address] [place], [place] [id number] Subjective: * Chief Complaints: * ? * HPI: ?Constitutional:? Patient is here today for a weight management f/u visit ?Body composition analysis reviewed today. ?Patient seen and examined. ? Full past medical history, social history, family history, ?allergies and current medications were reviewed and updated. ?#Weight Management ?07/28/2024 ?Due for updated labs ?Patient is currently on 2.4mg Wegovy once week ? injection day is Saturday ?She is at target goal weight ?Early satiety and good appetite suppression ?Her affinity for sweets has decreased ?brother recently diagnosed with stage IV metastatic colon cancer to the lung ?Stressful period for her and her family ?She has been doing a lot of grab and go eating and traveling a lot to [facility] to see him q 2 weeks ?Patient states she continues high protein diet, but does not count how many grams. ?Has a protein shake and high protein meals throughout day. ?Worksout in the morning via video workouts ?She does walk and is recently trying to do more strength and resistance exercises at the gym. ?We discussed her decreasing muscle composition we discussed the importance of strength ?and resistance training and high-protein diet ?Patient takes multivitamins and also Vitamin B12 ?Reports constipation and occasional nausea and anxiety due to menopausal hot flashes at night. ?otherwise tolerating well and thriving ?utilizing bariatric multivitamins ? clotrimazole/betamethasone cream does help Intertriginous candidiasis from loose skin from weight loss ?PCP Gregory, [facility] ?Had gastric banding 10-15 years ago ?Per patient she had the band removed 2019 due to ulcer complication. ?Gastric sleeve 4 years ago. Has a f/u on 03/13/24 ?Has a Hx of Hypertenison to which she takes lisinopril ?Additionaly takes B12 ?Non-smoker ?ETOH use: family events ?07/28/2024, Weight , BMI ?07/21/2024, Weight lbs , BMI ?05/26/2024, Weight 142lbs , BMI 25 ?04/07/2024, Weight 141lbs , BMI 25 ?02/27/2024, Weight 144 lbs, BMI 27 (-1 lbs) ?01/16/2024, Weight 145lb, BMI (+1lb) ?11/29/2023, Weight 144lbs , BMI 26 (-4lbs) ?10/29/2023, Weight 148lbs , BMI 28 ?09/19/2023, Weight 149, BMI 28.1 (-1lbs) ?08/07/2023, Weight 150lbs, BMI 27.6 (-2lbs) ?06/26/23 weight 152, BMI 27.9 (-4lbs) ?05/03/2023: Weight 156lbs, BMI 28, (-9lbs) ?02/19/2023: Weight 165lbs , BMI 30 ( -18lbs) ?12/21/2022: Weight 183lbs, BMI: 33 ?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 ?Comprehensive labs June 2023[facility] ?CBC is stable ?Renal function electrolytes and LFTs are stable ?Triglycerides 78, total cholesterol 175, LDL 97, HDL 63. * ROS:?All Other Systems:?Review of Systems (ROS)??All others negative except those mentioned in HPI.? * Medical History:?? * Medications:??Taking Wegovy 2.4 MG/0.75ML Solution Auto-injector 2.4mg Subcutaneous [...] TABLET BY MOUTH EVERY DAY Oral , Not-Taking Wegovy 1.7 MG/0.75ML Solution Auto-injector 0.75 mL Subcutaneous once weekly Objective: * Examination: ?General Examination: ?GENERAL APPEARANCE:??in no acute distress, well developed, well nourished.??HEAD:??normocephalic, atraumatic.??EYES:??pupils equal, round, reactive to light and accommodation.??EARS:??normal.??ORAL CAVITY:??mucosa moist.??THROAT:??clear.??NECK/THYROID:??neck supple, full range of motion, no cervical lymphadenopathy.??SKIN:??no suspicious lesions, warm and dry.??HEART:??no murmurs, regular rate and rhythm, S1, S2 normal.??LUNGS:??clear to auscultation bilaterally.??ABDOMEN:??normal, bowel sounds present, soft, nontender, nondistended.??EXTREMITIES:??no clubbing, cyanosis, or edema.??NEUROLOGIC:??nonfocal, motor strength normal upper and lower extremities, sensory exam intact.? Assessment: * Assessment: 1.??Overweight - E66.3 (Prim rhona)??2.??BMI 26.0-26.9,adult - Z68.26??3.??Dietary counseling and surveillance - Z71.3??4.??Hx of laparoscopic gastric banding - Z98.84??5.??Excess skin of abdomen - L98.7?? #Weight Management 07/28/2024 Lets update labs Discussed [...] software and direct typing Please excuse inadvertent grease buffer or typing errors, or uncorrected word substitutions Although every attempt has been made by the provider to proofread this document, occasional misspellings and typographical errors may still be present Due to the previous pandemic, and the use of personal protective equipment (PPE) This may decrease voice recognition accuracy Inadvertent grease buffer errors may occur. Plan: * Treatment: * Procedure Codes:??11487 NO S HOW OFFICE VISIT * Images: Billing Information: * Visit Code:?? * Procedure Codes:?? 60308 NO SHOW OFFICE VISIT. 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 Comprehensive labs June 2023, [facility] CBC is stable Renal function electrolytes and LFTs are stable Triglycerides 78, total cholesterol 175, LDL 97, HDL 63 Examination Category Sub-Category Detail Notes Category Not es General Examination GENERAL APPEARANCE: in no ac [place] distress, well developed, well nourished HEAD: normocephalic, [...]
--- OUTSIDE RECORDS SUMMARY | 2024-08-13 12:40 | XMS_ITS ---
Author Organization [facility] Address [address] [place] [address] Care Team Providers Care Textile Machine Operator Name Role Phone JE PRESSLEY Unavailable [phone] REASON FOR VISIT SECA- MEDICATIONS Medication SIG (Take, Route, Frequency, Duration) Notes Start Date End Date Status Clotrimazole-Betamethas one 1-0.05 % 1 application Externally Twice a day for 30 days Active Wegovy 2.4 MG/0.75ML 2.4mg Subcutaneous weekly for 30 days Active Celecoxib 100 MG PLEASE SEE ATTACHED FOR DETAILED DIRECTIONS Oral for 45 Days Active Lisinopril 10 MG TAKE 1 TABLET BY ADITHYA TH EVERY DAY Oral for 90 Days Active Wegovy 1.7 MG/0.75ML 0.75 mL Subcutaneou s once weekly for 30 days Not-Taking Loratadine 10 MG TAKE 1 TABLET BY ADITHYA TH EVERY DAY IN THE MORNING Oral for 90 Days Active Encounters Encounter Location Date Provider Diagnosis [facility] [address] [address] 07/21/2024 JE PRESSLEY Overweight E66.3 ; B [place] 26.0-26.9,adult Z68.26 ; Dietary counseling and surveillance Z71.3 ; Hx of laparoscopic gastric banding Z98.84 and Excess skin of abdomen L98.7 ASSESSMENTS Encounter Date Diagnosis Assessment Notes Treatment Notes Treatment Clinical Notes Section Notes 07/21/2024 Overweight (ICD-10 - E66.3) #Weight Management [...] software and direct typing Please excuse inadvertent corporate quality manager or typing errors, or uncorrected word substitutions Although every attempt has been made by the provider to proofread this document, occasional misspellings and typographical errors may still be present Due to the previous pandemic, and the use of personal protective equipment (PPE) This may decrease voice recognition accuracy Inadvertent corporate quality manager errors may occur 07/21/2024 BMI 26.0-26.9,adult (ICD-10 [...] software and direct typing Please excuse inadvertent corporate quality manager or typing errors, or uncorrected word substitutions Although every attempt has been made by the provider to proofread this document, occasional misspellings and typographical errors may still be present Due to the previous pandemic, and the use of personal protective equipment (PPE) This may decrease voice recognition accuracy Inadvertent corporate quality manager errors may occur 07/21/2024 Dietary counseling and [...] software and direct typing Please excuse inadvertent corporate quality manager or typing errors, or uncorrected word substitutions Although every attempt has been made by the provider to proofread this document, occasional misspellings and typographical errors may still be present Due to the previous pandemic, and the use of personal protective equipment (PPE) This may decrease voice recognition accuracy Inadvertent corporate quality manager errors may occur 07/21/2024 Hx of laparoscopic [...] software and direct typing Please excuse inadvertent corporate quality manager or typing errors, or uncorrected word substitutions Although every attempt has been made by the provider to proofread this document, occasional misspellings and typographical errors may still be present Due to the previous pandemic, and the use of personal protective equipment (PPE) This may decrease voice recognition accuracy Inadvertent corporate quality manager errors may occur 07/21/2024 Excess skin of [...] software and direct typing Please excuse inadvertent corporate quality manager or typing errors, or uncorrected word substitutions Although every attempt has been made by the provider to proofread this document, occasional misspellings and typographical errors may still be present Due to the previous pandemic, and the use of personal protective equipment (PPE) This may decrease voice recognition accuracy Inadvertent corporate quality manager errors may occur PLAN OF TREATMENT Medication Medication Name Sig Start Date Stop Date Notes Clotrimazole-Betamethasone 1-0.05 % 1 application Externally Twice a day for 30 days Wegovy 2.4 MG/0.75ML 2.4mg Subcutaneous weekly for 30 days Next Appt Details Provider Name:JE PRESSLEY, 08/24/2024 10:30:00 AM, [address] [place] [address], [address], [address], Progress Notes * Mary ORTIZ NDOB :1965 (59 yo F)Acc No.[id number]:07/21/2024 Patient:??Bucky ORTIZ Provider:??JE PRESSLEY NP :1965?Age:59 Y?Sex:Fe male Date:07/21/2024 Address:[address] [place], [place] [id number] Subjective: * Chief Complaints: * ?1. SECA-. * HPI: ?Constitutional:? Patient is here today for a weight management f/u visit ?Body composition analysis reviewed today. ?Patient seen and examined. ? Full past medical history, social history, family history, ?allergies and current medications were reviewed and updated. ?#Weight Management ?07/21/2024 ?Due for updated labs ?Patient is currently [...] go eating and traveling a lot to 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 ?Comprehensive labs June 2023, [facility] ?CBC is stable ?Renal function electrolytes and LFTs are stable ?Triglycerides 78, total cholesterol 175, LDL 97, HDL 63 ?PCP Gregory, [facility] ?Awaiting records: [facility] ?Had gastric banding 10-15 years ago ?Per patient she had the band removed 2019 due to ulcer complication. ?Gastric sleeve 4 years ago. Has a f/u on 03/13/24 ?Has a Hx of Hypertenison to which she takes lisinopril ?Additionaly takes B12 ?Non-smoker ?ETOH use: family events. * ROS:?All Other Systems:?Review of Systems (ROS)??All [...] skin of abdomen - L98.7?? #Weight Management 07/21/2024 Lets update labs Discussed [...] software and direct typing Please excuse inadvertent corporate quality manager or typing errors, or uncorrected word substitutions Although every attempt has been made by the provider to proofread this document, occasional misspellings and typographical errors may still be present Due to the previous pandemic, and the use of personal protective equipment (PPE) This may decrease voice recognition accuracy Inadvertent corporate quality manager errors may occur. Plan: * Treatment: * Procedure Codes:??47720 NO S HOW OFFICE VISIT * Images: Billing Information: * Visit Code:?? * Procedure Codes:?? 31534 NO SHOW OFFICE VISIT. * Sign off [...] medications were reviewed and updated. #Weight Management 07/21/2024 Due for updated labs Patient is currently [...] go eating and traveling a lot to 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 Comprehensive labs June 2023, [facility] CBC is stable Renal function electrolytes and LFTs are stable Triglycerides 78, total cholesterol 175, LDL 97, HDL 63 PCP Gregory, [facility] Awaiting records: [facility] Had gastric banding 10-15 years ago Per patient she had the band removed 2019 due to ulcer complication. Gastric sleeve 4 years ago. Has a f/u on 03/13/24 Has a Hx of Hypertenison to which she takes lisinopril Additionaly takes B12 Non-smoker ETOH use: family events Examination Category Sub-Category Detail Notes Category Not [...]
[2024-08-13 12:48] LABS: Bacterial Vaginosis PCR NEGATIVE (Negative); Candida Group PCR NOT DETECTED (Not Detect); Candida glab krusei PCR NOT DETECTED (Not Detect); Trichomonas vaginalis PCR NOT DETECTED (Not Detect)
[2024-08-13 13:14] LABS: CT PCR NOT DETECTED (Not Detect.); NG PCR NOT DETECTED (Not Detect.)
== END 2024-08-12 00:01 | disposition home or self-care (01) ==
LOC: HO.HHCLNP
PROVIDERS: Visit Provider Internal Medicine
DX: N30.90 Cystitis, unspecified without hematuria (principal)
CPT/HCPCS: 81515; 87086; 87491; 87591

== ENCOUNTER 2024-09-22 10:50 | Outpatient (REF) | payer BC, SELFPAY ==
[2024-09-22 11:05] LABS: MANUAL DIFF FLAG NO
[2024-09-22 11:43] LABS: Appearance Urine Clear; Color Urine Yellow; Glucose Urine UA Negative (Negative); Leukocyte Esterase Urine Negative (Negative); Nitrite Urine Negative (Negative); PH >= 9.0 (5.0-9.0); Specific Gravity - Urine 1.015 (1.005-1.025); Urine Blood Negative (Negative); Urine Ketones Negative (Negative); Urine Protein Negative (Neg-Trace)
[2024-09-22 11:47] LABS: Basophils Absolute Auto 0.1 X10*3/uL (0.0-0.2); Basophils Percent Auto 1.1 % (0-2); Eosinophils Absolute Auto 0.1 X10*3/uL (0.0-0.4); Eosinophils Percent Auto 1.5 % (0-4); Hematocrit 38.2 % (37.0-47.0); Hemoglobin 12.5 g/dl (12.0-16.0); Imm Gran Abs Auto 0.02 X10*3/uL (0.00-0.03); Imm Gran Pct Auto 0.4 % (0.0-0.4); Lymphocytes Absolute Auto 1.5 X10*3/uL (1.2-4.9); Lymphocytes Percent Auto 33.8 % (20-40); Mean Corpuscular HGB Conc 32.7 g/dl (31.0-35.0); Mean Corpuscular Hemoglobin 28.8 pg (27.0-33.0); Mean Platelet Volume 10.6 fL (9.4-12.3); Monocytes Absolute Auto 0.4 X10*3/uL (0.1-1.2); Monocytes Percent Auto 8.1 % (2-11); Neutrophils Absolute Auto 2.5 x10*3/uL (2.0-8.3); Neutrophils Percent Auto 55.1 % (45-73); Platelet Count 315 X10*3/uL (160-400); Red Blood Count 4.34 X10*6/uL (4.20-5.50); Red Cell Distribution Width 13.1 % (11.0-16.0); White Blood Count 4.6 X10*3/uL (4.8-10.8)
[2024-09-22 12:05] LABS: Estimated Average Glucose 100 mg/dL; Hemoglobin A1C 110.7735 umol/L; Hemoglobin A1c % 5.1 % (<6.0); Total Hemoglobin (HGBA1C) 3384.6086 umol/L
--- OUTSIDE RECORDS SUMMARY | 2024-09-22 12:16 | XMS_ITS ---
Author Organization [facility] Address [address] [place] [address] Care Team Providers Care Supervising Deputy Name Role Phone JE PRESSLEY Unavailable [phone] ALLERGIES Allergen (clinical drug ingredient) Drug/Non Drug Allergy documented on EMR Reaction Allergy Type Onset Date Status pineapple allergenic extract Pineapple (Diagnostic) hives Drug Allergy Activ e REASON FOR VISIT Pt here for weight management follow up, SECA done. MEDICATIONS Medication SIG (Take, Route, Frequency, Duration) Notes Start Date End Date Status Loratadine 10 MG TAKE 1 TABLET BY ADITHYA TH EVERY DAY IN THE MORNING Oral for 90 Days Active Celecoxib 100 MG PLEASE SEE ATTACHED FOR DETAILED DIRECTIONS Oral for 45 Days Active Lisinopril 10 MG TAKE 1 TABLET BY ADITHYA TH EVERY DAY Oral for 90 Days Active Clotrimazole-Betamethas one 1-0.05 % 1 application Externally Twice a day for 30 days Active Wegovy 1.7 MG/0.75ML 0.75 mL Subcutaneou s once weekly for 30 days Not-Taking Wegovy 1 MG/0.5ML 1mg Subcutaneous wee kly for 30 days 08/24/2024 Active Wegovy 2.4 MG/0.75ML INJECT 2.4MG SUBCUT ANEOUS WEEKLY 30 DAYS for 30 Active SOCIAL HISTORY Tobacco Use: Social History Observation Description Date Details (start date - stop date) Never Smoker NA - NA Sex Assigned At : Social History Observation Description Sex Assigned At Unknown Tobacco Use/Smoking Question Answer Notes Are you a nonsmoker VITAL SIGNS Blood pressure systolic 122 mm Hg 04/14/20 25 Blood pressure diastolic 64 mm Hg 025 Heart Rate 78 /min 08/24/2024 Height 62 in 08/24/2024 Weight 140 lbs 08/24/2024 BMI 25.6 kg/m2 08/24/2024 Oximetry 98 % 08/24/2024 Encounters Encounter Location Date Provider Diagnosis [facility] [address] [place] [address] 08/24/2024 JE PRESSLEY Overweight E66.3 ; B AL 25.0-25.9,adult Z68.25 ; Dietary counseling and surveillance Z71.3 ; Hx of laparoscopic gastric banding Z98.84 and Excess skin of abdomen L98.7 ASSESSMENTS Encounter Date Diagnosis Assessment Notes Treatment Notes Treatment Clinical Notes Section Notes 08/24/2024 Overweight (ICD-10 - E66.3) #Weight Management 08/24/2024 _update labs Decrease to Wegovy 1mg weekly, patient at goal weight Discussed importance of creatine, protein, and resistance training for muscle building. She has signed up for a gym membership. Otherwise thriving She will continue to use antifungal cream Total time spent today was 30 minutes of which greater than 50% was spent on coordinating and counseling Patient has been found to be overweight with a BMI of (25). Patient has overweight class per BMI standards We are a board certified obesity and weight management practice Of note, some information is being carried forward from prior records for informational purposes only and is being cited so that efficiency, safety and quality of the patient's care is not compromised This note was prepared using voice recognition software and direct typing Please excuse inadvertent postal sorting officer or typing errors, or uncorrected word substitutions Although every attempt has been made by the provider to proofread this document, occasional misspellings and typographical errors may still be present Due to the previous pandemic, and the use of personal protective equipment (PPE) This may decrease voice recognition accuracy Inadvertent postal sorting officer errors may occur 08/24/2024 BMI 25.0-25.9,adult (ICD-10 - Z68.25) #Weight Management 08/24/2024 _update labs Decrease to Wegovy 1mg weekly, patient at goal weight Discussed importance of creatine, protein, and resistance training for muscle building. She has signed up for a gym membership. Otherwise thriving She will continue to use antifungal cream Total time spent today was 30 minutes of which greater than 50% was spent on coordinating and counseling Patient has been found to be overweight with a BMI of (25). Patient has overweight class per BMI standards We are a board certified obesity and weight management practice Of note, some information is being carried forward from prior records for informational purposes only and is being cited so that efficiency, safety and quality of the patient's care is not compromised This note was prepared using voice recognition software and direct typing Please excuse inadvertent postal sorting officer or typing errors, or uncorrected word substitutions Although every attempt has been made by the provider to proofread this document, occasional misspellings and typographical errors may still be present Due to the previous pandemic, and the use of personal protective equipment (PPE) This may decrease voice recognition accuracy Inadvertent postal sorting officer errors may occur 08/24/2024 Dietary counseling and surveillance (ICD-10 - Z71.3) #Weight Management 08/24/2024 _update labs Decrease to Wegovy 1mg weekly, patient at goal weight Discussed importance of creatine, protein, and resistance training for muscle building. She has signed up for a gym membership. Otherwise thriving She will continue to use antifungal cream Total time spent today was 30 minutes of which greater than 50% was spent on coordinating and counseling Patient has been found to be overweight with a BMI of (25). Patient has overweight class per BMI standards We are a board certified obesity and weight management practice Of note, some information is being carried forward from prior records for informational purposes only and is being cited so that efficiency, safety and quality of the patient's care is not compromised This note was prepared using voice recognition software and direct typing Please excuse inadvertent postal sorting officer or typing errors, or uncorrected word substitutions Although every attempt has been made by the provider to proofread this document, occasional misspellings and typographical errors may still be present Due to the previous pandemic, and the use of personal protective equipment (PPE) This may decrease voice recognition accuracy Inadvertent postal sorting officer errors may occur 08/24/2024 Hx of laparoscopic gastric banding (ICD-10 - Z98.84) #Weight Management 08/24/2024 _update labs Decrease to Wegovy 1mg weekly, patient at goal weight Discussed importance of creatine, protein, and resistance training for muscle building. She has signed up for a gym membership. Otherwise thriving She will continue to use antifungal cream Total time spent today was 30 minutes of which greater than 50% was spent on coordinating and counseling Patient has been found to be overweight with a BMI of (25). Patient has overweight class per BMI standards We are a board certified obesity and weight management practice Of note, some information is being carried forward from prior records for informational purposes only and is being cited so that efficiency, safety and quality of the patient's care is not compromised This note was prepared using voice recognition software and direct typing Please excuse inadvertent postal sorting officer or typing errors, or uncorrected word substitutions Although every attempt has been made by the provider to proofread this document, occasional misspellings and typographical errors may still be present Due to the previous pandemic, and the use of personal protective equipment (PPE) This may decrease voice recognition accuracy Inadvertent postal sorting officer errors may occur 08/24/2024 Excess skin of abdomen (ICD-10 - L98.7) #Weight Management 08/24/2024 _update labs Decrease to Wegovy 1mg weekly, patient at goal weight Discussed importance of creatine, protein, and resistance training for muscle building. She has signed up for a gym membership. Otherwise thriving She will continue to use antifungal cream Total time spent today was 30 minutes of which greater than 50% was spent on coordinating and counseling Patient has been found to be overweight with a BMI of (25). Patient has overweight class per BMI standards We are a board certified obesity and weight management practice Of note, some information is being carried forward from prior records for informational purposes only and is being cited so that efficiency, safety and quality of the patient's care is not compromised This note was prepared using voice recognition software and direct typing Please excuse inadvertent postal sorting officer or typing errors, or uncorrected word substitutions Although every attempt has been made by the provider to proofread this document, occasional misspellings and typographical errors may still be present Due to the previous pandemic, and the use of personal protective equipment (PPE) This may decrease voice recognition accuracy Inadvertent postal sorting officer errors may occur PLAN OF TREATMENT Medication Medication Name Sig Start Date Stop Date Notes Clotrimazole-Betamethasone 1-0.05 % 1 application Externally Twice a day for 30 days Wegovy 1 MG/0.5ML 1mg Subcutaneous wee kly for 30 days 08/24/2024 Next Appt Details Provider Name:JE PRESSLEY, 10/10/2024 09:00:00 AM, [address], [place], [address], Progress Notes * STEPHAN GARCIA Mary NDOB :1965 (59 yo F)Acc No.[id number]:08/24/2024 Patient:??STEPHAN RADHABucky Provider:??JE PRESSLEY NP :1965?Age:59 Y?Sex:Fe male Date:08/24/2024 Address:[address] [place] [address] Subjective: * Chief Complaints: * ?1. Pt here for weight management follow up, SECA done.. * HPI: ?Constitutional:? Patient is here today for a weight management f/u visit ?Body composition analysis reviewed today. ?Patient seen and examined. ? Full past medical history, social history, family history, ?allergies and current medications were reviewed and updated. ?#Weight Management ?08/24/2024 ?Due for updated labs ?Patient is currently on 2.4mg Wegovy once week ?We are at target goal weight, we discussed maintenance dosing moving forward ?Injection day is Saturday ?Had gastric banding 10-15 years ago ?Per patient she had the band removed 2019 due to ulcer complication. ?Gastric sleeve 4 years ago ?Trying to get back into routine, has had trouble the past year with the loss of her brother ?Seems to be coping well ?Diet- protein shakes, lean cuisines low sodium, still has cravings for sweets ?Reports emotional eating ?Exercise- usually cardio and weights, has not been doing as much in the past year ?Early satiety and good appetite suppression ?Her affinity for sweets has decreased ?Patient states she continues high protein diet, [...] loose skin from weight loss ?PCP Gregory, [facility] ?Has a Hx of Hypertenison to which she takes lisinopril ?Additionaly takes B12 ?Non-smoker ?ETOH use: family events ?08/24/2024, Weight 140.7, BMI 25.8 ?07/21/2024, Weight lbs , BMI ?05/26/2024, Weight [...] 183lbs, BMI: 33 ?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 ?Comprehensive labs June 2023, [facility] ?CBC is stable ?Renal function electrolytes and LFTs are stable ?Triglycerides 78, total cholesterol 175, LDL 97, HDL 63. * ROS:?All Other Systems:?Review of Systems (ROS)??All others negative except those mentioned in HPI.? * Medical History:??Hypertensi on, Asthma, Arthritis, Cholelithiasis, Choledocholithiasis, Kidney stones. * Surgical History:??cholecyst ectomy , Gastric sleeve 02/2020, kidney stones 07/2020. * Family History:??Father: dec eased 55 yrs, heart disease.??Mother: 92 yrs, diverticulitis.??1 sister(s) . 2 son(s) , 1 daughter(s) - healthy. .?? sistere cancer. * Social History:?Tobacco Use:??Tobacco Use/Smoking??Are you a??nonsmoker.?? * Medications:??Taking Clotrim azole-Betamethasone 1-0.05 % Cream 1 application Externally Twice a day , Taking Loratadine 10 MG Tablet TAKE 1 TABLET BY MOUTH EVERY DAY IN THE MORNING Oral , Taking Celecoxib 100 MG Capsule PLEASE SEE ATTACHED FOR DETAILED DIRECTIONS Oral , Taking Lisinopril 10 MG Tablet TAKE 1 TABLET BY MOUTH EVERY DAY Oral , Taking Wegovy 2.4 MG/0.75ML Solution Auto-injector INJECT 2.4MG SUBCUTANEOUS WEEKLY 30 DAYS , Not-Taking Wegovy 1.7 MG/0.75ML Solution Auto- injector 0.75 mL Subcutaneous once weekly , Medication List reviewed and reconciled with the patient * Allergies:??Pineapple (Diagn ostic): hives. Objective: * Vitals:??HR:78/min, BP:122/6 4mm Hg, Wt:140lbs, BMI:25.6Index, Ht: 62 in, Oxygen sat %:98%. * Examination: ?General Examination: ?GENERAL APPEARANCE:??in no [...] * Assessment: 1.??Overweight - E66.3 (Prim rhona)??2.??BMI 25.0-25.9,adult - Z68.25??3.??Dietary counseling and surveillance - Z71.3??4.??Hx of laparoscopic gastric banding - Z98.84??5.??Excess skin of abdomen - L98.7?? #Weight Management 08/24/2024 _update labs Decrease to Wegovy 1mg weekly, patient at goal weight Discussed importance of creatine, protein, and resistance training for muscle building. She has signed up for a gym membership. Otherwise thriving She will continue to use antifungal cream Total time spent today was 30 minutes of which greater than 50% was spent on coordinating and counseling Patient has been found to be overweight with a BMI of (25). Patient has overweight class per BMI standards We are a board certified obesity and weight management practice Of note, some information is being carried forward from prior records for informational purposes only and is being cited so that efficiency, safety and quality of the patient's care is not compromised This note was prepared using voice recognition software and direct typing Please excuse inadvertent postal sorting officer or typing errors, or uncorrected word substitutions Although every attempt has been made by the provider to proofread this document, occasional misspellings and typographical errors may still be present Due to the previous pandemic, and the use of personal protective equipment (PPE) This may decrease voice recognition accuracy Inadvertent postal sorting officer errors may occur. Plan: * Treatment: * Procedure Codes:??G0447 FCE- FCE BEHAVRL CNSL OBESITY 15 MIN, Modifiers: 59 * Images: Billing Information: * Visit Code:?? 63566 Office Visit, Est Pt., Level 4. Modifiers: SA * Procedure Codes:?? G0447 FCE-FCE BEHAVRL CNSL OBESITY 15 MIN. Modifiers: 59 * Sign off status: Completed true * Provider:??JE PRESSLEY NP Date:??08/11 History and Physical Notes * HPI (History of Present Illness) Category Sub-Category Detail Notes Category Not es Constitutional Patient is here today for a weight management f/u visit Body composition analysis reviewed today. Patient seen and examined. Full past medical history, social history, family history, allergies and current medications were reviewed and updated. #Weight Management 08/24/2024 Due for updated labs Patient is currently on 2.4mg Wegovy once week We are at target goal weight, we discussed maintenance dosing moving forward Injection day is Saturday Had gastric banding 10-15 years ago Per patient she had the band removed 2019 due to ulcer complication. Gastric sleeve 4 years ago Trying to get back into routine, has had trouble the past year with the loss of her brother Seems to be coping well Diet- protein shakes, lean cuisines low sodium, still has cravings for sweets Reports emotional eating Exercise- usually cardio and weights, has not been doing as much in the past year Early satiety and good appetite suppression Her affinity for sweets has decreased Patient states she continues high protein diet, [...] loose skin from weight loss PCP Gregory, [facility] Has a Hx of Hypertenison to which she takes lisinopril Additionaly takes B12 Non-smoker ETOH use: family events 08/24/2024, Weight 140.7, BMI 25.8 07/21/2024, Weight lbs , BMI 05/26/2024, Weight [...] 183lbs, BMI: 33 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 Comprehensive labs June 2023, [facility] CBC is stable Renal function electrolytes [...]
--- OUTSIDE RECORDS SUMMARY | 2024-09-22 12:16 | XMS_ITS | Clinical Summary ---
Author Organization [facility] ity Address [address] [place] [address] Care Team Providers Care Cardroom Supervisor Name Role Phone Unavailable Primary Care Provider [...] age to complete this topic Meningococcal B Vaccine Aged Out No l onger eligible based on patient's age to complete [...]
--- OUTSIDE RECORDS SUMMARY | 2024-09-22 12:16 | XMS_ITS | Patient Health Record ---
Author Organization [facility] Address [address] [place] [address] Care Team Providers Care Rumper Name Role Phone TRACIJE PIEDRA Unavailable [phone] KATHY LINDSEY Unavailable [phone] ALLERGIES Allergen (clinical drug ingredient) Drug/Non Drug Allergy documented on EMR Reaction Allergy Type Onset Date Status pineapple allergenic extract Pineapple (Diagnostic) hives Drug Allergy Activ e REASON FOR REFERRAL Reason Dr Rae Diagnosis 1 Overweight (E66.3) Referral Organization [facility] [place] [facility] Referring Provider First Name JE Referring [facility] Referring Provider Speciality Internal M edicine Referred Provider Specialty Surgery General Notes LEONORA DENISE 11/17 10:10:47 AM > faxed referral to Dr Rae p: [phone] f: [phone] Referral Priority Routine Reason Complaining of exces sive skin in the bilateral arm tricep region as well as inguinal folds and lower abdomen folds Causing frequent intertriginous infections and fungal infections Diagnosis 1 Excess skin of abdom en (L98.7) Referral Organization [facility] [place] 119 Referring Provider First Name JE Referring Provider Last Name WENDIE Referring Provider Speciality Internal M edicine Referred Provider Specialty Surgery General Notes [facility] to , , [phone], with attached office notes and demographics. Clinical Notes Pauline Mcmillan 12/30 11:26:14 AM >, Zuleyma Wu 01/06/2024 04:24:53 PM > refaxed to [phone], Zuleyma Wu 02/17/2024 04:02:11 PM > The office confirmed receipt of referral. I called the patient and provided [facility]'s phone number for scheduling ([phone]). Patient said she will call them Referral Priority Routine Reason from [facility] Diagnosis 1 Overweight (E66.3) Referred Organization [facility] [place] 119 Referred Provider JE PRESSLEY Referred Address [address] [facility] [address] ,[place], [place],[address], Referred Provider Specialty Weight Manag ement Referral [...] a day for 30 days Active Wegovy 1 MG/0.5ML 1mg Subcutaneous wee kly for 30 days 08/24/2024 Active Wegovy 2.4 MG/0.75ML INJECT 2.4MG SUBCUT ANEOUS WEEKLY 30 DAYS for 30 Active Wegovy 1.7 MG/0.75ML 0.75 mL Subcutaneou s once weekly for 30 days Not-Taking SOCIAL HISTORY Tobacco Use: Social History Observation [...] due to excess calories (E66.09) Active confirmed 573286649 Problem Overweight (E66.3) Active confirmed 093610183 Problem Encounter for screening for lipoid disorders (Z13.220) Active confirmed Lipid screening (293252086) Problem Essential hypertension (I10) Active confirmed 75604589 Problem Adult general medical exam (Z00.00) Active confirmed Adult health examination (414506700) Problem Kidney stone (N20.0) Active confirmed 55678007 Problem Diabetes mellitus screening (Z13.1) Active confirmed Diabetes mellitus screening (780267638) Problem Body mass index [BMI] 32.0-32.9, adult (Z68.32) Active confirmed 805377566 Problem BMI 25.0-25.9,adult (Z68.25) Active confirmed 794430992 Problem BMI 30.0-30.9,adult (Z68.30) Active confirmed 930532788 Problem Overweight (BMI 25.0-29.9) (E66.3) Active confirmed 200070443 Problem Avitaminosis D (E55.9) Active confirmed Avitaminosis D (42785269) Problem Encounter for screening for endocrine disorder (Z13.29) Active confirmed Endocrine/metab o lic screening (557924396) Problem Hx of laparoscopic gastric banding (Z98.84) Active confirmed 996452965 Problem Nutritional counseling (Z71.3) Active confirmed 352257068 Problem Excess skin of abdomen (L98.7) Active confirmed 493595713 VITAL SIGNS Heart Rate 78 /min 08/24/2024 Blood pressure diastolic 64 mm Hg 08/24/2024 Oximetry 98 % 08/24/2024 Height 62 in 08/24/2024 Blood pressure systolic 122 mm Hg 08/24/2024 Weight 140 lbs 08/24/2024 BMI 25.6 kg/m2 08/24/2024 Encounters Encounter Location Date Provider Diagnosis [place] [address] [address] 07/21/2024 JE BORHOT Overweight E66.3 ; BMI 26.0-26.9,adult Z68.26 ; Dietary counseling and surveillance Z71.3 ; Hx of laparoscopic gastric banding Z98.84 and Excess skin of abdomen L98.7 [place] [address] 07/28/2024 JE BORHOT Overweight E66.3 ; BMI 26.0-26.9,adult Z68.26 ; Dietary counseling and surveillance Z71.3 ; Hx of laparoscopic gastric banding Z98.84 and Excess skin of abdomen L98.7 [place] [address] 10/29/2023 JE BORHOT Overweight E66.3 ; BMI 27.0-27.9,adult Z68.27 ; Dietary counseling and surveillance Z71.3 ; Hx of laparoscopic gastric banding Z98.84 and Excess skin of abdomen L98.7 [facility] [address] [place] [address] 11/30/2023 JE BORHOT Overweight E66.3 ; BMI 26.0-26.9,adult Z68.26 ; Dietary counseling and surveillance Z71.3 ; Hx of laparoscopic gastric banding Z98.84 and Excess skin of abdomen L98.7 [place] [address] [address] 01/16/2024 JE BORHOT Overweight E66.3 ; BMI 26.0-26.9,adult Z68.26 ; Dietary counseling and surveillance Z71.3 ; Hx of laparoscopic gastric banding Z98.84 and Excess skin of abdomen L98.7 [place] [address] [address] 02/27/2024 JE BORHOT Overweight E66.3 ; BMI 26.0-26.9,adult Z68.26 ; Dietary counseling and surveillance Z71.3 ; Hx of laparoscopic gastric banding Z98.84 and Excess skin of abdomen L98.7 [address] 04/07/2024 KATHY CÉSAR Overweight (BMI 25.0-29.9) E66.3 ; BMI 25.0-25.9,adult Z68.25 ; Essential hypertension I10 ; Hx of laparoscopic gastric banding Z98.84 and Nutritional counseling Z71.3 [place] [address] 05/26/2024 JE BORHOT Overweight E66.3 ; BMI 26.0-26.9,adult Z68.26 ; Dietary counseling and surveillance Z71.3 ; Hx of laparoscopic gastric banding Z98.84 and Excess skin of abdomen L98.7 [place] [address] 08/24/2024 JE BORHOT Overweight E66.3 ; BMI 25.0-25.9,adult Z68.25 ; Dietary counseling and surveillance Z71.3 ; Hx of laparoscopic gastric banding Z98.84 and Excess skin of abdomen L98.7 [address] [address] 12/30/[address] [facility] [address] [place] [address] 01/27/2024 JE BORHOT [address] [place] [address] 01/29/[address] [facility] [address] [facility] [address] [place] [address] 01/29/2024 JE BORHOT [address] [place] [address] 02/03/2024 JE BORHOT [address] [place] [address] 02/03/2024 JE AVILESROSET Overweight E66.[address] [facility] [address] [facility] [place] [address] 04/07/[address] [facility] [facility] [address] [place] [address] 05/21/2024 JE BORHOT [address] [place] [address] 07/29/[address] [facility] [address] [place] [address] 08/24/2024 JE PRESSLEY ASSESSMENTS Encounter Date Diagnosis Assessment Notes Treatment Notes Treatment Clinical Notes Section Notes 10/29/2023 Overweight (ICD-10 - E66.3) #Weight Management 10/29/2023 She will be prescribed antifungal cream Plastics referral for skin excision potentially after weight loss has been completed Request labs from [facility] supposedly done in June 2023 Continue Wegovy [...] minimum of 6 months The most recent [place] Association of clinical endocrinologists and [place] College of endocrinology guidelines recommend patients who [...] track activity level. Consider using apps like [employer], Preen.Mepal, lose it, stick as needed for self-monitoring and weight management. Consider group exercises. Consider hiring a personal caregiver. Regular exercise is preston to sustainable health [...] counseling and psychiatry and Dr Harrison at [facility]. We would like to cover regular topics [...] software and direct typing Please excuse inadvertent can reforming machine operator or typing errors, or uncorrected word substitutions Although every attempt has been made by the provider to proofread this document, occasional misspellings and typographical errors may still be present Due to the previous pandemic, and the use of personal protective equipment (PPE) This may decrease voice recognition accuracy Inadvertent can reforming machine operator errors may occur 10/29/2023 BMI 27.0-27.9,adult (ICD-10 - Z68.27) #Weight Management 10/29/2023 She will be prescribed antifungal cream Plastics referral for skin excision potentially after weight loss has been completed Request labs from [facility] supposedly done in June 2023 Continue Weabevy 2.4 mg Discussed protein and strength and [...] minimum of 6 months The most recent [place] Association of clinical endocrinologists and [place] College of endocrinology guidelines recommend patients who [...] track activity level. Consider using apps like [employer], Preen.Mepal, lose it, stick as needed for self-monitoring and weight management. Consider group exercises. Consider hiring a personal caregiver. Regular exercise is preston to sustainable health [...] counseling and psychiatry and Dr Harrison at [facility]. We would like to cover regular topics [...] software and direct typing Please excuse inadvertent can reforming machine operator or typing errors, or uncorrected word substitutions Although every attempt has been made by the provider to proofread this document, occasional misspellings and typographical errors may still be present Due to the previous pandemic, and the use of personal protective equipment (PPE) This may decrease voice recognition accuracy Inadvertent can reforming machine operator errors may occur 11/30/2023 Overweight (ICD-10 - E66.3) #Weight Management 11/29/2023 Otherwise thriving Continue Wegovy 2.4 mg She will be prescribed antifungal cream Plastics referral for skin excision potentially after weight loss has been completed Request labs from [facility] supposedly done in June 2023 Discussed protein [...] minimum of 6 months The most recent [place] Association of clinical endocrinologists and [place] College of endocrinology guidelines recommend patients who [...] track activity level. Consider using apps like [employer], Preen.Mepal, lose it, stick as needed for self-monitoring and weight management. Consider group exercises. Consider hiring a personal caregiver. Regular exercise is preston to sustainable health [...] counseling and psychiatry and Dr Harrison at [facility]. We would like to cover regular topics [...] software and direct typing Please excuse inadvertent can reforming machine operator or typing errors, or uncorrected word substitutions Although every attempt has been made by the provider to proofread this document, occasional misspellings and typographical errors may still be present Due to the previous pandemic, and the use of personal protective equipment (PPE) This may decrease voice recognition accuracy Inadvertent can reforming machine operator errors may occur 11/30/2023 BMI 26.0-26.9,adult (ICD-10 - Z68.26) #Weight Management 11/29/2023 Otherwise thriving Continue Wegovy 2.4 mg She will be prescribed antifungal cream Plastics referral for skin excision potentially after weight loss has been completed Request labs from [facility] supposedly done in June 2023 Discussed protein [...] minimum of 6 months The most recent [place] Association of clinical endocrinologists and [place] College of endocrinology guidelines recommend patients who [...] track activity level. Consider using apps like [employer], myfitnesspal, lose it, stick as needed for self-monitoring and weight management. Consider group exercises. Consider hiring a personal caregiver. Regular exercise is preston to sustainable health [...] counseling and psychiatry and Dr Harrison at [facility]. We would like to cover regular topics [...] software and direct typing Please excuse inadvertent can reforming machine operator or typing errors, or uncorrected word substitutions Although every attempt has been made by the provider to proofread this document, occasional misspellings and typographical errors may still be present Due to the previous pandemic, and the use of personal protective equipment (PPE) This may decrease voice recognition accuracy Inadvertent can reforming machine operator errors may occur 01/16/2024 Overweight (ICD-10 - E66.3) #Weight Management 01/16/2024 Patient to have updated labs from [facility] faxed to us later today Otherwise thriving [...] minimum of 6 months The most recent [place] Association of clinical endocrinologists and [place] [employer] of endocrinology guidelines recommend patients who [...] track activity level. Consider using apps like [employer] mionute excercise, Preen.Mepal, lose it, stick as needed for self-monitoring and weight management. Consider group exercises. Consider hiring a personal caregiver. Regular exercise is preston to sustainable health [...] counseling and psychiatry and Dr Harrison at [facility]. We would like to cover regular topics [...] software and direct typing Please excuse inadvertent can reforming machine operator or typing errors, or uncorrected word substitutions Although every attempt has been made by the provider to proofread this document, occasional misspellings and typographical errors may still be present Due to the previous pandemic, and the use of personal protective equipment (PPE) This may decrease voice recognition accuracy Inadvertent can reforming machine operator errors may occur 02/03/2024 Overweight (ICD-10 - E66.3) 02/27/2024 Overweight (ICD-10 - E66.3) #Weight Management 02/26/2024 Patient to have updated labs from [facility] faxed to us later today She is [...] minimum of 6 months The most recent [place] Association of clinical endocrinologists and [place] College of endocrinology guidelines recommend patients who [...] software and direct typing Please excuse inadvertent can reforming machine operator or typing errors, or uncorrected word substitutions Although every attempt has been made by the provider to proofread this document, occasional misspellings and typographical errors may still be present Due to the previous pandemic, and the use of personal protective equipment (PPE) This may decrease voice recognition accuracy Inadvertent can reforming machine operator errors may occur 04/07/2024 BMI 25.0-25.9,adult (ICD-10 [...] reviewed. Dictation completed with the use of [employer] voice recognition software, prone to medical misidentifications [...] reviewed. Dictation completed with the use of [employer] voice recognition software, prone to medical misidentifications [...] minimum of 6 months The most recent [place] Association of clinical endocrinologists and [place] College of endocrinology guidelines recommend patients who [...] software and direct typing Please excuse inadvertent can reforming machine operator or typing errors, or uncorrected word substitutions Although every attempt has been made by the provider to proofread this document, occasional misspellings and typographical errors may still be present Due to the previous pandemic, and the use of personal protective equipment (PPE) This may decrease voice recognition accuracy Inadvertent can reforming machine operator errors may occur 05/26/2024 BMI 26.0-26.9,adult (ICD-10 - Z68.26) #Weight Management 05/26/2024 Lets update labs Discussed importance of creatine, protein, and resistance training for muscle building. She has signed up for a gym membership. She will stay on the [employer] 2.4 weekly Otherwise thriving She will continue [...] minimum of 6 months The most recent [place] Association of clinical endocrinologists and [place] College of endocrinology guidelines recommend patients who [...] software and direct typing Please excuse inadvertent can reforming machine operator or typing errors, or uncorrected word substitutions Although every attempt has been made by the provider to proofread this document, occasional misspellings and typographical errors may still be present Due to the previous pandemic, and the use of personal protective equipment (PPE) This may decrease voice recognition accuracy Inadvertent can reforming machine operator errors may occur 07/21/2024 Overweight (ICD-10 - [...] software and direct typing Please excuse inadvertent can reforming machine operator or typing errors, or uncorrected word substitutions Although every attempt has been made by the provider to proofread this document, occasional misspellings and typographical errors may still be present Due to the previous pandemic, and the use of personal protective equipment (PPE) This may decrease voice recognition accuracy Inadvertent can reforming machine operator errors may occur 07/28/2024 Overweight (ICD-10 - [...] software and direct typing Please excuse inadvertent can reforming machine operator or typing errors, or uncorrected word substitutions Although every attempt has been made by the provider to proofread this document, occasional misspellings and typographical errors may still be present Due to the previous pandemic, and the use of personal protective equipment (PPE) This may decrease voice recognition accuracy Inadvertent can reforming machine operator errors may occur 08/24/2024 Overweight (ICD-10 - E66.3) #Weight Management [...] software and direct typing Please excuse inadvertent can reforming machine operator or typing errors, or uncorrected word substitutions Although every attempt has been made by the provider to proofread this document, occasional misspellings and typographical errors may still be present Due to the previous pandemic, and the use of personal protective equipment (PPE) This may decrease voice recognition accuracy Inadvertent can reforming machine operator errors may occur 08/24/2024 BMI 25.0-25.9,adult (ICD-10 [...] software and direct typing Please excuse inadvertent can reforming machine operator or typing errors, or uncorrected word substitutions Although every attempt has been made by the provider to proofread this document, occasional misspellings and typographical errors may still be present Due to the previous pandemic, and the use of personal protective equipment (PPE) This may decrease voice recognition accuracy Inadvertent can reforming machine operator errors may occur 08/24/2024 Dietary counseling and [...] software and direct typing Please excuse inadvertent can reforming machine operator or typing errors, or uncorrected word substitutions Although every attempt has been made by the provider to proofread this document, occasional misspellings and typographical errors may still be present Due to the previous pandemic, and the use of personal protective equipment (PPE) This may decrease voice recognition accuracy Inadvertent can reforming machine operator errors may occur 07/28/2024 BMI 26.0-26.9,adult (ICD-10 [...] software and direct typing Please excuse inadvertent can reforming machine operator or typing errors, or uncorrected word substitutions Although every attempt has been made by the provider to proofread this document, occasional misspellings and typographical errors may still be present Due to the previous pandemic, and the use of personal protective equipment (PPE) This may decrease voice recognition accuracy Inadvertent can reforming machine operator errors may occur 07/21/2024 BMI 26.0-26.9,adult (ICD-10 [...] software and direct typing Please excuse inadvertent can reforming machine operator or typing errors, or uncorrected word substitutions Although every attempt has been made by the provider to proofread this document, occasional misspellings and typographical errors may still be present Due to the previous pandemic, and the use of personal protective equipment (PPE) This may decrease voice recognition accuracy Inadvertent can reforming machine operator errors may occur 05/26/2024 Dietary counseling and [...] minimum of 6 months The most recent [place] Association of clinical endocrinologists and [place] College of endocrinology guidelines recommend patients who [...] software and direct typing Please excuse inadvertent can reforming machine operator or typing errors, or uncorrected word substitutions Although every attempt has been made by the provider to proofread this document, occasional misspellings and typographical errors may still be present Due to the previous pandemic, and the use of personal protective equipment (PPE) This may decrease voice recognition accuracy Inadvertent can reforming machine operator errors may occur 04/07/2024 Essential hypertension (ICD-10 [...] reviewed. Dictation completed with the use of [employer] voice recognition software, prone to medical misidentifications and grammatical errors. All errors are unintentional. Although the practitioner does try to identify and correct errors, some may be present. Please do not hesitate to contact the practitioner for clarification. Total time spent was 30 minutes with >50% on coordination of care and patient education. 02/27/2024 BMI 26.0-26.9,adult (ICD-10 - Z68.26) #Weight Management 02/26/2024 Patient to have updated labs from [facility] faxed to us later today She is [...] minimum of 6 months The most recent [place] Association of clinical endocrinologists and [place] College of endocrinology guidelines recommend patients who [...] software and direct typing Please excuse inadvertent can reforming machine operator or typing errors, or uncorrected word substitutions Although every attempt has been made by the provider to proofread this document, occasional misspellings and typographical errors may still be present Due to the previous pandemic, and the use of personal protective equipment (PPE) This may decrease voice recognition accuracy Inadvertent can reforming machine operator errors may occur 01/16/2024 BMI 26.0-26.9,adult (ICD-10 - Z68.26) #Weight Management 01/16/2024 Patient to have updated labs from [facility] faxed to us later today Otherwise thriving [...] minimum of 6 months The most recent [place] Association of clinical endocrinologists and [place] College of endocrinology guidelines recommend patients who [...] track activity level. Consider using apps like [employer], myfitnesspal, lose it, stick as needed for self-monitoring and weight management. Consider group exercises. Consider hiring a personal caregiver. Regular exercise is preston to sustainable health [...] counseling and psychiatry and Dr Harrison at [facility]. We would like to cover regular topics [...] software and direct typing Please excuse inadvertent can reforming machine operator or typing errors, or uncorrected word substitutions Although every attempt has been made by the provider to proofread this document, occasional misspellings and typographical errors may still be present Due to the previous pandemic, and the use of personal protective equipment (PPE) This may decrease voice recognition accuracy Inadvertent can reforming machine operator errors may occur 11/30/2023 Dietary counseling and surveillance (ICD-10 - Z71.3) #Weight Management 11/29/2023 Otherwise thriving Continue Wegovy 2.4 mg She will be prescribed antifungal cream Plastics referral for skin excision potentially after weight loss has been completed Request labs from [facility] supposedly done in June 2023 Discussed protein [...] minimum of 6 months The most recent [place] Association of clinical endocrinologists and [place] College of endocrinology guidelines recommend patients who [...] track activity level. Consider using apps like [employer], Preen.Mepal, lose it, stick as needed for self-monitoring and weight management. Consider group exercises. Consider hiring a personal caregiver. Regular exercise is preston to sustainable health [...] counseling and psychiatry and Dr Harrison at [facility]. We would like to cover regular topics [...] software and direct typing Please excuse inadvertent can reforming machine operator or typing errors, or uncorrected word substitutions Although every attempt has been made by the provider to proofread this document, occasional misspellings and typographical errors may still be present Due to the previous pandemic, and the use of personal protective equipment (PPE) This may decrease voice recognition accuracy Inadvertent can reforming machine operator errors may occur 10/29/2023 Dietary counseling and surveillance (ICD-10 - Z71.3) #Weight Management 10/29/2023 She will be prescribed antifungal cream Plastics referral for skin excision potentially after weight loss has been completed Request labs from [facility] supposedly done in June 2023 Continue Wegovy [...] minimum of 6 months The most recent [place] Association of clinical endocrinologists and [place] [employer] of endocrinology guidelines recommend patients who [...] track activity level. Consider using apps like [employer], Preen.Mepal, lose it, stick as needed for self-monitoring and weight management. Consider group exercises. Consider hiring a personal caregiver. Regular exercise is preston to sustainable health [...] counseling and psychiatry and Dr Harrison at [facility]. We would like to cover regular topics [...] software and direct typing Please excuse inadvertent can reforming machine operator or typing errors, or uncorrected word substitutions Although every attempt has been made by the provider to proofread this document, occasional misspellings and typographical errors may still be present Due to the previous pandemic, and the use of personal protective equipment (PPE) This may decrease voice recognition accuracy Inadvertent can reforming machine operator errors may occur 10/29/2023 Hx of laparoscopic gastric banding (ICD-10 - Z98.84) #Weight Management 10/29/2023 She will be prescribed antifungal cream Plastics referral for skin excision potentially after weight loss has been completed Request labs from [facility] supposedly done in June 2023 Continue Wegovy [...] minimum of 6 months The most recent [place] Association of clinical endocrinologists and [place] [employer] of endocrinology guidelines recommend patients who [...] track activity level. Consider using apps like [employer], myfitnesspal, lose it, stick as needed for self-monitoring and weight management. Consider group exercises. Consider hiring a personal caregiver. Regular exercise is preston to sustainable health [...] counseling and psychiatry and Dr Harrison at [facility]. We would like to cover regular topics [...] software and direct typing Please excuse inadvertent can reforming machine operator or typing errors, or uncorrected word substitutions Although every attempt has been made by the provider to proofread this document, occasional misspellings and typographical errors may still be present Due to the previous pandemic, and the use of personal protective equipment (PPE) This may decrease voice recognition accuracy Inadvertent can reforming machine operator errors may occur 11/30/2023 Hx of laparoscopic gastric banding (ICD-10 - Z98.84) #Weight Management 11/29/2023 Otherwise thriving Continue Wegovy 2.4 mg She will be prescribed antifungal cream Plastics referral for skin excision potentially after weight loss has been completed Request labs from [facility] supposedly done in June 2023 Discussed protein [...] minimum of 6 months The most recent [place] Association of clinical endocrinologists and [place] [employer] of endocrinology guidelines recommend patients who [...] track activity level. Consider using apps like [employer], [employer]fitnesspal, lose it, stick as needed for self-monitoring and weight management. Consider group exercises. Consider hiring a personal caregiver. Regular exercise is preston to sustainable health [...] counseling and psychiatry and Dr Harrison at [facility]. We would like to cover regular topics [...] software and direct typing Please excuse inadvertent can reforming machine operator or typing errors, or uncorrected word substitutions Although every attempt has been made by the provider to proofread this document, occasional misspellings and typographical errors may still be present Due to the previous pandemic, and the use of personal protective equipment (PPE) This may decrease voice recognition accuracy Inadvertent can reforming machine operator errors may occur 01/16/2024 Dietary counseling and surveillance (ICD-10 - Z71.3) #Weight Management 01/16/2024 Patient to have updated labs from [facility] faxed to us later today Otherwise thriving [...] minimum of 6 months The most recent [place] Association of clinical endocrinologists and [place] [employer] of endocrinology guidelines recommend patients who [...] track activity level. Consider using apps like [employer], Preen.Mepal, lose it, stick as needed for self-monitoring and weight management. Consider group exercises. Consider hiring a personal caregiver. Regular exercise is pre[place] to sustainable health [...] counseling and psychiatry and Dr Harrison at [facility]. We would like to cover regular topics [...] software and direct typing Please excuse inadvertent can reforming machine operator or typing errors, or uncorrected word substitutions Although every attempt has been made by the provider to proofread this document, occasional misspellings and typographical errors may still be present Due to the previous pandemic, and the use of personal protective equipment (PPE) This may decrease voice recognition accuracy Inadvertent can reforming machine operator errors may occur 02/27/2024 Dietary counseling and surveillance (ICD-10 - Z71.3) #Weight Management 02/26/2024 Patient to have updated labs from [facility] faxed to us later today She is [...] minimum of 6 months The most recent [place] Association of clinical endocrinologists and [place] [employer] of endocrinology guidelines recommend patients who [...] software and direct typing Please excuse inadvertent can reforming machine operator or typing errors, or uncorrected word substitutions Although every attempt has been made by the provider to proofread this document, occasional misspellings and typographical errors may still be present Due to the previous pandemic, and the use of personal protective equipment (PPE) This may decrease voice recognition accuracy Inadvertent can reforming machine operator errors may occur 04/07/2024 Hx of laparoscopic [...] reviewed. Dictation completed with the use of [employer] voice recognition software, prone to medical misidentifications [...] software and direct typing Please excuse inadvertent can reforming machine operator or typing errors, or uncorrected word substitutions Although every attempt has been made by the provider to proofread this document, occasional misspellings and typographical errors may still be present Due to the previous pandemic, and the use of personal protective equipment (PPE) This may decrease voice recognition accuracy Inadvertent can reforming machine operator errors may occur 07/21/2024 Dietary counseling and [...] software and direct typing Please excuse inadvertent can reforming machine operator or typing errors, or uncorrected word substitutions Although every attempt has been made by the provider to proofread this document, occasional misspellings and typographical errors may still be present Due to the previous pandemic, and the use of personal protective equipment (PPE) This may decrease voice recognition accuracy Inadvertent can reforming machine operator errors may occur 05/26/2024 Hx of laparoscopic [...] minimum of 6 months The most recent [place] Association of clinical endocrinologists and [place] College of endocrinology guidelines recommend patients who [...] software and direct typing Please excuse inadvertent can reforming machine operator or typing errors, or uncorrected word substitutions Although every attempt has been made by the provider to proofread this document, occasional misspellings and typographical errors may still be present Due to the previous pandemic, and the use of personal protective equipment (PPE) This may decrease voice recognition accuracy Inadvertent can reforming machine operator errors may occur 08/24/2024 Hx of laparoscopic [...] software and direct typing Please excuse inadvertent can reforming machine operator or typing errors, or uncorrected word substitutions Although every attempt has been made by the provider to proofread this document, occasional misspellings and typographical errors may still be present Due to the previous pandemic, and the use of personal protective equipment (PPE) This may decrease voice recognition accuracy Inadvertent can reforming machine operator errors may occur 08/24/2024 Excess skin of [...] software and direct typing Please excuse inadvertent can reforming machine operator or typing errors, or uncorrected word substitutions Although every attempt has been made by the provider to proofread this document, occasional misspellings and typographical errors may still be present Due to the previous pandemic, and the use of personal protective equipment (PPE) This may decrease voice recognition accuracy Inadvertent can reforming machine operator errors may occur 07/28/2024 Hx of laparoscopic [...] software and direct typing Please excuse inadvertent can reforming machine operator or typing errors, or uncorrected word substitutions Although every attempt has been made by the provider to proofread this document, occasional misspellings and typographical errors may still be present Due to the previous pandemic, and the use of personal protective equipment (PPE) This may decrease voice recognition accuracy Inadvertent can reforming machine operator errors may occur 05/26/2024 Excess skin of [...] minimum of 6 months The most recent [place] Association of clinical endocrinologists and [place] College of endocrinology guidelines recommend patients who [...] software and direct typing Please excuse inadvertent can reforming machine operator or typing errors, or uncorrected word substitutions Although every attempt has been made by the provider to proofread this document, occasional misspellings and typographical errors may still be present Due to the previous pandemic, and the use of personal protective equipment (PPE) This may decrease voice recognition accuracy Inadvertent can reforming machine operator errors may occur 07/21/2024 Hx of laparoscopic [...] software and direct typing Please excuse inadvertent can reforming machine operator or typing errors, or uncorrected word substitutions Although every attempt has been made by the provider to proofread this document, occasional misspellings and typographical errors may still be present Due to the previous pandemic, and the use of personal protective equipment (PPE) This may decrease voice recognition accuracy Inadvertent can reforming machine operator errors may occur 04/07/2024 Nutritional counseling (ICD-10 [...] reviewed. Dictation completed with the use of [employer] voice recognition software, prone to medical misidentifications and grammatical errors. All errors are unintentional. Although the practitioner does try to identify and correct errors, some may be present. Please do not hesitate to contact the practitioner for clarification. Total time spent was 30 minutes with >50% on coordination of care and patient education. 02/27/2024 Hx of laparoscopic gastric banding (ICD-10 - Z98.84) #Weight Management 02/26/2024 Patient to have updated labs from [facility] faxed to us later today She is [...] minimum of 6 months The most recent [place] Association of clinical endocrinologists and [place] College of endocrinology guidelines recommend patients who [...] software and direct typing Please excuse inadvertent can reforming machine operator or typing errors, or uncorrected word substitutions Although every attempt has been made by the provider to proofread this document, occasional misspellings and typographical errors may still be present Due to the previous pandemic, and the use of personal protective equipment (PPE) This may decrease voice recognition accuracy Inadvertent can reforming machine operator errors may occur 01/16/2024 Hx of laparoscopic gastric banding (ICD-10 - Z98.84) #Weight Management 01/16/2024 Patient to have updated labs from [facility] faxed to us later today Otherwise thriving [...] minimum of 6 months The most recent [place] Association of clinical endocrinologists and [place] [employer] of endocrinology guidelines recommend patients who [...] track activity level. Consider using apps like [employer], Preen.Mepal, lose it, stick as needed for self-monitoring and weight management. Consider group exercises. Consider hiring a personal caregiver. Regular exercise is pre[place] to sustainable health [...] counseling and psychiatry and Dr Harrison at [facility]. We would like to cover regular topics [...] software and direct typing Please excuse inadvertent can reforming machine operator or typing errors, or uncorrected word substitutions Although every attempt has been made by the provider to proofread this document, occasional misspellings and typographical errors may still be present Due to the previous pandemic, and the use of personal protective equipment (PPE) This may decrease voice recognition accuracy Inadvertent can reforming machine operator errors may occur 11/30/2023 Excess skin of abdomen (ICD-10 - L98.7) #Weight Management 11/29/2023 Otherwise thriving Continue Wegovy 2.4 mg She will be prescribed antifungal cream Plastics referral for skin excision potentially after weight loss has been completed Request labs from [facility] supposedly done in June 2023 Discussed protein [...] minimum of 6 months The most recent [place] Association of clinical endocrinologists and [place] College of endocrinology guidelines recommend patients who [...] track activity level. Consider using apps like [employer], Preen[employer]Mepal, lose it, stick as needed for self-monitoring and weight management. Consider group exercises. Consider hiring a personal caregiver. Regular exercise is pre[place] to sustainable health [...] counseling and psychiatry and Dr Harrison at [facility]. We would like to cover regular topics [...] software and direct typing Please excuse inadvertent can reforming machine operator or typing errors, or uncorrected word substitutions Although every attempt has been made by the provider to proofread this document, occasional misspellings and typographical errors may still be present Due to the previous pandemic, and the use of personal protective equipment (PPE) This may decrease voice recognition accuracy Inadvertent can reforming machine operator errors may occur 10/29/2023 Excess skin of abdomen (ICD-10 - L98.7) #Weight Management 10/29/2023 She will be prescribed antifungal cream Plastics referral for skin excision potentially after weight loss has been completed Request labs from [facility] supposedly done in June 2023 Continue Wegovy [...] minimum of 6 months The most recent [place] Association of clinical endocrinologists and [place] College of endocrinology guidelines recommend patients who [...] track activity level. Consider using apps like [employer], [employer], lose it, stick as needed for self-monitoring and weight management. Consider group exercises. Consider hiring a personal caregiver. Regular exercise is pre[place] to sustainable health [...] counseling and psychiatry and Dr Harrison at [facility]. We would like to cover regular topics [...] software and direct typing Please excuse inadvertent can reforming machine operator or typing errors, or uncorrected word substitutions Although every attempt has been made by the provider to proofread this document, occasional misspellings and typographical errors may still be present Due to the previous pandemic, and the use of personal protective equipment (PPE) This may decrease voice recognition accuracy Inadvertent can reforming machine operator errors may occur 01/16/2024 Excess skin of abdomen (ICD-10 - L98.7) #Weight Management 01/16/2024 Patient to have updated labs from [facility] faxed to us later today Otherwise thriving [...] minimum of 6 months The most recent [place] Association of clinical endocrinologists and [place] College of endocrinology guidelines recommend patients who [...] track activity level. Consider using apps like [employer], myfitnesspal, lose it, stick as needed for self-monitoring and weight management. Consider group exercises. Consider hiring a personal caregiver. Regular exercise is pre[place] to sustainable health [...] counseling and psychiatry and Dr Harrison at [facility]. We would like to cover regular topics [...] software and direct typing Please excuse inadvertent can reforming machine operator or typing errors, or uncorrected word substitutions Although every attempt has been made by the provider to proofread this document, occasional misspellings and typographical errors may still be present Due to the previous pandemic, and the use of personal protective equipment (PPE) This may decrease voice recognition accuracy Inadvertent can reforming machine operator errors may occur 02/27/2024 Excess skin of abdomen (ICD-10 - L98.7) #Weight Management 02/26/2024 Patient to have updated labs from [facility] faxed to us later today She is [...] minimum of 6 months The most recent [place] Association of clinical endocrinologists and [place] College of endocrinology guidelines recommend patients who [...] software and direct typing Please excuse inadvertent can reforming machine operator or typing errors, or uncorrected word substitutions Although every attempt has been made by the provider to proofread this document, occasional misspellings and typographical errors may still be present Due to the previous pandemic, and the use of personal protective equipment (PPE) This may decrease voice recognition accuracy Inadvertent can reforming machine operator errors may occur 07/21/2024 Excess skin of [...] software and direct typing Please excuse inadvertent can reforming machine operator or typing errors, or uncorrected word substitutions Although every attempt has been made by the provider to proofread this document, occasional misspellings and typographical errors may still be present Due to the previous pandemic, and the use of personal protective equipment (PPE) This may decrease voice recognition accuracy Inadvertent can reforming machine operator errors may occur 07/28/2024 Excess skin of [...] software and direct typing Please excuse inadvertent can reforming machine operator or typing errors, or uncorrected word substitutions Although every attempt has been made by the provider to proofread this document, occasional misspellings and typographical errors may still be present Due to the previous pandemic, and the use of personal protective equipment (PPE) This may decrease voice recognition accuracy Inadvertent can reforming machine operator errors may occur PLAN OF TREATMENT Pending Test Test Name Order Date LIPID PANEL, STANDARD 06/26/2023 LIPID PANEL, STANDARD 05/26/2024 COMPREHENSIVE METABOLIC PANEL 05/26/2024 COMPREHENSIVE METABOLIC PANEL 06/26/2023 CBC (INCLUDES DIFF/PLT) 06/26/2023 CBC (INCLUDES DIFF/PLT) 05/26/2024 URINALYSIS, COMPLETE 05/26/2024 HEMOGLOBIN A1c 05/26/2024 TSH 05/26/2024 VITAMIN D,25-OH,TOTAL,IA 05/26/2024 Next Appt Details Provider Name:JE PRESSLEY, 10/10/2024 09:00:00 AM, [address], [place], [address], Insurance Providers Payer Name Payer Address Payer Phone Subscriber Number Group Number Insured Name Patient Relationship to Insured Coverage Start Date Coverage End Date [facility] [address] [place] [address] [phone] [id number] Mary Edmonds Self - patient is [...]
--- OUTSIDE RECORDS SUMMARY | 2024-09-22 12:16 | XMS_ITS ---
Author Organization [facility] Address [address] [place] [address] Care Team Providers Care Fx Artist Name Role Phone JE PRESSLEY Unavailable [phone] REASON FOR VISIT PA Encounters Encounter Location Date Provider Diagnosis [address] [place] [address] 08/24/2024 JE PRESSLEY PLAN OF TREATMENT Next Appt Details Provider Name:JE PRESSLEY, 10/10/2024 09:00:00 AM, [address], [place], [address], Progress Notes * Mary ORTIZ NDOB :1965 (59 yo F)Acc No.[id number]:08/24/2024 Patient:??Bucky ORTIZ :1965?Age:59 Y?Sex:Fe male Address:[address], [place] [address] * true * Date:??
--- OUTSIDE RECORDS SUMMARY | 2024-09-22 12:16 | XMS_ITS ---
Author Organization [facility] Address [address] [place] [address] Care Team Providers Care Shoe Fitter Name Role Phone JE PRESSLEY Unavailable [phone] REASON FOR VISIT r/s no show Encounters Encounter Location Date Provider Diagnosis [address] [address] 07/29/2024 JE PRESSLEY PLAN OF TREATMENT Next Appt Details Provider Name:JE PRESSLEY, 10/10/2024 09:00:00 AM, [address], [place], [address], Progress Notes * Mary ORTIZ NDOB :1965 (59 yo F)Acc No.[id number]:07/29/2024 Patient:??Bucky ORTIZ :1965?Age:59 Y?Sex:Fe male Address:[address], [place] [address] * true * Date:??
[2024-09-22 12:36] LABS: Alanine Aminotransferase 39 U/L (0-31); Alkaline Phosphatase 108 U/L (39-117); Anion Gap 13 (12-20); Aspartate Amino Transferase 39 U/L (5-31); Bilirubin Total 0.5 mg/dL (0.0-1.0); Blood Urea Nitrogen 16 mg/dL (9-16); Calcium 9.9 mg/dL (8.4-10.2); Carbon Dioxide 30 mmol/L (22-29); Chloride 103 mmol/L (96-108); Cholesterol 201 mg/dL (<200); Estimated Glomerular Filt Rate > 60; Glucose Random 85 mg/dL (60-115); HDL Cholesterol 76 mg/dL (>40); LDL Cholesterol Calculated 108 mg/dL (<100); Potassium 4.2 mmol/L (3.3-5.1); Sodium 142 mmol/L (135-145); Triglycerides 88 mg/dL (<150)
[2024-09-22 12:53] LABS: Thyroid Stimulating Hormone 1.27 uIU/mL (0.32-4.0); Vitamin D 25-OH Total 45.5 ng/mL (>30)
== END 2024-09-22 10:51 | disposition home or self-care (01) ==
LOC: HO.LAB 10:50
PROVIDERS: Visit Provider Nurse Practitioner Acute Care
DX: Z00.00 Encounter for general adult medical examination without abnormal findings (principal); E55.9 Vitamin D deficiency, unspecified; Z13.29 Encounter for screening for other suspected endocrine disorder; Z13.220 Encounter for screening for lipoid disorders; Z13.1 Encounter for screening for diabetes mellitus; Z13.6 Encounter for screening for cardiovascular disorders
CPT/HCPCS: 36415; 80053; 80061; 81003; 82306; 83036; 84443; 85025

== ENCOUNTER 2024-10-22 15:32 | Outpatient (AMB) | payer BC, SELFPAY ==
--- NOTE | 2024-10-22 15:34 | A.OFFVIS_ITS ---
Vital Signs 10/22/24 15:45 Height 5 ft 1 in Weight 142 lb BMI 26.8 BP 118/72 Blood Pressure Location Rt brachial Position Sitting Pulse 70 Pulse Source Pulse Oximeter Pulse Oximetry (%) 98 Oxygen Delivery Method Room Air Intake Visit Reasons: colo screening Intake Note: Established patient for mgmt of chronic abd pain, diarrhea. ED admission 05/2024. CC; C.O. intermittent constipation per their wegovy. Pt is hoping with their recent decrease to 1 mg from 2.4 mg per successful weight loss, that their constipation will lessen as well. Human Resources Compensation Analyst Required: No Accompanied by: Self / Same As Patient Allergies pineapple [PINEAPPLE] Allergy (Severe, Verified 10/22/24 15:34) ANAPHYLAXIS shellfish derived [SHELLFISH DERIVED] Allergy (Severe, Verified 10/22/24 15:34) ANAPHYLAXIS tramadol Allergy (Verified 10/22/24 15:34) Itching metronidazole [From Flagyl] Adverse Reaction (Mild, Verified 10/22/24 15:34) YEAST INFECTION HPI HPI colo screening: Details: Assessment & Plan (1) Diverticulitis: Code(s): K57.92 - Diverticulitis of intestine, part unspecified, without perforation or abscess without bleeding Plan: She has changed her bariatric provider because they never called me back but she says she had an EGD with them...but I can not find the procedure report. She is having LLQ pain and she feels her diverticulitis is returning. She also ran out of her senna and is constipated. She continues on her famotidine for GERD. I will treat her for presumed diverticulitis with Augmentin and hopefully will g et her bowels moving to prevent any future attacks. ROV 4 weeks. Medications: New amoxicillin-pot clavulanate 875-125 mg 1 tab PO BID 20 tabs 0RF 10 days K57.92 - Diverticulitis of intestine, part unspecified, without perforation or abscess without bleeding Refilled sennosides (senna) 17.2 mg (2 x 8.6 mg) PO BEDTIME 60 caps 6RF constipation 30 days K59.04 - Chronic idiopathic constipation famotidine (Pepcid) 40 mg PO BEDTIME 30 tabs 6RF K21.9 - Gastro-esophageal reflu x disease without esophagitis Laboratory Tests 09/22/24 11:04 WBC 4.6 L Hgb 12.5 Hct 38.2 Plt Count 315 Estimated GFR > 60 Total Bilirubin 0.5 AST 39 H ALT 39 H Alkaline Phosphatase 108 TSH 1.27 TODAY'S VISIT Patient has been lost follow-up since 02/2023 She was put on Wegovy and has lost 50lbs! There are no prior problems with anesthesia or sedation. She denies any cardiac or respiratory problems. She has a history of HSV infection no other infectious disease problems. Her brother this year of CRC. He was 74. This was unexpected. [facility] Medical History (Updated 10/22/24 @ 16:48 by MANDI Herrera) Hiatal hernia Hot flashes Well woman exam with routine gynecological exam Diverticulitis Kidney stone Asthma HSV-1 infection Vitamin D deficiency Hypertension Surgical History (Updated 10/22/24 @ 15:46 by MANDI Herrera) Status post sleeve gastrectomy H/O esophagogastroduodenoscopy H/O colonoscopy H/O bariatric surgery H/O abdominoplasty H/O lithotripsy Family History Mother No problems noted. Father No problems noted. Sister Breast cancer Lung cancer Brother Lung cancer Colon cancer Social History Alcohol intake: never Patient Tobacco Use Status: Never used Tobacco Gender identity: Female Female Reproductive History Menstrual Age of Menarche: 11 Review of Systems Const Denies fatigue, Denies fever(s), Denies night sweats, Denies poor appetite and Reports weight loss (Intentional dieting) Eyes Details: glasses Reports requires corrective lenses ENT Reports Normal hearing present, Denies dental pain, Denies dysphagia, Denies hearing loss, Denies mouth pain, Denies odynophagia, Denies throat swelling, De nies tongue swelling and Reports other (Dentition adequate) Card Reports no additional complaints Resp Reports no additional complaints GI Details: Denies abdominal pain, Denies melena, Denies bloating, Denies hematochezia, Reports constipation, Denies GI cramping, Denies dysphagia, Denies excessive flatus, Denies early satiety, Reports heartburn, Denies diarrhea, Denies nausea, Denies odynophagia, Denies vomiting and Denies hematemesis Skin/Breast Denies pruritus, Denies lesions, Denies rash and Denies jaundice Neuro Reports Normal hearing present and Denies Abnormal speech present Endo Denies fatigue Aller/Immun Denies throat swelling and Denies tongue swelling Physical Exam Vital Signs: Last Vital Signs Pulse 70 10/22/24 15:45 BP 118/72 10/22/24 15:45 Pulse Ox 98 10/22/24 15:45 Oxygen Delivery Method Room Air 10/22/24 15:45 BMI result Body Mass Index 26.8 Const General: cooperative, no acute distress, well developed and well groomed Nutritional Appearance: average body habitus and well nourished Orientation/consciousness: oriented to person, oriented to place and oriented to time Limitations: No language barrier HEENT Head: Yes normocephalic and Yes atraumatic Eyes General: appearance normal, both eyes and all related structures Pupils: Equal, round and reactive pupils present Neck Neck: Yes normal visual inspection and Yes no lymphadenopathy Thyroid: Thyroid normal Resp Effort & Inspection: normal respiratory effort and able to speak in complete sentences Auscultation: clear to auscultation bilaterally Cardio Rate: regular rate Rhythm: regular rhythm Heart sounds: Normal, physiologic split S2 sound present Peripheral pulses: radial pulses present and posterior tibial pulses present GI Inspection: No distended, No Abdominal panniculus present and Yes obesity Palpation (GI): Soft to palpation, nontender, no guarding, not rigid and No hepatosplenomegaly present Percussion: Yes normal to percussion Auscultation: normal bowel sounds Rectal Exam - Female: deferred Skin General skin exam: no rashes or lesions noted, turgor normal, skin not dry, no jaundice, No spider nevi and no striae Rashes: no rashes Nails: normal Neuro General: oriented to person, oriented to place and oriented to time Cranial nerves: Yes Equal, round and reactive pupils present and Yes Normal hearing present Speech: No Abnormal speech present Extrem General: Yes normal to inspection, No clubbing, No cyanosis and No edema Psych Appearance: grossly normal and well kempt Mental Status: mental status grossly normal Speech and movement: Normal speech and movement present Affect: normal affect Attitude: cooperative Thought process: Normal thought process present and not confabulating Thought content: Normal thought content present Insight: Good insight present (Psych) Judgement: Good judgement present (Psych) Results Reviewed Results Reviewed: Laboratory Tests 09/22/24 11:04 WBC 4.6 L Hgb 12.5 Hct 38.2 Plt Count 315 Estimated GFR > 60 Total Bilirubin 0.5 AST 39 H ALT 39 H Alkaline Phosphatase 108 TSH 1.27 Assessment & Plan Assessment & Plan (1) Pre-op examination: Code(s): Z01.818 - Encounter for other preprocedural examination Category: Medical (2) Tubular adenoma of colon: Comment: 2022= 2 large TA is repeat in 2 years Code(s): D12.6 - Benign neoplasm of colon, unspecified Category: Medical (3) GERD (gastroesophageal reflux disease): Comment: She manages this by an [id number] Pepcid Code(s): K21.9 - Gastro-esophageal reflux disease without esophagitis Category: Medical (4) Chronic idiopathic constipation: Comment: She manages this with [id number] senna Code(s): K59.04 - Chronic idiopathic constipation Category: Medical (5) Asthma: Code(s): J45.909 - Unspecified asthma, uncomplicated Category: Medical (6) HSV-1 infection: Code(s): B00.9 - Herpesviral infection, unspecified Category: Medical (7) Family history of colon cancer: Comment: Brother at age 74 Code(s): Z80.0 - Family history of malignant neoplasm of digestive organs Category: Medical Plan Patient has been lost follow-up since 02/2023 She was put on Wegovy and has lost 50lbs! There are no prior problems with anesthesia or sedation. She denies any cardiac or respiratory problems. She has a history of HSV infection no other infectious disease problems. Her brother this year of CRC. He was 74. This was unexpected. Orders: Orders Colonoscopy - GI Use Only Today D12.6 - Benign neoplasm of colon, unspecified Medications: New bisacodyl (Dulcolax (bisacodyl)) 10 mg (2 x 5 mg) PO BEDTIME 4 tabs 0RF 2 days peg 3350-electrolytes 236-22.74-6.74 -5.86 gram (Golytely) until fecal effluent is clear; do not exceed a total volume of 2,000 mL 240 mL PO Q10M 4,000 mL 0RF 1 day Z12.11 - Encounter for screening for malignant neoplasm of colon Coding Level of Care Code Est Pt Level 4 (61536) Diagnoses Pre-op examination Z01.818 Tubular adenoma of colon D12.6 GERD (gastroesophageal reflux disease) K21.9 Chronic idiopathic constipation K59.04 Asthma J45.909 HSV-1 infection B00.9 Family history of colon cancer Z80.0 Time Spent (min) 35
[2024-10-22 15:45] VITALS: BP 118/72; PULSE 70; O2SAT 98; BMI 26.8
--- OUTSIDE RECORDS SUMMARY | 2024-10-22 18:00 | XMS_ITS | Patient Health Record ---
Author Organization [facility] [address] Address [address] [place] [address] Care Team Providers Care Dredge Boat Engineer Name Role Phone TRACIDOROTHEA JE Unavailable [phone] KATHY LINDSEY Unavailable [phone] Allergies Allergen (clinical drug ingredient) Drug/Non Drug Allergy documented on EMR Reaction Allergy Type Onset Date Status pineapple allergenic extract Pineapple (Diagnostic) hives Drug Allergy Activ e Reason For Referral Reason Dr Rae Diagnosis 1 Overweight (E66.3) Referral Organization [facility] [address] Referring Provider First Name JE Referring Provider Last Name WENDIE Referring Provider Speciality Internal M edicine Referred Provider Specialty Surgery General Notes LEONORA DENISE 11/17 10:10:47 AM > faxed referral to Dr Rae p: [phone] f: [phone] Referral Priority Routine Reason Complaining of exces sive skin in the bilateral arm tricep region as well as inguinal folds and lower abdomen folds Causing frequent intertriginous infections and fungal infections Diagnosis 1 Excess skin of abdom en (L98.7) Referral Organization [facility] [address] Referring Provider First Name JE Referring Provider Last Name WENDIE Referring Provider Speciality Internal M edicine Referred Provider Specialty Surgery General Notes faxed [facility] speci alty form to , , [phone], with attached office notes and demographics. Clinical Notes Pauline Mcmillan 12/30 11:26:14 AM >, Zuleyma Wu 01/06/2024 04:24:53 PM > refaxed to [phone], Zuleyma Wu 02/17/2024 04:02:11 PM > The office confirmed receipt of referral. I called the patient and provided [facility]'s phone number for scheduling ([phone]). Patient said she will call them Referral Priority Routine Reason from juanpablo woods Diagnosis 1 Overweight (E66.3) Referred Organization [facility] [address] Referred Provider JE PRESSLEY Referred Address [address] [facility] [address] ,[place], [place],[address], Referred Provider Specialty Weight Manag ement Referral Priority Routine Diagnosis 1 Excess skin (L98.7) Referral Organization [facility] [address] Referring Provider First Name JE Referring Provider Last Name WENDIE Referring Provider Speciality Internal M edicine Referred Provider Specialty Surgery Clinical Notes Mya Jaramillo 2024 09:10:49 AM >pt will amke appt Referral Priority Routine Medications Medication SIG (Take, Route, Frequency, Duration) Notes Start Date End Date Status Clotrimazole-Betamethas one 1-0.05 % 1 application Externally Twice a day for 30 days Active Wegovy 1.7 MG/0.75ML 0.75 mL Subcutaneou s once weekly for 30 days Not-Taking Wegovy 1 MG/0.5ML 1mg Subcutaneous wee kly for 30 days Active Loratadine 10 MG TAKE 1 TABLET BY ADITHYA TH EVERY DAY IN THE MORNING Oral for 90 Days Active Lisinopril 10 MG TAKE 1 TABLET BY ADITHYA TH EVERY DAY Oral for 90 Days Active Celecoxib 100 MG PLEASE SEE ATTACHED FOR DETAILED DIRECTIONS Oral for 45 Days Active Social History Tobacco Use: Social History Observation Description Date Details (start date - stop date) Never Smoker NA - NA Tobacco Use/Smoking Question Answer Notes Are you a nonsmoker Problems Problem Type SNOMED Code ICD Code Onset Dates Problem Status W/U Status Risk Notes Problem 687563750 Other obesity due to excess calories (E66.09) Active confirmed Problem 344743022 Overweight (E66.3) Active confirmed Problem Lipid screening (912789463) Encounter for screening for lipoid disorders (Z13.220) Active confirmed Problem 41805625 Essential hypertension (I10) Active confirmed Problem Adult health examination (368102938) Adult general medical exam (Z00.00) Active confirmed Problem 48305110 Kidney stone (N20.0) Active confirmed Problem Diabetes mellitus screening (432737086) Diabetes mellitus screening (Z13.1) Active confirmed Problem 998011733 Body mass index [BMI] 32.0-32.9, adult (Z68.32) Active confirmed Problem 734197345 BMI 25.0-25.9,adult (Z68.25) Active confirmed Problem 709935477 BMI 30.0-30.9,adult (Z68.30) Active confirmed Problem 975337381 Overweight (BMI 25.0-29.9) (E66.3) Active confirmed Problem Avitaminosis D (84552552) Avitaminosis D (E55.9) Active confirmed Problem Endocrine/[place] lic screening (239323518) Encounter for screening for endocrine disorder (Z13.29) Active confirmed Problem 803194426 Hx of laparoscopic gastric banding (Z98.84) Active confirmed Problem 741643552 Nutritional counseling (Z71.3) Active confirmed Problem 344050552 Excess skin of abdomen (L98.7) Active confirmed Vital Signs Heart Rate 60 /min 10/10/2024 Oximetry 98 % 10/10/2024 Blood pressure diastolic 72 mm Hg 10/10/2024 Height 62 in 10/10/2024 Blood pressure systolic 116 mm Hg 10/10/2024 Weight 143.6 lbs 10/10/2024 BMI 26.26 kg/m2 10/10/2024 Encounters Encounter Location Date Provider Diagnosis [facility] [address] [address] 10/29/2023 JE BORHOT Overweight E66.3 ; [place] 27.0-27.9,adult Z68.27 ; Dietary counseling and surveillance Z71.3 ; Hx of laparoscopic gastric banding Z98.84 and Excess skin of abdomen L98.[address] [facility] [address] [place] [address] 11/30/2023 JE BORHOT Overweight E66.3 ; [place] 26.0-26.9,adult Z68.26 ; Dietary counseling and surveillance Z71.3 ; Hx of laparoscopic gastric banding Z98.84 and Excess skin of abdomen L98.7 [facility] [address] [address] 01/16/2024 JE BORHOT Overweight E66.3 ; [place] 26.0-26.9,adult Z68.26 ; Dietary counseling and surveillance Z71.3 ; Hx of laparoscopic gastric banding Z98.84 and Excess skin of abdomen L98.7 [facility] [address] [address] 02/27/2024 JE BORHOT Overweight E66.3 ; [place] 26.0-26.9,adult Z68.26 ; Dietary counseling and surveillance Z71.3 ; Hx of laparoscopic gastric banding Z98.84 and Excess skin of abdomen L98.7 [facility] [address] [address] 04/07/2024 KATHY LINDSEY Overweight (BMI 25.0-29.9) E66.3 ; BMI 25.0-25.9,adult Z68.25 ; Essential hypertension I10 ; Hx of laparoscopic gastric banding Z98.84 and Nutritional counseling Z71.3 [facility] [address] [address] 05/26/2024 JE BORHOT Overweight E66.3 ; [place] 26.0-26.9,adult Z68.26 ; Dietary counseling and surveillance Z71.3 ; Hx of laparoscopic gastric banding Z98.84 and Excess skin of abdomen L98.7 [facility] [address] [address] 08/24/2024 JE BORHOT Overweight E66.3 ; [place] 25.0-25.9,adult Z68.25 ; Dietary counseling and surveillance Z71.3 ; Hx of laparoscopic gastric banding Z98.84 and Excess skin of abdomen L98.7 [facility] [address] [place] [address] 10/10/2024 JE BORHOT Overweight E66.3 ; [place] 25.0-25.9,adult Z68.25 ; Dietary counseling and surveillance Z71.3 ; Hx of laparoscopic gastric banding Z98.84 ; Excess skin of abdomen L98.7 and Encounter for examination of blood pressure without abnormal findings Z01.30 [facility] [address] [address] 12/30/2023 JE BORHOT [facility] [address] [address] 01/27/2024 JE BORHOT [facility] [address] [address] 01/29/2024 JE BORHOT [facility] [address] [address] 01/29/2024 JE BORHOT [facility] [address] [address] 02/03/2024 JE BORHOT [facility] [address] [address] 02/03/2024 JE BORHOT Overweight E66.3 [facility] [address] [address] 04/07/2024 JE BORHOT [facility] [address] [address] 05/21/2024 JE BORHOT [facility] [address] [address] 07/29/2024 JE BORHOT [facility] [address] [address] 08/24/2024 JE BORHOT [facility] [address] [address] 10/14/2024 JE TRACIHOT Assessments Encounter Date Diagnosis (ICD Code) Assessment Notes Treatment Notes Treatment Clinical Notes Section Notes 10/29/2023 Overweight (ICD-10 - E66.3) #Weight Management 10/29/2023 She will be prescribed antifungal cream Plastics referral for skin excision potentially after weight loss has been completed Request labs from [facility] supposedly done in June 2023 Continue Wegovy [...] minimum of 6 months The most recent [place] [employer] clinical endocrinologists and [place] [employer] guidelines recommend patients who [...] track activity level. Consider using apps like [employer], new[employer]efitBitXpal, lose it, stick as needed for self-monitoring [...] counseling and psychiatry and Dr Harrison at [facility]. We would like to cover regular topics [...] Inadvertent corporate quality manager errors may occur 10/29/2023 BMI 27.0-27.9,adult (ICD-10 - Z68.27) #Weight Management 10/29/2023 She will be prescribed antifungal cream Plastics referral for skin excision potentially after weight loss has been completed Request labs from [facility] supposedly done in June 2023 Continue Wegovy [...] minimum of 6 months The most recent [place] [employer] clinical endocrinologists and [place] [employer] guidelines recommend patients who [...] track activity level. Consider using apps like [employer], [employer], lose it, stick as needed for self-monitoring [...] counseling and psychiatry and Dr Harrison at [facility]. We would like to cover regular topics [...] Inadvertent corporate quality manager errors may occur 11/30/2023 Overweight (ICD-10 - E66.3) #Weight Management 11/29/2023 Otherwise thriving Continue Wegovy 2.4 mg She will be prescribed antifungal cream Plastics referral for skin excision potentially after weight loss has been completed Request labs from [facility] supposedly done in June 2023 Discussed protein [...] minimum of 6 months The most recent [place] [employer] clinical endocrinologists and [place] [employer] guidelines recommend patients who [...] track activity level. Consider using apps like [employer], [employer], lose it, stick as needed for self-monitoring [...] counseling and psychiatry and Dr Harrison at [facility]. We would like to cover regular topics [...] Inadvertent corporate quality manager errors may occur 11/30/2023 BMI 26.0-26.9,adult (ICD-10 - Z68.26) #Weight Management 11/29/2023 Otherwise thriving Continue Wegovy 2.4 mg She will be prescribed antifungal cream Plastics referral for skin excision potentially after weight loss has been completed Request labs from [facility] supposedly done in June 2023 Discussed protein [...] minimum of 6 months The most recent [place] [employer] clinical endocrinologists and [place] [employer] guidelines recommend patients who [...] track activity level. Consider using apps like [employer], myfitnesspal, lose it, stick as needed for [...] counseling and psychiatry and Dr Harrison at [facility]. We would like to cover regular topics [...] Inadvertent corporate quality manager errors may occur 01/16/2024 Overweight (ICD-10 - E66.3) #Weight Management 01/16/2024 Patient to have updated labs from [facility] faxed to us later today Otherwise thriving [...] minimum of 6 months The most recent [place] [employer] clinical endocrinologists and [place] [employer] guidelines recommend patients who [...] track activity level. Consider using apps like [employer], [employer], lose it, stick as needed for self-monitoring [...] counseling and psychiatry and Dr Harrison at [facility]. We would like to cover regular topics [...] Inadvertent corporate quality manager errors may occur 02/03/2024 Overweight (ICD-10 - E66.3) 02/27/2024 Overweight (ICD-10 - E66.3) #Weight Management 02/26/2024 Patient to have updated labs from [facility] faxed to us later today She is [...] minimum of 6 months The most recent [place] [employer] clinical endocrinologists and [place] [employer] end[employer]in[employer] guidelines recommend patients who [...] Inadvertent corporate quality manager errors may occur 04/07/2024 BMI 25.0-25.9,adult (ICD-10 [...] reviewed. Dictation completed with the use of [employer] voice recognition software, prone to medical misidentifications [...] reviewed. Dictation completed with the use of [employer] voice recognition software, prone to medical misidentifications [...] minimum of 6 months The most recent [place] [employer] clinical endocrinologists and [place] [employer]in[employer] guidelines recommend patients who [...] Inadvertent corporate quality manager errors may occur 05/26/2024 BMI 26.0-26.9,adult (ICD-10 [...] minimum of 6 months The most recent [place] [employer] clinical endocrinologists and [place] [employer] end[employer] guidelines recommend patients who [...] Inadvertent corporate quality manager errors may occur 08/24/2024 Overweight (ICD-10 - [...] Inadvertent corporate quality manager errors may occur 08/24/2024 BMI 25.0-25.9,adult (ICD-10 [...] Inadvertent corporate quality manager errors may occur 10/10/2024 Overweight (ICD-10 - E66.3) #Weight Management 10/10/2024 Follow-up on lab from [facility] She will continue 1.7 mg of Wegovy, she is thriving and we are at target goal weight Discussed importance of creatine, protein, and resistance training for muscle building. She has signed up for a gym membership. We will refer to plastics for excessive skin removal due to recurrent fungal infections Total time spent today was 30 minutes [...] Inadvertent corporate quality manager errors may occur 10/10/2024 BMI 25.0-25.9,adult (ICD-10 - Z68.25) #Weight Management 10/10/2024 Follow-up on lab from [facility] She will continue 1.7 mg of Wegovy, she is thriving and we are at target goal weight Discussed importance of creatine, protein, and resistance training for muscle building. She has signed up for a gym membership. We will refer to plastics for excessive skin removal due to recurrent fungal infections Total time spent today was 30 minutes [...] Inadvertent corporate quality manager errors may occur 10/10/2024 Dietary counseling and surveillance (ICD-10 - Z71.3) #Weight Management 10/10/2024 Follow-up on lab from [facility] She will continue 1.7 mg of Wegovy, she is thriving and we are at target goal weight Discussed importance of creatine, protein, and resistance training for muscle building. She has signed up for a gym membership. We will refer to plastics for excessive skin removal due to recurrent fungal infections Total time spent today was 30 minutes [...] Inadvertent corporate quality manager errors may occur 08/24/2024 Dietary counseling and [...] Inadvertent corporate quality manager errors may occur 05/26/2024 Dietary counseling and [...] minimum of 6 months The most recent [place] [employer] clinical endocrinologists and [place] [employer] end[employer]in[employer] guidelines recommend patients who [...] Inadvertent corporate quality manager errors may occur 04/07/2024 Essential hypertension (ICD-10 [...] reviewed. Dictation completed with the use of [employer] voice recognition software, prone to medical misidentifications [...] 02/26/2024 Patient to have updated labs from [facility] faxed to us later today She is [...] minimum of 6 months The most recent [place] [employer] clinical endocrinologists and [place] [employer]in[employer] guidelines recommend patients who [...] Inadvertent corporate quality manager errors may occur 01/16/2024 BMI 26.0-26.9,adult (ICD-10 - Z68.26) #Weight Management 01/16/2024 Patient to have updated labs from [facility] faxed to us later today Otherwise thriving [...] minimum of 6 months The most recent [place] [employer] clinical endocrinologists and [place] [employer]in[employer] guidelines recommend patients who [...] track activity level. Consider using apps like [employer], [employer], lose it, stick as needed for self-monitoring [...] counseling and psychiatry and Dr Harrison at [facility]. We would like to cover regular topics [...] Inadvertent corporate quality manager errors may occur 11/30/2023 Dietary counseling and surveillance (ICD-10 - Z71.3) #Weight Management 11/29/2023 Otherwise thriving Continue Wegovy 2.4 mg She will be prescribed antifungal cream Plastics referral for skin excision potentially after weight loss has been completed Request labs from [facility] supposedly done in June 2023 Discussed protein [...] minimum of 6 months The most recent [place] [employer] clinical endocrinologists and [place] [employer] end[employer]in[employer] guidelines recommend patients who [...] track activity level. Consider using apps like [employer], myfitnesspal, lose it, stick as needed for [...] counseling and psychiatry and Dr Harrison at [facility]. We would like to cover regular topics [...] Inadvertent corporate quality manager errors may occur 10/29/2023 Dietary counseling and surveillance (ICD-10 - Z71.3) #Weight Management 10/29/2023 She will be prescribed antifungal cream Plastics referral for skin excision potentially after weight loss has been completed Request labs from [facility] supposedly done in June 2023 Continue Wegovy [...] minimum of 6 months The most recent [place] [employer] clinical endocrinologists and [place] [employer]in[employer] guidelines recommend patients who [...] track activity level. Consider using apps like [employer], [employer]pal, lose it, stick as needed for self-monitoring [...] counseling and psychiatry and Dr Harrison at [facility]. We would like to cover regular topics [...] Inadvertent corporate quality manager errors may occur 10/29/2023 Hx of laparoscopic gastric banding (ICD-10 - Z98.84) #Weight Management 10/29/2023 She will be prescribed antifungal cream Plastics referral for skin excision potentially after weight loss has been completed Request labs from [facility] supposedly done in June 2023 Continue Wegovy [...] minimum of 6 months The most recent [place] [employer] clinical endocrinologists and [place] [employer]in[employer] guidelines recommend patients who [...] track activity level. Consider using apps like [employer], [employer], lose it, stick as needed for self-monitoring [...] counseling and psychiatry and Dr Harrison at [facility]. We would like to cover regular topics [...] Inadvertent corporate quality manager errors may occur 11/30/2023 Hx of laparoscopic gastric banding (ICD-10 - Z98.84) #Weight Management 11/29/2023 Otherwise thriving Continue Wegovy 2.4 mg She will be prescribed antifungal cream Plastics referral for skin excision potentially after weight loss has been completed Request labs from [facility] supposedly done in June 2023 Discussed protein [...] minimum of 6 months The most recent [place] [employer] clinical endocrinologists and [place] [employer]in[employer] guidelines recommend patients who [...] track activity level. Consider using apps like [employer], [employer], lose it, stick as needed for [...] counseling and psychiatry and Dr Harrison at [facility]. We would like to cover regular topics [...] Inadvertent corporate quality manager errors may occur 01/16/2024 Dietary counseling and surveillance (ICD-10 - Z71.3) #Weight Management 01/16/2024 Patient to have updated labs from [facility] faxed to us later today Otherwise thriving [...] minimum of 6 months The most recent [place] [employer] clinical endocrinologists and [place] [employer] end[employer]in[employer] guidelines recommend patients who [...] track activity level. Consider using apps like [employer], myfitnesspal, lose it, stick as needed for [...] counseling and psychiatry and Dr Harrison at [facility]. We would like to cover regular topics [...] Inadvertent corporate quality manager errors may occur 02/27/2024 Dietary counseling and surveillance (ICD-10 - Z71.3) #Weight Management 02/26/2024 Patient to have updated labs from [facility] faxed to us later today She is [...] minimum of 6 months The most recent [place] [employer] clinical endocrinologists and [place] [employer]in[employer] guidelines recommend patients who [...] Inadvertent corporate quality manager errors may occur 04/07/2024 Hx of laparoscopic [...] reviewed. Dictation completed with the use of [employer] voice recognition software, prone to medical misidentifications and grammatical errors. All errors are unintentional. Although the practitioner does try to identify and correct errors, some may be present. Please do not hesitate to contact the practitioner for clarification. Total time spent was 30 minutes with >50% on coordination of care and patient education. 05/26/2024 Hx of laparoscopic gastric banding (ICD-10 [...] minimum of 6 months The most recent [place] [employer] clinical endocrinologists and [place] [employer] end[employer]in[employer] guidelines recommend patients who [...] Inadvertent corporate quality manager errors may occur 08/24/2024 Hx of laparoscopic [...] Inadvertent corporate quality manager errors may occur 10/10/2024 Hx of laparoscopic gastric banding (ICD-10 - Z98.84) #Weight Management 10/10/2024 Follow-up on lab from [facility] She will continue 1.7 mg of Wegovy, she is thriving and we are at target goal weight Discussed importance of creatine, protein, and resistance training for muscle building. She has signed up for a gym membership. We will refer to plastics for excessive skin removal due to recurrent fungal infections Total time spent today was 30 minutes [...] Inadvertent corporate quality manager errors may occur 10/10/2024 Excess skin of abdomen (ICD-10 - L98.7) #Weight Management 10/10/2024 Follow-up on lab from [facility] She will continue 1.7 mg of Wegovy, she is thriving and we are at target goal weight Discussed importance of creatine, protein, and resistance training for muscle building. She has signed up for a gym membership. We will refer to plastics for excessive skin removal due to recurrent fungal infections Total time spent today was 30 minutes [...] Inadvertent corporate quality manager errors may occur 08/24/2024 Excess skin of [...] Inadvertent corporate quality manager errors may occur 05/26/2024 Excess skin of [...] minimum of 6 months The most recent [place] [employer] clinical endocrinologists and [place] [employer] end[employer]in[employer] guidelines recommend patients who [...] Inadvertent corporate quality manager errors may occur 04/07/2024 Nutritional counseling (ICD-10 [...] reviewed. Dictation completed with the use of [employer] voice recognition software, prone to medical misidentifications [...] 02/26/2024 Patient to have updated labs from [facility] faxed to us later today She is [...] minimum of 6 months The most recent [place] [employer] clinical endocrinologists and [place] [employer]in[employer] guidelines recommend patients who [...] Inadvertent corporate quality manager errors may occur 01/16/2024 Hx of laparoscopic gastric banding (ICD-10 - Z98.84) #Weight Management 01/16/2024 Patient to have updated labs from [facility] faxed to us later today Otherwise thriving [...] minimum of 6 months The most recent [place] [employer] clinical endocrinologists and [place] [employer] guidelines recommend patients who [...] track activity level. Consider using apps like [employer], myfitnesspal, lose it, stick as needed for self-monitoring and weight management. Consider group exercises. Consider hiring a personal caregiver. Regular exercise is prestno to sustainable health and prevents as a [...] counseling and psychiatry and Dr Harrison at [facility]. We would like to cover regular topics [...] Inadvertent corporate quality manager errors may occur 11/30/2023 Excess skin of abdomen (ICD-10 - L98.7) #Weight Management 11/29/2023 Otherwise thriving Continue Wegovy 2.4 mg She will be prescribed antifungal cream Plastics referral for skin excision potentially after weight loss has been completed Request labs from [facility] supposedly done in June 2023 Discussed protein [...] minimum of 6 months The most recent [place] [employer]ocrinologists and [place] [employer] guidelines recommend patients who [...] track activity level. Consider using apps like [employer], myfitnesspal, lose it, stick as needed for [...] counseling and psychiatry and Dr Harrison at [facility]. We would like to cover regular topics [...] Inadvertent corporate quality manager errors may occur 10/29/2023 Excess skin of abdomen (ICD-10 - L98.7) #Weight Management 10/29/2023 She will be prescribed antifungal cream Plastics referral for skin excision potentially after weight loss has been completed Request labs from [facility] supposedly done in June 2023 Continue Wegovy [...] minimum of 6 months The most recent [place] [employer]ocrinologists and [place] [employer] guidelines recommend patients who [...] track activity level. Consider using apps like [employer], newScalefitBitXpal, lose it, stick as needed for self-monitoring [...] counseling and psychiatry and Dr Harrison at [facility]. We would like to cover regular topics [...] Inadvertent corporate quality manager errors may occur 01/16/2024 Excess skin of abdomen (ICD-10 - L98.7) #Weight Management 01/16/2024 Patient to have updated labs from [facility] faxed to us later today Otherwise thriving [...] minimum of 6 months The most recent [place] [employer]ocrinologists and [place] [employer] guidelines recommend patients who [...] track activity level. Consider using apps like [employer], myfitBitXpal, lose it, stick as needed for self-monitoring [...] counseling and psychiatry and Dr Harrison at [facility]. We would like to cover regular topics [...] Inadvertent corporate quality manager errors may occur 02/27/2024 Excess skin of abdomen (ICD-10 - L98.7) #Weight Management 02/26/2024 Patient to have updated labs from [facility] faxed to us later today She is [...] minimum of 6 months The most recent [place] [employer]ocrinologists and [place] [employer] guidelines recommend patients who [...] Inadvertent corporate quality manager errors may occur 10/10/2024 Encounter for examination of blood pressure without abnormal findings (ICD-10 - Z01.30) #Weight Management 10/10/2024 Follow-up on lab from [facility] She will continue 1.7 mg of Wegovy, she is thriving and we are at target goal weight Discussed importance of creatine, protein, and resistance training for muscle building. She has signed up for a gym membership. We will refer to plastics for excessive skin removal due to recurrent fungal infections Total time spent today was 30 minutes [...] corporate quality manager errors may occur 07/21/2024 #Weight Management 07/21/2024 Lets update labs Discussed [...] Inadvertent corporate quality manager errors may occur 07/28/2024 #Weight Management 07/28/2024 Lets update labs Discussed [...] Inadvertent corporate quality manager errors may occur Plan Of Treatment Pending Test Test Name Order Date LIPID PANEL, STANDARD 06/26/2023 LIPID PANEL, STANDARD 05/26/2024 COMPREHENSIVE METABOLIC PANEL 05/26/2024 COMPREHENSIVE METABOLIC PANEL 06/26/2023 CBC (INCLUDES DIFF/PLT) 06/26/2023 CBC (INCLUDES DIFF/PLT) 05/26/2024 URINALYSIS, COMPLETE 05/26/2024 HEMOGLOBIN A1c 05/26/2024 TSH 05/26/2024 VITAMIN D,25-OH,TOTAL,IA 05/26/2024 Next Appt Details Provider Name:JE PRESSLEY, 11/14/2024 09:15:00 AM, [address], [place], [address], Insurance Providers Payer Name Payer Address Payer Phone Subscriber Number Group Number Insured Name Patient Relationship to Insured Coverage Start Date Coverage End Date [facility] [address] [place] [address] [phone] [id number] Mary Edmonds Self - patient is the insured Medications Administered Medication Instructions Date of Administration Dosage Notes MICC B12 INJECTION 12/21/2022 1 mg Semaglutide 12/21/2022 0.25 mg Semaglutide 12/28/2022 sema 0.25mg Semaglutide 01/04/2023 0.25 mg Lot #: [id number] Semaglutide 01/11/2023 0.25 mg sema 0.25mg Semaglutide 01/18/2023 0.50 mL Semaglutide 01/25/2023 Semaglutide 02/01/2023 0.5 mg Semaglutide 02/08/2023 Semaglutide 02/15/2023 1 mL Semaglutide 02/22/2023 1 mL Medical (General) History Medical History History ICD Code hypertension asthma Arthritis cholelithiasis choledocholithiasis kidney stones Surgical History Surgery Date(Month/Year) cholecystectomy Gastric sleeve 02/2020 kidney stones 07/2020
== END 2024-10-22 16:16 | disposition home or self-care (01) ==
LOC: HO.HGI 15:33
PROVIDERS: PCP General Practice; Visit Provider Nurse Practitioner
DX: Z01.818 Encounter for other preprocedural examination (principal); Z12.11 Encounter for screening for malignant neoplasm of colon; K21.9 Gastro-esophageal reflux disease without esophagitis; K59.04 Chronic idiopathic constipation; B00.9 Herpesviral infection, unspecified
CPT/HCPCS: S0285

== ENCOUNTER → 2024-10-22 15:32 | Outpatient (BNVA) | payer BC, SELFPAY | PROVIDERS: PCP General Practice; Visit Provider Nurse Practitioner ==

== ENCOUNTER 2025-02-09 07:23 | Outpatient (AMB) | payer BC, SELFPAY ==
--- OUTSIDE RECORDS SUMMARY | 2024-07-28 11:15 | XMS_ITS ---
Author Organization [facility] [address] Address [address] [place] [address] Care Team Providers Care Transcribing Operators Supervisor Name Role Phone JE PRESSLEY Unavailable [phone] Medications Medication SIG (Take, Route, Frequency, Duration) [...] Provider Diagnosis [facility] [address] [place] [phone] 07/28/2024 JE WENDIE Overweight E66.3 ; B OR 26.0-26.9,adult Z68.26 ; Dietary counseling and surveillance [...] software and direct typing Please excuse inadvertent b2b managed service sales exec or typing errors, or uncorrected word substitutions Although every attempt has been made by the provider to proofread this document, occasional misspellings and typographical errors may still be present Due to the previous pandemic, and the use of personal protective equipment (PPE) This may decrease voice recognition accuracy Inadvertent b2b managed service sales exec errors may occur 07/28/2024 BMI 26.0-26.9,adult (ICD-10 [...] software and direct typing Please excuse inadvertent b2b managed service sales exec or typing errors, or uncorrected word substitutions Although every attempt has been made by the provider to proofread this document, occasional misspellings and typographical errors may still be present Due to the previous pandemic, and the use of personal protective equipment (PPE) This may decrease voice recognition accuracy Inadvertent b2b managed service sales exec errors may occur 07/28/2024 Dietary counseling and [...] software and direct typing Please excuse inadvertent b2b managed service sales exec or typing errors, or uncorrected word substitutions Although every attempt has been made by the provider to proofread this document, occasional misspellings and typographical errors may still be present Due to the previous pandemic, and the use of personal protective equipment (PPE) This may decrease voice recognition accuracy Inadvertent b2b managed service sales exec errors may occur 07/28/2024 Hx of laparoscopic [...] software and direct typing Please excuse inadvertent b2b managed service sales exec or typing errors, or uncorrected word substitutions Although every attempt has been made by the provider to proofread this document, occasional misspellings and typographical errors may still be present Due to the previous pandemic, and the use of personal protective equipment (PPE) This may decrease voice recognition accuracy Inadvertent b2b managed service sales exec errors may occur 07/28/2024 Excess skin of [...] software and direct typing Please excuse inadvertent b2b managed service sales exec or typing errors, or uncorrected word substitutions Although every attempt has been made by the provider to proofread this document, occasional misspellings and typographical errors may still be present Due to the previous pandemic, and the use of personal protective equipment (PPE) This may decrease voice recognition accuracy Inadvertent b2b managed service sales exec errors may occur Plan Of Treatment Medication Medication Name Sig Start Date Stop Date Notes Clotrimazole-Betamethasone 1-0.05 % 1 application Externally Twice a day; Duration: 30 days Wegovy 2.4 MG/0.75ML 2.4mg Subcutaneous weekly; Duration: 30 days Next Appt Details Provider Name:JE PRESSLEY, 02/20/2025 12:45:00 PM, [address] [place] [address], [phone], Progress Notes * Mary ORTIZ NDOB :1965 (59 yo F)Acc No.[id number]:07/28/2024 Patient: Mary SKINNER Provider: Elijah PRESSLEY NP :1965 A ge:59 Y S ex:Female Date:07/28/2024 Address:[address] [place], [place] [id number] Subjective: * Chief Complaints: * * HPI: [...] go eating and traveling a lot to [facility] to see him q 2 [...] loose skin from weight loss PCP Gregory, [facility] Had gastric banding 10-15 years ago [...] 183lbs, BMI: 33 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 Comprehensive labs June 2023, [facility] CBC is stable Renal function electrolytes [...] verweight - E66.3 (Primary) 2 . B OR 26.0-26.9,adult - Z68.26 ? 3 . D [...] software and direct typing Please excuse inadvertent b2b managed service sales exec or typing errors, or uncorrected word substitutions Although every attempt has been made by the provider to proofread this document, occasional misspellings and typographical errors may still be present Due to the previous pandemic, and the use of personal protective equipment (PPE) This may decrease voice recognition accuracy Inadvertent b2b managed service sales exec errors may occur. Plan: * Treatment: * Procedure Codes: 9 9199 NO SHOW OFFICE VISIT * Images: Billing Information: * Visit Code: * Procedure Codes: 22437 NO SHOW OFFICE VISIT. 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 Comprehensive labs June 2023, [facility] CBC is stable Renal function electrolytes and LFTs are stable Triglycerides 78, total cholesterol 175, LDL 97, HDL 63 Examination Category Sub-Category Detail Notes Category Not es General Examination GENERAL APPEARANCE: in no ac yudi distress, well developed, well nourished HEAD: normocephalic, [...]
--- OUTSIDE RECORDS SUMMARY | 2024-11-14 05:15 | XMS_ITS ---
Author Organization [facility] Address [address] [place] [address] Care Team Providers Care Planner Scheduler Name Role Phone JE PRESSLEY Unavailable [phone] Medications Medication SIG (Take, Route, Frequency, Duration) Notes Start Date End Date Status Loratadine 10 MG TAKE 1 TABLET BY ADITHYA TH EVERY DAY IN THE MORNING Oral; Duration: 90 Days Active Celecoxib 100 MG PLEASE SEE ATTACHED FOR DETAILED DIRECTIONS Oral; Duration: 45 Days Active Lisinopril 10 MG TAKE 1 TABLET BY ADITHYA TH EVERY DAY Oral; Duration: 90 Days Active Wegovy 1.7 MG/0.75ML 0.75 mL Subcutaneou s once weekly; Duration: 30 days Not-Ta laura Wegovy 1 MG/0.5ML 1mg Subcutaneous wee kly; Duration: 30 days Active Clotrimazole-Betamethas one 1-0.05 % 1 application Externally Twice a day; Duration: 30 days Active Encounters Encounter Location Date Provider Diagnosis [facility] [address] [place] [address] 11/14/2024 JE PRESSLEY Overweight E66.3 ; B KS 25.0-25.9,adult Z68.25 ; Dietary counseling and surveillance Z71.3 ; Hx of laparoscopic gastric banding Z98.84 ; Excess skin of abdomen L98.7 and Encounter for examination of blood pressure without abnormal findings Z01.30 Assessments Encounter Date Diagnosis (ICD Code) Assessment Notes Treatment Notes Treatment Clinical Notes Section Notes 11/14/2024 Overweight (ICD-10 - E66.3) #Weight Management 11/14/2024 Follow-up on lab from [facility] She will continue 1.7 mg of Wegovy, [...] software and direct typing Please excuse inadvertent data entry assistant or typing errors, or uncorrected word substitutions Although every attempt has been made by the provider to proofread this document, occasional misspellings and typographical errors may still be present Due to the previous pandemic, and the use of personal protective equipment (PPE) This may decrease voice recognition accuracy Inadvertent data entry assistant errors may occur 11/14/2024 BMI 25.0-25.9,adult (ICD-10 - Z68.25) #Weight Management 11/14/2024 Follow-up on lab from [facility] She will continue 1.7 mg of Wegovy, [...] software and direct typing Please excuse inadvertent data entry assistant or typing errors, or uncorrected word substitutions Although every attempt has been made by the provider to proofread this document, occasional misspellings and typographical errors may still be present Due to the previous pandemic, and the use of personal protective equipment (PPE) This may decrease voice recognition accuracy Inadvertent data entry assistant errors may occur 11/14/2024 Dietary counseling and surveillance (ICD-10 - Z71.3) #Weight Management 11/14/2024 Follow-up on lab from [facility] She will continue 1.7 mg of Wegovy, [...] software and direct typing Please excuse inadvertent data entry assistant or typing errors, or uncorrected word substitutions Although every attempt has been made by the provider to proofread this document, occasional misspellings and typographical errors may still be present Due to the previous pandemic, and the use of personal protective equipment (PPE) This may decrease voice recognition accuracy Inadvertent data entry assistant errors may occur 11/14/2024 Hx of laparoscopic gastric banding (ICD-10 - Z98.84) #Weight Management 11/14/2024 Follow-up on lab from [facility] She will continue 1.7 mg of Wegovy, [...] software and direct typing Please excuse inadvertent data entry assistant or typing errors, or uncorrected word substitutions Although every attempt has been made by the provider to proofread this document, occasional misspellings and typographical errors may still be present Due to the previous pandemic, and the use of personal protective equipment (PPE) This may decrease voice recognition accuracy Inadvertent data entry assistant errors may occur 11/14/2024 Excess skin of abdomen (ICD-10 - L98.7) #Weight Management 11/14/2024 Follow-up on lab from [facility] She will continue 1.7 mg of Wegovy, [...] software and direct typing Please excuse inadvertent data entry assistant or typing errors, or uncorrected word substitutions Although every attempt has been made by the provider to proofread this document, occasional misspellings and typographical errors may still be present Due to the previous pandemic, and the use of personal protective equipment (PPE) This may decrease voice recognition accuracy Inadvertent data entry assistant errors may occur 11/14/2024 Encounter for examination of blood pressure without abnormal findings (ICD-10 - Z01.30) #Weight Management 11/14/2024 Follow-up on lab from [facility] She will continue 1.7 mg of Wegovy, [...] software and direct typing Please excuse inadvertent data entry assistant or typing errors, or uncorrected word substitutions Although every attempt has been made by the provider to proofread this document, occasional misspellings and typographical errors may still be present Due to the previous pandemic, and the use of personal protective equipment (PPE) This may decrease voice recognition accuracy Inadvertent data entry assistant errors may occur Plan Of Treatment Medication Medication Name Sig Start Date Stop Date Notes Wegovy 1 MG/0.5ML 1mg Subcutaneous wee kly; Duration: 30 days Clotrimazole-Betamethasone 1-0.05 % 1 application Externally Twice a day; Duration: 30 days Next Appt Details Provider Name:JE PRESSLEY, 02/20/2025 12:45:00 PM, [address] [facility], [place], [address], Progress Notes * Mary ORTIZ NDOB :1965 (59 yo F)Acc No.[id number]:11/14/2024 Patient: Dyllan Mary BRODERICK N Provider: Elijah PRESSLEY NP :1965 A ge:59 Y S ex:Female Date:11/14/2024 Address:[address] [place], [place] [id number] Subjective: * Chief Complaints: * * HPI: C onstitutional: Patient is here today for a weight management f/u visit Body composition analysis reviewed today. Patient seen and examined. Full past medical history, social history, family history, allergies and current medications were reviewed and updated. #Weight Management 11/14/2024 24-hour dietary recall Breakfast: Lunch: Dinner: Snacking: Micronutrients: utilizing bariatric multivitamins Patient is currently on 1.7mg Wegovy once week We are at target goal weight Injection day is Saturday Had gastric banding 10-15 years ago Per patient she had the band removed 2019 due to ulcer complication. Gastric sleeve 4 years ago Exercise- usually cardio and weights, has not been doing as much in the past year Early satiety and good appetite suppression Her affinity for sweets has decreased Patient states she continues high protein diet, but does not count how many grams. She does walk and is recently trying to do more strength and resistance exercises at the gym. We discussed her decreasing muscle composition we discussed the importance of strength and resistance training and high-protein diet Patient takes multivitamins and also Vitamin B12 Reports constipation and occasional nausea and anxiety due to menopausal hot flashes at night. 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 Comprehensive labs June 2023, [facility] CBC is stable Renal function electrolytes and LFTs are stable Triglycerides 78, total cholesterol 175, LDL 97, HDL 63. * ROS: A ll Other Systems: Review of Systems (ROS) A ll others negative except those mentioned in HPI. * Medical History: * Medications: T aking Clotrimazole-Betamethasone 1-0.05 % Cream 1 application Externally Twice a day , Taking Wegovy 1 MG/0.5ML Solution Auto-injector 1mg Subcutaneous weekly , Taking Loratadine 10 MG Tablet TAKE [...] verweight - E66.3 (Primary) 2 . B KS 25.0-25.9,adult - Z68.25 ? 3 . D ietary counseling and surveillance - Z71.3 4 . H x of laparoscopic gastric banding - Z98.84 5 . E xcess skin of abdomen - L98.7 6. E ncounter for examination of blood pressure without abnormal findings - Z01.30 #Weight Management 11/14/2024 Follow-up on lab from [facility] She will continue 1.7 mg of Wegovy, [...] software and direct typing Please excuse inadvertent data entry assistant or typing errors, or uncorrected word substitutions Although every attempt has been made by the provider to proofread this document, occasional misspellings and typographical errors may still be present Due to the previous pandemic, and the use of personal protective equipment (PPE) This may decrease voice recognition accuracy Inadvertent data entry assistant errors may occur Plan: * Treatment: * Images: Billing Information: * Visit Code: * Procedure Codes: * Electronic signature of TADEO PRESSLEY on 02/09/2025 at 07:27 AM EDT Sign off status: Pending * Provider: Elijah PRESSLEY NP Date: 11/14/2024 Generated for Shantell Manriquez on: 02/09/2025 07:27 AM EDT History and Physical Notes * HPI (History of Present Illness) Category Sub-Category Detail Notes Category Not es Constitutional Patient is here today for a weight management f/u visit Body composition analysis reviewed today. Patient seen and examined. Full past medical history, social history, family history, allergies and current medications were reviewed and updated. #Weight Management 11/14/2024 24-hour dietary recall Breakfast: Lunch: Dinner: Snacking: Micronutrients: utilizing bariatric multivitamins Patient is currently on 1.7mg Wegovy once week We are at target goal weight Injection day is Saturday Had gastric banding 10-15 years ago Per patient she had the band removed 2019 due to ulcer complication. Gastric sleeve 4 years ago Exercise- usually cardio and weights, has not been doing as much in the past year Early satiety and good appetite suppression Her affinity for sweets has decreased Patient states she continues high protein diet, but does not count how many grams. She does walk and is recently trying to do more strength and resistance exercises at the gym. We discussed her decreasing muscle composition we discussed the importance of strength and resistance training and high-protein diet Patient takes multivitamins and also Vitamin B12 Reports constipation and occasional nausea and anxiety due to menopausal hot flashes at night. 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 Comprehensive labs June 2023, [facility] CBC is stable Renal function electrolytes and LFTs are stable Triglycerides 78, total cholesterol 175, LDL 97, HDL 63 Examination Category Sub-Category Detail Notes Category Not es General Examination GENERAL APPEARANCE: in no ac [place] distress, well developed, well nourished HEAD: normocephalic, [...]
--- OUTSIDE RECORDS SUMMARY | 2025-02-09 07:27 | XMS_ITS | Encounter Summary ---
Author Organization [employer] Address [address] [facility] [facility] [place] [address] Care Team Providers Care Drip Pumper Name Role Phone Yaritza Chapman MD Primary Care Provider [phone] Encounter Details Date Type Department Care Team (Late st Contact Info) Description 09/23/2023 Orders Only [facility] [address] [place] [address] Provider, MD Jessi Social History Tobacco Use Types Packs/Day Years Used Date Smoking Tobacco: Never Passive Smoke Exposure: Never Smokeless Tobacco: Never Alcohol Use Standard Drinks/Week Comments Never 0 (1 standard drink = 0.6 oz pur e alcohol) Depression Answer Date Recorded Patient Health Questionnaire-9 Score 3 09/17/2023 Patient Health Questionnaire-9 Score 3 09/17/2023 Last PHQ-9: Questionnaire Data Not on file 0 09/17/2023 Housing Stability Answer Date Recorded What is your housing situation today? I have colbyjennifer lugo 09/17/[address] you li ve. Do you have problems with any of the following? None of the above 09/17/2023 Food Insecurity Answer Date Recorded Within the past 12 months, y ou worried that your food would run out before you got money to buy more: Never True 09/17/2023 Within the past 12 months,th e food you bought just didn't last and you didn't have enough money to get more: Never True 11/2023 Transportation Answer Date Recorded In the past 12 months, has l ack of transportation kept you from medical appts, meetings, work or from getting things needed for daily living? Yes, it has kept me from medical appointments or getting medications. 09/17/2023 Utilities Answer Date Recorded In the past 12 months, has t he electric, gas, oil or water company threatened to shut off services in your home? No 09/17/2023 Depression Answer Date Recorded Patient Health Questionnaire-2 Score 0 09/17/2023 Comments Unknown Sex and Gender Information Value Date Recorded Sex Assigned at Female 03/12/2022 10:14 AM EDT Legal Sex Female 10:14 AM EDT Gender Identity Female 03/12/2022 10:14 AM EDT Sexual Orientation Choose not to disclose 2021 10:14 AM EDT documented as of this encounter Plan of Treatment Not on file documented as of this encounter Procedures Procedure Name Priority Date/Time Associated Diagnosis Comments URINALYSIS WITH REFLEX MICROSCOPIC Routine 06/01/2024 9:48 AM EST SARS COV2/INFLUENZA A/B AND RSV RNA QL NAAT Routine 06/01/2024 9:47 AM EST CBC WITH AUTO DIFFERENTIAL Routine 06/01/2024 9:09 AM EST LIPASE Routine 06/01/2024 9:08 AM EST HEPATIC FUNCTION PANEL Routine 9:08 AM EST COMPREHENSIVE METABOLIC PANEL Routine 06/01/2024 9:08 AM EST HM COLONOSCOPY Routine 07/20/2022 9:25 AM EST HM COLONOSCOPY Routine 03/28/2018 9:23 AM EST documented in this encounter Results * Urinalysis w/reflex microscopic (06/01/2024 9:48 AM EST) Color Urine Yellow [facility] Appearance Urine Clear [facility] PH 7.0 5.0 - 9.0 [facility] Glucose Urine UA Negative Negative mg/dL [facility] Urine Blood Negative Negative [facility] Specific Lindrith - Urine 1.020 1.005 - 1.025 [facility] Urine Protein Negative Neg-Trace mg/dL [facility] Urine Ketones Negative Negative mg/dL [facility] Nitrite Urine Negative Negative [facility] Leukocyte Esterase Urine Negative Negative [facility] 06/01/2024 9:48 AM EST 06/01/2024 9:53 AM EST Narrative [facility] - 06/01/2024 9:58 AM EST Urine, Clean Catch Generic External Data Provider LAB URINE ORDERAB LES Final Result Performing Organization Address [facility] Co de Phone Number [facility] [address] [place] [phone] * SARS-CoV-2 RNA, Influenza A/B, and RSV RNA, Ql NAAT (06/01/2024 9:47 AM EST) Influenza A PCR NEGATIVE Negative [facility] Influenza B PCR NEGATIVE Negative [facility] Resp Syncy Virus RNA Qual PCR NEGATIVE Negative [facility] SARS COV2 PCR NEGATIVE Negative [facility] Comment:All test results mus t be correlated with clinical findings.Negative results do not preclude SARS-CoV2, influenza Avirus, influenza B virus and/or RSV infectionand should not be used as the sole basis for treatment orother patient management decisions. Negative results must becombined with clinical observations, patient history, andepidemiological information.This test has not been evaluated for monitoring treatment ofinfection.This test has been authorized by the FDA under an EmergencyUse Authorization (EUA) for use by authorized laboratories.Testing performed on the [employer] GeneXpert utilizingreal-time RT-PCR.All SARS CoV2 and positive influenza A/B results arereported to [facility]. 06/01/2024 9:47 AM EST 06/01/2024 9:53 AM EST us Generic External Data Provider LAB MICROBIOLOGY - GENERAL ORDERABLES Final Result Performing Organization Address [facility] Co de Phone Number [facility] [address] [place] [phone] * (ABNORMAL) CBC auto differential (06/01/2024 9:09 AM EST) White Blood Count 9.7 4.8 - 10.8 X10*3/uL [facility] Red Blood Count 4.28 4.20 - 5.50 X10*6/uL [facility] Hemoglobin 12.7 12.0 - 16.0 g/dl [facility] Hematocrit 37.8 37.0 - 47.0 % [facility] Mean Corpuscular Volume 88.3 80.0 - 98.0 fL [facility] Mean Corpuscular Hemoglobin 29.7 27.0 - 33.0 pg [facility] Mean Corpuscular HGB Conc 33.6 31.0 - 35.0 g/dl [facility] Red Cell Distribution Width 12.8 11.0 - 16.0 % [facility] Platelet Count 303 160 - 400 X10*3/uL [facility] Mean Platelet Volume 10.2 9.4 - 12.3 fL [facility] Neutrophils Percent Auto 76.7(H) 45 - 73 % [facility] Imm Gran Pct Auto 0.3 0.0 - 0.4 % [facility] Lymphocytes Percent Auto 15.3(L) 20 - 40 % [facility] Monocytes Percent Auto 6.4 2 - 11 % [facility] Eosinophils Percent Auto 0.7 0 - 4 % [facility] Basophils Percent Auto 0.6 0 - 2 % [facility] NRBC Pct Auto 0.0 0.0 - 0.2 /100WBC [facility] Neutrophils Absolute Auto 7.5 2.0 - 8.3 x10*3/uL [facility] Imm Gran Abs Auto 0.03 0.00 - 0.03 X10*3/uL [facility] Lymphocytes Absolute Auto 1.5 1.2 - 4.9 X10*3/uL [facility] Monocytes Absolute Auto 0.6 0.1 - 1.2 X10*3/uL [facility] Eosinophils Absolute Auto 0.1 0.0 - 0.4 X10*3/uL [facility] Basophils Absolute Auto 0.1 0.0 - 0.2 X10*3/uL [facility] NRBC Abs Auto 0.000 0.0 - 0.012 X10*3/uL [facility] 06/01/2024 9:09 AM EST 06/01/2024 9:11 AM EST Generic External Data Provider LAB BLOOD ORDERAB LES Final Result Performing Organization Address [facility]/ZIP Co de Phone Number [facility] [address] [place] [phone] * Lipase (06/01/2024 9:08 AM EST) Pathologist [facility] Lipase 37 8 - 78 U/L [facility] 06/01/2024 9:08 AM EST 06/01/2024 9:11 AM EST us Generic External Data Provider LAB BLOOD ORDERAB LES Final Result Performing Organization Address [facility] Co de Phone Number [facility] [address] [place] [phone] * Hepatic Function Panel (06/01/2024 9:08 AM EST) Pathologist [facility] Bilirubin, Direct 0.2 0.0 - 0.5 mg/dL [facility] 06/01/2024 9:08 AM EST 06/01/2024 9:11 AM EST us Generic External Data Provider LAB BLOOD ORDERAB LES Final Result Performing Organization Address [facility] de Phone Number [facility] [address] [place] [phone] * (ABNORMAL) Comprehensive Metabolic Panel (06/01/2024 9:08 AM EST) Sodium 141 135 - 145 mmol/L [facility] Potassium 4.1 3.3 - 5.1 mmol/L [facility] Chloride 108 96 - 108 mmol/L [facility] Carbon Dioxide 27 22 - 29 mmol/L [facility] Anion Gap 10(L) 12 - 20 [facility] Urea Nitrogen (BUN) 10 9 - 16 mg/dL [facility] Creatinine, Serum 0.75 0.5 - 1.4 mg/dL [facility] Creatinine Clr Calc Pharmacy 71.1 [facility] Comment:Provided height and weight: 154.94 cm,64.5 kg.eGFR (calculated from the MDRD study equation) and eCrCl(calculated from the Cockcroft-Gault equation) are based ondifferent parameters and may not yield comparable results.If eCrCl result is absurd, please check patient'sheight/weight. Estimated Glomerular Filt Rate >60 [facility] Comment:Chronic Kidney Disea se: Estimated GFR < 60 mL/min/[id number] Kidney Disease: Estimated GFR < 15 mL/min/1.73m2 Glucose 84 60 - 115 mg/dL [facility] Calcium 10.0 8.4 - 10.2 mg/dL [facility] Bilirubin, Total 0.6 0.0 - 1.0 mg/dL [facility] Aspartate Amino Transferase 27 5 - 31 U/L [facility] Alanine Aminotransferase 16 0 - 31 U/L [facility] Total Protein 7.3 6.5 - 8.0 g/dL [facility] Albumin Level 4.0 3.5 - 5.0 g/dL [facility] Alkaline Phosphatase 91 39 - 117 U/L [facility] 06/01/2024 9:08 AM EST 06/01/2024 9:11 AM EST us Generic External Data Provider LAB BLOOD ORDERAB LES Final Result [facility] [address] [place] [phone] * Colonoscopy (07/20/2022 9:25 AM EST) us Historical Provider HEALTH MAINTENANCE Final Result * Hm Colonoscopy (03/28/2018 9:23 AM EST) us Historical Provider HEALTH MAINTENANCE Final Result documented in this encounter Visit Diagnoses Not on filedocumented in this encounter Additional Health Concerns Assessment Noted Time PHQ-9 Depression Total Score: 3 09/17/19 24 10:06 AM EDT documented as of this encounter Care Teams Drip Pumper Relationship Specialty Start Date End Date Yaritza Chapman MD [address] [place] [phone] PCP - General Family Medicine 05/24/22 documented as of this encounter
--- OUTSIDE RECORDS SUMMARY | 2025-02-09 07:27 | XMS_ITS | Encounter Summary ---
Author Organization [employer] Address [address] [facility] [address] [place] [address] Care Team Providers Care Telegraphic Service Dispatcher Name Role Phone Yaritza Chapman MD Primary Care Provider [phone] Reason for Visit * Reason Onset Date Comments Prior Authorization 11/01/2022 Encounter Details Date Type Department Care Team ([facility] st Contact Info) Description 11/01/2022 Telephone [facility] [address] [place] [address] Jarad Petty, DMD [address] [place] [address] Prior Authorization Social History Tobacco Use Types Packs/Day Years Used Date Smoking Tobacco: Never Smokeless Tobacco: Never Alcohol Use Standard Drinks/Week Comments Never 0 (1 standard drink = 0.6 oz pur e alcohol) PHQ-2 Answer Date Recorded Patient Health Questionnaire-2 Score 0 08/30/2022 Depression Answer Date Recorded Patient Health Questionnaire-2 Score 0 08/30/2022 Comments Unknown Sex and Gender Information Value Date Recorded Sex Assigned at Female 03/12/2022 10:14 AM EDT Legal Sex Female 10:14 AM EDT Gender Identity Female 03/12/2022 10:14 AM EDT Sexual Orientation Choose not to disclose 2021 10:14 AM EDT COVID-19 Exposure Response Date Recorded In the last 10 days, have yo u been in contact with someone who was confirmed or suspected to have Coronavirus/COVID-19? No / Unsure 10/15/2022 1:01 PM EDT documented as of this encounter Miscellaneous Notes * Telephone Encounter - Roseline Turcios - 11/01/2022 1:25 PM EDT Patient is calling back to confirm whether PA has come in for crown. She states taht she has to have it done prior to November 10 because she will not have insurance November 10 DR documented in this encounter Plan of Treatment Not on file documented as of this encounter Visit Diagnoses Not on filedocumented in this encounter Care Teams Telegraphic Service Dispatcher Relationship Specialty Start Date End Date Yaritza Chapman MD [address] [place] [address] PCP - General Family Medicine 05/24/22 documented as of this encounter
--- OUTSIDE RECORDS SUMMARY | 2025-02-09 07:27 | XMS_ITS | Clinical Summary ---
Author Organization [email or web address] Address [address] [facility] 7[address] [place] [address] Care Team Providers Care Television Technician Name Role Phone Yaritza Chapman MD Primary Care Provider [phone] Allergies Active Allergy Reactions Criticality Noted Date Comments Pineapple Hives 06/27/2022 Other reaction(s): hives Shellfish-Derived Products Hives 3 Tramadol Hives 06/27/2022 Medications Blood Pressure Monitoring (Omron 3 Series BP Monitor) device USE TO CHECK BLOOD PRESSURE DAILY DIRECTED 12/01/19 22 Active EPINEPHrine (Epipen) 0.3 MG/0.3ML injection syringe inject 0.3 Milligram by Intramuscular route every if needed 11/05/19 21 Active Semaglutide-Weight Management (Wegovy) 2.4 MG/0.75ML solution auto-injector 2.4mg Subcutaneous weekly for 30 days 08/07/19 24 Active hydrocortisone 2.5 % cream Apply topically 2 times daily. 15 g 1 12/18/19 24 Active sodium chloride ([facility] Saline Nasal [place]) 0.65 % nasal sprayIndications:A llergic rhinitis, unspecified seasonality, unspecified trigger SPRAY 1-2 SPRAYS ON EACH NOSTRIL EVERY 2-3 HOURS NEEDED FOR NASAL CONGESTION 44 mL 1 10/20/19 25 Active Bisacodyl EC 5 MG EC tablet TAKE 2 TABLETS BY MOUTH EVERY DAY AT BEDTIME FOR 2 DAYS 11/06/19 25 Active amitriptyline (Elavil) 10 MG tabletIndications: Primary osteoarthritis of both knees Take 1 tablet (10 mg) by mouth if needed at bedtime for sleep. 90 tablet 3 01/02/20 25 Active loratadine (Claritin) 10 MG tabletIndications: Allergic rhinitis, unspecified seasonality, unspecified trigger Take 1 tablet (10 mg) by mouth in the morning. 90 tablet 3 01/02/20 25 Active lisinopril 10 MG tablet Take 1 tablet (10 mg) by mouth Once per day. 90 tablet 3 01/02/20 25 Active clotrimazole-betam ethasone (Lotrisone) cream Apply topically if needed in the morning and at bedtime (shafing spots). 45 g 3 01/02/20 25 Active minoxidil (Rogaine) 2 % external solution Apply topically at bedtime. 60 mL 1 01/02/20 25 Active celecoxib (CeleBREX) 200 MG capsuleIndications :Primary osteoarthritis of both knees Take 1 capsule (200 mg) by mouth Once per day. 90 capsule 3 01/02/20 25 026 Active Active Problems Problem Noted Date Diagnosed Date Acute diffuse otitis externa of right ear 2023 Diverticulitis 03/24/2024 Family history of lung cancer 11/21/2023 Overview (11/21/2023): Dx in multiple first and second degree family members, some smoking, some non- smoking She is concerned about her own risk Non-smoker Will screen with CXR Risk stratification for lung cancer is ongoing, this recent study (https://www.ncbi.nlm.nih.gov/pmc/articles/ZTN6427042/) suggests four biomarkers in combination can give best predictive value, only two CA125 and CEA are commerically available, so I ordered those two Of note alpha 1 antitrypsin deficiency is useful for COPD risk, but not lung cancer risk Anxiety 09/17/2023 Assessment & Plan (09/17/2023 10:04 AM EDT): Self managing and problem solving Screening mammogram for breast cancer 09/17/2023 Sprain of right ankle 04/02/2023 Assessment & Plan (04/02/2023 12:34 PM EST): Recommended to use Celebrex daily, and can take tylenol PRN pain Elevate foot and apply ice pack to effected area Refer to PT Will give crutches and ankle brace to wear for at least 3 wks Will prescribe a cane to use as needed after the 3 wks Dental calculus 10/16/2022 Degenerative arthritis of knee, bilateral 2022 Assessment & Plan (04/08/2024 12:00 PM EST): Present for years Waxes and wanes in severity Celebrex 200mg daily Cymbalta 20mg daily helpful, but could not tolerate due to side effects Will start Amitriptyline 10mg at night for neuromodulation of pain Discussed trying glucosamine/chondroitin and tumeric as well Does not want to do PT or knee injections yet Weight bearing exercise as much as tolerated She will inform me via mychart of her pain in 3-4 months Assessment & Plan (11/21/2023 10:02 AM EDT): Present for years Waxes and wanes in severity Celebrex 200mg daily not effective Will trial Cymbalta 20mg daily Does not want to do PT or knee injections Weight bearing exercise as much as tolerated Assessment & Plan (07/31/2022 11:29 AM EDT): Present for years Worse lately Will prescribe Celebrex for daily use 100mg Cr 0.86/eGFR >60 Weight bearing exercise as much as tolerated Vitamin D deficiency 04/14/2018 Menopausal symptom 11/30/2016 Mild intermittent asthma 09/07/2016 Shoulder pain 09/07/2016 Recurrent herpes simplex 09/07/2016 Essential hypertension 05/02/2015 Assessment & Plan (08/30/2022 2:44 PM EDT): Continue daily Lisinopril 10mg At goal <140/90 on this medication Overweight 05/02/2015 Encounters Date Type Department Care Team Description 01/01/2025 11:15 AM EDT Office Visit [facility] [address] [place] [id number] Yaritza Chapman MD Excess skin of arm (Primary Dx); Mild intermittent asthma without complication; Dietary counseling; Exercise counseling; Overweight; Primary osteoarthritis of both knees; Allergic rhinitis, unspecified seasonality, unspecified trigger 01/01/2025 Travel 12/31/2024 Telephone [facility] [address] [place], [place] [phone] Yaritza Chapman MD chart prep 12/28/2024 Travel from Last 3 Months Immunizations Immunization Administration Dates Next Due Hep B, adult 01/10/2017,09/07/2016,03/23/2014 INFLUENZA VACCINE QUADRIVALE NT RECOMBINANT PRESERVATIVE FREE RIV4 02/20/2020 Influenza Injectable Quadriv alant Preservative Free IIV4 MDCK 02/07/2023 Influenza injectable quadriv alent IIV4 with preservative 03/13/2016,05/02/2015 Influenza injectable quadriv alent preservative free 02/27/2022,01/26/2021,02/09/2019 Influenza, IIV3, injectable 02/02/2014, 0 Influenza, seasonal, injecta ble, preservative free 02/25/2024,03/02/2017 MMR 03/23/2014,12/26/1979 Pfizer Covid-19 Vaccine 12+ 03/26/2021,,06/18/2020 Pfizer Covid-19 Vaccine 12+ Bivalent 02/27/2022 TD (adult), 2 Lf tetanus tox oid, preservative free, adsorbed 09/06/1992 Tdap 03/23/2014 Zoster, Recombinant 10/17/2020,02/10/2020 Social History Tobacco Use Types Packs/Day Years Used Date Smoking Tobacco: Never Passive Smoke Exposure: Never Smokeless Tobacco: Never Tobacco Cessation:Counseling Given: Not Answered Alcohol Use Standard Drinks/Week Comments Never 0 (1 standard drink = 0.6 oz pur e alcohol) Depression Answer Date Recorded Patient Health Questionnaire-9 Score 3 01/01/2025 Patient Health Questionnaire-9 Score 3 01/01/2025 Last PHQ-9: Questionnaire Data Not on file 0 01/01/2025 Housing Stability Answer Date Recorded What is your housing situation today? I have colby lugo 01/01/[address] you li ve. Do you have problems with any of the following? None of the above 01/01/2025 Food Insecurity Answer Date Recorded Within the past 12 months, y ou worried that your food would run out before you got money to buy more: Never True 01/01/2025 Within the past 12 months,th e food you bought just didn't last and you didn't have enough money to get more: Never True Transportation Answer Date Recorded In the past 12 months, has l ack of transportation kept you from medical appts, meetings, work or from getting things needed for daily living? No 01/01/2025 Utilities Answer Date Recorded In the past 12 months, has t he electric, gas, oil or water company threatened to shut off services in your home? No 01/01/2025 Depression Answer Date Recorded Patient Health Questionnaire-2 Score 0 01/01/2025 Internet Access Answer Date Recorded Internet Access Q1 No 01/01/2025 Internet Access Q2 I do not want or need it 12/12 Comments Unknown Sex and Gender Information Value Date Recorded Sex Assigned at Female 03/12/2022 10:14 AM EDT Legal Sex Female 10:14 AM EDT Gender Identity Female 03/12/2022 10:14 AM EDT Sexual Orientation Choose not to disclose 2021 10:14 AM EDT Last Filed Vital Signs Vital Sign Reading Time Taken Comments Blood Pressure 130/70 01/01/2025 11:08 AM EDT Pulse 69 01/01/2025 11:08 AM EDT Temperature 36.9 C (98.5 F) 01/01/2025 11:08 AM EDT Respiratory Rate 20 01/01/2025 11:08 AM EDT Oxygen Saturation 99% 01/01/2025 11:08 AM EDT Inhaled Oxygen Concentration - - Weight 66.8 kg (147 lb 3.2 oz) 01/01/2025 11:08 AM EDT Height 154.9 cm (5' 1 ) 01/01/2025 11:08 AM EDT Body Mass Index 27.81 01/01/2025 11:08 AM EDT Plan of Treatment Health Maintenance Due Date Last Done Comments CT Colonography 1966 FIT DNA/Cologuard 1966 FIT 1966 FOBT 1966 HIV Screening 1966 Sigmoidoscopy 1966 Alcohol/Substance Use Screening 1978 Hepatitis C Screening 1984 Pneumococcal Vaccine: 50+ Years (1 of 2 - PCV) 1985 Dental Oral Exam 04/18/2023 10/16/2022 Dental Prophylaxis 04/18/2023 10/16/2022 Colonoscopy 07/21/2023 07/20/2022, 03/28/2018 Colorectal Cancer Screening 07/21/2023 Dental X-Ray: Bitewings 10/18/2023 10/16/2022 DTaP/Tdap/Td Vaccines (2 - Td or Tdap) 03/23/2024 03/23/2014, 09/06/1992 Mammogram 12/03/2024 12/04/2023, 09/11, 10/06/2021, Additional history exists Influenza Vaccine (#1) 2025 , 02/07/2023, 02/27/2022, Additional history exists Lipid Panel 06/13/2025 06/13/2020 Dental X-Ray: Full Mouth 10/17/2025 10/16/2022 Disability Screening 12/28/2025 12/28/2024 Depression Screening 01/01/2026 01/01/2025, 01/02/20 25 SDOH Screening 01/01/2026 01/01/2025 Tobacco Screening 01/01/2026 01/01/2025 Cervical Cancer Screening 07/28/2026 HPV/Cotest 07/28/2026 07/28/2021, 07/28/2021 Pap Smear 07/28/2026 07/28/2021 RSV Patients and Patients Aged 60 years or older (1 - 1-dose 75+ series) 2041 Hepatitis B Vaccines Completed 01/10/2017, 09/07/2016, 03/23/2014 Zoster Vaccines Completed 10/17/2020, 02/10/2020 COVID-19 Vaccine Completed 02/25/2024, , 03/26/2021, Additional history exists HIB Vaccines Aged Out No longer eligi [...] patient's age to complete this topic Meningococcal Vaccine Aged Out No elise becka eligible based on patient's age to complete this topic RSV under 20 months Aged Out No longe r eligible based on patient's age to complete this topic Rotavirus Vaccines Aged Out No longer eligible based on patient's age to complete this topic Procedures Procedure Name Priority Date/Time Associated Diagnosis Comments BI MAMMOGRAM SCREENING TOMOSYNTHESIS BILATERAL Routine 12/04/2023 7:34 AM EDT Screening mammogram for breast cancer PROPHYLAXIS - ADULT Routine 10/16/2022 8 :00 AM EDT Dental calculus INTRAORAL - COMPLETE SERIES OF RADIOGRAPHIC IMAGES Routine 10/16/2022 8:00 AM EDT Dental calculus PERIODIC ORAL EVALUATION - ESTABLISHED PATIENT Routine 10/16/2022 8:00 AM EDT HM COLONOSCOPY Routine 07/20/2022 9:25 AM EST ZZZ HISTORICAL HPV E6/E7 RFLX ABY 16 18/45 Routine 07/28/2021 8:41 AM EDT PAP SMEAR Routine 07/28/2021 12:00 AM EDT LIPID PANEL, STANDARD Routine 06/13/2020 8:16 AM EST from Last 3 Months or Most Recently Relevant to Health Maintenance Results * BI Mammogram Screening Tomosynthesis Bilateral (12/04/2023 7:34 AM EDT) Anatomical Region Laterality Modality Breast Bilateral Mammography 12/04/2023 7:34 AM EDT Narrative 12/18/2023 4:57 PM EDT [facility] [address] [place] [address] Mammography Report Signed Patient: Mary Edmonds MR#: [id number] : 1965 Acct:[id number] Age/Sex: 58 / F ADM Date: 12/04/23 Loc: [facility] Attending Dr: Yaritza Chapman MD Ordering Physician: Yaritza Chapman Results: 1Negative Date of Service: 12/04/23 Follow Up: 1 Year From Orig inal Mammogram Procedure(s): MM tomosynthesis screening BI Accession Number(s): [id number] cc: Yaritza Chapman EXAMINATION: MM SCREENING DIGITAL BREAST TOMOSYNTHESIS, BILATERAL CLINICAL INFORMATION: Screening. Asymptomatic. COMPARISON: Mammography: This study is compared with prior exams dating back to 2015. TECHNIQUE: Digital breast tomosynthesis is performed in both the craniocaudal and mediolateral oblique views along with computer-aided detection (CAD). Synthesized 2D images are generated from the tomosynthesis. FINDINGS: There are scattered areas of fibroglandular density (ACR BI-RADS breast composition Category b). There are no significant masses, abnormal calcifications, or other abnormalities. MM/MM tomosynthesis screening BI IMPRESSION: No mammographic evidence of malignancy. ASSESSMENT: BI-RADS BI-RADS 1 - Negative RECOMMENDATION: Routine annual mammography screening. 1 year F/U This examination should not preclude the clinical evaluation of a suspicious palpable abnormality. This patient's information was entered into a reminder system with a target due date for their next mammogram. Dictated By: Monae Pelletier MD Signed By: <Electronically signed by Monae Pelletier MD in OV> 12/18/23 1653 DD/ 0734 TD/TT: Mill Attendant: Procedure Note Donotuseinterpreter, Image - 12/18/2023 [facility] [address] [place] [address] Mammography Report Signed Patient: Hermelindo Edmonds#: [id number] : 1965Acct:[id number] Age/Sex: 58 / FADM Date: 12/04/23 Loc: [facility] Attending Dr: Yaritza Chapman MD Ordering Physician: Brenda Chapmanults: 1Negative Date of Service: 12/04/23Follow Up: 1 Year From Orig inal Mammogram Procedure(s): MM tomosynthesis screening BI Accession Number(s): [id number] cc: Yaritza Chapman EXAMINATION: MM SCREENING DIGITAL BREAST TOMOSYNTHESIS, BILATERAL CLINICAL INFORMATION: Screening. Asymptomatic. COMPARISON: Mammography: This study is compared with prior exams dating back to 2015. TECHNIQUE: Digital breast tomosynthesis is performed in both the craniocaudal and mediolateral oblique views along with computer-aided detection (CAD). Synthesized 2D images are generated from the tomosynthesis. FINDINGS: There are scattered areas of fibroglandular density (ACR BI-RADS breast composition Category b). There are no significant masses, abnormal calcifications, or other abnormalities. MM/MM tomosynthesis screening BI IMPRESSION: No mammographic evidence of malignancy. ASSESSMENT: BI-RADS BI-RADS 1 - Negative RECOMMENDATION: Routine annual mammography screening. 1 year F/U This examination should not preclude the clinical evaluation of a suspicious palpable abnormality. This patient's information was entered into a reminder system with a target due date for their next mammogram. Dictated By: Monae Pelletier MD Signed By: <Electronically signed by Monae Pelletier MD in OV> 12/18/231652 DD/ 3 TD/TT: Mill Attendant: Yaritza Chapman MD IMG BI PROCEDURES Final Result * Hm Colonoscopy (07/20/2022 9:25 AM EST) Historical Provider HEALTH MAINTENANCE Final Result * HPV E6/E7 RFLX ABY 16 18/45 (07/28/2021 8:41 AM EDT) HPV mRNA E6/E7 rflx Not Detected Not Detected [facility] Comment: Methodology: Admiralty Lawyer-Mediated Amplification This assay detects E6/E7 viral messenger RNA (mRNA) from 14 high-risk HPV types (16,18,31,33,35,39,45,51,52,56,58,59,66,68). The analytical performance characteristics of this assay have been determined by [employer]. The modifications have not been cleared or approved by the FDA. This assay has been validated pursuant to the CLIA regulations and is used for clinical purposes. For additional information, please refer to http://education.Kerecis/faq/JJB937r0 (This link if provided for information/ educational purposes only.) THIS TEST WAS PERFORMED AT: [facility] [address] [place] [address],[place] [address] IRASEMA DIAS MD 07/28/2021 8:41 AM EDT us Nandini Miranda HISTORICAL/NON ORDERABLE LABS Fi nal Result Performing Organization Address [facility]/ZIP Co de Phone Number [facility] [address] [place] [address], * Pap Smear (07/28/2021 12:00 AM EDT) Swab us Historical Provider MD LAB CYTOLOGY ORDERABLES F inal Result Performing Organization Address [facility] Co de Phone Number [facility] [address], [place] [address] * LIPID PANEL, STANDARD (06/13/2020 8:16 AM EST) Chol/HDLC Ratio 2.3 <5.0 (calc) [facility] Cholesterol, Total 167 <200 mg/dL [facility] HDL Cholesterol 72 > OR = 50 mg/dL [facility] LDL Cholesterol 78 mg/dL (calc) [facility] Comment: Reference range: <100 Desirable range <100 mg/dL for primary prevention; <70 mg/dL for patients with CHD or diabetic patients with > or = 2 CHD risk factors. LDL-C is now calculated using the Chandra-Ramachandran calculation, which is a validated novel method providing better accuracy than the Friedewald equation in the estimation of LDL-C. Chandra HER et al. CARLOTA. 2013;310(19): 1543-7583 (http://education.SmartBIM.com/faq/IXE232) Non-HDL Cholesterol 95 <130 mg/dL (calc) [facility] Comment: For patients with diabetes plus 1 major ASCVD risk factor, treating to a non-HDL-C goal of <100 mg/dL (LDL-C of <70 mg/dL) is considered a therapeutic option. Triglycerides 89 <150 mg/dL [facility] 06/13/2020 8:16 AM EST us Inderjit Lozano MD LAB BLOOD ORDERABLES Final R esult Performing Organization Address [facility]/ZIP Co de Phone Number [facility] [address] from Last 3 Months or Most Recently Relevant to Health Maintenance Insurance BCBS HMO [facility] [place] [address] Care Teams Television Technician Relationship Specialty Start Date End Date Yaritza Chapman MD [address] [place] [address] PCP - General Family Medicine 05/24/22
--- OUTSIDE RECORDS SUMMARY | 2025-02-09 07:27 | XMS_ITS | Clinical Summary ---
Author Organization [address] [place] [address] Address [address] [place] [address] Phone Care Team Providers Care Engineering Production Liaison Name Role Phone Yaritza Chapman MD Primary Care Provider [phone] Social History Tobacco Use Types Packs/Day Years [...] 2016 Zoster Vaccines (1 of 2) 2016 Depression Screening 05/13/2024 Colorectal Cancer Screening: Colonoscopy 11/13/2024 HIV Screening 11/13/2024 Hepatitis C Screening 11/13/2024 Social Influencers of Health Screening 11/13/2024 COVID-19 Vaccine (2023-2 5 season) 2025 Influenza Vaccine (#1) 2025 HIB Vaccines Aged Out No longer [...] on patient's age to complete this topic Insurance [facility] Care Teams Engineering Production Liaison Relationship Specialty Start Date End Date Yaritza Chapman MD [address] [place] [id number] PCP - General Teacher Music 11/12/24
--- OUTSIDE RECORDS SUMMARY | 2025-02-09 07:27 | XMS_ITS | Encounter Summary ---
Author Organization [employer] Address [address] [facility] 7t [place] [address] Care Team Providers Care Arts Administrator Name Role Phone Yaritza Chapman MD Primary Care Provider [phone] Reason for Visit * Reason Comments Med Refill Encounter Details Date Type Department Care Team ([facility] Contact Info) Description 10/01/2023 Refill [facility] [address] [place] [address] Jarad Petty, KIRSTIE [address] [place] [address] Social History Tobacco Use Types Packs/Day Years [...] housing situation today? I have colby lugo 09/17/[address] you [...] AM EDT documented as of this encounter Miscellaneous Notes * Telephone Encounter - Jarad Petty DMD - 10/01/2023 9:05 AM EDT Approving, but needs appt for additional refills. documented in this encounter Plan of Treatment Not on file documented as of this encounter Visit Diagnoses Not on filedocumented in this encounter Additional Health Concerns Assessment Noted Time PHQ-9 Depression Total Score: 3 09/17/19 24 10:06 AM EDT documented as of this encounter Care Teams Arts Administrator Relationship Specialty Start Date End Date Yaritza Chapman MD [address] [place] [address] PCP - General Family Medicine 05/24/22 documented as of this encounter
--- OUTSIDE RECORDS SUMMARY | 2025-02-09 07:27 | XMS_ITS | Encounter Summary ---
Author Organization [employer] Address [address] [facility] [address] [place] [address] Care Team Providers Care Systems Architect Name Role Phone Yaritza Chapman MD Primary Care Provider Reason for Visit * Reason Comments Med Refill Encounter Details Date Type Department Care Team ([facility] Contact Info) Description 10/29/2023 Refill [facility] [address] [place] [address] Jarad Petty, KIRSTIE [address] [place] [address] Social History Tobacco Use Types Packs/Day Years [...] Telephone Encounter - Jarad Petty DMD - 10/29/2023 8:48 AM EDT Approving, but needs appt for additional refills. documented in this encounter Plan of Treatment Not on file documented as of this encounter Visit Diagnoses Not on filedocumented in this encounter Additional Health Concerns Assessment Noted Time PHQ-9 Depression Total Score: 3 09/17/19 24 10:06 AM EDT documented as of this encounter Care Teams Systems Architect Relationship Specialty Start Date End Date Yaritaz Chapman MD [address] [place] [address] PCP - General Family Medicine 05/24/22 documented as of this encounter
--- OUTSIDE RECORDS SUMMARY | 2025-02-09 07:27 | XMS_ITS | Clinical Summary ---
Author Organization [facility] Address [address] [place] [phone] Phone Care Team Providers Care Med Care Manager Name Role Phone Yaritza Chapman MD Primary Care Provider + Social History Tobacco Use Types Packs/Day Years Used Date Smoking Tobacco: Never Assessed Education Answer Date Recorded Are you interested in more education? Not on efrain e 12/30/2023 Are you concerned about learning? Not on file 12/30/2023 No 12/30/2023 No 12/30/2023 Digital Access Answer Date Recorded No 12/30/2023 No 12/30/2023 Reliable internet access at home? Not on file 12/30/2023 Device with a working camera? Not on file Comments Unknown Sex and Gender Information Value Date Recorded Sex Assigned at Not on file Legal Sex Female 9:54 AM EDT Gender Identity Not on file Sexual Orientation Not on file Plan of Treatment Health Maintenance Due Date Last Done Comments Adult Td,Tdap Booster 1966 LIPID PANEL 1966 DEPRESSION SCREENING 1978 SMOKING Hx and SMOKELESS TOB ACCO SCREENING 1979 HEPATITIS C SCREENING 1984 HIV ONE-TIME SCREENING (18-6 5 YEARS) 1984 PAP SMEAR 1987 MAMMOGRAM 2006 COLOGUARD 2011 COLONOSCOPY 2011 COLORECTAL CANCER SCREENING 2011 FIT TEST 2011 FOBT 2011 SIGMOIDOSCOPY 2011 VIRTUAL COLONOSCOPY 2011 PNEUMOCOCCAL VACCINES (50+ y ears) (1 of 1 - PCV) 2016 ZOSTER VACCINES (1 of 2) 2016 INFLUENZA VACCINE (#1) 2024 COVID-19 VACCINE (2023-2 5 season) 2025 HEPATITIS A VACCINES Aged Out No long er eligible based on patient's age to complete this topic HIB VACCINES Aged Out No longer eligi ble based on patient's age to complete this topic MENINGOCOCCAL VACCINES (ACWY) Aged Out No longer eligible based on patient's age to complete this topic MENINGOCOCCAL VACCINES (B) Aged Out N o longer eligible based on patient's age to complete this topic Medical Devices Not on file Insurance [facility] Care Teams Med Care Manager Relationship Specialty Start Date End Date Yaritza Chapman MD PCP - General Family Medicine 12/30/23 Additional Source Comments The information contained in this document represents components of the legal health record. It is not the complete legal health record.[facility]
--- OUTSIDE RECORDS SUMMARY | 2025-02-09 07:27 | XMS_ITS | Patient Health Record ---
Author Organization [facility] [address] Address [address] [place] [address] Care Team Providers Care Blueprinting And Photocopy Supervisor Name Role Phone JE PRESSLEY Unavailable [phone] CÉSAR KATHY Unavailable [phone] Allergies Allergen (clinical drug ingredient) Drug/Non Drug Allergy documented on EMR Reaction Allergy Type Onset Date Status pineapple allergenic extract Pineapple (Diagnostic) hives Drug Allergy Activ e Reason For Referral Reason from [place] Diagnosis 1 Overweight (E66.3) Referred Organization [facility] 119 Referred Provider JE PRESSLEY Referred Address [address],[address], Referred Provider Specialty Weight Manag ement Referral Priority Routine Diagnosis 1 Excess skin (L98.7) Referral Organization [facility] 119 Referring Provider First Name JE Referring Provider Last Name WENDIE Referring Provider Speciality Internal M edicine Referred Provider Specialty Surgery Clinical Notes Mya Jaramillo 2024 09:10:49 AM >pt will amke appt Referral Priority Routine Diagnosis 1 Other obesity due to excess calories (E66.09) Referred Organization [facility] 119 Referred Provider JE PRESSLEY Referred Address [address] [facility] [address] ,[place], [place],[address], Referred Provider Specialty Weight Manag ement Referral Priority Routine Medications Medication SIG (Take, Route, Frequency, Duration) Notes Start Date End Date Status Celecoxib 100 MG PLEASE SEE ATTACHED FOR DETAILED DIRECTIONS Oral; Duration: 45 Days Active Loratadine 10 MG TAKE 1 TABLET BY ADITHYA TH EVERY DAY IN THE MORNING Oral; Duration: 90 Days Active Clotrimazole-Betamethason e 1-0.05 % 1 application Externally Twice a day; Duration: 30 days Active Lisinopril 10 MG TAKE 1 TABLET BY ADITHYA TH EVERY DAY Oral; Duration: 90 Days Active Wegovy 1 MG/0.5ML INJECT 1MG SUBCUTANE OUS WEEKLY; Duration: 28 Active Wegovy 2.4 MG/0.75ML 2.4mg Subcutaneous weekly; Duration: 30 days 12/12/2024 Active Social History Tobacco Use: Social History Observation Description Date Details (start date - stop date) Never Smoker NA - NA Tobacco Use/Smoking Question Answer Notes Are you a nonsmoker Problems Problem Type SNOMED Code ICD Code Onset Dates Problem Status W/U Status Risk Notes Problem Obesity due to excess calories (258507096) Other obesity due to excess calories (E66.09) Active confirmed Problem Overweight (981621410) Overweight (E66.3) Active confirmed Problem Lipid screening (277143904) Encounter for screening for lipoid disorders (Z13.220) Active confirmed Problem Essential hypertension (20454979) Essential hypertension (I10) Active confirmed Problem Adult health examination (966313830) Adult general medical exam (Z00.00) Active confirmed Problem Kidney stone (96802314) Kidney stone (N20.0) Active confirmed Problem Diabetes mellitus screening (410951395) Diabetes mellitus screening (Z13.1) Active confirmed Problem Body mass index 30.00 to 34.99 (537805580476248 ) Body mass index [BMI] 32.0-32.9, adult (Z68.32) Active confirmed Problem Body mass index 25-29 - overweight (999779404) BMI 25.0-25.9,adult (Z68.25) Active confirmed Problem Body mass index 30+ - obesity (044999778) BMI 30.0-30.9,adult (Z68.30) Active confirmed Problem Overweight (469577515) Overweight (BMI 25.0-29.9) (E66.3) Active confirmed Problem Avitaminosis D (73097775) Avitaminosis D (E55.9) Active confirmed Problem Endocrine/[place] lic screening (913625362) Encounter for screening for endocrine disorder (Z13.29) Active confirmed Problem History of bariatric surgical procedure (353872498) Hx of laparoscopic gastric banding (Z98.84) Active confirmed Problem Dietary management surveillance (158704439) Nutritional counseling (Z71.3) Active confirmed Problem Excess skin of abdomen (L98.7) Active confirmed Vital Signs Heart Rate 70 /min 12/12/2024 Oximetry 97 % 12/12/2024 Blood pressure diastolic 80 mm Hg 12/12/2024 Height 62 in 12/12/2024 Blood pressure systolic 122 mm Hg 12/12/2024 Weight 147.4 lbs 12/12/2024 BMI 26.96 kg/m2 12/12/2024 Encounters Encounter Location Date Provider Diagnosis [facility] [address] [address] 02/27/2024 JE BORHOT Overweight E66.3 ; [place] 26.0-26.9,adult Z68.26 ; Dietary counseling and surveillance Z71.3 ; Hx of laparoscopic gastric banding Z98.84 and Excess skin of abdomen L98.7 [facility] [address] [address] 04/07/2024 KATHY CÉSAR Overweight (BMI 25.0-29.9) E66.3 ; BMI 25.0-25.9,adult Z68.25 ; Essential hypertension I10 ; Hx of laparoscopic gastric banding Z98.84 and Nutritional counseling Z71.3 [facility] [address] [address] 05/26/2024 JE BORHOT Overweight E66.3 ; [place] 26.0-26.9,adult Z68.26 ; Dietary counseling and surveillance Z71.3 ; Hx of laparoscopic gastric banding Z98.84 and Excess skin of abdomen L98.7 [facility] [address] [address] 08/24/2024 JE BORHOT Overweight E66.3 ; [place] 25.0-25.9,adult Z68.25 ; Dietary counseling and surveillance Z71.3 ; Hx of laparoscopic gastric banding Z98.84 and Excess skin of abdomen L98.[address] [address] [place] [address] 10/10/2024 JE BORHOT Overweight E66.3 ; [place] 25.0-25.9,adult Z68.25 ; Dietary counseling and surveillance Z71.3 ; Hx of laparoscopic gastric banding Z98.84 ; Excess skin of abdomen L98.7 and Encounter for examination of blood pressure without abnormal findings Z01.[address] [facility] [address] [place] [address] 12/12/2024 JE BORDOROTHEA Overweight E66.3 ; [place] 27.0-27.9,adult Z68.27 ; Dietary counseling and surveillance Z71.3 ; Hx of laparoscopic gastric banding Z98.84 ; Excess skin of abdomen L98.7 and Encounter for examination of blood pressure without abnormal findings Z01.30 [facility] [address] [address] 04/07/2024 JE BORHOT [facility] [address] [address] 05/21/2024 JE BORHOT [facility] [address] [address] 07/29/2024 JE BORHOT [facility] [address] [address] 08/24/2024 JE BORHOT [facility] [address] YUDITH [address] [place] [address] 10/14/2024 JE SMALLST [facility] [address] [place] [address] 11/12/2024 JE PRESSLEY Overweight E66.3 [facility] [address] [address] 01/21/2025 JE PRESSLEY Assessments Encounter Date Diagnosis (ICD Code) Assessment Notes Treatment Notes Treatment Clinical Notes Section Notes 12/12/2024 Overweight (ICD-10 - E66.3) #Weight Management 12/12/2024 Follow-up on lab from [facility] Increase Wegovy to 2.4 mg Discussed importance of creatine, protein, and resistance [...] software and direct typing Please excuse inadvertent handstitching machine armhole feller or typing errors, or uncorrected word substitutions Although every attempt has been made by the provider to proofread this document, occasional misspellings and typographical errors may still be present Due to the previous pandemic, and the use of personal protective equipment (PPE) This may decrease voice recognition accuracy Inadvertent handstitching machine armhole feller errors may occur 12/12/2024 BMI 27.0-27.9,adult (ICD-10 - Z68.27) #Weight Management 12/12/2024 Follow-up on lab from [facility] Increase Wegovy to 2.4 mg Discussed importance of creatine, protein, and resistance [...] software and direct typing Please excuse inadvertent handstitching machine armhole feller or typing errors, or uncorrected word substitutions Although every attempt has been made by the provider to proofread this document, occasional misspellings and typographical errors may still be present Due to the previous pandemic, and the use of personal protective equipment (PPE) This may decrease voice recognition accuracy Inadvertent handstitching machine armhole feller errors may occur 11/12/2024 Overweight (ICD-10 - E66.3) 05/26/2024 Overweight (ICD-10 - E66.3) #Weight Management [...] minimum of 6 months The most recent [place] [employer] clinical endocrinologists and [place] [employer] guidelines recommend patients who [...] software and direct typing Please excuse inadvertent handstitching machine armhole feller or typing errors, or uncorrected word substitutions Although every attempt has been made by the provider to proofread this document, occasional misspellings and typographical errors may still be present Due to the previous pandemic, and the use of personal protective equipment (PPE) This may decrease voice recognition accuracy Inadvertent handstitching machine armhole feller errors may occur 05/26/2024 BMI 26.0-26.9,adult (ICD-10 - Z68.26) #Weight Management 05/26/2024 Lets update labs Discussed importance of creatine, protein, and resistance training for muscle building. She has signed up for a gym membership. She will stay on the [employer] 2.4 weekly Otherwise thriving She will continue [...] minimum of 6 months The most recent [place] [employer] endocrinologists and [place] [employer] guidelines recommend patients who [...] software and direct typing Please excuse inadvertent handstitching machine armhole feller or typing errors, or uncorrected word substitutions Although every attempt has been made by the provider to proofread this document, occasional misspellings and typographical errors may still be present Due to the previous pandemic, and the use of personal protective equipment (PPE) This may decrease voice recognition accuracy Inadvertent handstitching machine armhole feller errors may occur 04/07/2024 BMI 25.0-25.9,adult (ICD-10 [...] reviewed. Dictation completed with the use of [employer] voice recognition software, prone to medical misidentifications [...] reviewed. Dictation completed with the use of [employer] voice recognition software, prone to medical misidentifications and grammatical errors. All errors are unintentional. Although the practitioner does try to identify and correct errors, some may be present. Please do not hesitate to contact the practitioner for clarification. Total time spent was 30 minutes with >50% on coordination of care and patient education. 10/10/2024 Overweight (ICD-10 - E66.3) #Weight Management 10/10/2024 Follow-up on lab from [facility] She will continue 1.7 mg of Wegovy, [...] software and direct typing Please excuse inadvertent handstitching machine armhole feller or typing errors, or uncorrected word substitutions Although every attempt has been made by the provider to proofread this document, occasional misspellings and typographical errors may still be present Due to the previous pandemic, and the use of personal protective equipment (PPE) This may decrease voice recognition accuracy Inadvertent handstitching machine armhole feller errors may occur 10/10/2024 BMI 25.0-25.9,adult (ICD-10 - Z68.25) #Weight Management 10/10/2024 Follow-up on lab from [facility] She will continue 1.7 mg of Wegovy, [...] software and direct typing Please excuse inadvertent handstitching machine armhole feller or typing errors, or uncorrected word substitutions Although every attempt has been made by the provider to proofread this document, occasional misspellings and typographical errors may still be present Due to the previous pandemic, and the use of personal protective equipment (PPE) This may decrease voice recognition accuracy Inadvertent handstitching machine armhole feller errors may occur 02/27/2024 Overweight (ICD-10 - E66.3) #Weight Management 02/26/2024 Patient to have updated labs from [facility] faxed to us later today She [...] minimum of 6 months The most recent [place] [employer] of clinical endocrinologists and [place] [employer] end[employer]in[employer] guidelines recommend patients who [...] software and direct typing Please excuse inadvertent handstitching machine armhole feller or typing errors, or uncorrected word substitutions Although every attempt has been made by the provider to proofread this document, occasional misspellings and typographical errors may still be present Due to the previous pandemic, and the use of personal protective equipment (PPE) This may decrease voice recognition accuracy Inadvertent handstitching machine armhole feller errors may occur 08/24/2024 Overweight (ICD-10 - [...] software and direct typing Please excuse inadvertent handstitching machine armhole feller or typing errors, or uncorrected word substitutions Although every attempt has been made by the provider to proofread this document, occasional misspellings and typographical errors may still be present Due to the previous pandemic, and the use of personal protective equipment (PPE) This may decrease voice recognition accuracy Inadvertent handstitching machine armhole feller errors may occur 08/24/2024 BMI 25.0-25.9,adult (ICD-10 [...] software and direct typing Please excuse inadvertent handstitching machine armhole feller or typing errors, or uncorrected word substitutions Although every attempt has been made by the provider to proofread this document, occasional misspellings and typographical errors may still be present Due to the previous pandemic, and the use of personal protective equipment (PPE) This may decrease voice recognition accuracy Inadvertent handstitching machine armhole feller errors may occur 10/10/2024 Dietary counseling and surveillance (ICD-10 - Z71.3) #Weight Management 10/10/2024 Follow-up on lab from [facility] She will continue 1.7 mg of Wegovy, [...] software and direct typing Please excuse inadvertent handstitching machine armhole feller or typing errors, or uncorrected word substitutions Although every attempt has been made by the provider to proofread this document, occasional misspellings and typographical errors may still be present Due to the previous pandemic, and the use of personal protective equipment (PPE) This may decrease voice recognition accuracy Inadvertent handstitching machine armhole feller errors may occur 08/24/2024 Dietary counseling and [...] software and direct typing Please excuse inadvertent handstitching machine armhole feller or typing errors, or uncorrected word substitutions Although every attempt has been made by the provider to proofread this document, occasional misspellings and typographical errors may still be present Due to the previous pandemic, and the use of personal protective equipment (PPE) This may decrease voice recognition accuracy Inadvertent handstitching machine armhole feller errors may occur 02/27/2024 BMI 26.0-26.9,adult (ICD-10 - Z68.26) #Weight Management 02/26/2024 Patient to have updated labs from [facility] faxed to us later today She [...] minimum of 6 months The most recent [place] [employer] of clinical endocrinologists and [place] [employer] endocrin[employer] guidelines recommend patients who [...] software and direct typing Please excuse inadvertent handstitching machine armhole feller or typing errors, or uncorrected word substitutions Although every attempt has been made by the provider to proofread this document, occasional misspellings and typographical errors may still be present Due to the previous pandemic, and the use of personal protective equipment (PPE) This may decrease voice recognition accuracy Inadvertent handstitching machine armhole feller errors may occur 12/12/2024 Dietary counseling and surveillance (ICD-10 - Z71.3) #Weight Management 12/12/2024 Follow-up on lab from [facility] Increase Wegovy to 2.4 mg Discussed importance of creatine, protein, and resistance [...] software and direct typing Please excuse inadvertent handstitching machine armhole feller or typing errors, or uncorrected word substitutions Although every attempt has been made by the provider to proofread this document, occasional misspellings and typographical errors may still be present Due to the previous pandemic, and the use of personal protective equipment (PPE) This may decrease voice recognition accuracy Inadvertent handstitching machine armhole feller errors may occur 04/07/2024 Essential hypertension (ICD-10 [...] reviewed. Dictation completed with the use of [employer] voice recognition software, prone to medical misidentifications and grammatical errors. All errors are unintentional. Although the practitioner does try to identify and correct errors, some may be present. Please do not hesitate to contact the practitioner for clarification. Total time spent was 30 minutes with >50% on coordination of care and patient education. 05/26/2024 Dietary counseling and surveillance (ICD-10 - [...] minimum of 6 months The most recent [place] [employer] clinical endocrinologists and [place] [employer] end[employer]in[employer] guidelines recommend patients who [...] software and direct typing Please excuse inadvertent handstitching machine armhole feller or typing errors, or uncorrected word substitutions Although every attempt has been made by the provider to proofread this document, occasional misspellings and typographical errors may still be present Due to the previous pandemic, and the use of personal protective equipment (PPE) This may decrease voice recognition accuracy Inadvertent handstitching machine armhole feller errors may occur 05/26/2024 Hx of laparoscopic [...] minimum of 6 months The most recent [place] [employer] of clinical endocrinologists and [place] [employer] endocrin[employer] guidelines recommend patients who [...] software and direct typing Please excuse inadvertent handstitching machine armhole feller or typing errors, or uncorrected word substitutions Although every attempt has been made by the provider to proofread this document, occasional misspellings and typographical errors may still be present Due to the previous pandemic, and the use of personal protective equipment (PPE) This may decrease voice recognition accuracy Inadvertent handstitching machine armhole feller errors may occur 12/12/2024 Hx of laparoscopic gastric banding (ICD-10 - Z98.84) #Weight Management 12/12/2024 Follow-up on lab from [facility] Increase Wegovy to 2.4 mg Discussed importance of creatine, protein, and resistance [...] software and direct typing Please excuse inadvertent handstitching machine armhole feller or typing errors, or uncorrected word substitutions Although every attempt has been made by the provider to proofread this document, occasional misspellings and typographical errors may still be present Due to the previous pandemic, and the use of personal protective equipment (PPE) This may decrease voice recognition accuracy Inadvertent handstitching machine armhole feller errors may occur 04/07/2024 Hx of laparoscopic [...] reviewed. Dictation completed with the use of [employer] voice recognition software, prone to medical misidentifications and grammatical errors. All errors are unintentional. Although the practitioner does try to identify and correct errors, some may be present. Please do not hesitate to contact the practitioner for clarification. Total time spent was 30 minutes with >50% on coordination of care and patient education. 02/27/2024 Dietary counseling and surveillance (ICD-10 - Z71.3) #Weight Management 02/26/2024 Patient to have updated labs from [facility] faxed to us later today She [...] minimum of 6 months The most recent [place] [employer] of clinical endocrinologists and [place] [employer] end[employer]in[employer] guidelines recommend patients who [...] software and direct typing Please excuse inadvertent handstitching machine armhole feller or typing errors, or uncorrected word substitutions Although every attempt has been made by the provider to proofread this document, occasional misspellings and typographical errors may still be present Due to the previous pandemic, and the use of personal protective equipment (PPE) This may decrease voice recognition accuracy Inadvertent handstitching machine armhole feller errors may occur 10/10/2024 Hx of laparoscopic gastric banding (ICD-10 - Z98.84) #Weight Management 10/10/2024 Follow-up on lab from [facility] She will continue 1.7 mg of Wegovy, [...] software and direct typing Please excuse inadvertent handstitching machine armhole feller or typing errors, or uncorrected word substitutions Although every attempt has been made by the provider to proofread this document, occasional misspellings and typographical errors may still be present Due to the previous pandemic, and the use of personal protective equipment (PPE) This may decrease voice recognition accuracy Inadvertent handstitching machine armhole feller errors may occur 08/24/2024 Hx of laparoscopic [...] software and direct typing Please excuse inadvertent handstitching machine armhole feller or typing errors, or uncorrected word substitutions Although every attempt has been made by the provider to proofread this document, occasional misspellings and typographical errors may still be present Due to the previous pandemic, and the use of personal protective equipment (PPE) This may decrease voice recognition accuracy Inadvertent handstitching machine armhole feller errors may occur 08/24/2024 Excess skin of [...] software and direct typing Please excuse inadvertent handstitching machine armhole feller or typing errors, or uncorrected word substitutions Although every attempt has been made by the provider to proofread this document, occasional misspellings and typographical errors may still be present Due to the previous pandemic, and the use of personal protective equipment (PPE) This may decrease voice recognition accuracy Inadvertent handstitching machine armhole feller errors may occur 10/10/2024 Excess skin of abdomen (ICD-10 - L98.7) #Weight Management 10/10/2024 Follow-up on lab from [facility] She will continue 1.7 mg of Wegovy, [...] software and direct typing Please excuse inadvertent handstitching machine armhole feller or typing errors, or uncorrected word substitutions Although every attempt has been made by the provider to proofread this document, occasional misspellings and typographical errors may still be present Due to the previous pandemic, and the use of personal protective equipment (PPE) This may decrease voice recognition accuracy Inadvertent handstitching machine armhole feller errors may occur 02/27/2024 Hx of laparoscopic gastric banding (ICD-10 - Z98.84) #Weight Management 02/26/2024 Patient to have updated labs from [facility] faxed to us later today She [...] minimum of 6 months The most recent [place] [employer] of clinical endocrinologists and [place] [employer]in[employer] guidelines recommend patients who [...] software and direct typing Please excuse inadvertent handstitching machine armhole feller or typing errors, or uncorrected word substitutions Although every attempt has been made by the provider to proofread this document, occasional misspellings and typographical errors may still be present Due to the previous pandemic, and the use of personal protective equipment (PPE) This may decrease voice recognition accuracy Inadvertent handstitching machine armhole feller errors may occur 04/07/2024 Nutritional counseling (ICD-10 [...] reviewed. Dictation completed with the use of [employer] voice recognition software, prone to medical misidentifications and grammatical errors. All errors are unintentional. Although the practitioner does try to identify and correct errors, some may be present. Please do not hesitate to contact the practitioner for clarification. Total time spent was 30 minutes with >50% on coordination of care and patient education. 12/12/2024 Excess skin of abdomen (ICD-10 - L98.7) #Weight Management 12/12/2024 Follow-up on lab from [facility] Increase Wegovy to 2.4 mg Discussed importance of creatine, protein, and resistance [...] software and direct typing Please excuse inadvertent handstitching machine armhole feller or typing errors, or uncorrected word substitutions Although every attempt has been made by the provider to proofread this document, occasional misspellings and typographical errors may still be present Due to the previous pandemic, and the use of personal protective equipment (PPE) This may decrease voice recognition accuracy Inadvertent handstitching machine armhole feller errors may occur 05/26/2024 Excess skin of [...] minimum of 6 months The most recent [place] [employer] of clinical endocrinologists and [place] [employer] of [employer]ocrin[employer] guidelines recommend patients who [...] software and direct typing Please excuse inadvertent handstitching machine armhole feller or typing errors, or uncorrected word substitutions Although every attempt has been made by the provider to proofread this document, occasional misspellings and typographical errors may still be present Due to the previous pandemic, and the use of personal protective equipment (PPE) This may decrease voice recognition accuracy Inadvertent handstitching machine armhole feller errors may occur 12/12/2024 Encounter for examination of blood pressure without abnormal findings (ICD-10 - Z01.30) #Weight Management 12/12/2024 Follow-up on lab from [facility] Increase Wegovy to 2.4 mg Discussed importance of creatine, protein, and resistance [...] software and direct typing Please excuse inadvertent handstitching machine armhole feller or typing errors, or uncorrected word substitutions Although every attempt has been made by the provider to proofread this document, occasional misspellings and typographical errors may still be present Due to the previous pandemic, and the use of personal protective equipment (PPE) This may decrease voice recognition accuracy Inadvertent handstitching machine armhole feller errors may occur 02/27/2024 Excess skin of abdomen (ICD-10 - L98.7) #Weight Management 02/26/2024 Patient to have updated labs from [facility] faxed to us later today She [...] minimum of 6 months The most recent [place] [employer] of clinical endocrinologists and [place] [employer] of [employer]ocrin[employer] guidelines recommend patients who [...] software and direct typing Please excuse inadvertent handstitching machine armhole feller or typing errors, or uncorrected word substitutions Although every attempt has been made by the provider to proofread this document, occasional misspellings and typographical errors may still be present Due to the previous pandemic, and the use of personal protective equipment (PPE) This may decrease voice recognition accuracy Inadvertent handstitching machine armhole feller errors may occur 10/10/2024 Encounter for examination of blood pressure without abnormal findings (ICD-10 - Z01.30) #Weight Management 10/10/2024 Follow-up on lab from [facility] She will continue 1.7 mg of Wegovy, [...] software and direct typing Please excuse inadvertent handstitching machine armhole feller or typing errors, or uncorrected word substitutions Although every attempt has been made by the provider to proofread this document, occasional misspellings and typographical errors may still be present Due to the previous pandemic, and the use of personal protective equipment (PPE) This may decrease voice recognition accuracy Inadvertent handstitching machine armhole feller errors may occur 07/21/2024 #Weight Management 07/21/2024 [...] software and direct typing Please excuse inadvertent handstitching machine armhole feller or typing errors, or uncorrected word substitutions Although every attempt has been made by the provider to proofread this document, occasional misspellings and typographical errors may still be present Due to the previous pandemic, and the use of personal protective equipment (PPE) This may decrease voice recognition accuracy Inadvertent handstitching machine armhole feller errors may occur 07/28/2024 #Weight Management 07/28/2024 [...] software and direct typing Please excuse inadvertent handstitching machine armhole feller or typing errors, or uncorrected word substitutions Although every attempt has been made by the provider to proofread this document, occasional misspellings and typographical errors may still be present Due to the previous pandemic, and the use of personal protective equipment (PPE) This may decrease voice recognition accuracy Inadvertent handstitching machine armhole feller errors may occur 11/14/2024 #Weight Management 11/14/2024 Follow-up on lab from [facility] She will continue 1.7 mg of Wegovy, [...] software and direct typing Please excuse inadvertent handstitching machine armhole feller or typing errors, or uncorrected word substitutions Although every attempt has been made by the provider to proofread this document, occasional misspellings and typographical errors may still be present Due to the previous pandemic, and the use of personal protective equipment (PPE) This may decrease voice recognition accuracy Inadvertent handstitching machine armhole feller errors may occur Plan Of Treatment Pending Test Test Name Order Date LIPID PANEL, STANDARD 05/26/2024 LIPID PANEL, STANDARD 06/26/2023 COMPREHENSIVE METABOLIC PANEL 06/26/2023 COMPREHENSIVE METABOLIC PANEL 05/26/2024 CBC (INCLUDES DIFF/PLT) 05/26/2024 CBC (INCLUDES DIFF/PLT) 06/26/2023 URINALYSIS, COMPLETE 05/26/2024 HEMOGLOBIN A1c 05/26/2024 TSH 05/26/2024 VITAMIN D,25-OH,TOTAL,IA 05/26/2024 Next Appt Details Provider Name:JE PRESSLEY, 02/20/2025 12:45:00 PM, [address], [place], [address], Insurance Providers Payer Name Payer Address Payer Phone Subscriber Number Group Number Insured Name Patient Relationship to Insured Coverage Start Date Coverage End Date [facility] [address] [place] [address] [phone] [id number] Mary Edmonds Self - patient is [...]
--- OUTSIDE RECORDS SUMMARY | 2025-02-09 07:27 | XMS_ITS | Encounter Summary ---
Author Organization [employer] Address [address] [place] [address] Care Team Providers Care Information Clerk Cashier Name Role Phone Yaritza Chapman MD Primary Care Provider [phone] Reason for Visit * Reason Onset Date Comments antibiotics 03/06/2023 Encounter Details Date Type Department Care Team ([facility] Contact Info) Description 03/06/2023 Telephone [facility] [address] [place] [address] Jarad Petty, DMD [address] [place] [address] antibiotics Social History Tobacco Use Types Packs/Day Years Used Date Smoking Tobacco: Never Smokeless Tobacco: Never Alcohol Use Standard Drinks/Week Comments Never 0 (1 standard drink = 0.6 oz pur e alcohol) PHQ-2 Answer Date Recorded Patient Health Questionnaire-2 Score 0 08/30/2022 Housing Stability Answer Date Recorded What is your housing situation today? I have colby lugo 03/06/[address] you li ve. Do you have problems with any of the following? None of the above 03/06/2023 Food Insecurity Answer Date Recorded Within the past 12 months, y ou worried that your food would run out before you got money to buy more: Never True 03/06/2023 Within the past 12 months,th e food you bought just didn't last and you didn't have enough money to get more: Never True Transportation Answer Date Recorded In the past 12 months, has l ack of transportation kept you from medical appts, meetings, work or from getting things needed for daily living? Yes, it has kept me from medical appointments or getting medications. 02/19/2023 Utilities Answer Date Recorded In the past 12 months, has t he electric, gas, oil or water company threatened to shut off services in your home? No 03/06/2023 Depression Answer Date Recorded Patient Health Questionnaire-2 [...] * Telephone Encounter - Roseline Turcios - 03/06/2023 11:42 AM EDT Patient called requesting antibiotics for tooth infection. She states on her last visit that she was told by the provider that if she got another infection she could just called for a script. documented in this encounter Plan of Treatment Not on file documented as of this encounter Visit Diagnoses Not on filedocumented in this encounter Care Teams Information Clerk Cashier Relationship Specialty Start Date End Date Yaritza Chapman MD [address] [place] [id number] PCP - General Family Medicine 05/24/22 documented as of this encounter
--- NOTE | 2025-02-09 07:56 | A.OFFVIS_ITS ---
Vital Signs 02/09/25 08:00 Height 5 ft 1 in Weight 145 lb BMI 27.4 BP 122/84 Intake Visit Reasons: POURER BUGGY LADLE annual exam Intake Note: 09/21 lgsil 10/22 colpo perla 2 12/22 leep perla 2 09/23 lgsil Front Desk Worker: Front Desk Worker Present ([place]) Allergies pineapple (PINEAPPLE) Allergy (Severe, Verified 02/09/25 07:57) ANAPHYLAXIS shellfish derived (SHELLFISH DERIVED) Allergy (Severe, Verified 02/09/25 07:57) ANAPHYLAXIS tramadol Allergy (Verified 02/09/25 07:57) Itching metronidazole (From Flagyl) Adverse Reaction (Mild, Verified 02/09/25 07:57) YEAST INFECTION HPI Comments Details: Patient is a postmenopausal woman presenting for her annual occupational therapy director examination. Public Affairs Officer concerns:pain with urination yesterday, concerned due to history of kidney stones which were similar symptoms at the time of diagnosis. Currently not sexually active, with partner due to his medical conditions. Denies any vaginal dryness or irritation. Attempting to eat a healthy diet with calcium and vitamin D and stays active with exercise. Last pap smear; 2021, negative. Last mammogram; 11/2023. Colonoscopy is planned. Family history of breast cancer. [facility], [facility] Medical History (Updated 02/09/25 @ 08:41 by Nandini Miranda CNM) Well woman exam with routine gynecological exam Hiatal hernia Hot flashes Diverticulitis Kidney stone Asthma HSV-1 infection Vitamin D deficiency Hypertension Surgical History Status post sleeve gastrectomy H/O esophagogastroduodenoscopy H/O colonoscopy H/O bariatric surgery H/O abdominoplasty H/O lithotripsy Family History Mother No problems noted. Father No problems noted. Sister Breast cancer Lung cancer Brother Lung cancer Colon cancer Social History Alcohol intake: never Patient Tobacco Use Status: Never used Tobacco Gender identity: Female Female Reproductive History Menstrual Age of Menarche: 11 control method: permanent sterilization Permanent Sterilization: BTL Total pregnancies: 3 Full term: 3 Number of Living Children: 3 Date of last pap smear: 07/28/21 (neg pap and hpv) History of abnormal pap smear: Yes (see intake note) History of STI: Yes (hx HSV, Trich) Date of Mammogram: 12/04/23 (Birad 1) Review of Systems Const All systems reviewed & are unremarkable except as noted in HPI and below Reports as per HPI Eyes Reports no additional complaints ENT Reports no additional complaints Card Reports no additional complaints Resp Reports no additional complaints GI Reports as per HPI and Reports no additional complaints Reports as per HPI Musc Reports no additional complaints Skin/Breast Reports as per HPI Neuro Reports no additional complaints Psych Reports no additional complaints Endo Reports no additional complaints Xu/Lymph Reports no additional complaints Aller/Immun Reports no additional complaints Physical Exam Vital Signs: Last Vital Signs BP 122/84 02/09/25 08:00 BMI result Body Mass Index 27.4 Const General: cooperative, healthy appearing, no acute distress, well developed and alert Orientation/consciousness: patient oriented x3 HEENT Head: Yes normal to inspection Eyes General: appearance normal, both eyes and all related structures Neck Neck: Yes normal visual inspection Thyroid: Thyroid normal Chest Chest palpation & inspection: normal inspection of the chest and other (no puckering, dimpling, peau de orange, retraction, discharge, masses) Breast/axilla inspection: normal inspection of the breasts Breast/axilla palpation: normal palpation of the breasts Resp Effort & Inspection: normal respiratory effort GI Inspection: Yes normal to inspection and Yes scar Palpation (GI): Soft to palpation Rectal Exam - Female: deferred General: Yes bladder normal to palpation External Female Exam: normal external appearance and normal appearance of the urethra Speculum Exam - Vagina: normal appearance of the vagina, normal palpation, normal vaginal discharge and vagina atrophic Speculum Exam - Cervix: normal appearance of the cervix and normal palpation Bimanual exam- vagina & uterus: normal bimanual exam, normal palpation, uterine size normal, bladder normal to palpation, normal palpation and non-tender Bimanual Exam- Adnexa, other: no masses Skin General skin exam: no rashes or lesions noted Rashes: no rashes Neuro General: patient oriented x3 Cognition (Neuro): normal cognition Extrem General: Yes normal to inspection Psych Attitude: cooperative Thought process: Normal thought process present Results AMB Urinalysis, Automated UA Leukoctes Serg/uL Last Edit by Amalia Sharpe LPN on 02/09/25 09:03 UA Nitrite Last Edit by Amalia Sharpe, COUNTY HEALTH OFFICER on 02/09/25 09:03 UA Urobilinogen 3.5 mg/dL Last Edit by Amalia Sharpe LPN on 02/09/25 09:03 UA Protein mg/dL Last Edit by Amalia Sharpe, COUNTY HEALTH OFFICER on 02/09/25 09:03 UA pH 6.0 Last Edit by Amalia Sharpe, COUNTY HEALTH OFFICER on 02/09/25 09:03 UA Blood Kendall/uL Last Edit by Amalia Sharpe, COUNTY HEALTH OFFICER on 02/09/25 09:03 UA Specific [place] 1.010 Last Edit by Amalia Sharpe LPN on 02/09/25 09:03 UA Ketone Last Edit by Amalia Sharpe LPN on 02/09/25 09:03 UA Bilirubin mg/dL Last Edit by Amalia Sharpe, COUNTY HEALTH OFFICER on 02/09/25 09:03 UA Glucose mg/dL Last Edit by Amalia Sharpe LPN on 02/09/25 09:03 Results Reviewed Results Reviewed: Laboratory Last Values Urine pH (Auto) 6.0 02/09/25 09:01 Specific [place] (Auto) 1.010 02/09/25 09:01 Urine Urobilinogen (Auto) 3.5 mg/dL 02/09/25 09:01 Assessment & Plan Assessment & Plan (1) Well woman exam with routine gynecological exam: Code(s): Z01.419 - Encounter for gynecological examination (general) (routine) without abnormal findings Category: Medical Plan Discussed: Current recommendations for pap smears per ASCCP guidelines. Breast awareness, periodic self breast exams and yearly mammogram. Maintain a healthy lifestyle, well balanced diet including Calcium 1,200 mg and Vitamin D 600 IU daily, and routine exercise. Contact the office with any postmenopausal bleeding. Patient verbalizes understanding and agrees to the plan of care. She was given opportunity to ask questions and all questions were answered to the best of my ability. RTO in 1 year for annual occupational therapy director exam. This note is constructed using voice recognition software. While every effort has been made to ensure accuracy, bootmaker errors may have been included. Orders: Orders MM tomosynthesis screening BI Today Z12.31 - Encounter for screening mammogram for malignant neoplasm of breast AMB Urinalysis Automated Today N89.8 - Other specified noninflammatory disorders of vagina Coding Level of Care Code Est Pt Prev Care 40-64y(12205) Diagnoses Well woman exam with routine gynecological exam Z01.419
[2025-02-09 08:00] VITALS: BP 122/84; BMI 27.4
== END 2025-02-09 11:49 | disposition home or self-care (01) ==
LOC: HO.HWS 07:24
PROVIDERS: PCP General Practice; Visit Provider Advanced Practice Midwife
DX: Z01.419 Encounter for gynecological examination (general) (routine) without abnormal findings (principal); N89.8 Other specified noninflammatory disorders of vagina
CPT/HCPCS: 99396; 99459

== ENCOUNTER → 2025-02-09 07:23 | Outpatient (BNVA) | payer BC, SELFPAY | PROVIDERS: PCP General Practice; Visit Provider Advanced Practice Midwife | DX: N89.8 Other specified noninflammatory disorders of vagina (principal) | CPT/HCPCS: 81003 ==

== ENCOUNTER 2025-02-11 09:13 | Outpatient (REF) | payer BC, SELFPAY ==
--- OUTSIDE RECORDS SUMMARY | 2024-07-28 11:15 | XMS_ITS ---
Author Organization [facility] [address] Address [address] [place] [address] Care Team Providers Care Composition Siding Worker Name Role Phone JE PRESSLEY Unavailable [phone] Medications Medication SIG (Take, Route, Frequency, Duration) Notes Start Date End Date Status Clotrimazole-Betamethas one 1-0.05 % 1 application Externally Twice a day; Duration: 30 days Active Wegovy 1.7 MG/0.75ML 0.75 mL Subcutaneou s once weekly; Duration: 30 days Not-Ta laura Lisinopril 10 MG TAKE 1 TABLET BY ADITHYA TH EVERY DAY Oral; Duration: 90 Days Active Celecoxib 100 MG PLEASE SEE ATTACHED FOR DETAILED DIRECTIONS Oral; Duration: 45 Days Active Wegovy 2.4 MG/0.75ML 2.4mg Subcutaneous weekly; Duration: 30 days Active Loratadine 10 MG TAKE 1 TABLET BY ADITHYA TH EVERY DAY IN THE MORNING Oral; Duration: 90 Days Active Encounters Encounter Location Date Provider Diagnosis [facility] [address] [place] [phone] 07/28/2024 JE WENDIE Overweight E66.3 ; B NM 26.0-26.9,adult Z68.26 ; Dietary counseling and surveillance [...] software and direct typing Please excuse inadvertent net repairer or typing errors, or uncorrected word substitutions Although every attempt has been made by the provider to proofread this document, occasional misspellings and typographical errors may still be present Due to the previous pandemic, and the use of personal protective equipment (PPE) This may decrease voice recognition accuracy Inadvertent net repairer errors may occur 07/28/2024 BMI 26.0-26.9,adult (ICD-10 [...] software and direct typing Please excuse inadvertent net repairer or typing errors, or uncorrected word substitutions Although every attempt has been made by the provider to proofread this document, occasional misspellings and typographical errors may still be present Due to the previous pandemic, and the use of personal protective equipment (PPE) This may decrease voice recognition accuracy Inadvertent net repairer errors may occur 07/28/2024 Dietary counseling and [...] software and direct typing Please excuse inadvertent net repairer or typing errors, or uncorrected word substitutions Although every attempt has been made by the provider to proofread this document, occasional misspellings and typographical errors may still be present Due to the previous pandemic, and the use of personal protective equipment (PPE) This may decrease voice recognition accuracy Inadvertent net repairer errors may occur 07/28/2024 Hx of laparoscopic [...] software and direct typing Please excuse inadvertent net repairer or typing errors, or uncorrected word substitutions Although every attempt has been made by the provider to proofread this document, occasional misspellings and typographical errors may still be present Due to the previous pandemic, and the use of personal protective equipment (PPE) This may decrease voice recognition accuracy Inadvertent net repairer errors may occur 07/28/2024 Excess skin of [...] software and direct typing Please excuse inadvertent net repairer or typing errors, or uncorrected word substitutions Although every attempt has been made by the provider to proofread this document, occasional misspellings and typographical errors may still be present Due to the previous pandemic, and the use of personal protective equipment (PPE) This may decrease voice recognition accuracy Inadvertent net repairer errors may occur Plan Of Treatment Medication Medication Name Sig Start Date Stop Date Notes Clotrimazole-Betamethasone 1-0.05 % 1 application Externally Twice a day; Duration: 30 days Wegovy 2.4 MG/0.75ML 2.4mg Subcutaneous weekly; Duration: 30 days Next Appt Details Provider Name:JE PRESSLEY, 02/20/2025 12:45:00 PM, [address] [place] [address], [phone], Progress Notes * Mary ORTIZ NDOB :1965 (59 yo F)Acc No.[id number]:07/28/2024 Patient: Mary SKINNER Provider: Elijah PRESSLEY NP :1965 A ge:59 Y S ex:Female Date:07/28/2024 Address:[address] [place], [place] [phone] Subjective: * Chief Complaints: * * HPI: C onstitutional: Patient is here [...] go eating and traveling a lot to [facility] to see him q 2 weeks [...] loose skin from weight loss PCP Gregory, [facility] Had gastric banding 10-15 years ago Per [...] 183lbs, BMI: 33 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 Comprehensive labs June 2023, [facility] CBC is stable Renal function electrolytes and LFTs are stable Triglycerides 78, total cholesterol 175, LDL 97, HDL 63. * ROS: A ll Other Systems: Review of Systems (ROS) A ll others negative except those mentioned in HPI. * Medical History: * Medications: T aking Wegovy 2.4 MG/0.75ML Solution Auto-injector 2.4mg Subcutaneous weekly , Taking Clotrimazole-Betamethasone 1-0.05 % Cream 1 application Externally Twice a day , Taking Loratadine 10 MG Tablet TAKE 1 TABLET BY MOUTH EVERY DAY IN THE MORNING Oral , Taking Celecoxib 100 MG Capsule PLEASE SEE ATTACHED FOR DETAILED DIRECTIONS Oral , Taking Lisinopril 10 MG Tablet TAKE 1 TABLET BY MOUTH EVERY DAY Oral , Not- Taking Wegovy 1.7 MG/0.75ML Solution Auto-injector 0.75 mL Subcutaneous once weekly Objective: * Vitals: * Examination: G eneral Examination: GENERAL APPEARANCE: i n no acute distress, well developed, well nourished. H EAD: n ormocephalic, atraumatic. E YES: p upils equal, round, reactive to light and accommodation. E ARS: n ormal. O RAL CAVITY: m ucosa moist. T HROAT: c lear. N VERÓNICA/THYROID: n verónica supple, full range of motion, no cervical lymphadenopathy. S KIN: n o suspicious lesions, warm and dry. H EART: n o murmurs, regular rate and rhythm, S1, S2 normal. L UNGS: c lear to auscultation bilaterally. A BDOMEN: n ormal, bowel sounds present, soft, nontender, nondistended. E XTREMITIES: n o clubbing, cyanosis, or edema. N EUROLOGIC: n onfocal, motor strength normal upper and lower extremities, sensory exam intact. Assessment: * Assessment: 1. O verweight - E66.3 (Primary) 2 . B NM 26.0-26.9,adult - Z68.26 ? 3 . D [...] software and direct typing Please excuse inadvertent net repairer or typing errors, or uncorrected word substitutions Although every attempt has been made by the provider to proofread this document, occasional misspellings and typographical errors may still be present Due to the previous pandemic, and the use of personal protective equipment (PPE) This may decrease voice recognition accuracy Inadvertent net repairer errors may occur. Plan: * Treatment: * Procedure Codes: 9 9199 NO SHOW OFFICE VISIT * Images: Billing Information: * Visit Code: * Procedure Codes: 08614 NO SHOW OFFICE VISIT. 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 Comprehensive labs June 2023, [facility] CBC is stable Renal function electrolytes and LFTs are stable Triglycerides 78, total cholesterol 175, LDL 97, HDL 63 Examination Category Sub-Category Detail Notes Category Not es General Examination GENERAL APPEARANCE: in no ac s[place]ogon distress, well developed, well nourished HEAD: normocephalic, [...]
--- OUTSIDE RECORDS SUMMARY | 2024-11-14 05:15 | XMS_ITS ---
Author Organization [facility] Address [address] [place] [address] Care Team Providers Care Rotary Furnace Tender Name Role Phone JE PRESSLEY Unavailable [phone] Medications Medication SIG (Take, Route, Frequency, Duration) [...] Active Encounters Encounter Location Date Provider Diagnosis [facility] [address] [place] [address] 11/14/2024 JE PRESSLEY Overweight E66.3 ; B NJ 25.0-25.9,adult Z68.25 ; Dietary counseling and surveillance Z71.3 ; Hx of laparoscopic gastric banding Z98.84 ; Excess skin of abdomen L98.7 and Encounter for examination of blood pressure without abnormal findings Z01.30 Assessments Encounter Date Diagnosis (ICD Code) Assessment Notes Treatment Notes Treatment Clinical Notes Section Notes 11/14/2024 Overweight (ICD-10 - E66.3) #Weight Management 11/14/2024 Follow-up on lab from [facility] She will continue 1.7 mg of [...] software and direct typing Please excuse inadvertent manager camp or typing errors, or uncorrected word substitutions Although every attempt has been made by the provider to proofread this document, occasional misspellings and typographical errors may still be present Due to the previous pandemic, and the use of personal protective equipment (PPE) This may decrease voice recognition accuracy Inadvertent manager camp errors may occur 11/14/2024 BMI 25.0-25.9,adult (ICD-10 - Z68.25) #Weight Management 11/14/2024 Follow-up on lab from [facility] She will continue 1.7 mg of [...] software and direct typing Please excuse inadvertent manager camp or typing errors, or uncorrected word substitutions Although every attempt has been made by the provider to proofread this document, occasional misspellings and typographical errors may still be present Due to the previous pandemic, and the use of personal protective equipment (PPE) This may decrease voice recognition accuracy Inadvertent manager camp errors may occur 11/14/2024 Dietary counseling and surveillance (ICD-10 - Z71.3) #Weight Management 11/14/2024 Follow-up on lab from [facility] She will continue 1.7 mg of [...] software and direct typing Please excuse inadvertent manager camp or typing errors, or uncorrected word substitutions Although every attempt has been made by the provider to proofread this document, occasional misspellings and typographical errors may still be present Due to the previous pandemic, and the use of personal protective equipment (PPE) This may decrease voice recognition accuracy Inadvertent manager camp errors may occur 11/14/2024 Hx of laparoscopic gastric banding (ICD-10 - Z98.84) #Weight Management 11/14/2024 Follow-up on lab from [facility] She will continue 1.7 mg of [...] software and direct typing Please excuse inadvertent manager camp or typing errors, or uncorrected word substitutions Although every attempt has been made by the provider to proofread this document, occasional misspellings and typographical errors may still be present Due to the previous pandemic, and the use of personal protective equipment (PPE) This may decrease voice recognition accuracy Inadvertent manager camp errors may occur 11/14/2024 Excess skin of abdomen (ICD-10 - L98.7) #Weight Management 11/14/2024 Follow-up on lab from [facility] She will continue 1.7 mg of [...] software and direct typing Please excuse inadvertent manager camp or typing errors, or uncorrected word substitutions Although every attempt has been made by the provider to proofread this document, occasional misspellings and typographical errors may still be present Due to the previous pandemic, and the use of personal protective equipment (PPE) This may decrease voice recognition accuracy Inadvertent manager camp errors may occur 11/14/2024 Encounter for examination of blood pressure without abnormal findings (ICD-10 - Z01.30) #Weight Management 11/14/2024 Follow-up on lab from [facility] She will continue 1.7 mg of [...] software and direct typing Please excuse inadvertent manager camp or typing errors, or uncorrected word substitutions Although every attempt has been made by the provider to proofread this document, occasional misspellings and typographical errors may still be present Due to the previous pandemic, and the use of personal protective equipment (PPE) This may decrease voice recognition accuracy Inadvertent manager camp errors may occur Plan Of Treatment Medication Medication Name Sig Start Date Stop Date Notes Wegovy 1 MG/0.5ML 1mg Subcutaneous wee kly; Duration: 30 days Clotrimazole-Betamethasone 1-0.05 % 1 application Externally Twice a day; Duration: 30 days Next Appt Details Provider Name:JE PRESSLEY, 02/20/2025 12:45:00 PM, [address] [facility], [place], [address], Progress Notes * Mary ORTIZ NDOB :1965 (59 yo F)Acc No.[id number]:11/14/2024 Patient: Dyllan Mary BRODERICK N Provider: Elijah PRESSLEY NP :1965 A ge:59 Y S ex:Female Date:11/14/2024 Address:[address] [place], [place] [id number] Subjective: * Chief Complaints: * * HPI: [...] loose skin from weight loss PCP Gregory, [facility] Has a Hx of Hypertenison to which [...] 183lbs, BMI: 33 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 Comprehensive labs June 2023, [facility] CBC is stable Renal function electrolytes [...] verweight - E66.3 (Primary) 2 . B NJ 25.0-25.9,adult - Z68.25 ? 3 . D ietary counseling and surveillance - Z71.3 4 . H x of laparoscopic gastric banding - Z98.84 5 . E xcess skin of abdomen - L98.7 6. E ncounter for examination of blood pressure without abnormal findings - Z01.30 #Weight Management 11/14/2024 Follow-up on lab from [facility] She will continue 1.7 mg of [...] software and direct typing Please excuse inadvertent manager camp or typing errors, or uncorrected word substitutions Although every attempt has been made by the provider to proofread this document, occasional misspellings and typographical errors may still be present Due to the previous pandemic, and the use of personal protective equipment (PPE) This may decrease voice recognition accuracy Inadvertent manager camp errors may occur Plan: * Treatment: * Images: Billing Information: * Visit Code: * Procedure Codes: * Electronic signature of TADEO PRESSLEY on 02/11/2025 at 08:34 AM EDT Sign off status: Pending * Provider: Elijah PRESSLEY NP Date: 0 11/14/2024 Generated for Shantell Manriquez on: 08:34 AM EDT History and Physical Notes * [...] loose skin from weight loss PCP Gregory, [facility] Has a Hx of Hypertenison to which [...] 183lbs, BMI: 33 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 Comprehensive labs June 2023, [facility] CBC is stable Renal function electrolytes [...]
--- NOTE | ~2025-02-11 | XR_ITS ---
EXAMINATION: XR ANKLE, RIGHT CLINICAL INFORMATION: PAIN COMPARISON: March 28, 2023 TECHNIQUE: AP, lateral, and mortise views of the right ankle. FINDINGS: No acute cortical disruption or malalignment. No lytic or blastic lesions. No joint effusion. Soft tissue edema pattern versus large body habitus, bimalleolar. No subcutaneous emphysema. No metallic or radiopaque foreign body. XR/XR ankle RT min 3V IMPRESSION: No acute fracture or dislocation. Negative exam. Electronically signed by: Angelo Mchugh MD 02/11/2025 09:37 AM EDT
--- OUTSIDE RECORDS SUMMARY | 2025-02-11 08:40 | XMS_ITS | Encounter Summary ---
Author Organization [employer] Address [address] [facility] [address] [place] [address] Care Team Providers Care Lumber Cutter Name Role Phone Yaritza Chapman MD Primary Care Provider [phone] Reason for Visit * Reason Comments Ankle Pain Encounter Details Date Type Department Care Team ([facility] Contact Info) Description 02/11/2025 8:40 AM EDT Office Visit [facility] [address] [place] [id number] Guzman Saleem MD [address] [place] [phone] Right ankle swelling (Primary Dx) Social History Tobacco Use Types Packs/Day Years [...] your housing situation today? I have colby brittney 01/01/[address] you li [...] AM EDT documented as of this encounter Last Filed Vital Signs Vital Sign Reading Time Taken Comments Blood Pressure 138/82 02/11/2025 8:49 AM EDT Pulse 65 02/11/2025 8:49 AM EDT Temperature 36.6 C (97.9 F) 02/11/2025 8:49 AM EDT Respiratory Rate 16 02/11/2025 8:49 AM EDT Oxygen Saturation 99% 02/11/2025 8:49 AM EDT Inhaled Oxygen Concentration - - Weight 65.8 kg (145 lb) 02/11/2025 8:49 AM EDT Height - - Body Mass Index 27.4 01/01/2025 11:08 AM EDT documented in this encounter Progress Notes * Guzman Saleem MD - 02/11/2025 8:40 AM EDT Subjective History was provided by the patient. Mary Schmidt is a 59 y.o. female who presents for evaluation of right lateral ankle swelling for 2 days. Tenderness in the area anterior and inferior to the lateral malleolus. Denies any known trauma. Went for apple picking few days prior, but denies any unusual injury or fall. Denies any activity change. Denies a new footwear. No new medications. No calf pain. No recent travel or prolongedimmobilization. Works at the [employer] with minimal walking. Objective Vitals: 02/11/25 0849 BP: 138/82 BP Location: Left arm Patient Position: Sitting BP Cuff Size: Adult Pulse: 65 Resp: 16 Temp: 97.9 ??F (36.6 ??C) TempSrc: Temporal SpO2: 99% Weight: 145 lb (65.8 kg) Physical Exam Constitutional: Appearance: Normal appearance. HENT: Right Ear: External ear normal. Left Ear: External ear normal. Mouth/Throat: Pharynx: Oropharynx is clear. Eyes: Extraocular Movements: Extraocular movements intact. Conjunctiva/sclera: Conjunctivae normal. Pulmonary: Effort: Pulmonary effort is normal. Musculoskeletal: General: Swelling and tenderness present. No deformity or signs of injury. Normal range of motion. Cervical back: Neck supple. Right lower leg: Edema present. Left lower leg: No edema. Comments: Edema and tenderness localized at right lateral ankle; tenderness in the ATFL area; has FROM with dorsiflexion, plantar flexion, eversion, and inversion; no calf tenderness; negative Shaheen's; no cords Skin: General: Skin is warm and dry. Neurological: General: No focal deficit present. Mental Status: She is alert and oriented to person, place, and time. Psychiatric: Behavior: Behavior normal. Mary was seen today for ankle pain. Diagnoses and all orders for this visit: Right ankle swelling (Primary) - XR Ankle 3+ Views Right; Future Patient presents to [facility] due to non-traumatic right lateral ankle swelling with minimal pain Suspect right ATFL sprain given location No ROM limitation No difficulty with ambulation Discussed RICE therapy SHAINA wrap applied X-ray today unremarkable Prefers topical NSAIDs (has Diclofenac topical) Indications for UC/ER use reviewed Advised to contact the clinic if persistent or worsening symptoms Work note provided documented in this encounter Plan of Treatment Not on file documented as of this encounter Procedures Procedure Name Priority Date/Time Associated Diagnosis Comments XR ANKLE 3+ VIEWS RIGHT Routine 02/11/2025 9:27 AM EDT Right ankle swelling documented in this encounter Results * XR Ankle 3+ Views Right (02/11/2025 9:27 AM EDT) Anatomical Region Laterality Modality Lower Extremities, Ankle Right Radiogr aphic Imaging 02/11/2025 9:27 AM EDT Narrative 02/11/2025 9:40 AM EDT [address] XRay Report Signed Patient: Mary Edmonds MR#: [id number] : 1965 Acct:[id number] Age/Sex: 59 / F ADM Date: 02/11/25 Loc: [facility] Attending Dr: Guzman Saleem MD Ordering Physician: Guzman Saleem MD Date of Service: 02/11/25 Procedure(s): XR ankle RT min 3V Accession Number(s): [id number] cc: Guzman Saleem MD Reason for Exam: PAIN EXAMINATION: XR ANKLE, RIGHT CLINICAL INFORMATION: PAIN COMPARISON: March 28, 2023 TECHNIQUE: AP, lateral, and mortise views of the right ankle. FINDINGS: No acute cortical disruption or malalignment. No lytic or blastic lesions. No joint effusion. Soft tissue edema pattern versus large body habitus, bimalleolar. No subcutaneous emphysema. No metallic or radiopaque foreign body. XR/XR ankle RT min 3V IMPRESSION: No acute fracture or dislocation. Negative exam. Electronically signed by: Angelo Mchugh MD 02/11/2025 09:37 AM EDT Dictated By: Angelo Pena MD Signed By: <Electronically signed by Angelo Carney MD in OV> 02/11/25936 DD/ 6 TD/TT: 02/11/25926 Flight Surgeon: Procedure Note Donotuseinterpreter, Image - 02/11/[address] XRay Report Signed Patient: Mary EdmondsMR#: [id number] : 1965Acct:[id number] Age/Sex: 59 / FADM Date: 02/11/25 Loc: [facility] Attending Dr: Guzman Saleem MD Ordering Physician: Guzman Saleem MD Date of Service: 02/11/25 Procedure(s): XR ankle RT min 3V Accession Number(s): [id number] cc: Guzman Saleem MD Reason for Exam: PAIN EXAMINATION: XR ANKLE, RIGHT CLINICAL INFORMATION: PAIN COMPARISON: March 28, 2023 TECHNIQUE: AP, lateral, and mortise views of the right ankle. FINDINGS: No acute cortical disruption or malalignment. No lytic or blastic lesions. No joint effusion. Soft tissue edema pattern versus large body habitus, bimalleolar. No subcutaneous emphysema. No metallic or radiopaque foreign body. XR/XR ankle RT min 3V IMPRESSION: No acute fracture or dislocation. Negative exam. Electronically signed by: Angelo Mchugh MD 02/11/2025 09:37 AM EDT RP Dictated By: Angelo Pena MD Signed By: <Electronically signed by Angelo Carney MDin OV> 02/11/25936 DD/ 6 TD/TT: 02/11/25926 Flight Surgeon: Guzman Saleem MD IMG XR PROCEDURES Edited Result - Final documented in this encounter Visit Diagnoses Diagnosis Right ankle swelling- Primary Effusion of ankle and foot joint documented in this encounter Additional Health Concerns Assessment Noted Time PHQ-9 Depression Total Score: 3 01/02/20 25 11:56 AM EDT documented as of this encounter Care Teams Lumber Cutter Relationship Specialty Start Date End Date Yaritza Chapman MD [address] [place] [id number] PCP - General Family Medicine 05/24/22 documented as of this encounter
--- OUTSIDE RECORDS SUMMARY | 2025-02-11 10:08 | XMS_ITS | Encounter Summary ---
Author Organization [employer] Address [address] [facility] [address]t [place] [address] Care Team Providers Care Supervisor Rolling Room Name Role Phone Yaritza Chapman MD Primary Care Provider Encounter Details Date Type Department Care Team (Late st Contact Info) Description 09/23/2023 Orders Only [facility] [address] [place] [address] Provider, MD Jessi Social History Tobacco Use [...] (06/01/2024 9:48 AM EST) Color Urine Yellow [facility] Appearance Urine Clear [facility] PH 7.0 5.0 - 9.0 [facility] Glucose Urine UA Negative Negative mg/dL [facility] Urine Blood Negative Negative [facility] Specific [place] - Urine 1.020 1.005 - 1.025 [facility] Urine Protein Negative Neg-Trace mg/dL [facility] Urine Ketones Negative Negative mg/dL [facility] Nitrite Urine Negative Negative [facility] Leukocyte Esterase Urine Negative Negative [facility] 06/01/2024 9:48 AM EST 06/01/2024 9:53 AM EST Narrative [facility] - 06/01/2024 9:58 AM EST Urine, Clean Catch Generic External Data Provider LAB URINE ORDERAB LES Final Result Performing Organization Address [facility] Co de Phone Number [facility] [address] [place] [phone] * SARS-CoV-2 RNA, Influenza A/B, and RSV RNA, Ql NAAT (06/01/2024 9:47 AM EST) Influenza A PCR NEGATIVE Negative [facility] Influenza B PCR NEGATIVE Negative [facility] Resp Syncy Virus RNA Qual PCR NEGATIVE Negative [facility] SARS COV2 PCR NEGATIVE Negative [facility] Comment:All test results mus t be [...] use by authorized laboratories.Testing performed on the [employer] GeneXpert utilizingreal-time RT-PCR.All SARS CoV2 and positive influenza A/B results arereported to [facility]. 06/01/2024 9:47 AM EST 06/01/2024 9:53 AM EST us Generic External Data Provider LAB MICROBIOLOGY - GENERAL ORDERABLES Final Result Performing Organization Address [facility] Co de Phone Number [facility] [address] [place] [phone] * (ABNORMAL) CBC auto differential (06/01/2024 9:09 AM EST) White Blood Count 9.7 4.8 - 10.8 X10*3/uL [facility] Red Blood Count 4.28 4.20 - 5.50 X10*6/uL [facility] Hemoglobin 12.7 12.0 - 16.0 g/dl [facility] Hematocrit 37.8 37.0 - 47.0 % [facility] Mean Corpuscular Volume 88.3 80.0 - 98.0 fL [facility] Mean Corpuscular Hemoglobin 29.7 27.0 - 33.0 pg [facility] Mean Corpuscular HGB Conc 33.6 31.0 - 35.0 g/dl [facility] Red Cell Distribution Width 12.8 11.0 - 16.0 % [facility] Platelet Count 303 160 - 400 X10*3/uL [facility] Mean Platelet Volume 10.2 9.4 - 12.3 fL [facility] Neutrophils Percent Auto 76.7(H) 45 - 73 % [facility] Imm Gran Pct Auto 0.3 0.0 - 0.4 % [facility] Lymphocytes Percent Auto 15.3(L) 20 - 40 % [facility] Monocytes Percent Auto 6.4 2 - 11 % [facility] Eosinophils Percent Auto 0.7 0 - 4 % [facility] Basophils Percent Auto 0.6 0 - 2 % [facility] NRBC Pct Auto 0.0 0.0 - 0.2 /100WBC [facility] Neutrophils Absolute Auto 7.5 2.0 - 8.3 x10*3/uL [facility] Imm Gran Abs Auto 0.03 0.00 - 0.03 X10*3/uL [facility] Lymphocytes Absolute Auto 1.5 1.2 - 4.9 X10*3/uL [facility] Monocytes Absolute Auto 0.6 0.1 - 1.2 X10*3/uL [facility] Eosinophils Absolute Auto 0.1 0.0 - 0.4 X10*3/uL [facility] Basophils Absolute Auto 0.1 0.0 - 0.2 X10*3/uL [facility] NRBC Abs Auto 0.000 0.0 - 0.012 X10*3/uL [facility] 06/01/2024 9:09 AM EST 06/01/2024 9:11 AM EST Generic External Data Provider LAB BLOOD ORDERAB LES Final Result Performing Organization Address [facility]/ZIP Co de Phone Number [facility] [address] [place] [phone] * Lipase (06/01/2024 9:08 AM EST) Pathologist [facility] Lipase 37 8 - 78 U/L [facility] 06/01/2024 9:08 AM EST 06/01/2024 9:11 AM EST us Generic External Data Provider LAB BLOOD ORDERAB LES Final Result Performing Organization Address [facility] Co de Phone Number [facility] [address] [place] [phone] * Hepatic Function Panel (06/01/2024 9:08 AM EST) Pathologist [facility] Bilirubin, Direct 0.2 0.0 - 0.5 mg/dL [facility] 06/01/2024 9:08 AM EST 06/01/2024 9:11 AM EST us Generic External Data Provider LAB BLOOD ORDERAB LES Final Result Performing Organization Address [facility] de Phone Number [facility] [address] [place] [phone] * (ABNORMAL) Comprehensive Metabolic Panel (06/01/2024 9:08 AM EST) Sodium 141 135 - 145 mmol/L [facility] Potassium 4.1 3.3 - 5.1 mmol/L [facility] Chloride 108 96 - 108 mmol/L [facility] Carbon Dioxide 27 22 - 29 mmol/L [facility] Anion Gap 10(L) 12 - 20 [facility] Urea Nitrogen (BUN) 10 9 - 16 mg/dL [facility] Creatinine, Serum 0.75 0.5 - 1.4 mg/dL [facility] Creatinine Clr Calc Pharmacy 71.1 [facility] Comment:Provided height and weight: 154.94 cm,64.5 kg.eGFR (calculated from the MDRD study equation) and eCrCl(calculated from the Cockcroft-Gault equation) are based ondifferent parameters and may not yield comparable results.If eCrCl result is absurd, please check patient'sheight/weight. Estimated Glomerular Filt Rate >60 [facility] Comment:Chronic Kidney Disea se: Estimated GFR < 60 mL/min/1.10m5Ppgckc Kidney Disease: Estimated GFR < 15 mL/min/1.73m2 Glucose 84 60 - 115 mg/dL [facility] Calcium 10.0 8.4 - 10.2 mg/dL [facility] Bilirubin, Total 0.6 0.0 - 1.0 mg/dL [facility] Aspartate Amino Transferase 27 5 - 31 U/L [facility] Alanine Aminotransferase 16 0 - 31 U/L [facility] Total Protein 7.3 6.5 - 8.0 g/dL [facility] Albumin Level 4.0 3.5 - 5.0 g/dL [facility] Alkaline Phosphatase 91 39 - 117 U/L [facility] 06/01/2024 9:08 AM EST 06/01/2024 9:11 AM EST us Generic External Data Provider LAB BLOOD ORDERAB LES Final Result [facility] [address] [place] [phone] * Colonoscopy (07/20/2022 9:25 AM EST) us Historical Provider HEALTH MAINTENANCE Final Result * Hm Colonoscopy (03/28/2018 9:23 AM EST) us Historical Provider HEALTH MAINTENANCE Final Result documented in this encounter Visit Diagnoses Not on filedocumented in this encounter Additional Health Concerns Assessment Noted Time PHQ-9 Depression Total Score: 3 09/17/19 24 10:06 AM EDT documented as of this encounter Care Teams Supervisor Rolling Room Relationship Specialty Start Date End Date Yaritza Chapman MD [address] [place] [phone] PCP - General Family Medicine 05/24/22 documented as of this encounter
--- OUTSIDE RECORDS SUMMARY | 2025-02-11 10:08 | XMS_ITS | Encounter Summary ---
Author Organization [employer] Address [address] [facility] 7t [place] [address] Care Team Providers Care Director Of Labor Relations Name Role Phone Yaritza Chapman MD Primary Care Provider [phone] Reason for Visit * Reason Comments Med Refill Encounter Details Date Type Department Care Team ([facility] Contact Info) Description 10/29/2023 Refill [facility] [address] [place] [address] Jarad Petty, KIRSTIE [address] [place] [address] Social History Tobacco Use Types Packs/Day Years [...] documented as of this encounter Care Teams Director Of Labor Relations Relationship Specialty Start Date End Date Yaritza Chapman MD [address] [place] [address] PCP - General Family Medicine 05/24/22 documented as of this encounter
--- OUTSIDE RECORDS SUMMARY | 2025-02-11 10:08 | XMS_ITS | Encounter Summary ---
Author Organization [employer] Address [address] [facility] 7t [place] [address] Care Team Providers Care Laborer Shellfish Processing Name Role Phone Yaritza Chapman MD Primary Care Provider [phone] Reason for Visit * Reason Onset Date Comments antibiotics 03/06/2023 Encounter Details Date Type Department Care Team ([facility] Contact Info) Description 03/06/[address] [facility] [address] [place] [address] Jarad Petty, DMD [address] [place] [address] antibiotics Social History Tobacco Use Types Packs/Day [...] on filedocumented in this encounter Care Teams Laborer Shellfish Processing Relationship Specialty Start Date End Date Yaritza Chapman MD [address] [place] [phone] PCP - General Family Medicine 05/24/22 documented as of this encounter
--- OUTSIDE RECORDS SUMMARY | 2025-02-11 10:08 | XMS_ITS | Clinical Summary ---
Author Organization [facility] Address [address] [place] [address] Phone Care Team Providers Care Regulatory Affairs Associate Name Role Phone Yaritza Chapman MD Primary [...] topic Medical Devices Not on file Insurance [facility] Care Teams Regulatory Affairs Associate Relationship Specialty Start Date End Date Yaritza Chapman MD PCP - General Family Medicine 12/30/23 Additional Source Comments The information contained in this document represents components of the legal health record. It is not the complete legal health record.[facility]
--- OUTSIDE RECORDS SUMMARY | 2025-02-11 10:08 | XMS_ITS | Encounter Summary ---
Author Organization [employer] Address [address] [facility] 7t [place] [address] Care Team Providers Care Spray I Painter Name Role Phone Yaritza Chapman MD Primary Care Provider [phone] Reason for Visit * Reason Comments Med Refill Encounter Details Date Type Department Care Team ([facility] Contact Info) Description 10/01/2023 Refill [facility] [address] [place] [address] Jarad Petty, KIRSTIE [address] [place] [address] Social History Tobacco Use Types Packs/Day Years [...] documented as of this encounter Care Teams Spray I Painter Relationship Specialty Start Date End Date Yaritza Chapman MD [address] [place] [address] PCP - General Family Medicine 05/24/22 documented as of this encounter
--- OUTSIDE RECORDS SUMMARY | 2025-02-11 10:08 | XMS_ITS | Encounter Summary ---
Author Organization [employer] Address [address] [facility] 7t [place] [address] Care Team Providers Care Ocular Care Technologist Name Role Phone Yaritza Chapman MD Primary Care Provider [phone] Reason for Visit * Reason Onset Date Comments Prior Authorization 11/01/2022 Encounter Details Date Type Department Care Team ([facility] st Contact Info) Description 11/01/2022 Telephone [facility] [address] [place] [address] Jarad Petty, DMD [address] [place] [address] Prior Authorization Social History Tobacco Use Types [...] on filedocumented in this encounter Care Teams Ocular Care Technologist Relationship Specialty Start Date End Date Yaritza Chapman MD [address] [place] [address] PCP - General Family Medicine 05/24/22 documented as of this encounter
--- OUTSIDE RECORDS SUMMARY | 2025-02-11 10:08 | XMS_ITS | Clinical Summary ---
Author Organization [employer] Address [address] [facility] 7t [place] [address] Care Team Providers Care Environmental Protection Geologist Name Role Phone Yaritza Chapman MD Primary Care Provider [phone] Allergies Active Allergy Reactions Criticality Noted Date [...] 24 Active sodium chloride ([facility] Saline Nasal [facility]aris) 0.65 % nasal sprayIndications:A llergic rhinitis, unspecified [...] lung cancer is ongoing, this recent study (https://www.ncbi.nlm.nih.gov/pmc/articles/EWI0490205/) suggests four biomarkers in combination can give [...] Encounters Date Type Department Care Team Description 02/11/2025 8:40 AM EDT Office Visit [facility] [address] [place] [phone] Guzman Saleem MD Right ankle swelling (Primary Dx) 02/11/2025 Travel 01/01/2025 11:15 AM EDT Office Visit [facility] [address] [place] [address] Yaritza Chapman MD Excess skin of arm (Primary Dx); Mild intermittent asthma without complication; Dietary counseling; Exercise counseling; Overweight; Primary osteoarthritis of both knees; Allergic rhinitis, unspecified seasonality, unspecified trigger 01/01/2025 Travel 12/31/2024 Telephone [facility] [address] [place] [address] Yaritza Chapman MD chart prep 12/28/2024 Travel [...] (145 lb) 02/11/2025 8:49 AM EDT Height 154.9 cm (5' 1 ) 01/01/2025 11:08 AM EDT Body Mass Index 27.4 01/01/2025 11:08 AM EDT Plan of Treatment [...] 25 SDOH Screening 01/01/2026 01/01/2025 Tobacco Screening 02/11/2026 02/11/2025 Cervical Cancer Screening 07/28/2026 HPV/Cotest 07/28/2026 07/28/2021, [...] 02/11/2025 9:27 AM EDT Right ankle swelling BI MAMMOGRAM SCREENING TOMOSYNTHESIS BILATERAL Routine 12/04/2023 [...] Recently Relevant to Health Maintenance Results * XR Ankle 3+ Views Right (02/11/2025 9:27 AM EDT) Anatomical Region Laterality Modality Lower Extremities, Ankle Right Radiogr aphic Imaging 02/11/2025 9:27 AM EDT Narrative 02/11/2025 9:40 AM EDT [address] [address] XRay Report Signed Patient: Mary Edmonds MR#: [id number] : 1965 Acct:[id number] Age/Sex: 59 / F ADM Date: 02/11/25 Loc: DORCASX Attending Dr: Guzman Saleem MD Ordering Physician: Guzman Saleem MD Date of Service: 02/11/25 Procedure(s): XR ankle RT min 3V Accession Number(s): [id number] cc: Guzman Saleem MD Reason for Exam: [...] in OV> 02/11/25936 DD/ 6 TD/TT: 02/11/25926 Grad Intern: Procedure Note Donotuseinterpreter, Image - 02/11/2025 [place] [address] XRay Report Signed Patient: Mary Edmonds#: [id number] : 1965Acct:[id number] Age/Sex: 59 / FADM Date: 02/11/25 Loc: ROSE.HHCX Attending Dr: Guzman Saleem MD Ordering Physician: Guzman Saleem MD Date of Service: 02/11/25 Procedure(s): XR ankle RT min 3V Accession Number(s): [id number] cc: Guzman Saleem MD Reason for Exam: [...] MDin OV> 02/11/25936 DD/ 6 TD/TT: 02/11/25926 Grad Intern: Guzman Saleem MD IMG XR PROCEDURES Edited Result - Final * BI Mammogram Screening Tomosynthesis Bilateral (12/04/2023 7:34 AM EDT) Anatomical Region Laterality Modality Breast Bilateral Mammography 12/04/2023 7:34 AM EDT Narrative 12/18/2023 4:57 PM EDT [facility] [address] [place] [address] Mammography Report Signed Patient: Mary Edmonds MR#: [id number] : 1965 Acct:[id number] Age/Sex: 58 / F ADM Date: 12/04/23 Loc: HO.MAMMO Attending Dr: Yaritza Chapman MD Ordering Physician: Yaritza Chapman Results: 1Negative Date of Service: 12/04/23 Follow Up: 1 Year From [facility] Mammogram Procedure(s): MM tomosynthesis screening BI Accession Number(s): [id number] cc: Yaritza Chapman EXAMINATION: MM SCREENING DIGITAL BREAST TOMOSYNTHESIS, BILATERAL CLINICAL INFORMATION: Screening. Asymptomatic. COMPARISON: Mammography: This study is compared with prior exams dating back to 2016. TECHNIQUE: Digital breast tomosynthesis is performed in [...] in OV> 12/18/23 1653 DD/ 0734 TD/TT: Grad Intern: Procedure Note Donotuseinterpreter, Image - 12/18/2023 [facility] [address] [place] [address] Mammography Report Signed Patient: Mary EdmondsMR#: [id number] : 1965Acct:[id number] Age/Sex: 58 / FADM Date: 12/04/23 Loc: OSMANI Attending Dr: Yaritza Chapman MD Ordering Physician: Brenda Chapmanults: 1Negative Date of Service: 12/04/23Follow Up: 1 Year From Orig inal Mammogram Procedure(s): MM tomosynthesis screening BI Accession Number(s): [id number] cc: Yaritza Chapman EXAMINATION: MM SCREENING DIGITAL BREAST TOMOSYNTHESIS, BILATERAL CLINICAL INFORMATION: Screening. Asymptomatic. COMPARISON: Mammography: This study is compared with prior exams dating back to 2016. TECHNIQUE: Digital breast tomosynthesis is performed in [...] in OV> 12/18/23 1653 DD/ 0734 TD/TT: Grad Intern: Yaritza Chapman MD IMG BI PROCEDURES Final Result * Hm Colonoscopy (07/20/2022 9:25 AM EST) Historical Provider HEALTH MAINTENANCE Final Result * HPV E6/E7 RFLX ABY 16 18/45 (07/28/2021 8:41 AM EDT) HPV mRNA E6/E7 rflx Not Detected Not Detected [facility] Comment: Methodology: Military Pay Technician-Mediated Amplification This assay detects E6/E7 viral messenger RNA (mRNA) from 14 high-risk HPV types (16,18,31,33,35,39,45,51,52,56,58,59,66,68). The analytical performance characteristics of this assay have been determined by [employer]. The modifications have not been cleared or approved by the FDA. This assay has been validated pursuant to the CLIA regulations and is used for clinical purposes. For additional information, please refer to http://education.Paperwoven/faq/JFI105k5 (This link if provided for information/ educational purposes only.) THIS TEST WAS PERFORMED AT: [employer] [address] [place] [address] FLOOR,[place] [address] IRASEMA DIAS MD 07/28/2021 8:41 AM EDT Nandini Miranda HISTORICAL/NON ORDERABLE LABS Fi nal Result [facility] [address] * Pap Smear (07/28/2021 12:00 AM EDT) Swab Historical Provider LAB CYTOLOGY ORDERABLES F inal Result [facility] [address] [facility], [place] [address] * LIPID PANEL, STANDARD (06/13/2020 8:16 AM EST) Chol/HDLC Ratio 2.3 <5.0 (calc) [facility] Cholesterol, Total 167 <200 mg/dL [facility] HDL Cholesterol 72 > OR = 50 mg/dL [facility] LDL Cholesterol 78 mg/dL (calc) [facility] Comment: Reference range: <100 Desirable range <100 mg/dL for primary prevention; <70 mg/dL for patients with CHD or diabetic patients with > or = 2 CHD risk factors. LDL-C is now calculated using the Chandra-Duarte calculation, which is a validated novel method providing better accuracy than the Friedewald equation in the estimation of LDL-C. Chandra SS et al. CARLOTA. 2013;310(19): 7192-1330 (http://education.myThings.WebLayers/faq/NGA771) Non-HDL Cholesterol 95 <130 mg/dL (calc) [facility] Comment: For patients with diabetes plus 1 major ASCVD risk factor, treating to a non-HDL-C goal of <100 mg/dL (LDL-C of <70 mg/dL) is considered a therapeutic option. Triglycerides 89 <150 mg/dL [facility] 06/13/2020 8:16 AM EST us Inderjit Lozano MD LAB BLOOD ORDERABLES Final R esult [facility] [address] from Last 3 Months or Most Recently Relevant to Health Maintenance Insurance [employer] H[place] STAND ADULT Care Teams Environmental Protection Geologist Relationship Specialty Start Date End Date Yaritza Chapman MD [address] [place] [address] PCP - General Family Medicine 05/24/22
--- OUTSIDE RECORDS SUMMARY | 2025-02-11 10:08 | XMS_ITS | Encounter Summary ---
Author Organization [employer] Address [address] [facility] 7t [place] [address] Care Team Providers Care Clerk Checker Name Role Phone Yaritza Chapman MD Primary Care Provider [phone] Encounter Details Date Type Department Care Team (Latest Contact Info) Description 02/11/2025 Travel Social History Tobacco Use Types Packs/Day Years [...] housing situation today? I have colbyjennifer lugo 01/01/[address] you [...] documented as of this encounter Care Teams Clerk Checker Relationship Specialty Start Date End Date Yaritza Chapman MD [address] [place] [address] PCP - General Family Medicine 05/24/22 documented as of this encounter
--- OUTSIDE RECORDS SUMMARY | 2025-02-11 10:08 | XMS_ITS | Clinical Summary ---
Author Organization [address] [place] [address] Address [address] [place] [address] Phone Care Team Providers Care Yard Supervisor Cotton Gin Name Role Phone Yaritza Chapman MD Primary Care Provider [phone] Social History Tobacco Use Types Packs/Day Years Used Date Smoking Tobacco: Never Assessed Comments Unknown Sex and Gender Information Value Date Recorded Sex Assigned at Not on file Legal Sex Female 4:51 AM EST Gender Identity Not on file Sexual Orientation Not on file Plan of Treatment Health Maintenance Due Date Last Done Comments Breast Cancer Screening 1965 Colorectal Cancer Screening: Colonoscopy 1965 DTaP,Tdap,and Td Vaccines (1 - Tdap) 1985 Hepatitis B Vaccines (1 of 3 - 19+ 3-dose series) 1985 Cervical Cancer Screening: P ap Smear 1987 Pneumococcal Vaccine: 50+ Ye ars (1 of 1 - PCV) 2016 Zoster Vaccines (1 of 2) 2016 Depression Screening 05/13/2024 HIV Screening 11/13/2024 Hepatitis C Screening 11/13/2024 Social Influencers of Health Screening 11/13/2024 COVID-19 Vaccine (1 - 2023-2 5 season) 2025 Influenza Vaccine (#1) 2025 RSV Immunization Adult Patie nts (1 - 1-dose 75+ series) 2041 HIB Vaccines Aged Out No longer eligi [...] patient's age to complete this topic Insurance [facility] Care Teams Yard Supervisor Cotton Gin Relationship Specialty Start Date End Date Yaritza Chapman MD [address] [place] [id number] PCP - General Bevel Polisher 11/12/24
--- OUTSIDE RECORDS SUMMARY | 2025-02-11 10:08 | XMS_ITS | Patient Health Record ---
Author Organization [facility] [address] Address [address] [place] [address] Care Team Providers Care Senior Technical Trainer Name Role Phone EJ PRESSLEY Unavailable [phone] CÉSAR KATHY Unavailable [phone] Allergies Allergen (clinical drug ingredient) Drug/Non Drug Allergy documented on EMR Reaction Allergy Type Onset Date Status pineapple allergenic extract Pineapple (Diagnostic) hives Drug Allergy Activ e Reason For Referral Reason from [facility] Diagnosis 1 Overweight (E66.3) Referred Organization [facility] Referred Provider JE PRESSLEY Referred Address [address],[address], Referred Provider Specialty Weight Manag ement Referral Priority Routine Diagnosis 1 Excess skin (L98.7) Referral Organization [facility] Referring Provider First Name JE Referring Provider Last Name WENDIE Referring Provider Speciality Internal M edicine Referred Provider Specialty Surgery Clinical Notes Mya Jaramillo 2024 09:10:49 AM >pt will amke appt Referral Priority Routine Diagnosis 1 Other obesity due to excess calories (E66.09) Referred Organization [facility] Referred Provider JE PRESSLEY Referred Address [address] [facility] ,[place], [place],[address], Referred Provider Specialty Weight Manag ement Referral [...] Notes Problem Obesity due to excess calories (548669471) Other obesity due to excess calories (E66.09) Active confirmed Problem Overweight (701450886) Overweight (E66.3) Active confirmed Problem Lipid screening (880048724) Encounter for screening for lipoid disorders (Z13.220) Active confirmed Problem Essential hypertension (13584059) Essential hypertension (I10) Active confirmed Problem Adult health examination (340308076) Adult general medical exam (Z00.00) Active confirmed Problem Kidney stone (40390773) Kidney stone (N20.0) Active confirmed Problem Diabetes mellitus screening (887401957) Diabetes mellitus screening (Z13.1) Active confirmed Problem Body mass index 30.00 to 34.99 (278584483682208 ) Body mass index [BMI] 32.0-32.9, adult (Z68.32) Active confirmed Problem Body mass index 25-29 - overweight (186620554) BMI 25.0-25.9,adult (Z68.25) Active confirmed Problem Body mass index 30+ - obesity (881767767) BMI 30.0-30.9,adult (Z68.30) Active confirmed Problem Overweight (896086005) Overweight (BMI 25.0-29.9) (E66.3) Active confirmed Problem Avitaminosis D (84688350) Avitaminosis D (E55.9) Active confirmed Problem Endocrine/[place] lic screening (549866784) Encounter for screening for endocrine disorder (Z13.29) Active confirmed Problem History of bariatric surgical procedure (499641458) Hx of laparoscopic gastric banding (Z98.84) Active confirmed Problem Dietary management surveillance (964612429) Nutritional counseling (Z71.3) Active confirmed Problem Excess skin of abdomen (L98.7) Active confirmed Vital Signs Heart Rate 70 /min 12/12/2024 Blood pressure diastolic 80 mm Hg 12/12/2024 Oximetry 97 % 12/12/2024 Height 62 in 12/12/2024 Blood pressure systolic 122 mm Hg 12/12/2024 Weight 147.4 lbs 12/12/2024 BMI 26.96 kg/m2 12/12/2024 Encounters Encounter Location Date Provider Diagnosis [facility] [address] [address] 02/27/2024 JE BORHOT Overweight E66.3 ; B [place] 26.0-26.9,adult Z68.26 ; Dietary counseling and surveillance Z71.3 ; Hx of laparoscopic gastric banding Z98.84 and Excess skin of abdomen L98.7 [facility] [address] [address] 04/07/2024 KATHY CÉSAR Overweight (BMI 25.0-29.9) E66.3 ; BMI 25.0-25.9,adult Z68.25 ; Essential hypertension I10 ; Hx of laparoscopic gastric banding Z98.84 and Nutritional counseling Z71.3 [facility] [address] [address] 05/26/2024 JE BORHOT Overweight E66.3 ; B [place] 26.0-26.9,adult Z68.26 ; Dietary counseling and surveillance Z71.3 ; Hx of laparoscopic gastric banding Z98.84 and Excess skin of abdomen L98.7 [facility] [address] [address] 08/24/2024 JE BORHOT Overweight E66.3 ; B [place] 25.0-25.9,adult Z68.25 ; Dietary counseling and surveillance Z71.3 ; Hx of laparoscopic gastric banding Z98.84 and Excess skin of abdomen L98.[address] [address] [place] [address] 10/10/2024 JE BORHOT Overweight E66.3 ; B MN 25.0-25.9,adult Z68.25 ; Dietary counseling and surveillance Z71.3 ; Hx of laparoscopic gastric banding Z98.84 ; Excess skin of abdomen L98.7 and Encounter for examination of blood pressure without abnormal findings Z01.[address] [facility] [address] [place] [address] 12/12/2024 JE WENDIE Overweight E66.3 ; B MN 27.0-27.9,adult Z68.27 ; Dietary counseling and surveillance Z71.3 ; Hx of laparoscopic gastric banding Z98.84 ; Excess skin of abdomen L98.7 and Encounter for examination of blood pressure without abnormal findings Z01.30 [facility] [address] [address] 04/07/2024 JE BORHOT [facility] [address] [address] 05/21/2024 JE BORHOT [facility] [address] [address] 07/29/2024 JE BORHOT [facility] [address] [address] 08/24/2024 JE BORHOT [facility] [address] YUDITH [address] [place] [address] 10/14/2024 JE SMALLST [facility] [address] [place] [address] 11/12/2024 JE PRESSLEY Overweight E66.3 [facility] [address] [address] 01/21/2025 JE PRESSLEY Assessments Encounter Date Diagnosis (ICD Code) Assessment Notes Treatment Notes Treatment Clinical Notes Section Notes 02/27/2024 Overweight (ICD-10 - E66.3) #Weight Management 02/26/2024 Patient to have updated labs from [facility] faxed to us later today [...] gym membership. She will stay on the [employer] 2.4 weekly until she reaches her goal [...] minimum of 6 months The most recent [place] [employer] of clinical endocrinologists and [place] [employer] guidelines recommend patients who [...] software and direct typing Please excuse inadvertent assistant therapy aide or typing errors, or uncorrected word substitutions Although every attempt has been made by the provider to proofread this document, occasional misspellings and typographical errors may still be present Due to the previous pandemic, and the use of personal protective equipment (PPE) This may decrease voice recognition accuracy Inadvertent assistant therapy aide errors may occur 04/07/2024 BMI 25.0-25.9,adult (ICD-10 [...] reviewed. Dictation completed with the use of [employer] voice recognition software, prone to medical misidentifications [...] reviewed. Dictation completed with the use of [employer] voice recognition software, prone to medical misidentifications [...] minimum of 6 months The most recent [place] [employer] clinical endocrinologists and [place] [employer] guidelines recommend patients who [...] software and direct typing Please excuse inadvertent assistant therapy aide or typing errors, or uncorrected word substitutions Although every attempt has been made by the provider to proofread this document, occasional misspellings and typographical errors may still be present Due to the previous pandemic, and the use of personal protective equipment (PPE) This may decrease voice recognition accuracy Inadvertent assistant therapy aide errors may occur 05/26/2024 BMI 26.0-26.9,adult (ICD-10 [...] minimum of 6 months The most recent [place] [employer] clinical endocrinologists and [employer] guidelines recommend patients who [...] software and direct typing Please excuse inadvertent assistant therapy aide or typing errors, or uncorrected word substitutions Although every attempt has been made by the provider to proofread this document, occasional misspellings and typographical errors may still be present Due to the previous pandemic, and the use of personal protective equipment (PPE) This may decrease voice recognition accuracy Inadvertent assistant therapy aide errors may occur 08/24/2024 Overweight (ICD-10 - [...] software and direct typing Please excuse inadvertent assistant therapy aide or typing errors, or uncorrected word substitutions Although every attempt has been made by the provider to proofread this document, occasional misspellings and typographical errors may still be present Due to the previous pandemic, and the use of personal protective equipment (PPE) This may decrease voice recognition accuracy Inadvertent assistant therapy aide errors may occur 08/24/2024 BMI 25.0-25.9,adult (ICD-10 [...] software and direct typing Please excuse inadvertent assistant therapy aide or typing errors, or uncorrected word substitutions Although every attempt has been made by the provider to proofread this document, occasional misspellings and typographical errors may still be present Due to the previous pandemic, and the use of personal protective equipment (PPE) This may decrease voice recognition accuracy Inadvertent assistant therapy aide errors may occur 10/10/2024 Overweight (ICD-10 - [...] software and direct typing Please excuse inadvertent assistant therapy aide or typing errors, or uncorrected word substitutions Although every attempt has been made by the provider to proofread this document, occasional misspellings and typographical errors may still be present Due to the previous pandemic, and the use of personal protective equipment (PPE) This may decrease voice recognition accuracy Inadvertent assistant therapy aide errors may occur 10/10/2024 BMI 25.0-25.9,adult (ICD-10 [...] software and direct typing Please excuse inadvertent assistant therapy aide or typing errors, or uncorrected word substitutions Although every attempt has been made by the provider to proofread this document, occasional misspellings and typographical errors may still be present Due to the previous pandemic, and the use of personal protective equipment (PPE) This may decrease voice recognition accuracy Inadvertent assistant therapy aide errors may occur 11/12/2024 Overweight (ICD-10 - E66.3) 12/12/2024 Overweight (ICD-10 - E66.3) #Weight Management 12/12/2024 Follow-up on lab from [facility] Increase Wegovy to 2.4 mg Discussed importance [...] software and direct typing Please excuse inadvertent assistant therapy aide or typing errors, or uncorrected word substitutions Although every attempt has been made by the provider to proofread this document, occasional misspellings and typographical errors may still be present Due to the previous pandemic, and the use of personal protective equipment (PPE) This may decrease voice recognition accuracy Inadvertent assistant therapy aide errors may occur 12/12/2024 BMI 27.0-27.9,adult (ICD-10 - Z68.27) #Weight Management 12/12/2024 Follow-up on lab from [facility] Increase Wegovy to 2.4 mg Discussed importance [...] software and direct typing Please excuse inadvertent assistant therapy aide or typing errors, or uncorrected word substitutions Although every attempt has been made by the provider to proofread this document, occasional misspellings and typographical errors may still be present Due to the previous pandemic, and the use of personal protective equipment (PPE) This may decrease voice recognition accuracy Inadvertent assistant therapy aide errors may occur 12/12/2024 Dietary counseling and surveillance (ICD-10 - Z71.3) #Weight Management 12/12/2024 Follow-up on lab from [facility] Increase Wegovy to 2.4 mg Discussed importance [...] software and direct typing Please excuse inadvertent assistant therapy aide or typing errors, or uncorrected word substitutions Although every attempt has been made by the provider to proofread this document, occasional misspellings and typographical errors may still be present Due to the previous pandemic, and the use of personal protective equipment (PPE) This may decrease voice recognition accuracy Inadvertent assistant therapy aide errors may occur 10/10/2024 Dietary counseling and [...] software and direct typing Please excuse inadvertent assistant therapy aide or typing errors, or uncorrected word substitutions Although every attempt has been made by the provider to proofread this document, occasional misspellings and typographical errors may still be present Due to the previous pandemic, and the use of personal protective equipment (PPE) This may decrease voice recognition accuracy Inadvertent assistant therapy aide errors may occur 08/24/2024 Dietary counseling and [...] software and direct typing Please excuse inadvertent assistant therapy aide or typing errors, or uncorrected word substitutions Although every attempt has been made by the provider to proofread this document, occasional misspellings and typographical errors may still be present Due to the previous pandemic, and the use of personal protective equipment (PPE) This may decrease voice recognition accuracy Inadvertent assistant therapy aide errors may occur 05/26/2024 Dietary counseling and [...] minimum of 6 months The most recent [place] [employer] of clinical endocrinologists and [employer] guidelines recommend patients who [...] software and direct typing Please excuse inadvertent assistant therapy aide or typing errors, or uncorrected word substitutions Although every attempt has been made by the provider to proofread this document, occasional misspellings and typographical errors may still be present Due to the previous pandemic, and the use of personal protective equipment (PPE) This may decrease voice recognition accuracy Inadvertent assistant therapy aide errors may occur 04/07/2024 Essential hypertension (ICD-10 [...] reviewed. Dictation completed with the use of [employer] voice recognition software, prone to medical misidentifications [...] 02/26/2024 Patient to have updated labs from [facility] faxed to us later today [...] minimum of 6 months The most recent [place] [employer] of clinical endocrinologists and [place] [employer]in[employer] guidelines recommend patients who [...] software and direct typing Please excuse inadvertent assistant therapy aide or typing errors, or uncorrected word substitutions Although every attempt has been made by the provider to proofread this document, occasional misspellings and typographical errors may still be present Due to the previous pandemic, and the use of personal protective equipment (PPE) This may decrease voice recognition accuracy Inadvertent assistant therapy aide errors may occur 02/27/2024 Dietary counseling and surveillance (ICD-10 - Z71.3) #Weight Management 02/26/2024 Patient to have updated labs from [facility] faxed to us later today [...] minimum of 6 months The most recent [place] [employer] of clinical endocrinologists and [place] [employer]in[employer] guidelines recommend patients who [...] software and direct typing Please excuse inadvertent assistant therapy aide or typing errors, or uncorrected word substitutions Although every attempt has been made by the provider to proofread this document, occasional misspellings and typographical errors may still be present Due to the previous pandemic, and the use of personal protective equipment (PPE) This may decrease voice recognition accuracy Inadvertent assistant therapy aide errors may occur 04/07/2024 Hx of laparoscopic [...] reviewed. Dictation completed with the use of [employer] voice recognition software, prone to medical misidentifications [...] minimum of 6 months The most recent [place] [employer] of clinical endocrinologists and [place] [employer]in[employer] guidelines recommend patients who [...] software and direct typing Please excuse inadvertent assistant therapy aide or typing errors, or uncorrected word substitutions Although every attempt has been made by the provider to proofread this document, occasional misspellings and typographical errors may still be present Due to the previous pandemic, and the use of personal protective equipment (PPE) This may decrease voice recognition accuracy Inadvertent assistant therapy aide errors may occur 08/24/2024 Hx of laparoscopic [...] software and direct typing Please excuse inadvertent assistant therapy aide or typing errors, or uncorrected word substitutions Although every attempt has been made by the provider to proofread this document, occasional misspellings and typographical errors may still be present Due to the previous pandemic, and the use of personal protective equipment (PPE) This may decrease voice recognition accuracy Inadvertent assistant therapy aide errors may occur 10/10/2024 Hx of laparoscopic [...] software and direct typing Please excuse inadvertent assistant therapy aide or typing errors, or uncorrected word substitutions Although every attempt has been made by the provider to proofread this document, occasional misspellings and typographical errors may still be present Due to the previous pandemic, and the use of personal protective equipment (PPE) This may decrease voice recognition accuracy Inadvertent assistant therapy aide errors may occur 12/12/2024 Hx of laparoscopic gastric banding (ICD-10 - Z98.84) #Weight Management 12/12/2024 Follow-up on lab from [facility] Increase Wegovy to 2.4 mg Discussed importance [...] software and direct typing Please excuse inadvertent assistant therapy aide or typing errors, or uncorrected word substitutions Although every attempt has been made by the provider to proofread this document, occasional misspellings and typographical errors may still be present Due to the previous pandemic, and the use of personal protective equipment (PPE) This may decrease voice recognition accuracy Inadvertent assistant therapy aide errors may occur 12/12/2024 Excess skin of abdomen (ICD-10 - L98.7) #Weight Management 12/12/2024 Follow-up on lab from [facility] Increase Wegovy to 2.4 mg Discussed importance [...] software and direct typing Please excuse inadvertent assistant therapy aide or typing errors, or uncorrected word substitutions Although every attempt has been made by the provider to proofread this document, occasional misspellings and typographical errors may still be present Due to the previous pandemic, and the use of personal protective equipment (PPE) This may decrease voice recognition accuracy Inadvertent assistant therapy aide errors may occur 10/10/2024 Excess skin of [...] software and direct typing Please excuse inadvertent assistant therapy aide or typing errors, or uncorrected word substitutions Although every attempt has been made by the provider to proofread this document, occasional misspellings and typographical errors may still be present Due to the previous pandemic, and the use of personal protective equipment (PPE) This may decrease voice recognition accuracy Inadvertent assistant therapy aide errors may occur 08/24/2024 Excess skin of [...] software and direct typing Please excuse inadvertent assistant therapy aide or typing errors, or uncorrected word substitutions Although every attempt has been made by the provider to proofread this document, occasional misspellings and typographical errors may still be present Due to the previous pandemic, and the use of personal protective equipment (PPE) This may decrease voice recognition accuracy Inadvertent assistant therapy aide errors may occur 05/26/2024 Excess skin of [...] minimum of 6 months The most recent [place] [employer] of clinical endocrinologists and [employer]in[employer] guidelines recommend patients who [...] software and direct typing Please excuse inadvertent assistant therapy aide or typing errors, or uncorrected word substitutions Although every attempt has been made by the provider to proofread this document, occasional misspellings and typographical errors may still be present Due to the previous pandemic, and the use of personal protective equipment (PPE) This may decrease voice recognition accuracy Inadvertent assistant therapy aide errors may occur 04/07/2024 Nutritional counseling (ICD-10 [...] reviewed. Dictation completed with the use of [employer] voice recognition software, prone to medical misidentifications [...] 02/26/2024 Patient to have updated labs from [facility] faxed to us later today [...] minimum of 6 months The most recent [place] [employer] of clinical endocrinologists and [place] [employer]in[employer] guidelines recommend patients who [...] software and direct typing Please excuse inadvertent assistant therapy aide or typing errors, or uncorrected word substitutions Although every attempt has been made by the provider to proofread this document, occasional misspellings and typographical errors may still be present Due to the previous pandemic, and the use of personal protective equipment (PPE) This may decrease voice recognition accuracy Inadvertent assistant therapy aide errors may occur 02/27/2024 Excess skin of abdomen (ICD-10 - L98.7) #Weight Management 02/26/2024 Patient to have updated labs from [facility] faxed to us later today [...] minimum of 6 months The most recent [place] [employer] of clinical endocrinologists and [place] [employer]in[employer] guidelines recommend patients who [...] software and direct typing Please excuse inadvertent assistant therapy aide or typing errors, or uncorrected word substitutions Although every attempt has been made by the provider to proofread this document, occasional misspellings and typographical errors may still be present Due to the previous pandemic, and the use of personal protective equipment (PPE) This may decrease voice recognition accuracy Inadvertent assistant therapy aide errors may occur 10/10/2024 Encounter for examination [...] software and direct typing Please excuse inadvertent assistant therapy aide or typing errors, or uncorrected word substitutions Although every attempt has been made by the provider to proofread this document, occasional misspellings and typographical errors may still be present Due to the previous pandemic, and the use of personal protective equipment (PPE) This may decrease voice recognition accuracy Inadvertent assistant therapy aide errors may occur 12/12/2024 Encounter for examination of blood pressure without abnormal findings (ICD-10 - Z01.30) #Weight Management 12/12/2024 Follow-up on lab from [facility] Increase Wegovy to 2.4 mg Discussed importance [...] software and direct typing Please excuse inadvertent assistant therapy aide or typing errors, or uncorrected word substitutions Although every attempt has been made by the provider to proofread this document, occasional misspellings and typographical errors may still be present Due to the previous pandemic, and the use of personal protective equipment (PPE) This may decrease voice recognition accuracy Inadvertent assistant therapy aide errors may occur 07/21/2024 #Weight Management 07/21/2024 [...] software and direct typing Please excuse inadvertent assistant therapy aide or typing errors, or uncorrected word substitutions Although every attempt has been made by the provider to proofread this document, occasional misspellings and typographical errors may still be present Due to the previous pandemic, and the use of personal protective equipment (PPE) This may decrease voice recognition accuracy Inadvertent assistant therapy aide errors may occur 07/28/2024 #Weight Management 07/28/2024 [...] software and direct typing Please excuse inadvertent assistant therapy aide or typing errors, or uncorrected word substitutions Although every attempt has been made by the provider to proofread this document, occasional misspellings and typographical errors may still be present Due to the previous pandemic, and the use of personal protective equipment (PPE) This may decrease voice recognition accuracy Inadvertent assistant therapy aide errors may occur 11/14/2024 #Weight Management 11/14/2024 [facility], [...] software and direct typing Please excuse inadvertent assistant therapy aide or typing errors, or uncorrected word substitutions Although every attempt has been made by the provider to proofread this document, occasional misspellings and typographical errors may still be present Due to the previous pandemic, and the use of personal protective equipment (PPE) This may decrease voice recognition accuracy Inadvertent assistant therapy aide errors may occur Plan Of Treatment Pending Test Test Name Order Date LIPID PANEL, STANDARD 06/26/2023 LIPID PANEL, STANDARD 05/26/2024 COMPREHENSIVE METABOLIC PANEL 05/26/2024 COMPREHENSIVE METABOLIC PANEL 06/26/2023 CBC (INCLUDES DIFF/PLT) 06/26/2023 CBC (INCLUDES DIFF/PLT) 05/26/2024 URINALYSIS, COMPLETE 05/26/2024 HEMOGLOBIN A1c 05/26/2024 TSH 05/26/2024 VITAMIN D,25-OH,TOTAL,IA 05/26/2024 Next Appt Details Provider Name:JE PRESSLEY, 02/20/2025 12:45:00 PM, [address], [place], [phone], Insurance Providers Payer Name Payer Address Payer Phone Subscriber Number Group Number Insured Name Patient Relationship to Insured Coverage Start Date Coverage End Date [facility] [address] [place] [address] [phone] [id number] Mary Edmonds Self - patient is [...]
== END 2025-02-11 09:14 | disposition home or self-care (01) ==
LOC: HO.HHCX 09:13
PROVIDERS: Visit Provider Family Medicine
DX: M25.471 Effusion, right ankle (principal)
CPT/HCPCS: 73610

== ENCOUNTER → 2025-02-11 09:16 | Outpatient (BNV) | payer BC, SELFPAY | PROVIDERS: Visit Provider Radiology Diagnostic Radiology | DX: M25.571 Pain in right ankle and joints of right foot (principal) | CPT/HCPCS: 73610 ==

== ENCOUNTER 2025-03-22 08:15 | Outpatient (AMB) | payer BC, SELFPAY ==
--- OUTSIDE RECORDS SUMMARY | 2024-07-28 10:15 | XMS_ITS ---
Author Organization [facility] Address [address] [place] [address] Care Team Providers Care Rail Project Engineer Name Role Phone JE PRESSLEY Unavailable [phone] Medications Medication SIG (Take, Route, Frequency, Duration) Notes Start Date End Date Status Clotrimazole-Betamethas one 1-0.05 % Cream 1 application Externally Twice a day; Duration: 30 days Active Wegovy 1.7 MG/0.75ML Solution Auto-injector 0.75 mL Subcutaneous once weekly; Duration: 30 days Not-Ta laura Lisinopril 10 MG Tablet TAKE 1 TABLET BY MOUTH EVERY DAY Oral; Duration: 90 Days Active Celecoxib 100 MG Capsule PLEASE SEE ATTACHED FOR DETAILED DIRECTIONS Oral; Duration: 45 Days Active Wegovy 2.4 MG/0.75ML Solution Auto-injector 2.4mg Subcutaneous weekly; Duration: 30 days Active Loratadine 10 MG Tablet TAKE 1 TABLET BY MOUTH EVERY DAY IN THE MORNING Oral; Duration: 90 Days Active Encounters Encounter Location Date Provider Diagnosis [facility] [address] [address] 07/28/2024 JE PRESSLEY Overweight E66.3 ; B LA 26.0-26.9,adult Z68.26 ; Dietary counseling and surveillance Z71.3 ; Hx of laparoscopic gastric banding Z98.84 and Excess skin of abdomen L98.7 Assessments Encounter Date Diagnosis (ICD Code) Assessment Notes Treatment Notes Treatment Clinical Notes Section Notes 07/28/2024 Overweight (ICD-10 - E66.3) #Weight Management 07/28/2024 Lets update labs Discussed importance of creatine, protein, and resistance training for muscle building. She has signed up for a gym membership. She will stay on the Wegovy 2.4 weekly Otherwise thriving She will continue to use antifungal cream Total time spent today was 30 minutes of which greater than 50% was spent on coordinating and counseling Patient has been found to be overweight with a BMI of (26). Patient has overweight class per BMI standards We are a board certified obesity and weight management practice Of note, some information is being carried forward from prior records for informational purposes only and is being cited so that efficiency, safety and quality of the patient's care is not compromised This note was prepared using voice recognition software and direct typing Please excuse inadvertent tinner automatic or typing errors, or uncorrected word substitutions Although every attempt has been made by the provider to proofread this document, occasional misspellings and typographical errors may still be present Due to the previous pandemic, and the use of personal protective equipment (PPE) This may decrease voice recognition accuracy Inadvertent tinner automatic errors may occur 07/28/2024 BMI 26.0-26.9,adult (ICD-10 - Z68.26) #Weight Management 07/28/2024 Lets update labs Discussed importance of creatine, protein, and resistance training for muscle building. She has signed up for a gym membership. She will stay on the Wegovy 2.4 weekly Otherwise thriving She will continue to use antifungal cream Total time spent today was 30 minutes of which greater than 50% was spent on coordinating and counseling Patient has been found to be overweight with a BMI of (26). Patient has overweight class per BMI standards We are a board certified obesity and weight management practice Of note, some information is being carried forward from prior records for informational purposes only and is being cited so that efficiency, safety and quality of the patient's care is not compromised This note was prepared using voice recognition software and direct typing Please excuse inadvertent tinner automatic or typing errors, or uncorrected word substitutions Although every attempt has been made by the provider to proofread this document, occasional misspellings and typographical errors may still be present Due to the previous pandemic, and the use of personal protective equipment (PPE) This may decrease voice recognition accuracy Inadvertent tinner automatic errors may occur 07/28/2024 Dietary counseling and surveillance (ICD-10 - Z71.3) #Weight Management 07/28/2024 Lets update labs Discussed importance of creatine, protein, and resistance training for muscle building. She has signed up for a gym membership. She will stay on the Wegovy 2.4 weekly Otherwise thriving She will continue to use antifungal cream Total time spent today was 30 minutes of which greater than 50% was spent on coordinating and counseling Patient has been found to be overweight with a BMI of (26). Patient has overweight class per BMI standards We are a board certified obesity and weight management practice Of note, some information is being carried forward from prior records for informational purposes only and is being cited so that efficiency, safety and quality of the patient's care is not compromised This note was prepared using voice recognition software and direct typing Please excuse inadvertent tinner automatic or typing errors, or uncorrected word substitutions Although every attempt has been made by the provider to proofread this document, occasional misspellings and typographical errors may still be present Due to the previous pandemic, and the use of personal protective equipment (PPE) This may decrease voice recognition accuracy Inadvertent tinner automatic errors may occur 07/28/2024 Hx of laparoscopic gastric banding (ICD-10 - Z98.84) #Weight Management 07/28/2024 Lets update labs Discussed importance of creatine, protein, and resistance training for muscle building. She has signed up for a gym membership. She will stay on the Wegovy 2.4 weekly Otherwise thriving She will continue to use antifungal cream Total time spent today was 30 minutes of which greater than 50% was spent on coordinating and counseling Patient has been found to be overweight with a BMI of (26). Patient has overweight class per BMI standards We are a board certified obesity and weight management practice Of note, some information is being carried forward from prior records for informational purposes only and is being cited so that efficiency, safety and quality of the patient's care is not compromised This note was prepared using voice recognition software and direct typing Please excuse inadvertent tinner automatic or typing errors, or uncorrected word substitutions Although every attempt has been made by the provider to proofread this document, occasional misspellings and typographical errors may still be present Due to the previous pandemic, and the use of personal protective equipment (PPE) This may decrease voice recognition accuracy Inadvertent tinner automatic errors may occur 07/28/2024 Excess skin of abdomen (ICD-10 - L98.7) #Weight Management 07/28/2024 Lets update labs Discussed importance of creatine, protein, and resistance training for muscle building. She has signed up for a gym membership. She will stay on the Wegovy 2.4 weekly Otherwise thriving She will continue to use antifungal cream Total time spent today was 30 minutes of which greater than 50% was spent on coordinating and counseling Patient has been found to be overweight with a BMI of (26). Patient has overweight class per BMI standards We are a board certified obesity and weight management practice Of note, some information is being carried forward from prior records for informational purposes only and is being cited so that efficiency, safety and quality of the patient's care is not compromised This note was prepared using voice recognition software and direct typing Please excuse inadvertent tinner automatic or typing errors, or uncorrected word substitutions Although every attempt has been made by the provider to proofread this document, occasional misspellings and typographical errors may still be present Due to the previous pandemic, and the use of personal protective equipment (PPE) This may decrease voice recognition accuracy Inadvertent tinner automatic errors may occur Plan Of Treatment Medication Medication Name Sig Start Date Stop Date Notes Clotrimazole-Betamethasone 1-0.05 % Cream 1 application Externally Twice a day; Duration: 30 days Wegovy 2.4 MG/0.75ML Solution Auto-injector 2.4mg Subcutaneous weekly; Duration: 30 days Next Appt Details Provider Name:JE PRESSLEY, 04/03/2025 09:30:00 AM, [address] [place] [address], [place], [address], History and Physical Notes * HPI (History of Present Illness) Category Sub-Category Detail Notes Category Not es Constitutional Patient is here today for a weight management f/u visit Body composition analysis reviewed today. Patient seen and examined. Full past medical history, social history, family history, allergies and current medications were reviewed and updated. #Weight Management 07/28/2024 Due for updated labs Patient is currently on 2.4mg Wegovy once week injection day is Saturday She is at target goal weight Early satiety and good appetite suppression Her affinity for sweets has decreased brother recently diagnosed with stage IV metastatic colon cancer to the lung Stressful period for her and her family She has been doing a lot of grab and go eating and traveling a lot to [facility] to see him q 2 weeks Patient states she continues high protein diet, but does not count how many grams. Has a protein shake and high protein meals throughout day. Worksout in the morning via video workouts She does walk and is recently trying to do more strength and resistance exercises at the gym. We discussed her decreasing muscle composition we discussed the importance of strength and resistance training and high-protein diet Patient takes multivitamins and also Vitamin B12 Reports constipation and occasional nausea and anxiety due to menopausal hot flashes at night. otherwise tolerating well and thriving utilizing bariatric multivitamins clotrimazole/betamethasone cream does help Intertriginous candidiasis from loose skin from weight loss PCP Gregory, [facility] Had gastric banding 10-15 years ago Per patient she had the band removed 2019 due to ulcer complication. Gastric sleeve 4 years ago. Has a f/u on 03/13/24 Has a Hx of Hypertenison to which she takes lisinopril Additionaly takes B12 Non-smoker ETOH use: family events 07/28/2024, Weight , BMI 07/21/2024, Weight lbs , BMI 05/26/2024, Weight 142lbs , BMI 25 04/07/2024, Weight 141lbs , BMI 25 02/27/2024, Weight 144 lbs, BMI 27 (-1 lbs) 01/16/2024, Weight 145lb, BMI (+1lb) 11/29/2023, Weight 144lbs , BMI 26 (-4lbs) 10/29/2023, Weight 148lbs , BMI 28 09/19/2023, Weight 149, BMI 28.1 (-1lbs) 08/07/2023, Weight 150lbs, BMI 27.6 (-2lbs) 06/26/23 weight 152, BMI 27.9 (-4lbs) 05/03/2023: Weight 156lbs, BMI 28, (-9lbs) 02/19/2023: Weight 165lbs , BMI 30 ( -18lbs) 12/21/2022: Weight 183lbs, BMI: 33 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 [facility] CBC is stable Renal function electrolytes and LFTs are stable Triglycerides 78, total cholesterol 175, LDL 97, HDL 63 Examination Category Sub-Category Detail Notes Category Not es General Examination GENERAL APPEARANCE: in no ac [place] distress, well developed, well nourished HEAD: normocephalic, atrau matic EYES: pupils equal, round, reactive to light and accommodation EARS: normal THROAT: clear NECK/THYROID: neck supple, full ra nge of motion, no cervical lymphadenopathy HEART: no murmurs, regular rate and rhythm, S1, S2 normal LUNGS: clear to auscultatio n bilaterally ABDOMEN: normal, bowel sounds present, soft, nontender, nondistended NEUROLOGIC: nonfocal, motor stre ngth normal upper and lower extremities, sensory exam intact SKIN: no suspicious lesion s, warm and dry EXTREMITIES: no clubbing, cyanosi s, or edema ORAL CAVITY: mucosa moist Progress Notes * Mary ORTIZ NDOB :1965 (59 yo F)Acc No.[id number]:07/28/2024 Patient: Mary Corral N Provider: Elijah PRESSLEY NP :1965 A ge:59 Y S ex:Female Date:07/28/2024 Address:[address] [place], [place] [id number] Subjective: * Chief Complaints: * HPI: C onstitutional: Patient is here today for a weight management f/u visit Body composition analysis reviewed today. Patient seen and examined. Full past medical history, social history, family history, allergies and current medications were reviewed and updated. #Weight Management 07/28/2024 Due for updated labs Patient is currently on 2.4mg Wegovy once week injection day is Saturday She is at target goal weight Early satiety and good appetite suppression Her affinity for sweets has decreased brother recently diagnosed with stage IV metastatic colon cancer to the lung Stressful period for her and her family She has been doing a lot of grab and go eating and traveling a lot to [facility] to see him q 2 weeks Patient states she continues high protein diet, but does not count how many grams. Has a protein shake and high protein meals throughout day. Worksout in the morning via video workouts She does walk and is recently trying to do more strength and resistance exercises at the gym. We discussed her decreasing muscle composition we discussed the importance of strength and resistance training and high-protein diet Patient takes multivitamins and also Vitamin B12 Reports constipation and occasional nausea and anxiety due to menopausal hot flashes at night. otherwise tolerating well and thriving utilizing bariatric multivitamins clotrimazole/betamethasone cream does help Intertriginous candidiasis from loose skin from weight loss PCP Gregory, [facility] Had gastric banding 10-15 years ago Per patient she had the band removed 2019 due to ulcer complication. Gastric sleeve 4 years ago. Has a f/u on 03/13/24 Has a Hx of Hypertenison to which she takes lisinopril Additionaly takes B12 Non-smoker ETOH use: family events 07/28/2024, Weight , BMI 07/21/2024, Weight lbs , BMI 05/26/2024, Weight 142lbs , BMI 25 04/07/2024, Weight 141lbs , BMI 25 02/27/2024, Weight 144 lbs, BMI 27 (-1 lbs) 01/16/2024, Weight 145lb, BMI (+1lb) 11/29/2023, Weight 144lbs , BMI 26 (-4lbs) 10/29/2023, Weight 148lbs , BMI 28 09/19/2023, Weight 149, BMI 28.1 (-1lbs) 08/07/2023, Weight 150lbs, BMI 27.6 (-2lbs) 06/26/23 weight 152, BMI 27.9 (-4lbs) 05/03/2023: Weight 156lbs, BMI 28, (-9lbs) 02/19/2023: Weight 165lbs , BMI 30 ( -18lbs) 12/21/2022: Weight 183lbs, BMI: 33 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 Comprehensive labs June 2023, [facility] CBC is stable Renal function electrolytes and LFTs are stable Triglycerides 78, total cholesterol 175, LDL 97, HDL 63. * ROS: A ll Other Systems: Review of Systems (ROS) A ll others negative except those mentioned in HPI. * Medications: T akingWegovy 2.4 MG/0.75ML Solution Auto-injector 2.4mg Subcutaneous weekly Clotrimazole-Betamethasone 1-0.05 % Cream 1 application Externally Twice a day Loratadine 10 MG Tablet TAKE 1 TABLET BY MOUTH EVERY DAY IN THE MORNING Oral Celecoxib 100 MG Capsule PLEASE SEE ATTACHED FOR DETAILED DIRECTIONS Oral Lisinopril 10 MG Tablet TAKE 1 TABLET BY MOUTH EVERY DAY Oral Taking Wegovy 2.4 MG/0.75ML Solution Auto-injector 2.4mg Subcutaneous weekly Taking Clotrimazole- Betamethasone 1-0.05 % Cream 1 application Externally Twice a day Taking Loratadine 10 MG Tablet TAKE 1 TABLET BY MOUTH EVERY DAY IN THE MORNING Oral Taking Celecoxib 100 MG Capsule PLEASE SEE ATTACHED FOR DETAILED DIRECTIONS Oral Taking Lisinopril 10 MG Tablet TAKE 1 TABLET BY MOUTH EVERY DAY Oral Not-TakingWegovy 1.7 MG/0.75ML Solution Auto-injector 0.75 mL Subcutaneous once weekly Not-Taking Wegovy 1.7 MG/0.75ML Solution Auto-injector 0.75 mL Subcutaneous once weekly Objective: * Examination: G eneral Examination: GENERAL APPEARANCE: i n no acute distress, well developed, well nourished. HEAD: n ormocephalic, atraumatic. EYES: p upils equal, round, reactive to light and accommodation. EARS: n ormal. ORAL CAVITY: m ucosa moist. THROAT: c lear. NECK/THYROID: n verónica supple, full range of motion, no cervical lymphadenopathy. SKIN: n o suspicious lesions, warm and dry. HEART: n o murmurs, regular rate and rhythm, S1, S2 normal.? LUNGS: c lear to auscultation bilaterally. ABDOMEN: n ormal, bowel sounds present, soft, nontender, nondistended. EXTREMITIES: n o clubbing, cyanosis, or edema. NEUROLOGIC: n onfocal, motor strength normal upper and lower extremities, sensory exam intact. Assessment: * Assessment: 1. O verweight - E66.3 (Primary) 2 . B LA 26.0-26.9,adult - Z68.26 ? 3 . D ietary counseling and surveillance - Z71.3 4 . H x of laparoscopic gastric banding - Z98.84 5 . E xcess skin of abdomen - L98.7 ? #Weight Management 07/28/2024 Lets update labs Discussed importance of creatine, protein, and resistance training for muscle building. She has signed up for a gym membership. She will stay on the Wegovy 2.4 weekly Otherwise thriving She will continue to use antifungal cream Total time spent today was 30 minutes of which greater than 50% was spent on coordinating and counseling Patient has been found to be overweight with a BMI of (26). Patient has overweight class per BMI standards We are a board certified obesity and weight management practice Of note, some information is being carried forward from prior records for informational purposes only and is being cited so that efficiency, safety and quality of the patient's care is not compromised This note was prepared using voice recognition software and direct typing Please excuse inadvertent tinner automatic or typing errors, or uncorrected word substitutions Although every attempt has been made by the provider to proofread this document, occasional misspellings and typographical errors may still be present Due to the previous pandemic, and the use of personal protective equipment (PPE) This may decrease voice recognition accuracy Inadvertent tinner automatic errors may occur. Plan: * Treatment: * Procedure Codes: 9 9199 NO SHOW OFFICE VISIT Billing Information: * Procedure Codes: 41265 NO SHOW OFFICE VISIT. * Electronic signature of TADEO PRESSLEY on 03/22/2025 at 08:39 AM EST Sign off status: Pending * Provider: Elijah PRESSLEY NP Date: 0 07/28/2024 Generated for Shantell whyte/Blossom/Gunjan on: 1 05/22/2024 08:39 AM EST
--- NOTE | 2025-03-22 08:24 | A.OFFVIS_ITS ---
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 Patient referred to orthopedics by PCP, per not tried Duloxetine for a week, which provided relief however upset her stomach. Today patient reports ambulation of stands, prolonged walking, standing and sitting increases the symptoms in her knees. She says she takes Celebrex & Tylenol Arthritis for relief however on cold days like today these do not help. She says she enjoys being active, used to dance a lot in the past however now she has to sit and observe due to her symptoms. Some days she experiences cracking and popping in the knees. Both equally as bad. Says her right hip to low back is in extreme pain from the knee pain she has as well. Says she can not try physical therapy because it is too expensive. Denies numbness and tingling. Pain located on anterior aspect of B/L knees radiating into hip. On Wegovy for weightloss to also try to help her knee pains. Allergies pineapple (PINEAPPLE) Allergy (Severe, Verified 03/22/25 08:29) ANAPHYLAXIS shellfish derived (SHELLFISH DERIVED) Allergy (Severe, Verified 03/22/25 08:29) ANAPHYLAXIS tramadol Allergy (Verified 03/22/25 08:29) Itching metronidazole (From Flagyl) Adverse Reaction (Mild, Verified 03/22/25 08:29) YEAST INFECTION Medication List - Last Reconciled 03/22/25 by Moncho Izquierdo PA-C albuterol sulfate 90 mcg/actuation (Proventil HFA) 1 inh inhalation QID azelastine-fluticasone 137-50 mcg/spray (Dymista) 1 spray intranasal BID bisacodyl (Dulcolax (bisacodyl)) 10 mg (2 x 5 mg) PO BEDTIME 2 days [celebrate MVI PO DAILY] celecoxib 100 mg PO cholecalciferol (vitamin D3) 25 mcg PO DAILY epinephrine 0.3 mg IM Q10M PRN famotidine (Pepcid) 40 mg PO BEDTIME fluticasone propionate 50 mcg/actuation 0 mcg intranasal DAILY lisinopril 10 mg PO DAILY loratadine (Allergy Relief (loratadine)) 10 mg PO DAILY peg 3350-electrolytes 236-22.74-6.74 -5.86 gram (Golytely) 240 mL PO Q10M 1 day semaglutide (weight loss) (Wegovy) 1 mg subcut QWEEK sennosides (senna) 17.2 mg (2 x 8.6 mg) PO BEDTIME 30 days triamcinolone acetonide 0.025% appl topical BID valacyclovir (Valtrex) 500 mg PO BID PRN HPI 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 She denies injury. She was seen in 2020 and had an injection, she does not recall if it was helpful or not. She did the [employer] walk in February, walked 2 miles and had significant discomfort. She states the following day she had pain in the knees. She states going up the stairs is worse than going down. She has not had PT . 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 [facility] Medical History (Updated 03/22/25 @ 09:21 by Moncho Izquierdo PA-C) Well woman exam with routine gynecological exam Hiatal hernia Hot flashes Diverticulitis Kidney stone Asthma HSV-1 infection Vitamin D deficiency Hypertension Surgical History Status post sleeve gastrectomy H/O esophagogastroduodenoscopy H/O colonoscopy H/O bariatric surgery H/O abdominoplasty H/O lithotripsy Family History Mother No problems noted. Father No problems noted. 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 No joint effusion present. She has full range of motion with significant crepitus bilaterally. No ligamentous laxity. Calf supple and nontender neurovascularly intact. Results Reviewed Results Reviewed: X-rays of both knees obtained in the office today and reviewed by me show medial joint space narrowing with patellofemoral arthritis. Assessment & Plan Assessment & Plan (1) Arthritis of both knees: Code(s): M17.0 - Bilateral primary osteoarthritis of knee Category: Medical Plan: We discussed options today which includes strengthening conditioning exercises to help with reducing load through the knees. I did give her a handout on some home exercises which she will work on. I also placed an order for a compounding cream along with Celebrex to her pharmacy. The patient will increase activity of the tolerated. If symptoms persist or worsen she can contact our office for a steroid injection otherwise she will follow up as needed. Orders: Orders XR Knee Paddy 3V Today M25.561 - Pain in right knee, M25.562 - Pain in left knee Coding Level of Care Code New Pt Level 3 (28604) Complex EM visit Add On G2211 Diagnoses Arthritis of both knees M17.0
[2025-03-22 08:29] VITALS: BMI 27.8
--- OUTSIDE RECORDS SUMMARY | 2025-03-22 08:39 | XMS_ITS | Encounter Summary ---
Author Organization [employer] Address [address] [place] [address] Care Team Providers Care Health Care Attorney Name Role Phone Yaritza Chapman MD Primary Care Provider [phone] Reason for Visit * Reason Comments Med Refill Encounter Details Date Type Department Care Team ([facility] Contact Info) Description 10/29/2023 Refill [facility] [address] [place] [address] Jarad Petty, KIRSTIE [address] [place] [address] Social History Tobacco Use Types Packs/Day Years [...] documented as of this encounter Care Teams Health Care Attorney Relationship Specialty Start Date End Date Yaritza Chapman MD [address] [place] [address] PCP - General Family Medicine 05/24/22 documented as of this encounter
--- OUTSIDE RECORDS SUMMARY | 2025-03-22 08:39 | XMS_ITS | Encounter Summary ---
Author Organization [employer] Address [address] [place] [address] Care Team Providers Care Mechanical Adjuster Name Role Phone Yaritza Chapman MD Primary Care Provider [phone] Encounter Details Date Type Department Care Team (Late st Contact Info) Description 09/23/2023 Orders Only [facility] [address] [place] [address] Provider, MD Jessi Social History Tobacco Use [...] (06/01/2024 9:48 AM EST) Color Urine Yellow [facility] Appearance Urine Clear [facility] PH 7.0 5.0 - 9.0 [facility] Glucose Urine UA Negative Negative mg/dL [facility] Urine Blood Negative Negative [facility] Specific [place] - Urine 1.020 1.005 - 1.025 [facility] Urine Protein Negative Neg-Trace mg/dL [facility] Urine Ketones Negative Negative mg/dL [facility] Nitrite Urine Negative Negative [facility] Leukocyte Esterase Urine Negative Negative [facility] 06/01/2024 9:48 AM EST 06/01/2024 9:53 AM EST Narrative [facility] - 06/01/2024 9:58 AM EST Urine, Clean Catch Generic External Data Provider LAB URINE ORDERAB LES Final Result Performing Organization Address [facility] Co de Phone Number [facility] [address] [place] [phone] SARS-CoV-2 RNA, Influenza A/B, and RSV RNA, Ql NAAT (06/01/2024 9:47 AM EST) Influenza A PCR NEGATIVE Negative [facility] Influenza B PCR NEGATIVE Negative [facility] Resp Syncy Virus RNA Qual PCR NEGATIVE Negative [facility] SARS COV2 PCR NEGATIVE Negative [facility] Comment:All test results mus t [...] use by authorized laboratories.Testing performed on the [employer] GeneXpert utilizingreal-time RT-PCR.All SARS CoV2 and positive influenza A/B results arereported to [facility]. 06/01/2024 9:47 AM EST 06/01/2024 9:53 AM EST us Generic External Data Provider LAB MICROBIOLOGY - GENERAL ORDERABLES Final Result Performing Organization Address [facility] Co de Phone Number [facility] [address] [place] [phone] * (ABNORMAL) CBC auto differential (06/01/2024 9:09 AM EST) White Blood Count 9.7 4.8 - 10.8 X10*3/uL [facility] Red Blood Count 4.28 4.20 - 5.50 X10*6/uL [facility] Hemoglobin 12.7 12.0 - 16.0 g/dl [facility] Hematocrit 37.8 37.0 - 47.0 % [facility] Mean Corpuscular Volume 88.3 80.0 - 98.0 fL [facility] Mean Corpuscular Hemoglobin 29.7 27.0 - 33.0 pg [facility] Mean Corpuscular HGB Conc 33.6 31.0 - 35.0 g/dl [facility] Red Cell Distribution Width 12.8 11.0 - 16.0 % [facility] Platelet Count 303 160 - 400 X10*3/uL [facility] Mean Platelet Volume 10.2 9.4 - 12.3 fL [facility] Neutrophils Percent Auto 76.7(H) 45 - 73 % [facility] Imm Gran Pct Auto 0.3 0.0 - 0.4 % [facility] Lymphocytes Percent Auto 15.3(L) 20 - 40 % [facility] Monocytes Percent Auto 6.4 2 - 11 % [facility] Eosinophils Percent Auto 0.7 0 - 4 % [facility] Basophils Percent Auto 0.6 0 - 2 % [facility] NRBC Pct Auto 0.0 0.0 - 0.2 /100WBC [facility] Neutrophils Absolute Auto 7.5 2.0 - 8.3 x10*3/uL [facility] Imm Gran Abs Auto 0.03 0.00 - 0.03 X10*3/uL [facility] Lymphocytes Absolute Auto 1.5 1.2 - 4.9 X10*3/uL [facility] Monocytes Absolute Auto 0.6 0.1 - 1.2 X10*3/uL [facility] Eosinophils Absolute Auto 0.1 0.0 - 0.4 X10*3/uL [facility] Basophils Absolute Auto 0.1 0.0 - 0.2 X10*3/uL [facility] NRBC Abs Auto 0.000 0.0 - 0.012 X10*3/uL [facility] 06/01/2024 9:09 AM EST 06/01/2024 9:11 AM EST Generic External Data Provider LAB BLOOD ORDERAB LES Final Result Performing Organization Address [facility]/ZIP Co de Phone Number [facility] [address] [place] [phone] * Lipase (06/01/2024 9:08 AM EST) Pathologist [facility] Lipase 37 8 - 78 U/L [facility] 06/01/2024 9:08 AM EST 06/01/2024 9:11 AM EST us Generic External Data Provider LAB BLOOD ORDERAB LES Final Result Performing Organization Address [facility] Co de Phone Number [facility] [address] [place] [phone] * Hepatic Function Panel (06/01/2024 9:08 AM EST) Pathologist [facility] Bilirubin, Direct 0.2 0.0 - 0.5 mg/dL [facility] 06/01/2024 9:08 AM EST 06/01/2024 9:11 AM EST us Generic External Data Provider LAB BLOOD ORDERAB LES Final Result Performing Organization Address [facility] de Phone Number [facility] [address] [place] [phone] * (ABNORMAL) Comprehensive Metabolic Panel (06/01/2024 9:08 AM EST) Sodium 141 135 - 145 mmol/L [facility] Potassium 4.1 3.3 - 5.1 mmol/L [facility] Chloride 108 96 - 108 mmol/L [facility] Carbon Dioxide 27 22 - 29 mmol/L [facility] Anion Gap 10(L) 12 - 20 [facility] Urea Nitrogen (BUN) 10 9 - 16 mg/dL [facility] Creatinine, Serum 0.75 0.5 - 1.4 mg/dL [facility] Creatinine Clr Calc Pharmacy 71.1 [facility] Comment:Provided height and weight: 154.94 cm,64.5 kg.eGFR (calculated from the MDRD study equation) and eCrCl(calculated from the Cockcroft-Gault equation) are based ondifferent parameters and may not yield comparable results.If eCrCl result is absurd, please check patient'sheight/weight. Estimated Glomerular Filt Rate >60 [facility] Comment:Chronic Kidney Disea se: Estimated GFR < 60 mL/min/1.44k6Cdylhc Kidney Disease: Estimated GFR < 15 mL/min/1.73m2 Glucose 84 60 - 115 mg/dL [facility] Calcium 10.0 8.4 - 10.2 mg/dL [facility] Bilirubin, Total 0.6 0.0 - 1.0 mg/dL [facility] Aspartate Amino Transferase 27 5 - 31 U/L [facility] Alanine Aminotransferase 16 0 - 31 U/L [facility] Total Protein 7.3 6.5 - 8.0 g/dL [facility] Albumin Level 4.0 3.5 - 5.0 g/dL [facility] Alkaline Phosphatase 91 39 - 117 U/L [facility] 06/01/2024 9:08 AM EST 06/01/2024 9:11 AM EST us Generic External Data Provider LAB BLOOD ORDERAB LES Final Result [facility] [address] [place] [phone] * Colonoscopy (07/20/2022 9:25 AM EST) us Historical Provider HEALTH MAINTENANCE Final Result * Hm Colonoscopy (03/28/2018 9:23 AM EST) us Historical Provider HEALTH MAINTENANCE Final Result documented in this encounter Visit Diagnoses Not on filedocumented in this encounter Additional Health Concerns Assessment Noted Time PHQ-9 Depression Total Score: 3 09/17/19 24 10:06 AM EDT documented as of this encounter Care Teams Mechanical Adjuster Relationship Specialty Start Date End Date Yaritza Chapman MD [address] [place] [phone] PCP - General Family Medicine 05/24/22 documented as of this encounter
--- OUTSIDE RECORDS SUMMARY | 2025-03-22 08:39 | XMS_ITS | Clinical Summary ---
Author Organization [address] [place] [address] Address [address] [place] [phone] Phone Care Team Providers Care Procedures Rn Name Role Phone Yaritza Chapman MD Primary Care Provider [phone] Social History Tobacco Use Types Packs/Day Years [...] patient's age to complete this topic Insurance [facility] Care Teams Procedures Rn Relationship Specialty Start Date End Date Yaritza Chapman MD [address] [place] [phone] PCP - General Research Lab Assistant 11/12/24
--- OUTSIDE RECORDS SUMMARY | 2025-03-22 08:39 | XMS_ITS | Patient Health Record ---
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 Name Role Phone JE PRESSLEY Unavailable [phone] CÉSAR KATHY Unavailable [phone] Allergies Allergen (clinical drug ingredient) Drug/Non Drug Allergy documented on EMR Reaction Allergy Type Onset Date Status pineapple allergenic extract Pineapple (Diagnostic) hives Drug Allergy Activ e Reason For Referral Reason from [facility] Diagnosis 1 Overweight (E66.3) Referred Organization [facility] 119 Referred Provider JE PRESSLEY Referred Address [address] [facility] [address] [place], [place],[address], Referred Provider Specialty Weight Manag ement Referral Priority Routine Diagnosis 1 Excess skin (L98.7) Referral Organization [facility] 119 Referring Provider First Name JE Referring Provider Last Name WENDIE Referring Provider Speciality Internal M edicine Referred Provider Specialty Surgery Clinical Notes Mya Jaramillo 2024 09:10:49 AM >pt will amke appt Referral Priority Routine Diagnosis 1 Other obesity due to excess calories (E66.09) Referred Organization [facility] 119 Referred Provider JE PRESSLEY Referred Address [address] [facility] [address] ,[place], [place],[address], Referred Provider Specialty Weight Manag ement Referral Priority Routine Medications Medication SIG (Take, Route, Fr equency, Duration) Notes Start Date End Date Status Loratadine 10 MG Tablet TAKE 1 TABLET BY MOUTH EVERY DAY IN THE MORNING Oral; Duration: 90 Days Active Celecoxib 100 MG Capsule PLEASE SEE INESSAPankaj BALLARD FOR DETAILED DIRECTIONS Oral; Duration: 45 Days Active Lisinopril 10 MG Tablet TAKE 1 TABLET BY MOUTH EVERY DAY Oral; Duration: 90 Days Acti ve Wegovy 2.4 MG/0.75ML Solution Auto-injector INJECT 2.4 MG (0.75 ML) SUBCUTANEOUSLY WEEKLY; Duration: 28 Active Clotrimazole-Betamethaso ne 1-0.05 % Cream 1 application Externally Twice a day; Duration: 30 days Active Social History Tobacco Use: Social History Observation Description Date Details (start date - stop date) Never Smoker NA - NA Social History Drugs/Alcohol: Social Info Question Answer Notes Drugs Have you used drugs other than those for medical reasons in the past 12 months? No Tobacco Use: Social Info Question Answer Notes Tobacco Use/Smoking Are you a nonsmoker Additional Details Category Social Info Options Details Drugs/Alcohol: Do you smoke marijuana? De nies Do you drink alcohol? No Problems Problem Type SNOMED Code ICD Code Onset Dates Problem Status W/U Status Risk Notes Problem Vitamin D deficiency (80203392) Vitamin D deficiency, unspecified (E55.9) Active confirmed Problem Obesity due to excess calories (874219387) Other obesity due to excess calories (E66.09) Active confirmed Problem Overweight (384481499) Overweight (E66.3) Active confirmed Problem Lipid screening (935538213) Encounter for screening for lipoid disorders (Z13.220) Active confirmed Problem Essential hypertension (10259554) Essential hypertension (I10) Active confirmed Problem Adult health examination (598181837) Adult general medical exam (Z00.00) Active confirmed Problem Kidney stone (81402498) Kidney stone (N20.0) Active confirmed Problem Diabetes mellitus screening (174157310) Diabetes mellitus screening (Z13.1) Active confirmed Problem Body mass index 30.00 to 34.99 (158437171725517 ) Body mass index [BMI] 32.0-32.9, adult (Z68.32) Active confirmed Problem Body mass index 25-29 - overweight (923152871) BMI 25.0-25.9,adult (Z68.25) Active confirmed Problem Body mass index 30+ - obesity (611575635) BMI 30.0-30.9,adult (Z68.30) Active confirmed Problem Overweight (717579101) Overweight (BMI 25.0-29.9) (E66.3) Active confirmed Problem Avitaminosis D (82527007) Avitaminosis D (E55.9) Active confirmed Problem Endocrine/[place] lic screening (169912844) Encounter for screening for endocrine disorder (Z13.29) Active confirmed Problem History of bariatric surgical procedure (469258596) Hx of laparoscopic gastric banding (Z98.84) Active confirmed Problem Dietary management surveillance (722339805) Nutritional counseling (Z71.3) Active confirmed Problem Excess skin of abdomen (L98.7) Active confirmed Vital Signs Heart Rate 71 /min 02/20/2025 Oximetry 97 % 02/20/2025 Blood pressure diastolic 60 mm Hg 02/20/2025 Height 62 in 02/20/2025 Blood pressure systolic 112 mm Hg 02/20/2025 Weight 144.2 lbs 02/20/2025 BMI 26.37 kg/m2 02/20/2025 Encounters Encounter Location Date Provider Diagnosis [facility] [address] [address] 04/07/2024 KATHY CÉSAR Overweight (BMI 25.0-29.9) E66.3 ; BMI 25.0-25.9,adult Z68.25 ; Essential hypertension I10 ; Hx of laparoscopic gastric banding Z98.84 and Nutritional counseling Z71.3 [facility] [address] [address] 05/26/2024 JE BORHOT Overweight E66.3 ; B [place] 26.0-26.9,adult Z68.26 ; Dietary counseling and surveillance Z71.3 ; Hx of laparoscopic gastric banding Z98.84 and Excess skin of abdomen L98.7 [facility] [address] [address] 08/24/2024 JE BORHOT Overweight E66.3 ; B [place] 25.0-25.9,adult Z68.25 ; Dietary counseling and surveillance Z71.3 ; Hx of laparoscopic gastric banding Z98.84 and Excess skin of abdomen L98.[address] [facility] [address] [place] [address] 10/10/2024 EJ BORHOT Overweight E66.3 ; B [place] 25.0-25.9,adult Z68.25 ; Dietary counseling and surveillance Z71.3 ; Hx of laparoscopic gastric banding Z98.84 ; Excess skin of abdomen L98.7 and Encounter for examination of blood pressure without abnormal findings Z01.[address] [facility] [address] [place] [address] 12/12/2024 JE BORHOT Overweight E66.3 ; B [place] 27.0-27.9,adult Z68.27 ; Dietary counseling and surveillance Z71.3 ; Hx of laparoscopic gastric banding Z98.84 ; Excess skin of abdomen L98.7 and Encounter for examination of blood pressure without abnormal findings Z01.[address] [facility] [address] [place] [address] 02/20/2025 JE BORHOT Overweight E66.3 ; B [place] 27.0-27.9,adult Z68.27 ; Dietary counseling and surveillance Z71.3 ; Hx of laparoscopic gastric banding Z98.84 ; Excess skin of abdomen L98.7 and Encounter for examination of blood pressure without abnormal findings Z01.30 [facility] [address] [address] 04/07/2024 JE BORHOT [facility] [address] [address] 05/21/2024 JE BORHOT [facility] [address] [facility] [address] [place] [address] 07/29/2024 JE BORHOT [facility] [address] [address] 08/24/2024 JE BORHOT [facility] [address] [address] 10/14/2024 JE BORHOT [facility] [address] [place] [address] 11/12/2024 JE BORHOT Overweight E66.3 [facility] [address] [address] 01/21/2025 JE BORHOT Assessments Encounter Date Diagnosis (ICD Code) Assessment Notes Treatment Notes Treatment Clinical Notes Section Notes 04/07/2024 BMI 25.0-25.9,adult (ICD-10 - Z68.25) Mary [...] reviewed. Dictation completed with the use of Surfly voice recognition software, prone to medical misidentifications [...] reviewed. Dictation completed with the use of Surfly voice recognition software, prone to medical misidentifications [...] minimum of 6 months The most recent [employer] clinical endocrinologists and [employer] endocrin[employer] guidelines recommend patients who [...] software and direct typing Please excuse inadvertent clerk to justice or typing errors, or uncorrected word substitutions Although every attempt has been made by the provider to proofread this document, occasional misspellings and typographical errors may still be present Due to the previous pandemic, and the use of personal protective equipment (PPE) This may decrease voice recognition accuracy Inadvertent clerk to justice errors may occur 05/26/2024 BMI 26.0-26.9,adult (ICD-10 [...] minimum of 6 months The most recent [employer] endocrinologists and [employer] endocrin[employer] guidelines recommend patients who [...] software and direct typing Please excuse inadvertent clerk to justice or typing errors, or uncorrected word substitutions Although every attempt has been made by the provider to proofread this document, occasional misspellings and typographical errors may still be present Due to the previous pandemic, and the use of personal protective equipment (PPE) This may decrease voice recognition accuracy Inadvertent clerk to justice errors may occur 08/24/2024 Overweight (ICD-10 - [...] software and direct typing Please excuse inadvertent clerk to justice or typing errors, or uncorrected word substitutions Although every attempt has been made by the provider to proofread this document, occasional misspellings and typographical errors may still be present Due to the previous pandemic, and the use of personal protective equipment (PPE) This may decrease voice recognition accuracy Inadvertent clerk to justice errors may occur 08/24/2024 BMI 25.0-25.9,adult (ICD-10 [...] software and direct typing Please excuse inadvertent clerk to justice or typing errors, or uncorrected word substitutions Although every attempt has been made by the provider to proofread this document, occasional misspellings and typographical errors may still be present Due to the previous pandemic, and the use of personal protective equipment (PPE) This may decrease voice recognition accuracy Inadvertent clerk to justice errors may occur 10/10/2024 Overweight (ICD-10 - E66.3) #Weight Management 10/10/2024 Follow-up on lab from [facility] She will continue 1.7 mg of [...] software and direct typing Please excuse inadvertent clerk to justice or typing errors, or uncorrected word substitutions Although every attempt has been made by the provider to proofread this document, occasional misspellings and typographical errors may still be present Due to the previous pandemic, and the use of personal protective equipment (PPE) This may decrease voice recognition accuracy Inadvertent clerk to justice errors may occur 10/10/2024 BMI 25.0-25.9,adult (ICD-10 - Z68.25) #Weight Management 10/10/2024 Follow-up on lab from [facility] She will continue 1.7 mg of [...] software and direct typing Please excuse inadvertent clerk to justice or typing errors, or uncorrected word substitutions Although every attempt has been made by the provider to proofread this document, occasional misspellings and typographical errors may still be present Due to the previous pandemic, and the use of personal protective equipment (PPE) This may decrease voice recognition accuracy Inadvertent clerk to justice errors may occur 11/12/2024 Overweight (ICD-10 - E66.3) 12/12/2024 Overweight (ICD-10 - E66.3) #Weight Management 12/12/2024 Follow-up on lab from [facility] Increase Wegovy to 2.4 mg Discussed importance [...] software and direct typing Please excuse inadvertent clerk to justice or typing errors, or uncorrected word substitutions Although every attempt has been made by the provider to proofread this document, occasional misspellings and typographical errors may still be present Due to the previous pandemic, and the use of personal protective equipment (PPE) This may decrease voice recognition accuracy Inadvertent clerk to justice errors may occur 12/12/2024 BMI 27.0-27.9,adult (ICD-10 - Z68.27) #Weight Management 12/12/2024 Follow-up on lab from [facility] Increase Wegovy to 2.4 mg Discussed importance [...] software and direct typing Please excuse inadvertent clerk to justice or typing errors, or uncorrected word substitutions Although every attempt has been made by the provider to proofread this document, occasional misspellings and typographical errors may still be present Due to the previous pandemic, and the use of personal protective equipment (PPE) This may decrease voice recognition accuracy Inadvertent clerk to justice errors may occur 02/20/2025 Overweight (ICD-10 - E66.3) #Weight Management 02/23/2025 Lets update some labs the other ones are somewhat limited and we have limited access to [facility] Continue 2.4 mg of Wegovy Discussed importance of creatine, protein, and resistance [...] software and direct typing Please excuse inadvertent clerk to justice or typing errors, or uncorrected word substitutions Although every attempt has been made by the provider to proofread this document, occasional misspellings and typographical errors may still be present Due to the previous pandemic, and the use of personal protective equipment (PPE) This may decrease voice recognition accuracy Inadvertent clerk to justice errors may occur 02/20/2025 BMI 27.0-27.9,adult (ICD-10 - Z68.27) #Weight Management 02/23/2025 Lets update some labs the other ones are somewhat limited and we have limited access to [facility] Continue 2.4 mg of Wegovy Discussed importance of creatine, protein, and resistance [...] software and direct typing Please excuse inadvertent clerk to justice or typing errors, or uncorrected word substitutions Although every attempt has been made by the provider to proofread this document, occasional misspellings and typographical errors may still be present Due to the previous pandemic, and the use of personal protective equipment (PPE) This may decrease voice recognition accuracy Inadvertent clerk to justice errors may occur 12/12/2024 Dietary counseling and surveillance (ICD-10 - Z71.3) #Weight Management 12/12/2024 Follow-up on lab from [facility] Increase Wegovy to 2.4 mg Discussed importance [...] software and direct typing Please excuse inadvertent clerk to justice or typing errors, or uncorrected word substitutions Although every attempt has been made by the provider to proofread this document, occasional misspellings and typographical errors may still be present Due to the previous pandemic, and the use of personal protective equipment (PPE) This may decrease voice recognition accuracy Inadvertent clerk to justice errors may occur 02/20/2025 Dietary counseling and surveillance (ICD-10 - Z71.3) #Weight Management 02/23/2025 Lets update some labs the other ones are somewhat limited and we have limited access to [facility] Continue 2.4 mg of Wegovy Discussed importance of creatine, protein, and resistance [...] software and direct typing Please excuse inadvertent clerk to justice or typing errors, or uncorrected word substitutions Although every attempt has been made by the provider to proofread this document, occasional misspellings and typographical errors may still be present Due to the previous pandemic, and the use of personal protective equipment (PPE) This may decrease voice recognition accuracy Inadvertent clerk to justice errors may occur 10/10/2024 Dietary counseling and surveillance (ICD-10 - Z71.3) #Weight Management 10/10/2024 Follow-up on lab from [facility] She will continue 1.7 mg of [...] software and direct typing Please excuse inadvertent clerk to justice or typing errors, or uncorrected word substitutions Although every attempt has been made by the provider to proofread this document, occasional misspellings and typographical errors may still be present Due to the previous pandemic, and the use of personal protective equipment (PPE) This may decrease voice recognition accuracy Inadvertent clerk to justice errors may occur 08/24/2024 Dietary counseling and [...] software and direct typing Please excuse inadvertent clerk to justice or typing errors, or uncorrected word substitutions Although every attempt has been made by the provider to proofread this document, occasional misspellings and typographical errors may still be present Due to the previous pandemic, and the use of personal protective equipment (PPE) This may decrease voice recognition accuracy Inadvertent clerk to justice errors may occur 05/26/2024 Dietary counseling and [...] minimum of 6 months The most recent [employer] of clinical endocrinologists and [employer] of endocrinology guidelines recommend patients who [...] software and direct typing Please excuse inadvertent clerk to justice or typing errors, or uncorrected word substitutions Although every attempt has been made by the provider to proofread this document, occasional misspellings and typographical errors may still be present Due to the previous pandemic, and the use of personal protective equipment (PPE) This may decrease voice recognition accuracy Inadvertent clerk to justice errors may occur 04/07/2024 Essential hypertension (ICD-10 [...] reviewed. Dictation completed with the use of Surfly voice recognition software, prone to medical misidentifications and grammatical errors. All errors are unintentional. Although the practitioner does try to identify and correct errors, some may be present. Please do not hesitate to contact the practitioner for clarification. Total time spent was 30 minutes with >50% on coordination of care and patient education. 04/07/2024 Hx of laparoscopic gastric banding (ICD-10 [...] reviewed. Dictation completed with the use of Surfly voice recognition software, prone to medical misidentifications [...] minimum of 6 months The most recent [employer] of clinical endocrinologists and [employer] endocrinology guidelines recommend patients who [...] software and direct typing Please excuse inadvertent clerk to justice or typing errors, or uncorrected word substitutions Although every attempt has been made by the provider to proofread this document, occasional misspellings and typographical errors may still be present Due to the previous pandemic, and the use of personal protective equipment (PPE) This may decrease voice recognition accuracy Inadvertent clerk to justice errors may occur 08/24/2024 Hx of laparoscopic [...] software and direct typing Please excuse inadvertent clerk to justice or typing errors, or uncorrected word substitutions Although every attempt has been made by the provider to proofread this document, occasional misspellings and typographical errors may still be present Due to the previous pandemic, and the use of personal protective equipment (PPE) This may decrease voice recognition accuracy Inadvertent clerk to justice errors may occur 10/10/2024 Hx of laparoscopic gastric banding (ICD-10 - Z98.84) #Weight Management 10/10/2024 Follow-up on lab from [facility] She will continue 1.7 mg of [...] software and direct typing Please excuse inadvertent clerk to justice or typing errors, or uncorrected word substitutions Although every attempt has been made by the provider to proofread this document, occasional misspellings and typographical errors may still be present Due to the previous pandemic, and the use of personal protective equipment (PPE) This may decrease voice recognition accuracy Inadvertent clerk to justice errors may occur 12/12/2024 Hx of laparoscopic gastric banding (ICD-10 - Z98.84) #Weight Management 12/12/2024 Follow-up on lab from [facility] Increase Wegovy to 2.4 mg Discussed importance [...] software and direct typing Please excuse inadvertent clerk to justice or typing errors, or uncorrected word substitutions Although every attempt has been made by the provider to proofread this document, occasional misspellings and typographical errors may still be present Due to the previous pandemic, and the use of personal protective equipment (PPE) This may decrease voice recognition accuracy Inadvertent clerk to justice errors may occur 02/20/2025 Hx of laparoscopic gastric banding (ICD-10 - Z98.84) #Weight Management 02/23/2025 Lets update some labs the other ones are somewhat limited and we have limited access to [facility] Continue 2.4 mg of Wegovy Discussed importance of creatine, protein, and resistance [...] software and direct typing Please excuse inadvertent clerk to justice or typing errors, or uncorrected word substitutions Although every attempt has been made by the provider to proofread this document, occasional misspellings and typographical errors may still be present Due to the previous pandemic, and the use of personal protective equipment (PPE) This may decrease voice recognition accuracy Inadvertent clerk to justice errors may occur 02/20/2025 Excess skin of abdomen (ICD-10 - L98.7) #Weight Management 02/23/2025 Lets update some labs the other ones are somewhat limited and we have limited access to [facility] Continue 2.4 mg of Wegovy Discussed importance of creatine, protein, and resistance [...] software and direct typing Please excuse inadvertent clerk to justice or typing errors, or uncorrected word substitutions Although every attempt has been made by the provider to proofread this document, occasional misspellings and typographical errors may still be present Due to the previous pandemic, and the use of personal protective equipment (PPE) This may decrease voice recognition accuracy Inadvertent clerk to justice errors may occur 12/12/2024 Excess skin of abdomen (ICD-10 - L98.7) #Weight Management 12/12/2024 Follow-up on lab from [facility] Increase Wegovy to 2.4 mg Discussed importance [...] software and direct typing Please excuse inadvertent clerk to justice or typing errors, or uncorrected word substitutions Although every attempt has been made by the provider to proofread this document, occasional misspellings and typographical errors may still be present Due to the previous pandemic, and the use of personal protective equipment (PPE) This may decrease voice recognition accuracy Inadvertent clerk to justice errors may occur 10/10/2024 Excess skin of abdomen (ICD-10 - L98.7) #Weight Management 10/10/2024 Follow-up on lab from [facility] She will continue 1.7 mg of [...] software and direct typing Please excuse inadvertent clerk to justice or typing errors, or uncorrected word substitutions Although every attempt has been made by the provider to proofread this document, occasional misspellings and typographical errors may still be present Due to the previous pandemic, and the use of personal protective equipment (PPE) This may decrease voice recognition accuracy Inadvertent clerk to justice errors may occur 08/24/2024 Excess skin of [...] software and direct typing Please excuse inadvertent clerk to justice or typing errors, or uncorrected word substitutions Although every attempt has been made by the provider to proofread this document, occasional misspellings and typographical errors may still be present Due to the previous pandemic, and the use of personal protective equipment (PPE) This may decrease voice recognition accuracy Inadvertent clerk to justice errors may occur 05/26/2024 Excess skin of [...] minimum of 6 months The most recent [employer] of clinical endocrinologists and [employer]ocrin[employer] guidelines recommend patients who [...] software and direct typing Please excuse inadvertent clerk to justice or typing errors, or uncorrected word substitutions Although every attempt has been made by the provider to proofread this document, occasional misspellings and typographical errors may still be present Due to the previous pandemic, and the use of personal protective equipment (PPE) This may decrease voice recognition accuracy Inadvertent clerk to justice errors may occur 04/07/2024 Nutritional counseling (ICD-10 [...] reviewed. Dictation completed with the use of Surfly voice recognition software, prone to medical misidentifications and grammatical errors. All errors are unintentional. Although the practitioner does try to identify and correct errors, some may be present. Please do not hesitate to contact the practitioner for clarification. Total time spent was 30 minutes with >50% on coordination of care and patient education. 10/10/2024 Encounter for examination of blood pressure without abnormal findings (ICD-10 - Z01.30) #Weight Management 10/10/2024 Follow-up on lab from [facility] She will continue 1.7 mg of [...] software and direct typing Please excuse inadvertent clerk to justice or typing errors, or uncorrected word substitutions Although every attempt has been made by the provider to proofread this document, occasional misspellings and typographical errors may still be present Due to the previous pandemic, and the use of personal protective equipment (PPE) This may decrease voice recognition accuracy Inadvertent clerk to justice errors may occur 12/12/2024 Encounter for examination of blood pressure without abnormal findings (ICD-10 - Z01.30) #Weight Management 12/12/2024 Follow-up on lab from [facility] Increase Wegovy to 2.4 mg Discussed importance [...] software and direct typing Please excuse inadvertent clerk to justice or typing errors, or uncorrected word substitutions Although every attempt has been made by the provider to proofread this document, occasional misspellings and typographical errors may still be present Due to the previous pandemic, and the use of personal protective equipment (PPE) This may decrease voice recognition accuracy Inadvertent clerk to justice errors may occur 02/20/2025 Encounter for examination of blood pressure without abnormal findings (ICD-10 - Z01.30) #Weight Management 02/23/2025 Lets update some labs the other ones are somewhat limited and we have limited access to [facility] Continue 2.4 mg of [place] Discussed importance of creatine, protein, and resistance [...] software and direct typing Please excuse inadvertent clerk to justice or typing errors, or uncorrected word substitutions Although every attempt has been made by the provider to proofread this document, occasional misspellings and typographical errors may still be present Due to the previous pandemic, and the use of personal protective equipment (PPE) This may decrease voice recognition accuracy Inadvertent clerk to justice errors may occur Plan Of Treatment Pending Test Test Name Order Date LIPID PANEL, STANDARD 06/26/2023 LIPID PANEL, STANDARD 05/26/2024 LIPID PANEL, STANDARD 02/20/2025 COMPREHENSIVE METABOLIC PANEL 02/20/2025 COMPREHENSIVE METABOLIC PANEL 05/26/2024 COMPREHENSIVE METABOLIC PANEL 06/26/2023 CBC (INCLUDES DIFF/PLT) 06/26/2023 CBC (INCLUDES DIFF/PLT) 05/26/2024 CBC (INCLUDES DIFF/PLT) 02/20/2025 URINALYSIS, COMPLETE 05/26/2024 URINALYSIS, COMPLETE 02/20/2025 HEMOGLOBIN A1c 02/20/2025 HEMOGLOBIN A1c 05/26/2024 TSH 05/26/2024 TSH W/REFLEX TO FT4 02/20/2025 VITAMIN D,25-OH,TOTAL,IA 02/20/2025 VITAMIN D,25-OH,TOTAL,IA 05/26/2024 Next Appt Details Provider Name:JE PRESSLEY, 04/03/2025 09:30:00 AM, [address], [place], [address], Insurance Providers Payer Name Payer Address Payer Phone Subscriber Number Group Number Insured Name Patient Relationship to Insured Coverage Start Date Coverage End Date [facility] [address] [place] [address] [phone] [id number] Mary Edmonds Self - patient is [...]
--- OUTSIDE RECORDS SUMMARY | 2025-03-22 08:40 | XMS_ITS | Encounter Summary ---
Author Organization [employer] Address [address] [facility] 7t [place] [address] Care Team Providers Care Ribbon Lapper Tender Name Role Phone Yaritza Chapman MD Primary Care Provider [phone] Reason for Visit * Reason Onset Date Comments Prior Authorization 11/01/2022 Encounter Details Date Type Department Care Team ([facility] st Contact Info) Description 11/01/2022 Telephone [facility] ADULT DENTAL [address] [place] [address] Jarad Petty, DMD [address] [place] [address] Prior Authorization Social History Tobacco Use Types [...] on filedocumented in this encounter Care Teams Ribbon Lapper Tender Relationship Specialty Start Date End Date Yaritza Chapman MD [address] [place] [address] PCP - General Family Medicine 05/24/22 documented as of this encounter
--- OUTSIDE RECORDS SUMMARY | 2025-03-22 08:40 | XMS_ITS | Encounter Summary ---
Author Organization [employer] Address [address] [facility] [address] [place] [address] Care Team Providers Care Rim Buster Name Role Phone Yaritza Chapman MD Primary Care Provider [phone] Reason for Visit * Reason Comments Med Refill Encounter Details Date Type Department Care Team ([facility] Contact Info) Description 10/01/2023 Refill [facility] ADULT DENTAL [address] [place] [address] Jarad Petty, KIRSTIE [address] [place] [address] Social History Tobacco Use Types Packs/Day Years [...] documented as of this encounter Care Teams Rim Buster Relationship Specialty Start Date End Date Yaritza Chapman MD [address] [place] [address] PCP - General Family Medicine 05/24/22 documented as of this encounter
--- OUTSIDE RECORDS SUMMARY | 2025-03-22 08:40 | XMS_ITS | Clinical Summary ---
Author Organization [employer] Address [address] [facility] 7t [place] [address] Care Team Providers Care Interior Wirer Name Role Phone Yaritza Chapman MD Primary Care Provider [phone] Allergies Active Allergy Reactions Criticality Noted Date Comments Pineapple Hives 06/27/2022 Other reaction(s): hives Shellfish Protein-Containing Drug Products Hives 06/27/2022 Tramadol Hives 06/27/2022 Medications Blood Pressure Monitoring [...] 24 Active sodium chloride ([facility] Saline Nasal [place]) 0.65 % nasal sprayIndications:A llergic rhinitis, unspecified [...] topically at bedtime. 60 mL 1 01/02/20 Active celecoxib (CeleBREX) 200 MG capsuleIndications :Primary [...] lung cancer is ongoing, this recent study (https://www.ncbi.nlm.nih.gov/pmc/articles/PBL6354876/) suggests four biomarkers in combination can give [...] as tolerated She will inform me via hybrishart of her pain in 3-4 months Assessment [...] Description 02/11/2025 8:40 AM EDT Office Visit [facility] [address] [place] [address] Guzman Saleem MD Right ankle swelling (Primary Dx) 02/11/2025 Travel 01/01/2025 11:15 AM EDT Office Visit [facility] [address] [place] [address] Yaritza Chapman MD Excess skin of arm (Primary Dx); Mild intermittent asthma without complication; Dietary counseling; Exercise counseling; Overweight; Primary osteoarthritis of both knees; Allergic rhinitis, unspecified seasonality, unspecified trigger 01/01/2025 Travel 12/31/2024 Telephone [facility] [address] [place] [address] Yaritza Chapman MD chart prep 12/28/2024 Travel [...] AM EDT Narrative 02/11/2025 9:40 AM EDT [address] [address] XRay Report Signed Patient: Mary Edmonds MR#: [id number] : 1965 Acct:[id number] Age/Sex: 59 / F ADM Date: 02/11/25 Loc: DORCASX Attending Dr: Guzman Saleem MD Ordering Physician: Guzman Saleem MD Date of Service: 02/11/25 Procedure(s): XR ankle RT min 3V Accession Number(s): [id number] cc: Guzman Saleem MD Reason for Exam: [...] in OV> 02/11/25936 DD/ 6 TD/TT: 02/11/25926 Overhead Irrigator: Procedure Note Donotuseinterpreter, Image - 02/11/2025 [place] [address] XRay Report Signed Patient: Mary Edmonds#: [id number] : 1965Acct:[id number] Age/Sex: 59 / FADM Date: 02/11/25 Loc: JAYLENCX Attending Dr: Guzman Saleem MD Ordering Physician: Guzman Saleem MD Date of Service: 02/11/25 Procedure(s): XR ankle RT min 3V Accession Number(s): [id number] cc: Guzman Saleem MD Reason for Exam: [...] MDin OV> 02/11/25936 DD/ 6 TD/TT: 02/11/25926 Overhead Irrigator: Guzman Saleem MD IMG XR PROCEDURES Edited Result - Final * BI Mammogram Screening Tomosynthesis Bilateral (12/04/2023 7:34 AM EDT) Anatomical Region Laterality Modality Breast Bilateral Mammography 12/04/2023 7:34 AM EDT Narrative 12/18/2023 4:57 PM EDT [facility] [address] [place] [address] Mammography Report Signed Patient: Mary Edmonds MR#: [id number] : 1965 Acct:[id number] Age/Sex: 58 / F ADM Date: 12/04/23 Loc: HO.MAMMO Attending Dr: Yaritza Chapman MD Ordering Physician: Yaritza Chapman Results: 1Negative Date of Service: 12/04/23 Follow Up: 1 Year From [facility] ina Mammogram Procedure(s): MM tomosynthesis screening BI Accession Number(s): [id number] cc: Yaritza Chapman EXAMINATION: MM SCREENING DIGITAL [...] in OV> 12/18/23 1653 DD/ 0734 TD/TT: Overhead Irrigator: Procedure Note Donotuseinterpreter, Image - 12/18/2023 [facility] [address] [place] [address] Mammography Report Signed Patient: Mary EdmondsMR#: [id number] : 1965Acct:[id number] Age/Sex: 58 / FADM Date: 12/04/23 Loc: OSMANI Attending Dr: Yaritza Chapman MD Ordering Physician: Brenda Chapmanults: 1Negative Date of Service: 12/04/23Follow Up: 1 Year From Orig inal Mammogram Procedure(s): MM tomosynthesis screening BI Accession Number(s): [id number] cc: Yaritza Chapman EXAMINATION: MM SCREENING DIGITAL [...] in OV> 12/18/23 1653 DD/ 0734 TD/TT: Overhead Irrigator: Yaritza Chapman MD IMG BI PROCEDURES Final Result * Hm Colonoscopy (07/20/2022 9:25 AM EST) Historical Provider HEALTH MAINTENANCE Final Result * HPV E6/E7 RFLX ABY 16 18/45 (07/28/2021 8:41 AM EDT) HPV mRNA E6/E7 rflx Not Detected Not Detected [facility] Comment: Methodology: Closer On-Mediated Amplification This assay detects E6/E7 viral messenger RNA (mRNA) from 14 high-risk HPV types (16,18,31,33,35,39,45,51,52,56,58,59,66,68). The analytical performance characteristics of this assay have been determined by [employer]. The modifications have not been cleared or approved by the FDA. This assay has been validated pursuant to the CLIA regulations and is used for clinical purposes. For additional information, please refer to http://education.MuckRock/faq/HYX920g4 (This link if provided for information/ educational purposes only.) THIS TEST WAS PERFORMED AT: [facility] [address] [place] [address] [address],[place] [address] IRASEMA DIAS MD 07/28/2021 8:41 AM EDT Nandini Miranda HISTORICAL/NON ORDERABLE LABS Fi nal Result [facility] [address] * Pap Smear (07/28/2021 12:00 AM EDT) Swab Historical Provider LAB CYTOLOGY ORDERABLES F inal Result [facility] [address] [facility], [facility], [place] [address] * LIPID PANEL, STANDARD (06/13/2020 8:16 AM [...] LDL-C. Chandra SS et al. CARLOTA. 2013;310(19): 1792-3553 (http://education.[employer].BRANDiD - Shop. Like a Man./faq/IRH606) Non-HDL Cholesterol 95 <130 mg/dL (calc) [facility] Comment: For patients with diabetes plus 1 major ASCVD risk factor, treating to a non-HDL-C goal of <100 mg/dL (LDL-C of <70 mg/dL) is considered a therapeutic option. Triglycerides 89 <150 mg/dL [facility] 06/13/2020 8:16 AM EST Inderjit Lozano MD LAB BLOOD ORDERABLES Final R esult [facility] [address] from Last 3 Months or Most Recently Relevant to Health Maintenance Insurance [employer] [place] [facility] STAND ADULT Care Teams Interior Wirer Relationship Specialty Start Date End Date Yaritza Chapman MD [address] [place] [address] PCP - General Family Medicine 05/24/22
--- OUTSIDE RECORDS SUMMARY | 2025-03-22 08:40 | XMS_ITS | Encounter Summary ---
Author Organization [employer] Address [address] [facility] 7t [place] [address] Care Team Providers Care Jitney Driver Name Role Phone Yaritza Chapman MD Primary Care Provider [phone] Reason for Visit * Reason Onset Date Comments antibiotics 03/06/2023 Encounter Details Date Type Department Care Team ([facility] Contact Info) Description 03/06/2023 Telephone [facility] ADULT DENTAL [address] [place] [address] Jarad Petty, DMD [address] [place] [address] antibiotics Social History Tobacco Use Types Packs/Day [...] on filedocumented in this encounter Care Teams Jitney Driver Relationship Specialty Start Date End Date Yaritza Chapman MD [address] [place] [address] PCP - General Family Medicine 05/24/22 documented as of this encounter
--- OUTSIDE RECORDS SUMMARY | 2025-03-22 08:40 | XMS_ITS | Clinical Summary ---
Author Organization [facility] Address [address] [place] [address] Phone Care Team Providers Care Rate Examiner Name Role Phone Yaritza Chapman MD Primary [...] 2016 INFLUENZA VACCINE (#1) 2024 COVID-19 VACCINE ( - 2024-2 6 season) 2025 RSV VACCINE (1 - 1-dose 75+ series) 2041 HEPATITIS A VACCINES Aged Out No long [...] topic Medical Devices Not on file Insurance [facility] Care Teams Rate Examiner Relationship Specialty Start Date End Date Yaritza Chapman MD PCP - General Family Medicine 12/30/23 Additional Source Comments The information contained in this document represents components of the legal health record. It is not the complete legal health record.[facility]
== END 2025-03-22 08:54 | disposition home or self-care (01) ==
LOC: HO.HOS 08:15
PROVIDERS: PCP General Practice; Visit Provider Physician Assistant
DX: M17.0 Bilateral primary osteoarthritis of knee (principal)
CPT/HCPCS: 99203

== ENCOUNTER → 2025-03-22 08:18 | Outpatient (BNV) | payer BC, SELFPAY | PROVIDERS: Visit Provider Radiology Diagnostic Ultrasound | DX: M25.561 Pain in right knee (principal); M25.562 Pain in left knee | CPT/HCPCS: 73562 ==

== ENCOUNTER 2025-03-22 08:42 | Outpatient (REF) | payer BC, SELFPAY ==
--- OUTSIDE RECORDS SUMMARY | 2024-07-28 10:15 | XMS_ITS ---
Author Organization [facility] [address] Address [address] [place] [address] Care Team Providers Care Coke Oven Mason Name Role Phone JE PRESSLEY Unavailable [phone] Medications Medication SIG (Take, Route, Frequency, Duration) [...] Active Encounters Encounter Location Date Provider Diagnosis [facility] [address] [address] 07/28/2024 JE PRESSLEY Overweight E66.3 ; B WI 26.0-26.9,adult Z68.26 ; Dietary counseling and surveillance [...] software and direct typing Please excuse inadvertent trimmer meat or typing errors, or uncorrected word substitutions Although every attempt has been made by the provider to proofread this document, occasional misspellings and typographical errors may still be present Due to the previous pandemic, and the use of personal protective equipment (PPE) This may decrease voice recognition accuracy Inadvertent trimmer meat errors may occur 07/28/2024 BMI 26.0-26.9,adult (ICD-10 [...] software and direct typing Please excuse inadvertent trimmer meat or typing errors, or uncorrected word substitutions Although every attempt has been made by the provider to proofread this document, occasional misspellings and typographical errors may still be present Due to the previous pandemic, and the use of personal protective equipment (PPE) This may decrease voice recognition accuracy Inadvertent trimmer meat errors may occur 07/28/2024 Dietary counseling and [...] software and direct typing Please excuse inadvertent trimmer meat or typing errors, or uncorrected word substitutions Although every attempt has been made by the provider to proofread this document, occasional misspellings and typographical errors may still be present Due to the previous pandemic, and the use of personal protective equipment (PPE) This may decrease voice recognition accuracy Inadvertent trimmer meat errors may occur 07/28/2024 Hx of laparoscopic [...] software and direct typing Please excuse inadvertent trimmer meat or typing errors, or uncorrected word substitutions Although every attempt has been made by the provider to proofread this document, occasional misspellings and typographical errors may still be present Due to the previous pandemic, and the use of personal protective equipment (PPE) This may decrease voice recognition accuracy Inadvertent trimmer meat errors may occur 07/28/2024 Excess skin of [...] software and direct typing Please excuse inadvertent trimmer meat or typing errors, or uncorrected word substitutions Although every attempt has been made by the provider to proofread this document, occasional misspellings and typographical errors may still be present Due to the previous pandemic, and the use of personal protective equipment (PPE) This may decrease voice recognition accuracy Inadvertent trimmer meat errors may occur Plan Of Treatment Medication Medication Name Sig Start Date Stop Date Notes Clotrimazole-Betamethasone 1-0.05 % Cream 1 application Externally Twice a day; Duration: 30 days Wegovy 2.4 MG/0.75ML Solution Auto-injector 2.4mg Subcutaneous weekly; Duration: 30 days Next Appt Details Provider Name:JE PRESSLEY, 04/03/2025 09:30:00 AM, [address] [place] [address], [place], [phone], History and Physical Notes * HPI (History [...] go eating and traveling a lot to [facility] to see him q 2 weeks Patient [...] loose skin from weight loss PCP Gregory, [facility] Had gastric banding 10-15 years [...] 183lbs, BMI: 33 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 Comprehensive labs [facility] CBC is stable Renal function electrolytes and LFTs are stable Triglycerides 78, total cholesterol 175, LDL 97, HDL 63 Examination Category Sub-Category Detail Notes Category Not es General Examination GENERAL APPEARANCE: in no ac atka distress, well developed, well nourished HEAD: normocephalic, [...] Mary ORTIZ NDOB :1965 (59 yo F)Acc No.[id number]:07/28/2024 Patient: Mary Corral N Provider: Elijah PRESSLEY NP :1965 A ge:59 Y S ex:Female Date:07/28/2024 Address:[address] [place], [place] [phone] Subjective: * Chief Complaints: * HPI: C [...] go eating and traveling a lot to [facility] to see him q 2 weeks Patient [...] loose skin from weight loss PCP Gregory, [facility] Had gastric banding 10-15 years [...] 183lbs, BMI: 33 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 Comprehensive labs June 2023, [facility] CBC is stable Renal function electrolytes [...] verweight - E66.3 (Primary) 2 . B WI 26.0-26.9,adult - Z68.26 ? 3 . D [...] software and direct typing Please excuse inadvertent trimmer meat or typing errors, or uncorrected word substitutions Although every attempt has been made by the provider to proofread this document, occasional misspellings and typographical errors may still be present Due to the previous pandemic, and the use of personal protective equipment (PPE) This may decrease voice recognition accuracy Inadvertent trimmer meat errors may occur. Plan: * Treatment: * Procedure Codes: 9 9199 NO SHOW OFFICE VISIT Billing Information: * Procedure Codes: 69728 NO SHOW OFFICE VISIT. * Electronic signature of TADEO PRESSLEY on 03/23/2025 at 08:53 AM EST Sign off status: Pending * Provider: Elijah PRESSLEY NP Date: 0 07/28/2024 Generated for Shantell whyte/Blossom/Gunjan on: 1 05/23/2024 08:53 AM EST
--- NOTE | ~2025-03-22 | XR_ITS ---
EXAMINATION: X-ray bilateral knees CLINICAL INFORMATION: Pain COMPARISON: X-ray 03/20/2024 TECHNIQUE: AP bilateral knees one view. Right knee 2 views. Left knee 2 views. FINDINGS: [Left knee: No acute fracture, dislocation or suspicious bone lesion. Medial and lateral compartment joint space is maintained. Apparent narrowing of the patellofemoral femoral joint space. No significant effusion. No abnormal soft tissue calcification. Right knee: No acute fracture, dislocation or suspicious bony lesion. Apparent narrowing of the patellofemoral joint space. Remainder of the joint space is maintained. No significant effusion. No abnormal soft tissue calcification XR/XR Knee Paddy 3V IMPRESSION: Left knee: Mild patellofemoral arthritis. Right knee: Mild patellofemoral arthritis. Electronically signed by: Evaristo Cadena MD 03/22/2025 02:39 PM [facility]
--- OUTSIDE RECORDS SUMMARY | 2025-03-23 08:53 | XMS_ITS | Encounter Summary ---
Author Organization [employer] Address [address] [facility] 7t [place] [address] Care Team Providers Care Color Buffer Name Role Phone Yaritza Chapman MD Primary Care Provider [phone] Reason for Visit * Reason Onset Date Comments Prior Authorization 11/01/2022 Encounter Details Date Type Department Care Team ([facility] st Contact Info) Description 11/01/2022 Telephone [facility] ADULT DENTAL [address] [place] [address] Jarad Petty, DMD [address] [place] [address] Prior Authorization Social History Tobacco Use Types [...] on filedocumented in this encounter Care Teams Color Buffer Relationship Specialty Start Date End Date Yaritza Chapman MD [address] [place] [address] PCP - General Family Medicine 05/24/22 documented as of this encounter
--- OUTSIDE RECORDS SUMMARY | 2025-03-23 08:53 | XMS_ITS | Patient Health Record ---
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 Name Role Phone JE PRESSLEY Unavailable [phone] CÉSAR KATHY Unavailable [phone] Allergies Allergen (clinical drug ingredient) Drug/Non Drug Allergy documented on EMR Reaction Allergy Type Onset Date Status pineapple allergenic extract Pineapple (Diagnostic) hives Drug Allergy Activ e Reason For Referral Reason from [place] Diagnosis 1 Overweight (E66.3) Referred Organization [facility] 119 Referred Provider JE PRESSLEY Referred Address [address] [facility] [address] [place], [place],[address], Referred Provider Specialty Weight Manag ement Referral Priority Routine Diagnosis 1 Excess skin (L98.7) Referral Organization [facility] 119 Referring Provider First Name JE Referring Provider Last Name WENDIE Referring Provider Speciality Internal M edicine Referred Provider Specialty Surgery Clinical Notes Mya Jaramillo 2024 09:10:49 AM >pt will amke appt Referral Priority Routine Diagnosis 1 Other obesity due to excess calories (E66.09) Referred Organization [facility] 119 Referred Provider JE PRESSLEY Referred Address [address] [facility] [address] ,[place], [place],[address], Referred Provider Specialty Weight Manag ement Referral [...] Status Risk Notes Problem Vitamin D deficiency (60050879) Vitamin D deficiency, unspecified (E55.9) Active confirmed Problem Obesity due to excess calories (266159044) Other obesity due to excess calories (E66.09) Active confirmed Problem Overweight (794342044) Overweight (E66.3) Active confirmed Problem Lipid screening (278253033) Encounter for screening for lipoid disorders (Z13.220) Active confirmed Problem Essential hypertension (68555359) Essential hypertension (I10) Active confirmed Problem Adult health examination (943677716) Adult general medical exam (Z00.00) Active confirmed Problem Kidney stone (70923632) Kidney stone (N20.0) Active confirmed Problem Diabetes mellitus screening (306303537) Diabetes mellitus screening (Z13.1) Active confirmed Problem Body mass index 30.00 to 34.99 (697131441503470 ) Body mass index [BMI] 32.0-32.9, adult (Z68.32) Active confirmed Problem Body mass index 25-29 - overweight (047923332) BMI 25.0-25.9,adult (Z68.25) Active confirmed Problem Body mass index 30+ - obesity (111995697) BMI 30.0-30.9,adult (Z68.30) Active confirmed Problem Overweight (402904621) Overweight (BMI 25.0-29.9) (E66.3) Active confirmed Problem Avitaminosis D (68613670) Avitaminosis D (E55.9) Active confirmed Problem Endocrine/met[place] lic screening (010930715) Encounter for screening for endocrine disorder (Z13.29) Active confirmed Problem History of bariatric surgical procedure (840276921) Hx of laparoscopic gastric banding (Z98.84) Active confirmed Problem Dietary management surveillance (094996488) Nutritional counseling (Z71.3) Active confirmed Problem Excess skin of abdomen (L98.7) Active confirmed Vital Signs Heart Rate 71 /min 02/20/2025 Oximetry 97 % 02/20/2025 Blood pressure diastolic 60 mm Hg 02/20/2025 Height 62 in 02/20/2025 Blood pressure systolic 112 mm Hg 02/20/2025 Weight 144.2 lbs 02/20/2025 BMI 26.37 kg/m2 02/20/2025 Encounters Encounter Location Date Provider Diagnosis [facility] [address] [address] 04/07/2024 KATHY CÉSAR Overweight (BMI 25.0-29.9) E66.3 ; BMI 25.0-25.9,adult Z68.25 ; Essential hypertension I10 ; Hx of laparoscopic gastric banding Z98.84 and Nutritional counseling Z71.3 [facility] [address] [address] 05/26/2024 JE BORHOT Overweight E66.3 ; B DC 26.0-26.9,adult Z68.26 ; Dietary counseling and surveillance Z71.3 ; Hx of laparoscopic gastric banding Z98.84 and Excess skin of abdomen L98.7 [facility] [address] [address] 08/24/2024 JE BORHOT Overweight E66.3 ; B DC 25.0-25.9,adult Z68.25 ; Dietary counseling and surveillance Z71.3 ; Hx of laparoscopic gastric banding Z98.84 and Excess skin of abdomen L98.[address] [facility] [address] [place] [address] 10/10/2024 JE BORHOT Overweight E66.3 ; B DC 25.0-25.9,adult Z68.25 ; Dietary counseling and surveillance Z71.3 ; Hx of laparoscopic gastric banding Z98.84 ; Excess skin of abdomen L98.7 and Encounter for examination of blood pressure without abnormal findings Z01.[address] [facility] [address] [place] [address] 12/12/2024 JE BORHOT Overweight E66.3 ; B DC 27.0-27.9,adult Z68.27 ; Dietary counseling and surveillance Z71.3 ; Hx of laparoscopic gastric banding Z98.84 ; Excess skin of abdomen L98.7 and Encounter for examination of blood pressure without abnormal findings Z01.[address] [facility] [address] [place] [address] 02/20/2025 JE BORHOT Overweight E66.3 ; B DC 27.0-27.9,adult Z68.27 ; Dietary counseling and surveillance Z71.3 ; Hx of laparoscopic gastric banding Z98.84 ; Excess skin of abdomen L98.7 and Encounter for examination of blood pressure without abnormal findings Z01.30 [facility] [address] [address] 04/07/2024 JE BORHOT [facility] [address] [address] 05/21/2024 JE BORHOT [facility] [address] [facility] [address] [place] [address] 07/29/2024 JE BORHOT [facility] [address] [address] 08/24/2024 JE BORHOT [facility] [address] [address] 10/14/2024 JE BORHOT [facility] [address] [place] [address] 11/12/2024 JE BORHOT Overweight E66.3 [facility] [address] [address] 01/21/2025 JE BORHOT Assessments Encounter Date Diagnosis [...] reviewed. Dictation completed with the use of Handpressions voice recognition software, prone to medical misidentifications [...] reviewed. Dictation completed with the use of Hand[employer] voice recognition software, prone to medical misidentifications [...] minimum of 6 months The most recent [place] [employer] endocrinologists and [place] [employer] guidelines recommend patients who [...] software and direct typing Please excuse inadvertent cleat layer or typing errors, or uncorrected word substitutions Although every attempt has been made by the provider to proofread this document, occasional misspellings and typographical errors may still be present Due to the previous pandemic, and the use of personal protective equipment (PPE) This may decrease voice recognition accuracy Inadvertent cleat layer errors may occur 05/26/2024 BMI 26.0-26.9,adult (ICD-10 [...] minimum of 6 months The most recent [place] [employer] endocrinologists and [place] [employer] guidelines recommend patients who [...] software and direct typing Please excuse inadvertent cleat layer or typing errors, or uncorrected word substitutions Although every attempt has been made by the provider to proofread this document, occasional misspellings and typographical errors may still be present Due to the previous pandemic, and the use of personal protective equipment (PPE) This may decrease voice recognition accuracy Inadvertent cleat layer errors may occur 08/24/2024 Overweight (ICD-10 - [...] software and direct typing Please excuse inadvertent cleat layer or typing errors, or uncorrected word substitutions Although every attempt has been made by the provider to proofread this document, occasional misspellings and typographical errors may still be present Due to the previous pandemic, and the use of personal protective equipment (PPE) This may decrease voice recognition accuracy Inadvertent cleat layer errors may occur 08/24/2024 BMI 25.0-25.9,adult (ICD-10 [...] software and direct typing Please excuse inadvertent cleat layer or typing errors, or uncorrected word substitutions Although every attempt has been made by the provider to proofread this document, occasional misspellings and typographical errors may still be present Due to the previous pandemic, and the use of personal protective equipment (PPE) This may decrease voice recognition accuracy Inadvertent cleat layer errors may occur 10/10/2024 Overweight (ICD-10 - E66.3) #Weight Management 10/10/2024 Follow-up on lab from [facility] She will continue 1.7 mg of [...] software and direct typing Please excuse inadvertent cleat layer or typing errors, or uncorrected word substitutions Although every attempt has been made by the provider to proofread this document, occasional misspellings and typographical errors may still be present Due to the previous pandemic, and the use of personal protective equipment (PPE) This may decrease voice recognition accuracy Inadvertent cleat layer errors may occur 10/10/2024 BMI 25.0-25.9,adult (ICD-10 - Z68.25) #Weight Management 10/10/2024 Follow-up on lab from [facility] She will continue 1.7 mg of [...] software and direct typing Please excuse inadvertent cleat layer or typing errors, or uncorrected word substitutions Although every attempt has been made by the provider to proofread this document, occasional misspellings and typographical errors may still be present Due to the previous pandemic, and the use of personal protective equipment (PPE) This may decrease voice recognition accuracy Inadvertent cleat layer errors may occur 11/12/2024 Overweight (ICD-10 - E66.3) 12/12/2024 Overweight (ICD-10 - E66.3) #Weight Management 12/12/2024 Follow-up on lab from [facility] Increase Wegovy to 2.4 mg Discussed [...] software and direct typing Please excuse inadvertent cleat layer or typing errors, or uncorrected word substitutions Although every attempt has been made by the provider to proofread this document, occasional misspellings and typographical errors may still be present Due to the previous pandemic, and the use of personal protective equipment (PPE) This may decrease voice recognition accuracy Inadvertent cleat layer errors may occur 12/12/2024 BMI 27.0-27.9,adult (ICD-10 - Z68.27) #Weight Management 12/12/2024 Follow-up on lab from [facility] Increase Wegovy to 2.4 mg Discussed [...] software and direct typing Please excuse inadvertent cleat layer or typing errors, or uncorrected word substitutions Although every attempt has been made by the provider to proofread this document, occasional misspellings and typographical errors may still be present Due to the previous pandemic, and the use of personal protective equipment (PPE) This may decrease voice recognition accuracy Inadvertent cleat layer errors may occur 02/20/2025 Overweight (ICD-10 - E66.3) #Weight Management 02/23/2025 Lets update some labs the other ones are somewhat limited and we have limited access to [facility] Continue 2.4 mg of Wegovy Discussed [...] software and direct typing Please excuse inadvertent cleat layer or typing errors, or uncorrected word substitutions Although every attempt has been made by the provider to proofread this document, occasional misspellings and typographical errors may still be present Due to the previous pandemic, and the use of personal protective equipment (PPE) This may decrease voice recognition accuracy Inadvertent cleat layer errors may occur 02/20/2025 BMI 27.0-27.9,adult (ICD-10 - Z68.27) #Weight Management 02/23/2025 Lets update some labs the other ones are somewhat limited and we have limited access to [facility] Continue 2.4 mg of Wegovy Discussed [...] software and direct typing Please excuse inadvertent cleat layer or typing errors, or uncorrected word substitutions Although every attempt has been made by the provider to proofread this document, occasional misspellings and typographical errors may still be present Due to the previous pandemic, and the use of personal protective equipment (PPE) This may decrease voice recognition accuracy Inadvertent cleat layer errors may occur 12/12/2024 Dietary counseling and surveillance (ICD-10 - Z71.3) #Weight Management 12/12/2024 Follow-up on lab from [facility] Increase Wegovy to 2.4 mg Discussed [...] software and direct typing Please excuse inadvertent cleat layer or typing errors, or uncorrected word substitutions Although every attempt has been made by the provider to proofread this document, occasional misspellings and typographical errors may still be present Due to the previous pandemic, and the use of personal protective equipment (PPE) This may decrease voice recognition accuracy Inadvertent cleat layer errors may occur 02/20/2025 Dietary counseling and surveillance (ICD-10 - Z71.3) #Weight Management 02/23/2025 Lets update some labs the other ones are somewhat limited and we have limited access to [facility] Continue 2.4 mg of Wegovy Discussed [...] software and direct typing Please excuse inadvertent cleat layer or typing errors, or uncorrected word substitutions Although every attempt has been made by the provider to proofread this document, occasional misspellings and typographical errors may still be present Due to the previous pandemic, and the use of personal protective equipment (PPE) This may decrease voice recognition accuracy Inadvertent cleat layer errors may occur 10/10/2024 Dietary counseling and surveillance (ICD-10 - Z71.3) #Weight Management 10/10/2024 Follow-up on lab from [facility] She will continue 1.7 mg of [...] software and direct typing Please excuse inadvertent cleat layer or typing errors, or uncorrected word substitutions Although every attempt has been made by the provider to proofread this document, occasional misspellings and typographical errors may still be present Due to the previous pandemic, and the use of personal protective equipment (PPE) This may decrease voice recognition accuracy Inadvertent cleat layer errors may occur 08/24/2024 Dietary counseling and [...] software and direct typing Please excuse inadvertent cleat layer or typing errors, or uncorrected word substitutions Although every attempt has been made by the provider to proofread this document, occasional misspellings and typographical errors may still be present Due to the previous pandemic, and the use of personal protective equipment (PPE) This may decrease voice recognition accuracy Inadvertent cleat layer errors may occur 05/26/2024 Dietary counseling and [...] minimum of 6 months The most recent [place] [employer] clinical endocrinologists and [place] [employer] guidelines recommend patients who [...] software and direct typing Please excuse inadvertent cleat layer or typing errors, or uncorrected word substitutions Although every attempt has been made by the provider to proofread this document, occasional misspellings and typographical errors may still be present Due to the previous pandemic, and the use of personal protective equipment (PPE) This may decrease voice recognition accuracy Inadvertent cleat layer errors may occur 04/07/2024 Essential hypertension (ICD-10 [...] reviewed. Dictation completed with the use of Handpressions voice recognition software, prone to medical misidentifications [...] reviewed. Dictation completed with the use of Handpressions voice recognition software, prone to medical misidentifications [...] minimum of 6 months The most recent [place] [employer] clinical endocrinologists and [place] [employer] guidelines recommend patients who [...] software and direct typing Please excuse inadvertent cleat layer or typing errors, or uncorrected word substitutions Although every attempt has been made by the provider to proofread this document, occasional misspellings and typographical errors may still be present Due to the previous pandemic, and the use of personal protective equipment (PPE) This may decrease voice recognition accuracy Inadvertent cleat layer errors may occur 08/24/2024 Hx of laparoscopic [...] software and direct typing Please excuse inadvertent cleat layer or typing errors, or uncorrected word substitutions Although every attempt has been made by the provider to proofread this document, occasional misspellings and typographical errors may still be present Due to the previous pandemic, and the use of personal protective equipment (PPE) This may decrease voice recognition accuracy Inadvertent cleat layer errors may occur 10/10/2024 Hx of laparoscopic gastric banding (ICD-10 - Z98.84) #Weight Management 10/10/2024 Follow-up on lab from [facility] She will continue 1.7 mg of [...] software and direct typing Please excuse inadvertent cleat layer or typing errors, or uncorrected word substitutions Although every attempt has been made by the provider to proofread this document, occasional misspellings and typographical errors may still be present Due to the previous pandemic, and the use of personal protective equipment (PPE) This may decrease voice recognition accuracy Inadvertent cleat layer errors may occur 12/12/2024 Hx of laparoscopic gastric banding (ICD-10 - Z98.84) #Weight Management 12/12/2024 Follow-up on lab from [facility] Increase Wegovy to 2.4 mg Discussed [...] software and direct typing Please excuse inadvertent cleat layer or typing errors, or uncorrected word substitutions Although every attempt has been made by the provider to proofread this document, occasional misspellings and typographical errors may still be present Due to the previous pandemic, and the use of personal protective equipment (PPE) This may decrease voice recognition accuracy Inadvertent cleat layer errors may occur 02/20/2025 Hx of laparoscopic gastric banding (ICD-10 - Z98.84) #Weight Management 02/23/2025 Lets update some labs the other ones are somewhat limited and we have limited access to [facility] Continue 2.4 mg of Wegovy Discussed [...] software and direct typing Please excuse inadvertent cleat layer or typing errors, or uncorrected word substitutions Although every attempt has been made by the provider to proofread this document, occasional misspellings and typographical errors may still be present Due to the previous pandemic, and the use of personal protective equipment (PPE) This may decrease voice recognition accuracy Inadvertent cleat layer errors may occur 02/20/2025 Excess skin of abdomen (ICD-10 - L98.7) #Weight Management 02/23/2025 Lets update some labs the other ones are somewhat limited and we have limited access to [facility] Continue 2.4 mg of Wegovy Discussed [...] software and direct typing Please excuse inadvertent cleat layer or typing errors, or uncorrected word substitutions Although every attempt has been made by the provider to proofread this document, occasional misspellings and typographical errors may still be present Due to the previous pandemic, and the use of personal protective equipment (PPE) This may decrease voice recognition accuracy Inadvertent cleat layer errors may occur 12/12/2024 Excess skin of abdomen (ICD-10 - L98.7) #Weight Management 12/12/2024 Follow-up on lab from [facility] Increase Wegovy to 2.4 mg Discussed [...] software and direct typing Please excuse inadvertent cleat layer or typing errors, or uncorrected word substitutions Although every attempt has been made by the provider to proofread this document, occasional misspellings and typographical errors may still be present Due to the previous pandemic, and the use of personal protective equipment (PPE) This may decrease voice recognition accuracy Inadvertent cleat layer errors may occur 10/10/2024 Excess skin of abdomen (ICD-10 - L98.7) #Weight Management 10/10/2024 Follow-up on lab from [facility] She will continue 1.7 mg of [...] software and direct typing Please excuse inadvertent cleat layer or typing errors, or uncorrected word substitutions Although every attempt has been made by the provider to proofread this document, occasional misspellings and typographical errors may still be present Due to the previous pandemic, and the use of personal protective equipment (PPE) This may decrease voice recognition accuracy Inadvertent cleat layer errors may occur 08/24/2024 Excess skin of [...] software and direct typing Please excuse inadvertent cleat layer or typing errors, or uncorrected word substitutions Although every attempt has been made by the provider to proofread this document, occasional misspellings and typographical errors may still be present Due to the previous pandemic, and the use of personal protective equipment (PPE) This may decrease voice recognition accuracy Inadvertent cleat layer errors may occur 05/26/2024 Excess skin of [...] minimum of 6 months The most recent [place] [employer] of clinical endocrinologists and [place] [employer]in[employer] guidelines recommend patients who [...] software and direct typing Please excuse inadvertent cleat layer or typing errors, or uncorrected word substitutions Although every attempt has been made by the provider to proofread this document, occasional misspellings and typographical errors may still be present Due to the previous pandemic, and the use of personal protective equipment (PPE) This may decrease voice recognition accuracy Inadvertent cleat layer errors may occur 04/07/2024 Nutritional counseling (ICD-10 [...] reviewed. Dictation completed with the use of Handpressions voice recognition software, prone to medical misidentifications [...] #Weight Management 10/10/2024 Follow-up on lab from [facility] She will continue 1.7 mg of [...] software and direct typing Please excuse inadvertent cleat layer or typing errors, or uncorrected word substitutions Although every attempt has been made by the provider to proofread this document, occasional misspellings and typographical errors may still be present Due to the previous pandemic, and the use of personal protective equipment (PPE) This may decrease voice recognition accuracy Inadvertent cleat layer errors may occur 12/12/2024 Encounter for examination of blood pressure without abnormal findings (ICD-10 - Z01.30) #Weight Management 12/12/2024 Follow-up on lab from [facility] Increase Wegovy to 2.4 mg Discussed [...] software and direct typing Please excuse inadvertent cleat layer or typing errors, or uncorrected word substitutions Although every attempt has been made by the provider to proofread this document, occasional misspellings and typographical errors may still be present Due to the previous pandemic, and the use of personal protective equipment (PPE) This may decrease voice recognition accuracy Inadvertent cleat layer errors may occur 02/20/2025 Encounter for examination of blood pressure without abnormal findings (ICD-10 - Z01.30) #Weight Management 02/23/2025 Lets update some labs the other ones are somewhat limited and we have limited access to [facility] Continue 2.4 mg of [place] Discussed [...] software and direct typing Please excuse inadvertent cleat layer or typing errors, or uncorrected word substitutions Although every attempt has been made by the provider to proofread this document, occasional misspellings and typographical errors may still be present Due to the previous pandemic, and the use of personal protective equipment (PPE) This may decrease voice recognition accuracy Inadvertent cleat layer errors may occur Plan Of Treatment Pending [...] PRESSLEY, 04/03/2025 09:30:00 AM, [address], [place], [address], Insurance Providers Payer Name Payer Address Payer Phone Subscriber Number Group Number Insured Name Patient Relationship to Insured Coverage Start Date Coverage End Date [facility] [address] [place] [address] [phone] [id number] Mary Edmonds Self - patient is [...]
--- OUTSIDE RECORDS SUMMARY | 2025-03-23 08:53 | XMS_ITS | Encounter Summary ---
Author Organization [employer] Address [address] [place] [address] Care Team Providers Care Senior Windows Administrator Name Role Phone Yaritza Chapman MD Primary Care Provider [phone] Encounter Details Date Type Department Care Team (Late st Contact Info) Description 09/23/2023 Orders Only [facility] [address] [place] [address] Provider, MD Jessi Social History Tobacco Use [...] (06/01/2024 9:48 AM EST) Color Urine Yellow [facility] Appearance Urine Clear [facility] PH 7.0 5.0 - 9.0 [facility] Glucose Urine UA Negative Negative mg/dL [facility] Urine Blood Negative Negative [facility] Specific [place] - Urine 1.020 1.005 - 1.025 [facility] Urine Protein Negative Neg-Trace mg/dL [facility] Urine Ketones Negative Negative mg/dL [facility] Nitrite Urine Negative Negative [facility] Leukocyte Esterase Urine Negative Negative [facility] 06/01/2024 9:48 AM EST 06/01/2024 9:53 AM EST Narrative [facility] - 06/01/2024 9:58 AM EST Urine, Clean Catch Generic External Data Provider LAB URINE ORDERAB LES Final Result Performing Organization Address [facility] Co de Phone Number [facility] [address] [place] [phone] * SARS-CoV-2 RNA, Influenza A/B, and RSV RNA, Ql NAAT (06/01/2024 9:47 AM EST) Influenza A PCR NEGATIVE Negative [facility] Influenza B PCR NEGATIVE Negative [facility] Resp Syncy Virus RNA Qual PCR NEGATIVE Negative [facility] SARS COV2 PCR NEGATIVE Negative [facility] Comment:All test results mus t [...] use by authorized laboratories.Testing performed on the [employer] GeneXpert utilizingreal-time RT-PCR.All SARS CoV2 and positive influenza A/B results arereported to [facility]. 06/01/2024 9:47 AM EST 06/01/2024 9:53 AM EST us Generic External Data Provider LAB MICROBIOLOGY - GENERAL ORDERABLES Final Result Performing Organization Address [facility] Co de Phone Number [facility] [address] [place] [phone] * (ABNORMAL) CBC auto differential (06/01/2024 9:09 AM EST) White Blood Count 9.7 4.8 - 10.8 X10*3/uL [facility] Red Blood Count 4.28 4.20 - 5.50 X10*6/uL [facility] Hemoglobin 12.7 12.0 - 16.0 g/dl [facility] Hematocrit 37.8 37.0 - 47.0 % [facility] Mean Corpuscular Volume 88.3 80.0 - 98.0 fL [facility] Mean Corpuscular Hemoglobin 29.7 27.0 - 33.0 pg [facility] Mean Corpuscular HGB Conc 33.6 31.0 - 35.0 g/dl [facility] Red Cell Distribution Width 12.8 11.0 - 16.0 % [facility] Platelet Count 303 160 - 400 X10*3/uL [facility] Mean Platelet Volume 10.2 9.4 - 12.3 fL [facility] Neutrophils Percent Auto 76.7(H) 45 - 73 % [facility] Imm Gran Pct Auto 0.3 0.0 - 0.4 % [facility] Lymphocytes Percent Auto 15.3(L) 20 - 40 % [facility] Monocytes Percent Auto 6.4 2 - 11 % [facility] Eosinophils Percent Auto 0.7 0 - 4 % [facility] Basophils Percent Auto 0.6 0 - 2 % [facility] NRBC Pct Auto 0.0 0.0 - 0.2 /100WBC [facility] Neutrophils Absolute Auto 7.5 2.0 - 8.3 x10*3/uL [facility] Imm Gran Abs Auto 0.03 0.00 - 0.03 X10*3/uL [facility] Lymphocytes Absolute Auto 1.5 1.2 - 4.9 X10*3/uL [facility] Monocytes Absolute Auto 0.6 0.1 - 1.2 X10*3/uL [facility] Eosinophils Absolute Auto 0.1 0.0 - 0.4 X10*3/uL [facility] Basophils Absolute Auto 0.1 0.0 - 0.2 X10*3/uL [facility] NRBC Abs Auto 0.000 0.0 - 0.012 X10*3/uL [facility] 06/01/2024 9:09 AM EST 06/01/2024 9:11 AM EST Generic External Data Provider LAB BLOOD ORDERAB LES Final Result Performing Organization Address [facility]/ZIP Co de Phone Number [facility] [address] [place] [phone] * Lipase (06/01/2024 9:08 AM EST) Pathologist [facility] Lipase 37 8 - 78 U/L [facility] 06/01/2024 9:08 AM EST 06/01/2024 9:11 AM EST us Generic External Data Provider LAB BLOOD ORDERAB LES Final Result Performing Organization Address [facility] Co de Phone Number [facility] [address] [place] [address] [phone] * Hepatic Function Panel (06/01/2024 9:08 AM EST) Pathologist [facility] Bilirubin, Direct 0.2 0.0 - 0.5 mg/dL [facility] 06/01/2024 9:08 AM EST 06/01/2024 9:11 AM EST us Generic External Data Provider LAB BLOOD ORDERAB LES Final Result Performing Organization Address [facility] de Phone Number [facility] [address] [place] [address] [phone] * (ABNORMAL) Comprehensive Metabolic Panel (06/01/2024 9:08 AM EST) Sodium 141 135 - 145 mmol/L [facility] Potassium 4.1 3.3 - 5.1 mmol/L [facility] Chloride 108 96 - 108 mmol/L [facility] Carbon Dioxide 27 22 - 29 mmol/L [facility] Anion Gap 10(L) 12 - 20 [facility] Urea Nitrogen (BUN) 10 9 - 16 mg/dL [facility] Creatinine, Serum 0.75 0.5 - 1.4 mg/dL [facility] Creatinine Clr Calc Pharmacy 71.1 [facility] Comment:Provided height and weight: 154.94 cm,64.5 kg.eGFR (calculated from the MDRD study equation) and eCrCl(calculated from the Cockcroft-Gault equation) are based ondifferent parameters and may not yield comparable results.If eCrCl result is absurd, please check patient'sheight/weight. Estimated Glomerular Filt Rate >60 [facility] Comment:Chronic Kidney Disea se: Estimated GFR < 60 mL/min/1.38e7Rrqdtj Kidney Disease: Estimated GFR < 15 mL/min/1.73m2 Glucose 84 60 - 115 mg/dL [facility] Calcium 10.0 8.4 - 10.2 mg/dL [facility] Bilirubin, Total 0.6 0.0 - 1.0 mg/dL [facility] Aspartate Amino Transferase 27 5 - 31 U/L [facility] Alanine Aminotransferase 16 0 - 31 U/L [facility] Total Protein 7.3 6.5 - 8.0 g/dL [facility] Albumin Level 4.0 3.5 - 5.0 g/dL [facility] Alkaline Phosphatase 91 39 - 117 U/L [facility] 06/01/2024 9:08 AM EST 06/01/2024 9:11 AM EST us Generic External Data Provider LAB BLOOD ORDERAB LES Final Result [facility] [address] [place] [phone] * Colonoscopy (07/20/2022 9:25 AM EST) us Historical Provider HEALTH MAINTENANCE Final Result * Hm Colonoscopy (03/28/2018 9:23 AM EST) us Historical Provider HEALTH MAINTENANCE Final Result documented in this encounter Visit Diagnoses Not on filedocumented in this encounter Additional Health Concerns Assessment Noted Time PHQ-9 Depression Total Score: 3 09/17/19 24 10:06 AM EDT documented as of this encounter Care Teams Senior Windows Administrator Relationship Specialty Start Date End Date Yaritza Chapman MD [address] [place] [phone] PCP - General Family Medicine 05/24/22 documented as of this encounter
--- OUTSIDE RECORDS SUMMARY | 2025-03-23 08:53 | XMS_ITS | Encounter Summary ---
Author Organization [employer] Address [address] [facility] [address]t [place] [address] Care Team Providers Care Shrimp Peeler Name Role Phone Yaritza Chapman MD Primary Care Provider [phone] Reason for Visit * Reason Comments Med Refill Encounter Details Date Type Department Care Team ([facility] Contact Info) Description 10/29/2023 Refill [facility] [address] [place] [address] Jarad Petty, KIRSTIE [address] [place] [address] Social History Tobacco Use Types Packs/Day Years [...] documented as of this encounter Care Teams Shrimp Peeler Relationship Specialty Start Date End Date Yaritza Chapman MD [address] [place] [address] PCP - General Family Medicine 05/24/22 documented as of this encounter
--- OUTSIDE RECORDS SUMMARY | 2025-03-23 08:53 | XMS_ITS | Clinical Summary ---
Author Organization [facility] Address [address] [place] [phone] Phone Care Team Providers Care Director Television Name Role Phone Yaritza Chapman MD Primary [...] topic Medical Devices Not on file Insurance [facility] Care Teams Director Television Relationship Specialty Start Date End Date Yaritza Chapman MD PCP - General Family Medicine 12/30/23 Additional Source Comments The information contained in this document represents components of the legal health record. It is not the complete legal health record.[facility]
--- OUTSIDE RECORDS SUMMARY | 2025-03-23 08:53 | XMS_ITS | Encounter Summary ---
Author Organization [employer] Address [address] [place] [address] Care Team Providers Care Core Machine Tender Name Role Phone Yaritza Chapman MD Primary Care Provider [phone] Reason for Visit * Reason Comments Med Refill Encounter Details Date Type Department Care Team ([facility] Contact Info) Description 10/01/2023 Refill [facility] [address] [place] [address] Jarad Petty, KIRSTIE [address] [place] [address] Social History Tobacco Use Types Packs/Day Years [...] documented as of this encounter Care Teams Core Machine Tender Relationship Specialty Start Date End Date Yaritza Chapman MD [address] [place] [address] PCP - General Family Medicine 05/24/22 documented as of this encounter
--- OUTSIDE RECORDS SUMMARY | 2025-03-23 08:53 | XMS_ITS | Encounter Summary ---
Author Organization [employer] Address [address] [facility] 7t [place] [address] Care Team Providers Care Swimmer Name Role Phone Yaritza Chapman MD Primary Care Provider [phone] Reason for Visit * Reason Onset Date Comments antibiotics 03/06/2023 Encounter Details Date Type Department Care Team ([facility] Contact Info) Description 03/06/2023 Telephone [facility] AD[facility] [address] [place] [address] Jarad Petty, DMD [address] [place] [address] antibiotics Social History Tobacco Use Types Packs/Day [...] on filedocumented in this encounter Care Teams Swimmer Relationship Specialty Start Date End Date Yaritza Chapman MD [address] [place] [phone] PCP - General Family Medicine 05/24/22 documented as of this encounter
--- OUTSIDE RECORDS SUMMARY | 2025-03-23 08:53 | XMS_ITS | Clinical Summary ---
Author Organization [employer] Address [address] [facility] 7t [place] [address] Care Team Providers Care Correction Officer Reformatory Name Role Phone Yaritza Chapman MD Primary Care Provider [phone] Allergies Active Allergy Reactions Criticality Noted Date [...] 24 Active sodium chloride ([facility] [place]) 0.65 % nasal sprayIndications:A llergic rhinitis, unspecified [...] lung cancer is ongoing, this recent study (https://www.ncbi.nlm.nih.gov/pmc/articles/CIF9183463/) suggests four biomarkers in combination can give [...] as tolerated She will inform me via [email or web address] of her pain in 3-4 months Assessment [...] Description 02/11/2025 8:40 AM EDT Office Visit [facility] [address] [place] [phone] Guzman Saleem MD Right ankle swelling (Primary Dx) 02/11/2025 Travel 01/01/2025 11:15 AM EDT Office Visit [facility] [address] [place] [address] Yaritza Chapman MD Excess skin of arm (Primary Dx); Mild intermittent asthma without complication; Dietary counseling; Exercise counseling; Overweight; Primary osteoarthritis of both knees; Allergic rhinitis, unspecified seasonality, unspecified trigger 01/01/2025 Travel 12/31/[address] [facility] [address] [place] [address] Yaritza Chapman MD chart prep 12/28/2024 Travel [...] AM EDT Narrative 02/11/2025 9:40 AM EDT [address] [address] XRay Report Signed Patient: Mary Edmonds MR#: [id number] : 1965 Acct:[id number] Age/Sex: 59 / F ADM Date: 02/11/25 Loc: DORCASX Attending Dr: Guzman Saleem MD Ordering Physician: Guzman Saleem MD Date of Service: 02/11/25 Procedure(s): XR ankle RT min 3V Accession Number(s): [id number] cc: Guzman Saleem MD Reason for Exam: [...] in OV> 02/11/25936 DD/ 6 TD/TT: 02/11/25926 Physician Chief Of Pathology: Procedure Note Donotuseinterpreter, Image - 02/11/2025 [place] [address] XRay Report Signed Patient: Mary Edmonds#: [id number] : 1965Acct:[id number] Age/Sex: 59 / FADM Date: 02/11/25 Loc: JAYLENCX Attending Dr: Guzman Saleem MD Ordering Physician: Guzman Saleem MD Date of Service: 02/11/25 Procedure(s): XR ankle RT min 3V Accession Number(s): [id number] cc: Guzman Saleem MD Reason for Exam: [...] MDin OV> 02/11/25936 DD/ 6 TD/TT: 02/11/25926 Physician Chief Of Pathology: Guzman Saleem MD IMG XR PROCEDURES Edited Result - Final * BI Mammogram Screening Tomosynthesis Bilateral (12/04/2023 7:34 AM EDT) Anatomical Region Laterality Modality Breast Bilateral Mammography 12/04/2023 7:34 AM EDT Narrative 12/18/2023 4:57 PM EDT [facility] [address] [place] [address] Mammography Report Signed Patient: Mary Edmonds MR#: [id number] : 1965 Acct:[id number] Age/Sex: 58 / F ADM Date: 12/04/23 Loc: HO.MAMMO Attending Dr: Yaritza Chapman MD Ordering Physician: Yaritza Chapman Results: 1Negative Date of Service: 12/04/23 Follow Up: 1 Year From [facility] ina Mammogram Procedure(s): MM tomosynthesis screening BI Accession Number(s): [id number] cc: Yaritza Chapman EXAMINATION: MM SCREENING DIGITAL [...] in OV> 12/18/23 1653 DD/ 0734 TD/TT: Physician Chief Of Pathology: Procedure Note Donotuseinterpreter, Image - 12/18/2023 [facility] [address] [place] [address] Mammography Report Signed Patient: Mary EdmondsMR#: [id number] : 1965Acct:[id number] Age/Sex: 58 / FADM Date: 12/04/23 Loc: OSMANI Attending Dr: Yaritza Chapman MD Ordering Physician: Brenda Chapmanults: 1Negative Date of Service: 12/04/23Follow Up: 1 Year From Orig inal Mammogram Procedure(s): MM tomosynthesis screening BI Accession Number(s): [id number] cc: Yaritza Chapman EXAMINATION: MM SCREENING DIGITAL [...] in OV> 12/18/23 1653 DD/ 0734 TD/TT: Physician Chief Of Pathology: Yaritza Chapman MD IMG BI PROCEDURES Final Result * Hm Colonoscopy (07/20/2022 9:25 AM EST) Historical Provider HEALTH MAINTENANCE Final Result * HPV E6/E7 RFLX ABY 16 18/45 (07/28/2021 8:41 AM EDT) HPV mRNA E6/E7 rflx Not Detected Not Detected [facility] Comment: Methodology: Refinery Operator Reforming Unit-Mediated Amplification This assay detects E6/E7 viral messenger RNA (mRNA) from 14 high-risk HPV types (16,18,31,33,35,39,45,51,52,56,58,59,66,68). The analytical performance characteristics of this assay have been determined by [employer]. The modifications have not been cleared or approved by the FDA. This assay has been validated pursuant to the CLIA regulations and is used for clinical purposes. For additional information, please refer to http://education.Dataslide/faq/YFZ545y7 (This link if provided for information/ educational purposes only.) THIS TEST WAS PERFORMED AT: [facility] [address] [place] [address] FLOOR,[place] [address] IRASEMA DIAS MD 07/28/2021 8:41 AM EDT Nandini Miranda HISTORICAL/NON ORDERABLE LABS Fi nal Result [facility] [address] * Pap Smear (07/28/2021 12:00 AM EDT) Swab Historical Provider LAB CYTOLOGY ORDERABLES F inal Result [facility] [address] [facility], [place] [address] * LIPID PANEL, STANDARD (06/13/2020 8:16 AM [...] LDL-C. Chandra SS et al. CAR[place]. 2013;310(19): 7632-8591 (http://education.[employer].Prized/faq/LWH556) Non-HDL Cholesterol 95 <130 mg/dL (calc) [facility] Comment: For patients with diabetes plus 1 major ASCVD risk factor, treating to a non-HDL-C goal of <100 mg/dL (LDL-C of <70 mg/dL) is considered a therapeutic option. Triglycerides 89 <150 mg/dL [facility] 06/13/2020 8:16 AM EST Inderjit Lozano MD LAB BLOOD ORDERABLES Final R esult [facility] [address] from Last 3 Months or Most Recently Relevant to Health Maintenance Insurance [employer] H[place] [facility] STAND ADULT Care Teams Correction Officer Reformatory Relationship Specialty Start Date End Date Yaritza Chapman MD [address] [place] [address] PCP - General Family Medicine 05/24/22
--- OUTSIDE RECORDS SUMMARY | 2025-03-23 08:53 | XMS_ITS | Clinical Summary ---
Author Organization [address] [place] [address] Address [address] [place] [address] Phone Care Team Providers Care Computer Systems Technician Name Role Phone Yaritza Chapman MD Primary Care Provider Social History Tobacco Use Types Packs/Day Years [...] patient's age to complete this topic Insurance [facility] Care Teams Computer Systems Technician Relationship Specialty Start Date End Date Yaritza Chapman MD [address] [place] [phone] PCP - General Oyster Buyer 11/12/24
== END 2025-03-22 08:43 | disposition home or self-care (01) ==
LOC: HO.HOSX 08:42
PROVIDERS: Visit Provider Physician Assistant
DX: M17.0 Bilateral primary osteoarthritis of knee (principal)
CPT/HCPCS: 73562